=== PATIENT | female | born 1930 | race Caucasian/White ===

== ENCOUNTER 2016-04-26 10:26 | Emergency (ER) | payer BC ==
[~2016-04-26] VITALS: Ht 160 cm; Wt 63.1 kg
[~2016-04-26 10:26] MED LIST: ASPI81TA28 PO; CALCTAB5 PO; CHOL1CAP57 PO; LISI40TA PO; MAGNTAB4 PO; MULT-506 PO; NITR100C PO; TPRSR/50 PO
[2016-04-26 10:45] VITALS: TEMP 36.6; Ht 160 cm; Wt 63.1 kg
[2016-04-26] MEDS ORDERED: ACET650T66 PO (10:58)
[2016-04-26] MEDS ORDERED: INDA1TAB3 PO (10:59)
[2016-04-26] MEDS ORDERED: MoRPHine SULFATE 4 MG/ML 1 ML CARP\\VIAL IM STA (11:13)
[2016-04-26] MEDS ORDERED: MoRPHine SULFATE 10 MG/ML CARP/VIAL IM STA (11:21)
--- NOTE | 2016-04-26 12:06 | DIAGNOSTIC IMAGING REPORT ---
LUMBAR SPINE 2 OR 3 VIEWS CLINICAL HISTORY: Low back pain COMPARISON STUDY: No previous studies for comparison. FINDINGS: There is a lumbar scoliosis. There are multilevel degenerative changes with disc space narrowing most pronounced at the L2-3 through L4-5 levels. No acute fractures are visualized. IMPRESSION: Scoliosis and moderate multilevel degenerative change. No acute fractures are visualized on conventional radiographic imaging Electronically signed by: José Antonio Gutierrez M.D. 04/26/2016 12:04 PM
[2016-04-26] MEDS ORDERED: OXYC1TAB3 PO (12:30)
[2016-04-26 12:52] VITALS: BP 178/89; PULSE 72; O2SAT 98
--- NOTE | 2016-04-26 18:27 | EMERGENCY ROOM VISIT NOTE ---
History Report prepared by Angelia: Polina Michael Under the Supervision of: Dr. Estuardo Braun D.O. First contact with patient: 11:00 Chief Complaint: BACK PAIN Stated Complaint: BAD BACK History of Present Illness The patient is a 85 year old female who presents to the Emergency Room with complaints of worsening back pain that started 10 days ago. The pain does not radiate and it is worse when the patient goes from lying down to sitting up and when she goes from sitting to standing. The patient is still able to ambulate. She denies any other complaints including fevers greater than 100.4, chest pain , shortness of breath, problems with urinating or with bowel movements, weakness of arms or legs, abdominal pain, and numbness in her groin. She states that she has a "bad back." The patient states that she was going to physical therapy for the pain because she felt that her abdominal muscles were weak and worsening her pain. She was stretching her hamstrings 10 days ago when she felt a pull in her back. The pain has been getting progressively worse since then. She has been in contact with Dr. Franco but she has not been able to get in for an appointment until this Monday. The patient states that she has a pacemaker in place. The patient denies any history of spinal injections along with any history of cancer. Source of History: patient Onset: 10 days ago Position: back Timing: worsening Modifying Factors (Worsening): other (going from lying down to sitting up and sitting up to standing) Associated Symptoms: No SOB, No abdominal pain, No chest pain, No fevers, No numbness (in groin), No weakness Note: no problems with urinating or with bowel movements Review of Systems See HPI for pertinent positives & negatives. A total of 10 systems reviewed and were otherwise negative. Past Medical & Surgical Medical Problems: (1) Cardiac Dysrhythmias Nec (2) Cardiomegaly (3) Diverticulosis Colon (W/O Ment Of Hemorrhage) (4) Hypertension Nos (5) Osteoporosis Nos Family History FH: heart disease Social History Smoking Status: Never Smoker Alcohol Use: none Drug Use: none Marital Status: Housing Status: lives with family Occupation Status: retired Current/Historical Medications Scheduled Aspirin (Aspirin Ec), 81 MG PO 2XW Cholecalciferol (Vitamin D3), 1,000 INTUNIT PO QAM Indapamide (Lozol), 1.25 MG PO DAILY Lisinopril (Zestril), 40 MG PO DAILY Metoprolol Succinate (Metoprolol Succinate ER), 50 MG PO DAILY Scheduled PRN Acetaminophen (Arthritis Pain), 2 TAB PO Q6H PRN for Pain Oxycodone Immediate Rel Tab (Roxicodone Ir), 5 MG PO Q6H PRN for Pain Allergies Coded Allergies: Sulfa Drugs (Verified Allergy, Mild, RASH, 04/26/16) Physical Exam Vital Signs Date Time Temp Pulse Resp B/P Pulse Ox O2 Delivery O2 Flow Rate FiO2 04/26/16 12:52 72 18 178/89 98 04/26/16 11:58 71 18 183/90 99 Room Air 04/26/16 10:45 36.6 104 18 183/105 96 Room Air Physical Exam GENERAL: alert, ambulating in room holding right lower back, well appearing, well nourished, no acute distress, non-toxic EYE EXAM: normal conjunctiva OROPHARYNX: no exudate, no erythema, lips, buccal mucosa, and tongue normal and mucous membranes are moist NECK: supple, no nuchal rigidity, no adenopathy, non-tender CHEST: Pacemaker located along right chest wall. LUNGS: Clear to auscultation. Normal chest wall mechanics HEART: no murmurs, S1 normal and S2 normal ABDOMEN: abdomen soft, non-tender, normo-active bowel sounds, no masses, no rebound or guarding. BACK: Back is symmetrical on inspection and there is no deformity, no midline tenderness, no CVA tenderness. Acute reproducible tenderness in the right lower lumbar paraspinal region. SKIN: no rashes and no bruising UPPER EXTREMITIES: upper extremities are grossly normal. LOWER EXTREMITIES: No pitting edema.Flexion/extension hip, knee, ankle, EHL 5/5 bilaterally. Gross sensation intact. Patellar and Achilles reflexes 2/4 bilaterally. Able to walk on heels and toes without difficulty. NEURO EXAM: Normal sensorium Medical Decision & Procedures ER Provider Diagnostic Interpretation: Xray results per the radiologist and my interpretation. LUMBAR SPINE 2 OR 3 VIEWS IMPRESSION: Scoliosis and moderate multilevel degenerative change. No acute fractures are visualized on conventional radiographic imaging Electronically signed by: José Antonio Gutierrez M.D. 04/26/2016 12:04 PM Medications Administered Medications (Trade) Dose Ordered Sig/Willy Route Start Time Stop Time Status Last Admin Dose Admin Morphine Sulfate (MoRPHine SULFATE INJ) 6 mg NOW STAT IM 04/26/16 11:21 04/26/16 11:23 DC 04/26/16 11:31 6 MG ED Course ED COURSE: Vital signs were reviewed and showed tachycardia and hypertension. The patients medical record was reviewed The above diagnostic studies were performed and reviewed. ED treatments and interventions as stated above. 1103: The patient was evaluated in room C4. A complete history and physical examination was performed. 1113: Ordered Morphine Sulfate 6 mg IM 1121: Ordered Morphine Sulfate 6 mg IM 1225: Upon reevaluation, the patient is doing much better with the pain medicine. I discussed my findings with the patient and she understands and agrees with the treatment plan. Based on the patients age, coexisting illnesses, exam and lab findings the decision to treat as an outpatient was made. The patient remained stable while under my care. The patient appeared well at the time of discharge. Medical Decision Differential diagnoses includes but is not limited to lumbar radiculopathy, muscle strain, facture, cauda equina, mass, and disc herniation. Patient is an 85-year-old female who presents the ER for right lower lumbar paraspinal tenderness. Patient notes that this started following discharge her hamstrings on the and she felt a pull/pop in her right lower back. Since then the pain has been worsening. She denies any signs of cauda equina. No saddle paresthesias. No weakness or numbness in her legs or groin. She is able to ambulate without difficulty. Completely neurologically intact. X-rays of her lumbar spine showed no acute fracture. Patient was given IM morphine with significant improvement of her pain. I do feel this muscle skeletal. Patient was discharged with muscle skeletal back pain to follow-up with Dr. Franco Monday with Gisella. Discussed with Pt concerning signs and symptoms to watch out for. Pt was instructed to follow up with their PCP and discussed with the patient their option to return to the ED at anytime for persistent or worsening symptoms. The appropriate anticipatory guidance and out-patient management, including indications for return to the emergency department, were explained at length to the patient and understood. Impression Primary Impression: Lower back pain Additional Impressions: Back strain, Hypertension Scribe Attestation The scribe's documentation has been prepared under my direction and personally reviewed by me in its entirety. I confirm that the note above accurately reflects all work, treatment, procedures, and medical decision making performed by me. Departure Information Dispostion Home / Self-Care Prescriptions Oxycodone Immediate Rel Tab (ROXICODONE IR) 5 Mg Tab 5 MG PO Q6H Y for Pain, #20 TAB Prov: KadeEstuardo, DO 04/26/16 Referrals No Doctor, Assigned (PCP) Forms HOME CARE DOCUMENTATION FORM, IMPORTANT VISIT INFORMATION Patient Instructions A Signature Page, Back Pain - [facility], My [facility] Additional Instructions Please follow up with your primary care doctor with in the next 24 hours. Any worsening of your symptoms, please return to the ED immediately. This includes any weakness or numbness in your arms or legs, inability to move her bowels, numbness in her groin, inability to walk or fevers greater than 100.4 along with any other concerning signs and symptoms from your standpoint. You were given medications during this visit that will inhibit your ability to drive, operate machinery and work. Please do NOT drive, operate machinery or work for the next 12hrs. You were also given a prescription for a narcotic. While taking this medication you should also not drive, operate machinery and or work.
[2016-07-10] MEDS ORDERED: TPRSR50 PO (11:55)
[2016-08-11] MEDS ORDERED: ACYC1CAP9 PO (13:25)
== END 2016-04-26 12:55 | disposition home or self-care (01) ==
LOC: C.EDB 10:27 → C.EDC 12:55
DX: S39.012A Strain of muscle, fascia and tendon of lower back, initial encounter (principal); X50.0XXA Overexertion from strenuous movement or load, initial encounter; Z95.0 Presence of cardiac pacemaker; I10 Essential (primary) hypertension; M81.0 Age-related osteoporosis without current pathological fracture; Z79.82 Long term (current) use of aspirin; Z79.899 Other long term (current) drug therapy

== ENCOUNTER → 2016-06-29 | Outpatient (CLI) | payer BC ==
[~2016-06-29] MED LIST changes: +ACET160S78 PO; +ACET650T66 PO; +ACYC1CAP9 PO; -CALCTAB5 PO; +CLC150 PO; +Enteral Nutrition Formula PO; +FLX/5 PO; +GABA1CAP4 PO; +HYDR-4079 PO; +HYDR-5688 PO; +INDA1TAB3 PO; +LCTX PO; +LSX20 PO; -MAGNTAB4 PO; +MELO7.5T5 PO; +MGNO400 PO; +MRPL PO; -MULT-506 PO; +MYL80 PO; -NITR100C PO; +OXYC1TAB3 PO; +POTA10TA PO; +POTTAB2 PO; +PRD10 PO; +PRT40 PO; +TPRSR50 PO; +TUMS PO; +VALA1TAB31 PO; +ZFRI4 IV; +[UNRECOGNIZED DRUG - CODE] PO
[2016-06-29 14:03] LABS: BASO % 0.7 %; BASO ABS # 0.05 K/uL (0-0.2); COMPLETE YES; EOS % 0.6 %; HEMATOCRIT 26.9 % (37-47); IG% 0.7 %; LYMPH % 32.4 %; LYMPH ABS # 2.23 K/uL (1.2-3.4); MEAN CELL VOLUME 94.4 fL (80-100); MEAN CORPUSCULAR HEMOGLOBIN 31.9 pg (25-34); MEAN CORPUSCULAR HGB CONC 33.8 g/dl (32-36); MEAN PLATELET VOLUME 10.2 fL (7.4-10.4); NEUT % 55.6 %; PLATELET COUNT 135 K/uL (130-400); RED BLOOD COUNT 2.85 M/uL (4.2-5.4); WHITE BLOOD COUNT 6.89 K/uL (4.8-10.8)
[2016-06-29 14:15] LABS: URINE APPEARANCE CLOUDY (CLEAR); URINE BILIRUBIN NEG (NEG); URINE COLOR YELLOW; URINE EPITHELIAL CELL AUTO >30 /lpf (0-5); URINE NITRITE NEG (NEG); URINE PH 6.5 (4.5-7.5); URINE SPECIFIC GRAVITY 1.011 (1.000-1.030); UROBILINOGEN NEG (NEG)
[2016-06-29 14:16] LABS: BLOOD UREA NITROGEN 27 mg/dl (7-18); BUN/CREATININE RATIO 20.5 (10-20); CALCIUM 10.6 mg/dl (8.5-10.1); CARBON DIOXIDE 28 mmol/L (21-32); CHLORIDE 101 mmol/L (98-107); GLUCOSE 99 mg/dl (70-99); POTASSIUM 3.9 mmol/L (3.5-5.1); SODIUM 137 mmol/L (136-145)
[2016-06-29 14:18] LABS: MANUAL MICROSCOPIC REQUIRED? NO; REVIEW REQ? YES
--- NOTE | 2016-07-08 06:51 | CODING QUERY MEDICAL NECESSITY ---
CQSUPPORTING DIAGNOSIS NEEDED A supporting diagnosis is required for the test/procedure performed on this patient in order for us to be reimbursed by the patient's insurance. Please provide a supporting diagnosis for the following test/procedure listed below next to the test name along with your signature. *If there is no additional diagnosis for this patient that would support the following test/procedure please document that below next to the test/procedure. Test(s)/Procedure(s) that require a supporting diagnosis: DOS 06/29/16 URINE CULTURE BACTERIAL TEST TEST ORDERED BY HAO OSBORNE Provider Signature: Date: Thank you Angelique Zhu Health Information Management Once completed, please kindly fax back to [phone] For questions please call [phone]
== END | disposition home or self-care (01) ==
LOC: C.LABBC 09:52
PROVIDERS: ATTEND Internal Medicine Geriatric Medicine
DX: M54.5 Low back pain (principal); R39.9 Unspecified symptoms and signs involving the genitourinary system

== ENCOUNTER 2016-07-04 16:59 | Inpatient (IN) | payer BC, OTHER ==
[~2016-07-04] VITALS: Ht 160 cm; Wt 58.0 kg
[~2016-07-04 16:59] MED LIST changes: -ACET160S78 PO; -ACYC1CAP9 PO; -CLC150 PO; -Enteral Nutrition Formula PO; -FLX/5 PO; -GABA1CAP4 PO; -HYDR-4079 PO; -HYDR-5688 PO; -LCTX PO; -LSX20 PO; -MELO7.5T5 PO; -MGNO400 PO; -MRPL PO; -MYL80 PO; -OPTIRAY 320 IV PRN; -POTA10TA PO; -POTTAB2 PO; -PRD10 PO; -PRT40 PO; -TPRSR50 PO; -TUMS PO; -VALA1TAB31 PO; -ZFRI4 IV; -[UNRECOGNIZED DRUG - CODE] PO
[2016-07-04 17:31] VITALS: BP 158/76; PULSE 109; TEMP 37; O2SAT 94; Ht 160 cm; Wt 58.0 kg
[2016-07-04] MEDS ORDERED: OXYCODONE HCL IR 5 MG TAB (IMMEDIATE RELEASE) PO PRN (20:00)
[2016-07-04] MEDS ORDERED: MoRPHine SULFATE 4 MG/ML 1 ML CARP\\VIAL IV PRN (20:00)
[2016-07-04] MEDS ORDERED: ZOLPIDEM TARTRATE 5 MG TAB PO PRN (20:00)
[2016-07-04] MEDS ORDERED: ACETAMINOPHEN 325 MG TAB PO PRN (20:00)
[2016-07-04] MEDS ORDERED: ACETAMINOPHEN IV 100 ML IV PRN (20:00)
[2016-07-04] MEDS ORDERED: MoRPHine SULFATE 2 MG/ML CARP IV PRN (20:00)
[2016-07-04 20:24] LABS: BASO % 0.3 %; BASO ABS # 0.02 K/uL (0-0.2); EOS % 0.1 %; HEMATOCRIT 26.1 % (37-47); IG% 0.8 %; LYMPH % 27.9 %; LYMPH ABS # 2.12 K/uL (1.2-3.4); MEAN CELL VOLUME 94.6 fL (80-100); MEAN CORPUSCULAR HEMOGLOBIN 32.2 pg (25-34); MEAN PLATELET VOLUME 9.6 fL (7.4-10.4); MONO % 9.1 %; NEUT % 61.8 %; PLATELET COUNT 124 K/uL (130-400); RED BLOOD COUNT 2.76 M/uL (4.2-5.4); WHITE BLOOD COUNT 7.59 K/uL (4.8-10.8)
[2016-07-04 20:29] LABS: MEAN CORPUSCULAR HGB CONC 34.1 g/dl (32-36)
[2016-07-04 20:53] LABS: ALB/GLOB RATIO 0.5 (0.9-2); BUN/CREATININE RATIO 16.9 (10-20); CREATININE 1.1 mg/dl (0.60-1.20); POTASSIUM 3.1 mmol/L (3.5-5.1)
--- NOTE | 2016-07-04 21:04 | DIAGNOSTIC IMAGING REPORT ---
CHEST ONE VIEW PORTABLE CLINICAL HISTORY: Metastatic disease of unknown primary. COMPARISON STUDY: Chest radiograph November 06, 2014. FINDINGS: This exam is compromised by difficulty with positioning. A right subclavian dual-lead pacemaker is in place. Small bilateral pleural effusions are noted. There is pulmonary vascular congestion. Mild cardiomegaly is noted. No pulmonary nodules are identified although sensitivity is diminished given radiographic technique. IMPRESSION: 1. Small bilateral pleural effusions with associated bibasilar opacities which likely reflect atelectasis. 2. No pulmonary nodules identified by radiography. 3. Mild cardiomegaly. No overt pulmonary edema. Electronically signed by: Enrique Zendejas M.D. 07/04/2016 9:02 PM Dictated Date/Time: 07/04/2016 9:00 PM
[2016-07-04] MEDS: ONDANSETRON INJ 2 MG/ML 2 ML VIAL IV PRN (21:10)
[2016-07-04 22:03] LABS: ANISOCYTOSIS PRESENT; COMPLETE YES; POLYCHROMASIA 1+; SMUDGE CELLS PRESENT
[2016-07-04 23:10] VITALS: BP 101/63; PULSE 109; TEMP 37.3; O2SAT 93
--- NOTE | 2016-07-04 23:16 | History and Physical ---
History & Physical Date & Time of Service: Jul 04, 2016 at 23:08 Chief Complaint: Intractable Back Pain, Mutiple Compression Fxs Primary Care Physician: Baron Segura M.D. History of Present Illness Source: patient The patient is an 86-year-old female who presented to PCPs office today with complaint of worsening back pain over the past several days. The pain is especially worse with activity. She has not had any trauma she's not any recent travels or any sick exposures. Pain is in her lower thorax and upper lumbar area, and does not radiate down the legs. Past Medical/Surgical History Medical Problems: (1) Cardiac Dysrhythmias Nec Status: Chronic (2) Cardiomegaly Status: Chronic (3) Diverticulosis Colon (W/O Ment Of Hemorrhage) Status: Chronic (4) Hypertension Nos Status: Chronic (5) Osteoporosis Nos Status: Chronic Family History FH: heart disease Social History Smoking Status: Never Smoker Smokeless Tobacco Use: No Alcohol Use: none Drug Use: none Marital Status: Housing status: lives with family Occupational Status: retired Immunizations History of Influenza Vaccine: Yes History of Tetanus Vaccine?: No History of Pneumococcal: Yes History of Hepatitis B Vaccine: Yes Multi-Drug Resistant Organisms History of MDRO: No Allergies Coded Allergies: Sulfa Antibiotics (Verified Allergy, Unknown, RASH, 07/04/16) Home Medications Scheduled Aspirin (Aspirin Ec), 81 MG PO 2XW Cholecalciferol (Vitamin D3), 1,000 INTUNIT PO QAM Indapamide (Lozol), 1.25 MG PO DAILY Lisinopril (Zestril), 40 MG PO DAILY Metoprolol Succinate (Metoprolol Succinate ER), 50 MG PO DAILY Scheduled PRN Acetaminophen (Arthritis Pain), 2 TAB PO Q6H PRN for Pain Oxycodone Immediate Rel Tab (Roxicodone Ir), 5 MG PO Q6H PRN for Pain Review of Systems The patient denies chest pain, palpitations, shortness of breath, cough, lower extremity swelling, vision change, hearing change, sore throat, fevers, chills, sweats, weight change, fatigue, nausea, vomiting, abdominal pain, pelvic pain, blood in urine or stool, dysuria, urinary frequency or urgency, lightheadedness , dizziness, headache, memory loss, rash, abnormal bruising or bleeding, imbalance, arthralgias or myalgias, night sweats, or allergy symptoms. The review of systems is otherwise negative other than for that already noted above, and at least 10 systems have been reviewed. Physical Exam Vital Signs Date Time Temp Pulse Resp B/P Pulse Ox O2 Delivery O2 Flow Rate FiO2 07/04/16 20:46 Room Air 07/04/16 17:31 37.0 109 16 158/76 94 Room Air The patient is awake, well-developed and adequately nourished, alert and oriented 3, normocephalic and atraumatic, lying in bed and in no acute distress. HEENT--PERRL, EOMI, mucous membranes and oropharynx moist. Neck--supple, no JVD or bruits, thyroid normal, trachea midline, no adenopathy. Heart--normal S1 and S2, no extra beats, no murmurs, rubs or gallops. Lungs--clear bilaterally with good air movement, no respiratory distress, no accessory muscle use. Abdomen--normal bowel sounds and soft, nontender and nondistended, no hernias or masses, no organomegaly. Extremities--no cyanosis, clubbing or edema. There are good distal pulses b/l. Dermatologic--normal skin turgor, normal color, warm and dry, no abnormal lymph nodes, no rash. Neurologic--cranial nerves II through XII grossly intact, motor and sensory examination normal. Rheumatologic--reproducible pain over lower thorax and upper lumbar spine. Psychiatric--normal affect. Diagnostics Laboratory Results Results Past 24 Hours Test 07/04/16 20:05 Range/Units White Blood Count 7.59 4.8-10.8 K/uL Red Blood Count 2.76 4.2-5.4 M/uL Hemoglobin 8.9 12.0-16.0 g/dL Hematocrit 26.1 37-47 % Mean Corpuscular Volume 94.6 80-100 fL Mean Corpuscular Hemoglobin 32.2 25-34 pg Mean Corpuscular Hemoglobin Concent 34.1 32-36 g/dl Platelet Count 124 130-400 K/uL Mean Platelet Volume 9.6 7.4-10.4 fL Neutrophils (%) (Auto) 61.8 % Lymphocytes (%) (Auto) 27.9 % Monocytes (%) (Auto) 9.1 % Eosinophils (%) (Auto) 0.1 % Basophils (%) (Auto) 0.3 % Neutrophils # (Auto) 4.69 1.4-6.5 K/uL Lymphocytes # (Auto) 2.12 1.2-3.4 K/uL Monocytes # (Auto) 0.69 0.11-0.59 K/uL Eosinophils # (Auto) 0.01 0-0.5 K/uL Basophils # (Auto) 0.02 0-0.2 K/uL RDW Standard Deviation 63.2 36.4-46.3 fL RDW Coefficient of Variation 19.3 11.5-14.5 % Immature Granulocyte % (Auto) 0.8 % Immature Granulocyte # (Auto) 0.06 0.00-0.02 K/uL Nucleated RBC Absolute Count (auto) 0.05 0-0 K/uL Nucleated Red Blood Cells % 0.6 % Smudge Cells PRESENT Polychromasia 1+ Anisocytosis PRESENT Sodium Level 135 136-145 mmol/L Potassium Level 3.1 3.5-5.1 mmol/L Chloride Level 99 98-107 mmol/L Carbon Dioxide Level 28 21-32 mmol/L Anion Gap 8.0 3-11 mmol/L Blood Urea Nitrogen 19 7-18 mg/dl Creatinine 1.10 0.60-1.20 mg/dl Est Creatinine Clear Calc Drug Dose 30.4 ml/min Estimated GFR () 52.6 Estimated GFR (Non- 45.4 BUN/Creatinine Ratio 16.9 10-20 Random Glucose 112 70-99 mg/dl Calcium Level 10.0 8.5-10.1 mg/dl Total Bilirubin 1.0 0.2-1 mg/dl Aspartate Amino Transf (AST/SGOT) 40 15-37 U/L Alanine Aminotransferase (ALT/SGPT) 38 12-78 U/L Alkaline Phosphatase 151 45-117 U/L Total Protein 9.4 6.4-8.2 gm/dl Albumin 3.0 3.4-5.0 gm/dl Globulin 6.4 2.5-4.0 gm/dl Albumin/Globulin Ratio 0.5 0.9-2 Diagnostic Radiology Patient Name: OPHELIA RAMIREZ Unit Number: [id number] Dictated: 07/04/161411 Transcribed: 07/04/161411 EV Printed Date/Time: [~ rep prt dt]/[~ rep prt tm] [~ rep ct labl] - [~ rep ct ivnm] [facility] [place] [address] Dictated: 07/04/161411 Transcribed: 07/04/161411 EV Printed Date/Time: [~ rep prt dt]/[~ rep prt tm] [~ rep ct labl] - [~ rep ct ivnm] CT SCAN OF THE ABDOMEN AND PELVIS WITH IV CONTRAST CLINICAL HISTORY: Low back pain. COMPARISON STUDY: Abdominal CT dated 09/18/2014. TECHNIQUE: Following the IV administration of 93 cc of Optiray 320, CT scan of the abdomen and pelvis is performed from the lung bases to the proximal femora. Images are reviewed in the axial, sagittal, and coronal planes. IV contrast was administered without complication. Automated dose control exposure was utilized. CT DOSE: 277.31 mGy.cm FINDINGS: Lung bases: The heart is mildly enlarged and there is trace pericardial effusion. Pacemaker leads are noted. The coronary arteries are densely calcified. There are small pleural effusions with bibasilar atelectasis. Liver: The contrast-enhanced liver is normal in size, contour, and attenuation. There is no intrahepatic biliary ductal dilatation. A 1.6 cm cyst in the inferior right lobe of liver seen on image #221. A subcentimeter hypodensity in the right lobe seen on image #89 May represent a cyst but is too small to characterize and unchanged. The hepatic veins and portal veins are patent. Gallbladder: Unremarkable. Spleen: Normal in size and attenuation. Pancreas: Moderately atrophic and grossly unremarkable. Adrenal glands: Unremarkable. Kidneys: The contrast enhanced kidneys demonstrate cortical atrophy and are without hydronephrosis. The kidneys enhance symmetrically. Small renal cysts measure up to 1.9 cm. Additional subcentimeter cortical hypodensities also likely represent cysts but are too small for definitive characterization. Abdominal vasculature: The abdominal aorta is normal in course and caliber noting advanced atherosclerotic calcification. Bowel: The small bowel and colon are normal in course and caliber. There is moderate colonic diverticulosis without CT evidence of acute diverticulitis. The appendix is not identified and reported surgically absent. Peritoneum: There is no intraperitoneal free air or abdominal ascites. Lymphadenopathy: None. Pelvic viscera: The bladder, uterus, and adnexa are normal as visualized. Skeletal structures: The skeletal structures are osteopenic. There are moderate compression deformities of T9 and T12. A mild compression deformity is seen involving T10 and L2. There is evidence of a right sacral insufficiency fracture as seen on axial image #244. These fractures are all new from 09/18/2014. 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 There is paravertebral edema seen anteriorly extending from T11 through L2. IMPRESSION: 1. There are no acute infectious or inflammatory findings in the abdomen or pelvis. 2. Small pleural effusions with bibasilar atelectasis. 3. 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 This is a new finding from 09/18/2014. This is nonspecific, with multiple myeloma a strong differential consideration. 4. There are compression fractures of T9, T12, T10, and L2 as well as a right sacral insufficiency fracture. No large retropulsed fragments are identified. These are new from the 09/18/2014 examination and likely pathologic. 5. Paravertebral edema is noted anteriorly from T11 through L2. This may represent trace hemorrhage from acute compression fracture. 6. Cardiomegaly. 7. Moderate colonic diverticulosis without CT evidence of acute diverticulitis. Electronically signed by: Jose Perez M.D. 07/04/2016 2:25 PM Dictated Date/Time: 07/04/2016 2:12 PM The status of this report is Signed. Draft = Not yet reviewed or approved by Radiologist. Signed = Reviewed and approved by Radiologist. <AttendingPhy>Marielos Tejeda,P.A.</AttendingPhy> <FamilyPhy>Baron Segura M.D.</FamilyPhy> <PrimaryPhy>Baron Segura M.D.</PrimaryPhy> <UnitNumber> [id number]</UnitNumber> <VisitNumber>[id number]</VisitNumber> <PatientName> OPHELIA RAMIREZ</PatientName> <DateOfBirth>1930</DateOfBirth> <Location>[facility]< /Location> <ServiceDate>07/04/16</ServiceDate> <MNE>ESINDI</MNE> <OrderingPhy> Marielos Tejeda P.A.</OrderingPhy> <OrderingPhyMNE>f rep ord dr huang</ OrderingPhyMNE> <DictatingPhyMNE>f rep dict dr huang</DictatingPhyMNE> <CCListMNE> f rep ct mne</CCListMNE> <AdmittingPhyMNE>f pt admit dr huang</AdmittingPhyMNE> < AttendingPhyMNE>f pt attend dr huang</AttendingPhyMNE> <ConsultingPhyMNE>f pt consult dr huang</ConsultingPhyMNE> <FamilyPhyMNE>f pt fam dr huang</FamilyPhyMNE> <OtherPhyMNE>f pt other dr huang</OtherPhyMNE> < PrimaryPhyMNE>f pt prim care dr huang</PrimaryPhyMNE> <ReferringPhyMNE>f pt referring dr huang</ReferringPhyMNE> Impression Assessment and Plan Intractable low back pain due to compression deformities at T9, T10, T12, and L2 , along with paravertebral edema anteriorly extending from T11 through L2, and a right sacral insufficiency fracture. 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 The patient has no history of a primary carcinoma, and her assessment will continue with a CT of the abdomen and pelvis and chest. We'll place her on oxycodone 5 mg by mouth every 4 hours when necessary, and morphine sulfate 2-4 mg IV every 2 hours when necessary. We'll consult hematology/oncology for their assessment. Hypertension continue lisinopril 40 mg by mouth daily, metoprolol succinate 50 mg by mouth daily, aspirin 81 mg by mouth 2 times per week, and hold indapamide 1.25 mg by mouth daily. Level of Care Med/Surg Advanced Directives Existing Advance Directive: No Existing Living Will: Yes Existing Power of Hand Stemmer: Yes Resuscitation Status FULL RESUSCITATION VTE Prophylaxis VTE Risk Assessment Done? Y/N: Yes Risk Level: Moderate Given or contraindicated: SCD's
[2016-07-05] MEDS: OXYCODONE HCL IR 5 MG TAB (IMMEDIATE RELEASE) PO PRN ×2 (01:13→12:22)
[2016-07-05 07:11] VITALS: BP 128/76; PULSE 98; TEMP 37; O2SAT 91
[2016-07-05 07:19] LABS: BASO % 0.7 %; BASO ABS # 0.04 K/uL (0-0.2); EOS % 0.5 %; HEMATOCRIT 23.7 % (37-47); IG% 0.5 %; LYMPH % 40.8 %; MEAN CORPUSCULAR HGB CONC 33.3 g/dl (32-36); MONO % 8.2 %; NEUT % 49.3 %; PLATELET COUNT 107 K/uL (130-400); RED BLOOD COUNT 2.47 M/uL (4.2-5.4); WHITE BLOOD COUNT 6.13 K/uL (4.8-10.8)
[2016-07-05 07:45] LABS: BUN/CREATININE RATIO 16.7 (10-20); CALCIUM 10.1 mg/dl (8.5-10.1); CREATININE 1.1 mg/dl (0.60-1.20); MAGNESIUM 1.1 mg/dl (1.8-2.4); POTASSIUM 3.5 mmol/L (3.5-5.1)
[2016-07-05 07:59] LABS: ANISOCYTOSIS PRESENT; COMPLETE YES
[2016-07-05 09:47] VITALS: BP 111/64; PULSE 88
[2016-07-05] MEDS: METOPROLOL SUCC 50MG EXT REL TAB PO SCH (09:48)
[2016-07-05] MEDS: LISINOPRIL 40 MG TAB PO SCH (09:49)
[2016-07-05] MEDS: SENNA 8.6 MG TAB PO SCH (09:49)
[2016-07-05] MEDS: CHOLECALCIFEROL 1000 INTER.UNIT TAB PO SCH (10:06)
[2016-07-05 11:12] LABS: FERRITIN 1720.1 ng/ml (8.0-388.0)
--- NOTE | 2016-07-05 11:43 | Hospitalist Progress Note ---
Hospitalist Progress Note Date of Service Jul 05, 2016. Subjective Pt evaluation today including: conversation w/ patient, physical exam, chart review, lab review, review of studies, review of inpatient medication list Voiding: no voiding problems, no incontinence Patient states she is feeling well. Pain is well controlled. +decreased appetite. Patient denies any fever, chills, sweats, lightheadedness, dizziness, vision changes, CP, palpitations, edema, SOB, wheezing, cough, abdominal pain, nausea, vomiting, diarrhea, urinary symptoms, melena, numbness/tingling, weakness, anxiety/depression, active bleeding, or new skin discoloration/ changes. Medications Current Inpatient Medications Medications (Trade) Dose Ordered Sig/Willy Route Start Time Stop Time Status Last Admin Dose Admin Acetaminophen (Tylenol Tab) 650 mg Q4H PRN PO 07/04/16 20:00 08/03/16 19:59 Zolpidem Tartrate (Ambien Tab) 5 mg HSZ PRN PO 07/04/16 20:00 08/03/16 19:59 Lisinopril (Zestril Tab) 40 mg DAILY PO 07/05/16 09:00 08/04/16 08:59 07/05/16 09:49 40 MG Metoprolol Succinate (Toprol Xl Tab) 50 mg DAILY PO 07/05/16 09:00 08/04/16 08:59 07/05/16 09:48 50 MG Cholecalciferol (Vitamin D Tab) 1,000 inter.unit QAM PO 07/05/16 09:00 08/04/16 08:59 07/05/16 10:06 1,000 INTER.UNIT Ondansetron HCl (Zofran Inj) 4 mg Q6H PRN IV 07/04/16 20:00 08/03/16 19:59 07/04/16 21:10 4 MG Morphine Sulfate (MoRPHine SULFATE INJ) 2 mg Q2H PRN IV 07/04/16 20:00 07/18/16 19:59 Morphine Sulfate 4 mg 4 mg Q2H PRN IV 07/04/16 20:00 07/18/16 19:59 Acetaminophen (Ofirmev Iv) 100 ml @ 400 mls/hr Q8H PRN IV 07/04/16 20:00 08/03/16 19:59 Oxycodone HCl (Roxicodone Immediate Rel Tab) 5 mg Q4H PRN PO 07/05/16 00:00 07/19/16 00:00 07/05/16 01:13 5 MG Senna 17.2 mg 17.2 mg QAM PO 07/05/16 09:00 08/04/16 08:59 07/05/16 09:49 17.2 MG Magnesium Sulfate/ Prmx (Magnesium Sulfate/Premixed D5W) 100 ml @ 100 mls/hr 1200,1300 IV 07/05/16 12:00 07/05/16 16:00 Ioversol (Optiray 320) 100 ml UD PRN IV 07/05/16 11:45 07/09/16 11:44 Objective Vital Signs Date Time Temp Pulse Resp B/P Pulse Ox O2 Delivery O2 Flow Rate FiO2 07/05/16 09:47 88 111/64 07/05/16 07:45 Room Air 07/05/16 07:11 37.0 98 18 128/76 91 Room Air 07/04/16 23:40 Room Air 07/04/16 23:10 37.3 109 18 101/63 93 Room Air 07/04/16 20:46 Room Air 07/04/16 17:31 37.0 109 16 158/76 94 Room Air Physical Exam General Appearance: no apparent distress Eyes: PERRL ENT: hearing grossly normal Neck: supple Respiratory/Chest: lungs clear, no respiratory distress, no accessory muscle use Cardiovascular: regular rate, rhythm Abdomen: normal bowel sounds, non tender, soft, + pertinent finding (abdominal edema noted ) Extremities: no calf tenderness, + swelling (+non-pitting edema of bilateral lower extremities ) Neurologic/Psychiatric: alert, normal mood/affect, oriented x 3 Skin: normal color, warm/dry, no rash Laboratory Results Last 24 Hours Test 07/04/16 20:05 07/05/16 07:13 07/05/16 10:25 07/05/16 11:02 White Blood Count 7.59 K/uL 6.13 K/uL Red Blood Count 2.76 M/uL 2.47 M/uL Hemoglobin 8.9 g/dL 7.9 g/dL Hematocrit 26.1 % 23.7 % Mean Corpuscular Volume 94.6 fL 96.0 fL Mean Corpuscular Hemoglobin 32.2 pg 32.0 pg Mean Corpuscular Hemoglobin Concent 34.1 g/dl 33.3 g/dl Platelet Count 124 K/uL 107 K/uL Mean Platelet Volume 9.6 fL 9.0 fL Neutrophils (%) (Auto) 61.8 % 49.3 % Lymphocytes (%) (Auto) 27.9 % 40.8 % Monocytes (%) (Auto) 9.1 % 8.2 % Eosinophils (%) (Auto) 0.1 % 0.5 % Basophils (%) (Auto) 0.3 % 0.7 % Neutrophils # (Auto) 4.69 K/uL 3.03 K/uL Lymphocytes # (Auto) 2.12 K/uL 2.50 K/uL Monocytes # (Auto) 0.69 K/uL 0.50 K/uL Eosinophils # (Auto) 0.01 K/uL 0.03 K/uL Basophils # (Auto) 0.02 K/uL 0.04 K/uL RDW Standard Deviation 63.2 fL 66.2 fL RDW Coefficient of Variation 19.3 % 20.0 % Immature Granulocyte % (Auto) 0.8 % 0.5 % Immature Granulocyte # (Auto) 0.06 K/uL 0.03 K/uL Nucleated RBC Absolute Count (auto) 0.05 K/uL 0.04 K/uL Nucleated Red Blood Cells % 0.6 % 0.6 % Smudge Cells PRESENT Polychromasia 1+ Anisocytosis PRESENT PRESENT Sodium Level 135 mmol/L 138 mmol/L Potassium Level 3.1 mmol/L 3.5 mmol/L Chloride Level 99 mmol/L 102 mmol/L Carbon Dioxide Level 28 mmol/L 28 mmol/L Anion Gap 8.0 mmol/L 8.0 mmol/L Blood Urea Nitrogen 19 mg/dl 18 mg/dl Creatinine 1.10 mg/dl 1.10 mg/dl Est Creatinine Clear Calc Drug Dose 30.4 ml/min 30.4 ml/min Estimated GFR () 52.6 52.6 Estimated GFR (Non- 45.4 45.4 BUN/Creatinine Ratio 16.9 16.7 Random Glucose 112 mg/dl 89 mg/dl Calcium Level 10.0 mg/dl 10.1 mg/dl Total Bilirubin 1.0 mg/dl Aspartate Amino Transf (AST/SGOT) 40 U/L Alanine Aminotransferase (ALT/SGPT) 38 U/L Alkaline Phosphatase 151 U/L Total Protein 9.4 gm/dl Albumin 3.0 gm/dl Globulin 6.4 gm/dl Albumin/Globulin Ratio 0.5 Magnesium Level 1.1 mg/dl Assessment and Plan The patient is an 86-year-old female who presented to PCPs office today with complaint of worsening back pain over the past several days. The pain is especially worse with activity. She has not had any trauma she's not any recent travels or any sick exposures. Pain is in her lower thorax and upper lumbar area, and does not radiate down the legs. Intractable low back pain due to compression deformities at T9, T10, T12, and L2 , along with paravertebral edema anteriorly extending from T11 through L2, and a right sacral insufficiency fracture: - Admit med/surg - No hx of a primary carcinoma - CT of abdomen/pelvis- There are no acute infectious or inflammatory findings in the abdomen or pelvis. 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 This is a new finding from 09/18/2014. This is nonspecific, with multiple myeloma a strong differential consideration. There are compression fractures of T9, T12, T10, and L2 as well as a right sacral insufficiency fracture. No large retropulsed fragments are identified. These are new from the 09/18/2014 examination and likely pathologic. Paravertebral edema is noted anteriorly from T11 through L2. This may represent trace hemorrhage from acute compression fracture. - CT of chest pending - Serum proteins/tumor markers pending - Health maintenance hx: -- Mammogram 08/03/15- no evidence of malignancy, 1 year f/u recommended -- 07/21/2014- needle aspiration of right breast cyst--> cytology showed atypical cells -- Colonoscopy 01/01/10- diverticular disease, no other abnormalities noted -- Routine NURSING OFFICER visits- denies any abnormal exams/pap smears - Oxycodone 5 mg PO q4hrs, Tylenol 650 mg PO q4 hrs, and Morphine 2-4 mg IV q2 hrs for pain management - Consult hematology/oncology, appreciate recommendations Hypertension: - Continue Lisinopril 40 mg PO daily, Metoprolol succinate 50 mg PO daily, Aspirin 81 mg PO 2x weekly - Hold Indapamide 1.25 mg PO daily Hypokalemia, resolved: - Follow PRP Hypomagnesemia: - Replete w/ IV Mag PRN - Follow mag level Anemia: - Appears new- hgb 03/24/16 and prior WNL - Check b12 and folate - Iron panel - Fecal occult pending hx of heart block s/p pacemaker implantation: Follows with Dr. Cortez DVT prophylaxis: Avoid anticoagulation due to anemia. LAURENCE and SCDs Code Status: LEVEL I, FULL
[2016-07-05] MEDS ORDERED: OPTIRAY 320 IV PRN (11:45)
[2016-07-05] MEDS: MAGNESIUM SULFATE 1GM / D5W 1 GM in PREMIXED IN D5W 100 ML IV SCH ×2 (12:13→13:13)
--- NOTE | 2016-07-05 14:20 | DIAGNOSTIC IMAGING REPORT ---
CT OF THE CHEST WITH IV CONTRAST CLINICAL HISTORY: Metastatic workup. Intractable back pain with multiple compression fractures. COMPARISON STUDY: Chest radiograph November 06, 2014 and July 04, 2016 TECHNIQUE: Following IV administration of 70 mL of Optiray-320, helical axial images of the chest were obtained. Images were viewed in the axial, sagittal and coronal planes. IV contrast was administered without complication. CT DOSE: 213.08 mGy.cm FINDINGS: A dual lead right subclavian pacemaker is in place. No enlarged axillary, mediastinal or hilar lymph nodes are present. Moderate cardiomegaly is noted. There is no pericardial effusion. There are small bilateral pleural effusions, right larger than left. Associated airspace opacities suggest atelectasis. There are no suspicious pulmonary nodules. There is no evidence for pneumonia. There is no pneumothorax. No pneumomediastinum is identified. Central airways are patent. There are innumerable lytic lesions throughout visualized skeletal structures. There are multiple thoracic and upper lumbar spine pathologic compression fractures, including fractures of T1, T9, T11, T12 and L2. The L2 vertebral body is largely replaced by tumor. Severe loss of height of T12 is noted with mild retropulsion. Paravertebral edema or tumor is noted within the lower thoracic and upper lumbar spine. This is unchanged since prior CT. Renal and hepatic cysts are incidentally noted. IMPRESSION: 1. Innumerable lytic lesions throughout visualized skeletal structures with numerous pathologic compression fractures within the thoracic and lumbar spines as described above. The findings are consistent with a neoplastic process and favor multiple myeloma. Metastatic disease could appear similar. 2. No suspicious pulmonary nodules. 3. Small bilateral pleural effusions, right larger than left. 4. No thoracic lymphadenopathy. Electronically signed by: Enrique Zendejas M.D. 07/05/2016 2:18 PM Dictated Date/Time: 07/05/2016 2:01 PM
[2016-07-05 15:37] VITALS: BP 118/70; PULSE 82; TEMP 36.9; O2SAT 90
[2016-07-05 15:50] VITALS: O2SAT 90
[2016-07-05] MEDS: ONDANSETRON INJ 2 MG/ML 2 ML VIAL IV PRN (19:13)
[2016-07-05 23:07] VITALS: BP 141/81; PULSE 102; TEMP 37.5; O2SAT 93
[2016-07-06 07:11] VITALS: BP 148/83; PULSE 102; TEMP 36.8; O2SAT 92
[2016-07-06 07:24] LABS: HEMATOCRIT 23.8 % (37-47); MEAN CELL VOLUME 96.4 fL (80-100); MEAN CORPUSCULAR HGB CONC 33.2 g/dl (32-36); MEAN PLATELET VOLUME 8.8 fL (7.4-10.4); PLATELET COUNT 120 K/uL (130-400); RED BLOOD COUNT 2.47 M/uL (4.2-5.4); WHITE BLOOD COUNT 5.35 K/uL (4.8-10.8)
[2016-07-06 08:02] LABS: BUN/CREATININE RATIO 15.3 (10-20); CALCIUM 9.9 mg/dl (8.5-10.1); CREATININE 1.3 mg/dl (0.60-1.20); MAGNESIUM 1.4 mg/dl (1.8-2.4); POTASSIUM 3.4 mmol/L (3.5-5.1)
[2016-07-06 08:48] LABS: ANISOCYTOSIS PRESENT; BASO ABS # 0.09 K/uL (0-0.2); BASOPHIL % 1.7 %; COMPLETE YES; EOSINOPHIL % 0.9 %; LYMPH ABS # 1.16 K/uL (1.2-3.4); LYMPHOCYTE % 21.7 %; META ABS # 0.05 K/uL (0-0); METAMYELOCYTE % 0.9 %; NEUTROPHILS % 69.6 %
[2016-07-06] MEDS: SENNA 8.6 MG TAB PO SCH (09:00)
[2016-07-06] MEDS: CHOLECALCIFEROL 1000 INTER.UNIT TAB PO SCH (09:01)
[2016-07-06] MEDS: LISINOPRIL 40 MG TAB PO SCH (09:01)
[2016-07-06] MEDS: METOPROLOL SUCC 50MG EXT REL TAB PO SCH (09:01)
--- NOTE | 2016-07-06 09:36 | Hospitalist Progress Note ---
Hospitalist Progress Note Date of Service Jul 06, 2016. Subjective Pt evaluation today including: conversation w/ patient, physical exam, chart review, lab review, review of studies, review of inpatient medication list Voiding: no voiding problems, no incontinence Patient states she is feeling well. Pain is currently well managed. She is eating and drinking OK. Patient denies any fever, chills, sweats, lightheadedness, dizziness, vision changes, CP, palpitations, edema, SOB, wheezing, cough, abdominal pain, nausea, vomiting, diarrhea, urinary symptoms, melena, numbness/tingling, weakness, anxiety/depression, active bleeding, or new skin discoloration/changes. Medications Current Inpatient Medications Medications (Trade) Dose Ordered Sig/Willy Route Start Time Stop Time Status Last Admin Dose Admin Acetaminophen (Tylenol Tab) 650 mg Q4H PRN PO 07/04/16 20:00 08/03/16 19:59 Zolpidem Tartrate (Ambien Tab) 5 mg HSZ PRN PO 07/04/16 20:00 08/03/16 19:59 Lisinopril (Zestril Tab) 40 mg DAILY PO 07/05/16 09:00 08/04/16 08:59 07/06/16 09:01 40 MG Metoprolol Succinate (Toprol Xl Tab) 50 mg DAILY PO 07/05/16 09:00 08/04/16 08:59 07/06/16 09:01 50 MG Cholecalciferol (Vitamin D Tab) 1,000 inter.unit QAM PO 07/05/16 09:00 08/04/16 08:59 07/06/16 09:01 1,000 INTER.UNIT Ondansetron HCl (Zofran Inj) 4 mg Q6H PRN IV 07/04/16 20:00 08/03/16 19:59 07/05/16 19:13 4 MG Morphine Sulfate (MoRPHine SULFATE INJ) 2 mg Q2H PRN IV 07/04/16 20:00 07/18/16 19:59 Morphine Sulfate 4 mg 4 mg Q2H PRN IV 07/04/16 20:00 07/18/16 19:59 Acetaminophen (Ofirmev Iv) 100 ml @ 400 mls/hr Q8H PRN IV 07/04/16 20:00 08/03/16 19:59 Oxycodone HCl (Roxicodone Immediate Rel Tab) 5 mg Q4H PRN PO 07/05/16 00:00 07/19/16 00:00 07/05/16 12:22 5 MG Senna (Senokot Tab) 17.2 mg QAM PO 07/05/16 09:00 08/04/16 08:59 07/05/16 09:49 17.2 MG Ioversol 100 ml 100 ml UD PRN IV 07/05/16 11:45 07/09/16 11:44 Magnesium Sulfate/ Prmx (Magnesium Sulfate/Premixed D5W) 100 ml @ 100 mls/hr 1030,1130 IV 07/06/16 10:30 07/06/16 12:29 Objective Vital Signs Date Time Temp Pulse Resp B/P Pulse Ox O2 Delivery O2 Flow Rate FiO2 07/06/16 08:00 Room Air 07/06/16 07:11 36.8 102 16 148/83 92 Room Air 07/05/16 23:50 Room Air 07/05/16 23:07 37.5 102 19 141/81 93 Room Air 07/05/16 15:50 90 Room Air 07/05/16 15:37 36.9 82 18 118/70 90 Room Air 07/05/16 09:47 88 111/64 Physical Exam General Appearance: no apparent distress Eyes: normal inspection, PERRL ENT: hearing grossly normal Neck: supple Respiratory/Chest: lungs clear, no respiratory distress, no accessory muscle use Cardiovascular: regular rate, rhythm Abdomen: normal bowel sounds, non tender, soft Extremities: no pedal edema, no calf tenderness, + swelling (bilateral nonpitting edema of lower extremities ) Neurologic/Psychiatric: alert, normal mood/affect, oriented x 3 Skin: normal color, warm/dry, no rash Laboratory Results Last 24 Hours Test 07/05/16 10:25 07/05/16 11:02 07/06/16 07:13 07/06/16 07:50 Iron Level 205 mcg/dl Total Iron Binding Capacity 216 mcg/dl Ferritin 1720.1 ng/ml Carcinoembryonic Antigen 1.5 ng/ml Vitamin B12 Level 765 pg/mL Folate 19.90 ng/mL White Blood Count 5.35 K/uL Red Blood Count 2.47 M/uL Hemoglobin 7.9 g/dL Hematocrit 23.8 % Mean Corpuscular Volume 96.4 fL Mean Corpuscular Hemoglobin 32.0 pg Mean Corpuscular Hemoglobin Concent 33.2 g/dl Platelet Count 120 K/uL Mean Platelet Volume 8.8 fL RDW Standard Deviation 66.4 fL RDW Coefficient of Variation 19.9 % Nucleated RBC Absolute Count (auto) 0.05 K/uL Neutrophils % (Manual) 69.6 % Lymphocytes % (Manual) 21.7 % Monocytes % (Manual) 5.2 % Eosinophils % (Manual) 0.9 % Basophils % (Manual) 1.7 % Metamyelocytes % 0.9 % Nucleated Red Blood Cells % 1.0 % Neutrophils # (Manual) 3.72 K/uL Total Absolute Neutrophils 3.72 K/uL Lymphocytes # (Manual) 1.16 K/uL Total Absolute Lymphocytes 1.16 K/uL Monocytes # (Manual) 0.28 K/uL Eosinophils # (Manual) 0.05 K/uL Basophils # (Manual) 0.09 K/uL Metamyelocytes # 0.05 K/uL Anisocytosis PRESENT Sodium Level 139 mmol/L Potassium Level 3.4 mmol/L Chloride Level 102 mmol/L Carbon Dioxide Level 29 mmol/L Anion Gap 8.0 mmol/L Blood Urea Nitrogen 20 mg/dl Creatinine 1.30 mg/dl Est Creatinine Clear Calc Drug Dose 25.7 ml/min Estimated GFR () 43.0 Estimated GFR (Non- 37.1 BUN/Creatinine Ratio 15.3 Random Glucose 91 mg/dl Calcium Level 9.9 mg/dl Magnesium Level 1.4 mg/dl Stool Occult Blood NEGATIVE Assessment and Plan The patient is an 86-year-old female who presented to PCPs office today with complaint of worsening back pain over the past several days. The pain is especially worse with activity. She has not had any trauma she's not any recent travels or any sick exposures. Pain is in her lower thorax and upper lumbar area, and does not radiate down the legs. Intractable low back pain due to compression deformities at T9, T10, T12, and L2 , along with paravertebral edema anteriorly extending from T11 through L2, and a right sacral insufficiency fracture: - Admit med/surg - No hx of a primary carcinoma - CT of abdomen/pelvis- There are no acute infectious or inflammatory findings in the abdomen or pelvis. 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 This is a new finding from 09/18/2014. This is nonspecific, with multiple myeloma a strong differential consideration. There are compression fractures of T9, T12, T10, and L2 as well as a right sacral insufficiency fracture. No large retropulsed fragments are identified. These are new from the 09/18/2014 examination and likely pathologic. Paravertebral edema is noted anteriorly from T11 through L2. This may represent trace hemorrhage from acute compression fracture. - CT of chest- Innumerable lytic lesions throughout visualized skeletal structures with numerous pathologic compression fractures within the thoracic and lumbar spines as described above. The findings are consistent with a neoplastic process and favor multiple myeloma. Metastatic disease could appear similar. No suspicious pulmonary nodules. Small bilateral pleural effusions, right larger than left. No thoracic lymphadenopathy. 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 Cortez DVT prophylaxis: Avoid anticoagulation due to anemia/thrombocytopenia. LAURENCE and SCDs Code Status: LEVEL I, FULL Dispo: - From home - [facility] referral pending - PT/OT evaluations needed prior to discharge, when able to participate
--- NOTE | 2016-07-06 09:36 | Oncology Consultation ---
Oncology/Heme Consultation Date of Consultation: Jul 06, 2016. Attending Physician: Greg Huggins MD, PhD Reason for Consultation: New lytic bone lesions Pathologic fracture History of Present Illness Ms. Kelly is an 86 year old woman with a history of arrhythmia with a pacemaker. She is otherwise in generally good health. She presents with acutely worsened back pain. A CT revealed innumerable lytic bone lesions causing compression fractures at multiple levels of her thoracic and lumbar spine. She notes that she had a bit of pain before a recent trip to [place], but that the pain significantly escalated after her return. She denies anorexia, weakness, recurring infections, or bleeding. She denies melena, hematochezia, or other stool changes. Her last colonoscopy was 10 years ago and was normal. She gets annual mammograms and denies breast masses, skin changes, or adenopathy. She is a never smoker. Her pain is improved today with narcotics, though she is still somewhat uncomfortable. She denies any lower extremity numbness or weakness or any changes in stool or urine continence. Family History FH: heart disease Social History Smoking Status: Never Smoker Smokeless Tobacco Use: No Alcohol Use: none Drug Use: none Marital Status: Housing Status: lives with family Occupation Status: retired Allergies Coded Allergies: Sulfa Antibiotics (Verified Allergy, Unknown, RASH, 07/04/16) Home Medications Scheduled Aspirin (Aspirin Ec), 81 MG PO 2XW Cholecalciferol (Vitamin D3), 1,000 INTUNIT PO QAM Indapamide (Lozol), 1.25 MG PO DAILY Lisinopril (Zestril), 40 MG PO DAILY Metoprolol Succinate (Metoprolol Succinate ER), 50 MG PO DAILY Scheduled PRN Acetaminophen (Arthritis Pain), 2 TAB PO Q6H PRN for Pain Oxycodone Immediate Rel Tab (Roxicodone Ir), 5 MG PO Q6H PRN for Pain Current Inpatient Medications Current Inpatient Medications Medications (Trade) Dose Ordered Sig/Willy Route Start Time Stop Time Status Last Admin Dose Admin Acetaminophen (Tylenol Tab) 650 mg Q4H PRN PO 07/04/16 20:00 08/03/16 19:59 Zolpidem Tartrate (Ambien Tab) 5 mg HSZ PRN PO 07/04/16 20:00 08/03/16 19:59 Lisinopril (Zestril Tab) 40 mg DAILY PO 07/05/16 09:00 08/04/16 08:59 07/06/16 09:01 40 MG Metoprolol Succinate (Toprol Xl Tab) 50 mg DAILY PO 07/05/16 09:00 08/04/16 08:59 07/06/16 09:01 50 MG Cholecalciferol (Vitamin D Tab) 1,000 inter.unit QAM PO 07/05/16 09:00 08/04/16 08:59 07/06/16 09:01 1,000 INTER.UNIT Ondansetron HCl (Zofran Inj) 4 mg Q6H PRN IV 07/04/16 20:00 08/03/16 19:59 07/05/16 19:13 4 MG Morphine Sulfate (MoRPHine SULFATE INJ) 2 mg Q2H PRN IV 07/04/16 20:00 07/18/16 19:59 Morphine Sulfate 4 mg 4 mg Q2H PRN IV 07/04/16 20:00 07/18/16 19:59 Acetaminophen (Ofirmev Iv) 100 ml @ 400 mls/hr Q8H PRN IV 07/04/16 20:00 08/03/16 19:59 Oxycodone HCl (Roxicodone Immediate Rel Tab) 5 mg Q4H PRN PO 07/05/16 00:00 07/19/16 00:00 07/05/16 12:22 5 MG Senna (Senokot Tab) 17.2 mg QAM PO 07/05/16 09:00 08/04/16 08:59 07/05/16 09:49 17.2 MG Ioversol (Optiray 320) 100 ml UD PRN IV 07/05/16 11:45 07/09/16 11:44 Review of Systems Constitutional: + fatigue (with the pain), No chills, No fever, No weight loss Eyes: No worsening of vision ENT: No unusual epistaxis Respiratory: No cough, No shortness of breath, No sputum Cardiovascular: No chest pain, No edema Abdomen: No GI bleeding, No nausea, No pain, No vomiting Musculoskeletal: + joint pain (back pain) Genitourinary - Female: No dysuria, No urinary frequency Neurologic: No numbness/tingling, No weakness Hematologic / Lymphatic: No abnormal bleeding/bruising, No night sweats, No swollen lymph nodes Integumentary: No new/changing skin lesions, No rash Physical Exam Date Time Temp Pulse Resp B/P Pulse Ox O2 Delivery O2 Flow Rate FiO2 07/06/16 08:00 Room Air 07/06/16 07:11 36.8 102 16 148/83 92 Room Air 07/05/16 23:50 Room Air 07/05/16 23:07 37.5 102 19 141/81 93 Room Air 07/05/16 15:50 90 Room Air 07/05/16 15:37 36.9 82 18 118/70 90 Room Air 07/05/16 09:47 88 111/64 General Appearance: + mild distress (mildly uncomfortable-appearing due to pain , but in no distress. ), + thin Eyes: EOMI, sclerae normal ENT: pharynx normal Neck: supple, no adenopathy Respiratory/Chest: lungs clear, no accessory muscle use Cardiovascular: regular rate, rhythm, no murmur Abdomen/GI: non tender, soft, no organomegaly Extremities/Musculoskelatal: no calf tenderness, no pedal edema Neurologic/Psych: no motor/sensory deficits, alert, oriented x 3 Skin: no rash Lymphatic: no adenopathy Laboratory Results Last 24 Hours Test 07/05/16 10:25 07/05/16 11:02 07/06/16 07:13 07/06/16 07:50 Iron Level 205 mcg/dl Total Iron Binding Capacity 216 mcg/dl Ferritin 1720.1 ng/ml Carcinoembryonic Antigen 1.5 ng/ml Vitamin B12 Level 765 pg/mL Folate 19.90 ng/mL White Blood Count 5.35 K/uL Red Blood Count 2.47 M/uL Hemoglobin 7.9 g/dL Hematocrit 23.8 % Mean Corpuscular Volume 96.4 fL Mean Corpuscular Hemoglobin 32.0 pg Mean Corpuscular Hemoglobin Concent 33.2 g/dl Platelet Count 120 K/uL Mean Platelet Volume 8.8 fL RDW Standard Deviation 66.4 fL RDW Coefficient of Variation 19.9 % Nucleated RBC Absolute Count (auto) 0.05 K/uL Neutrophils % (Manual) 69.6 % Lymphocytes % (Manual) 21.7 % Monocytes % (Manual) 5.2 % Eosinophils % (Manual) 0.9 % Basophils % (Manual) 1.7 % Metamyelocytes % 0.9 % Nucleated Red Blood Cells % 1.0 % Neutrophils # (Manual) 3.72 K/uL Total Absolute Neutrophils 3.72 K/uL Lymphocytes # (Manual) 1.16 K/uL Total Absolute Lymphocytes 1.16 K/uL Monocytes # (Manual) 0.28 K/uL Eosinophils # (Manual) 0.05 K/uL Basophils # (Manual) 0.09 K/uL Metamyelocytes # 0.05 K/uL Anisocytosis PRESENT Sodium Level 139 mmol/L Potassium Level 3.4 mmol/L Chloride Level 102 mmol/L Carbon Dioxide Level 29 mmol/L Anion Gap 8.0 mmol/L Blood Urea Nitrogen 20 mg/dl Creatinine 1.30 mg/dl Est Creatinine Clear Calc Drug Dose 25.7 ml/min Estimated GFR () 43.0 Estimated GFR (Non- 37.1 BUN/Creatinine Ratio 15.3 Random Glucose 91 mg/dl Calcium Level 9.9 mg/dl Magnesium Level 1.4 mg/dl Stool Occult Blood NEGATIVE Assessment & Plan The appearance of Ms. Kelly's imaging is concerning for multiple myeloma. She also is markedly anemic, mildly hypercalcemic, and has some kidney injury. I requested serum protein electrophoresis with immunofixation and free serum light chain analysis. These studies should help establish a diagnosis of MM. If they are negative, we will need to conduct a more thorough evaluation for occult malignancy. In the meantime, the most important issue is her pain control. Once I see her in clinic, I will start her on denosumab for prophylaxis against further fractures. We will also discuss treatment options at that time, provided we've established a diagnosis.
[2016-07-06] MEDS ORDERED: POTASSIUM CHLORIDE 20 MEQ TABCR PO ONE (09:45)
[2016-07-06] MEDS: MAGNESIUM SULFATE 1GM / D5W 1 GM in PREMIXED IN D5W 100 ML IV SCH ×2 (10:25→11:46)
[2016-07-06 15:19] VITALS: BP 163/83; PULSE 114; TEMP 36.3; O2SAT 93
[2016-07-06 15:30] VITALS: O2SAT 93
[2016-07-06] MEDS ORDERED: HYDROCODONE/ACETAMI 10/325 TAB PO PRN (16:45)
[2016-07-06 20:40] LABS: AFP TUMOR MARKER SERUM 3.2 NG/ML (<6.1); ALBUMIN 3.5 G/DL (3.8-4.8); MONOCLONAL PROTEIN BAND 1 2.9 G/DL (NOT DETECTED); TOTAL PROTEIN 8.1 G/DL (6.2-8.3)
[2016-07-06] MEDS: DOCUSATE SODIUM 100 MG CAP PO SCH (21:00)
[2016-07-06] MEDS: ONDANSETRON INJ 2 MG/ML 2 ML VIAL IV PRN (21:47)
[2016-07-06] MEDS: HYDROCODONE/ACETAMOPHEN 5/325MG TAB PO PRN (21:49)
[2016-07-06 23:34] VITALS: BP 124/70; PULSE 88; TEMP 36.7; O2SAT 91
[2016-07-07 06:44] LABS: BASO % 0.5 %; BASO ABS # 0.03 K/uL (0-0.2); EOS % 0.5 %; HEMATOCRIT 27.2 % (37-47); IG% 0.7 %; LYMPH % 43.4 %; LYMPH ABS # 2.47 K/uL (1.2-3.4); MEAN PLATELET VOLUME 9.9 fL (7.4-10.4); MONO % 7.2 %; NEUT % 47.7 %; PLATELET COUNT 143 K/uL (130-400); RED BLOOD COUNT 2.72 M/uL (4.2-5.4); WHITE BLOOD COUNT 5.69 K/uL (4.8-10.8)
[2016-07-07 07:09] LABS: CALCIUM 10.4 mg/dl (8.5-10.1); CREATININE 1.3 mg/dl (0.60-1.20); MAGNESIUM 1.8 mg/dl (1.8-2.4); POTASSIUM 3.4 mmol/L (3.5-5.1)
[2016-07-07 07:35] LABS: ANISOCYTOSIS PRESENT; COMPLETE YES; STOMATOCYTE 1+
[2016-07-07 07:51] VITALS: BP 135/63; PULSE 83; TEMP 36.9; O2SAT 94
[2016-07-07] MEDS: DOCUSATE SODIUM 100 MG CAP PO SCH ×2 (08:31→21:00)
[2016-07-07] MEDS: CHOLECALCIFEROL 1000 INTER.UNIT TAB PO SCH (08:31)
[2016-07-07] MEDS: LISINOPRIL 40 MG TAB PO SCH (08:33)
[2016-07-07] MEDS: SENNA 8.6 MG TAB PO SCH (08:33)
[2016-07-07] MEDS: METOPROLOL SUCC 50MG EXT REL TAB PO SCH (08:33)
[2016-07-07] MEDS ORDERED: POTASSIUM CHLORIDE 20 MEQ TABCR PO ONE (09:00)
--- NOTE | 2016-07-07 10:27 | Hospitalist Progress Note ---
Hospitalist Progress Note Date of Service Jul 07, 2016. Subjective Pt evaluation today including: conversation w/ patient, conversation w/ family , physical exam, chart review, lab review, review of inpatient medication list Voiding: no voiding problems, no incontinence Patient states she is feeling well. Better pain control with Lamar, instead of Oxycodone. Eating and drinking OK. Patient denies any fever, chills, sweats, lightheadedness, dizziness, vision changes, CP, palpitations, edema, SOB, wheezing, cough, abdominal pain, nausea, vomiting, diarrhea, urinary symptoms, melena, numbness/tingling, weakness, anxiety/depression, active bleeding, or new skin discoloration/changes. Medications Current Inpatient Medications Medications (Trade) Dose Ordered Sig/Willy Route Start Time Stop Time Status Last Admin Dose Admin Acetaminophen (Tylenol Tab) 650 mg Q4H PRN PO 07/04/16 20:00 08/03/16 19:59 Zolpidem Tartrate (Ambien Tab) 5 mg HSZ PRN PO 07/04/16 20:00 08/03/16 19:59 Lisinopril (Zestril Tab) 40 mg DAILY PO 07/05/16 09:00 08/04/16 08:59 07/07/16 08:33 40 MG Metoprolol Succinate (Toprol Xl Tab) 50 mg DAILY PO 07/05/16 09:00 08/04/16 08:59 07/07/16 08:33 50 MG Cholecalciferol (Vitamin D Tab) 1,000 inter.unit QAM PO 07/05/16 09:00 08/04/16 08:59 07/07/16 08:31 1,000 INTER.UNIT Ondansetron HCl (Zofran Inj) 4 mg Q6H PRN IV 07/04/16 20:00 08/03/16 19:59 07/06/16 21:47 4 MG Morphine Sulfate (MoRPHine SULFATE INJ) 2 mg Q2H PRN IV 07/04/16 20:00 07/18/16 19:59 Morphine Sulfate 4 mg 4 mg Q2H PRN IV 07/04/16 20:00 07/18/16 19:59 Acetaminophen (Ofirmev Iv) 100 ml @ 400 mls/hr Q8H PRN IV 07/04/16 20:00 08/03/16 19:59 Senna (Senokot Tab) 17.2 mg QAM PO 07/05/16 09:00 08/04/16 08:59 07/05/16 09:49 17.2 MG Ioversol (Optiray 320) 100 ml UD PRN IV 07/05/16 11:45 07/09/16 11:44 Docusate Sodium (coLACE CAP) 100 mg BID PO 07/06/16 21:00 08/05/16 20:59 Acetaminophen/ Hydrocodone Bitart (Lamar 5/325 Tab) 1 tab Q6 PRN PO 07/06/16 16:45 07/20/16 16:44 07/06/16 21:49 1 TAB Acetaminophen/ Hydrocodone Bitart (Lamar 10/325 Tab) 1 tab Q6 PRN PO 07/06/16 16:45 07/20/16 16:44 Objective Vital Signs Date Time Temp Pulse Resp B/P Pulse Ox O2 Delivery O2 Flow Rate FiO2 07/07/16 08:30 Room Air 07/07/16 07:51 36.9 83 19 135/63 94 Room Air 07/07/16 00:10 Room Air 07/06/16 23:34 36.7 88 18 124/70 91 Room Air 07/06/16 15:30 93 Room Air 07/06/16 15:19 36.3 114 16 163/83 93 Room Air Physical Exam General Appearance: no apparent distress Eyes: normal inspection, PERRL ENT: hearing grossly normal Neck: supple Respiratory/Chest: lungs clear, no respiratory distress, no accessory muscle use Cardiovascular: regular rate, rhythm Abdomen: normal bowel sounds, non tender, soft Extremities: no pedal edema, no calf tenderness Laboratory Results Last 24 Hours Test 07/06/16 12:15 07/07/16 06:12 25-Hydroxy Vitamin D Total 37.7 ng/ml White Blood Count 5.69 K/uL Red Blood Count 2.72 M/uL Hemoglobin 8.7 g/dL Hematocrit 27.2 % Mean Corpuscular Volume 100.0 fL Mean Corpuscular Hemoglobin 32.0 pg Mean Corpuscular Hemoglobin Concent 32.0 g/dl Platelet Count 143 K/uL Mean Platelet Volume 9.9 fL Neutrophils (%) (Auto) 47.7 % Lymphocytes (%) (Auto) 43.4 % Monocytes (%) (Auto) 7.2 % Eosinophils (%) (Auto) 0.5 % Basophils (%) (Auto) 0.5 % Neutrophils # (Auto) 2.71 K/uL Lymphocytes # (Auto) 2.47 K/uL Monocytes # (Auto) 0.41 K/uL Eosinophils # (Auto) 0.03 K/uL Basophils # (Auto) 0.03 K/uL RDW Standard Deviation 71.4 fL RDW Coefficient of Variation 20.3 % Immature Granulocyte % (Auto) 0.7 % Immature Granulocyte # (Auto) 0.04 K/uL Nucleated RBC Absolute Count (auto) 0.05 K/uL Nucleated Red Blood Cells % 0.8 % Anisocytosis PRESENT Stomatocytes 1+ Sodium Level 138 mmol/L Potassium Level 3.4 mmol/L Chloride Level 101 mmol/L Carbon Dioxide Level 29 mmol/L Anion Gap 8.0 mmol/L Blood Urea Nitrogen 21 mg/dl Creatinine 1.30 mg/dl Est Creatinine Clear Calc Drug Dose 25.7 ml/min Estimated GFR () 43.0 Estimated GFR (Non- 37.1 BUN/Creatinine Ratio 16.0 Random Glucose 102 mg/dl Calcium Level 10.4 mg/dl Magnesium Level 1.8 mg/dl Assessment and Plan The patient is an 86-year-old female who presented to PCPs office today with complaint of worsening back pain over the past several days. The pain is especially worse with activity. She has not had any trauma she's not any recent travels or any sick exposures. Pain is in her lower thorax and upper lumbar area, and does not radiate down the legs. Intractable low back pain due to compression deformities at T9, T10, T12, and L2 , along with paravertebral edema anteriorly extending from T11 through L2, and a right sacral insufficiency fracture: - Admit med/surg - No hx of a primary carcinoma - CT of abdomen/pelvis- There are no acute infectious or inflammatory findings in the abdomen or pelvis. 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 This is a new finding from 09/18/2014. This is nonspecific, with multiple myeloma a strong differential consideration. There are compression fractures of T9, T12, T10, and L2 as well as a right sacral insufficiency fracture. No large retropulsed fragments are identified. These are new from the 09/18/2014 examination and likely pathologic. Paravertebral edema is noted anteriorly from T11 through L2. This may represent trace hemorrhage from acute compression fracture. - CT of chest- Innumerable lytic lesions throughout visualized skeletal structures with numerous pathologic compression fractures within the thoracic and lumbar spines as described above. The findings are consistent with a neoplastic process and favor multiple myeloma. Metastatic disease could appear similar. No suspicious pulmonary nodules. Small bilateral pleural effusions, right larger than left. No thoracic lymphadenopathy. 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 Cortez DVT prophylaxis: Avoid anticoagulation due to anemia/thrombocytopenia. LAURENCE and SCDs Code Status: LEVEL I, FULL Dispo: - [facility] referral pending - PT/OT evaluations
[2016-07-07 10:37] LABS: FREE KAPPA 298.7 MG/L (3.3-19.4); FREE KAPPA/LAMBDA RATIO 53.34 (0.26-1.65); FREE LAMBDA 5.6 MG/L (5.7-26.3)
--- NOTE | 2016-07-07 14:32 | Hematology/Oncology Prog Note ---
Hematology/Onc Progress Note Date of Service Jul 07, 2016. Diagnoses Lytic bone lesions with compression fracture Medications Medications Administered Medications (Trade) Dose Ordered Sig/Willy Route Start Time Stop Time Status Last Admin Dose Admin Lisinopril (Zestril Tab) 40 mg DAILY PO 07/05/16 09:00 08/04/16 08:59 07/07/16 08:33 40 MG Metoprolol Succinate (Toprol Xl Tab) 50 mg DAILY PO 07/05/16 09:00 08/04/16 08:59 07/07/16 08:33 50 MG Cholecalciferol (Vitamin D Tab) 1,000 inter.unit QAM PO 07/05/16 09:00 08/04/16 08:59 07/07/16 08:31 1,000 INTER.UNIT Ondansetron HCl (Zofran Inj) 4 mg Q6H PRN IV 07/04/16 20:00 08/03/16 19:59 07/06/16 21:47 4 MG Oxycodone HCl (Roxicodone Immediate Rel Tab) 5 mg Q4H PRN PO 07/05/16 00:00 07/06/16 16:36 DC 07/05/16 12:22 5 MG Senna 17.2 mg 17.2 mg QAM PO 07/05/16 09:00 08/04/16 08:59 07/05/16 09:49 17.2 MG Magnesium Sulfate/ Prmx (Magnesium Sulfate/Premixed D5W) 100 ml @ 100 mls/hr 1200,1300 IV 07/05/16 12:00 07/05/16 16:00 DC 07/05/16 13:13 100 MLS/HR Potassium Chloride 20 meq 20 meq NOW ONCE PO 07/06/16 09:45 07/06/16 10:03 DC 07/06/16 10:25 20 MEQ Magnesium Sulfate/ Prmx (Magnesium Sulfate/Premixed D5W) 100 ml @ 100 mls/hr 1030,1130 IV 07/06/16 10:30 07/06/16 12:29 DC 07/06/16 11:46 100 MLS/HR Acetaminophen/ Hydrocodone Bitart ([place] 5/325 Tab) 1 tab Q6 PRN PO 07/06/16 16:45 07/20/16 16:44 07/06/16 21:49 1 TAB Acetaminophen/ Hydrocodone Bitart ([place] 10/325 Tab) 1 tab Q6 PRN PO 07/06/16 16:45 07/20/16 16:44 07/07/16 13:53 1 TAB Potassium Chloride (Klor-Con Tab) 40 meq QAM ONCE PO 07/07/16 09:00 07/07/16 09:01 DC 07/07/16 08:37 40 MEQ Subjective Ms. Kelly is doing better today. She's been weaned to oral narcotics and her pain is reasonably controlled. Review of Systems: Constitutional: + fatigue, No fever ENT: No unusual epistaxis Respiratory: No cough, No shortness of breath Cardiovascular: No chest pain, No edema Abdomen: No diarrhea, No nausea, No pain Musculoskeletal: + problem reported (back and bone pain) Neurologic: No numbness/tingling, No weakness Heme: No abnormal bleeding/bruising, No night sweats Skin: No rash Vital Signs Vital Signs Past 12 Hours Date Time Temp Pulse Resp B/P Pulse Ox O2 Delivery O2 Flow Rate FiO2 07/07/16 08:30 Room Air 07/07/16 07:51 36.9 83 19 135/63 94 Room Air Physical Exam Constitutional: General Apperance: too thin Level of Distress: NAD Psychiatric: Mental Status: active & alert Orientation: oriented except where noted Lungs: Respiratory Effort: no dyspnea Auscuitation: CTA except as noted Cardiovascular: Heart Auscultation: RRR, no murmurs Abdomen: Inspection & Palpation: soft, no tenderness, guarding & rebound Neurologic: Cranial Nerves: grossly intact Laboratory Last 24 Hours Test 07/07/16 00:00 07/07/16 06:12 White Blood Count 5.69 K/uL Red Blood Count 2.72 M/uL Hemoglobin 8.7 g/dL Hematocrit 27.2 % Mean Corpuscular Volume 100.0 fL Mean Corpuscular Hemoglobin 32.0 pg Mean Corpuscular Hemoglobin Concent 32.0 g/dl Platelet Count 143 K/uL Mean Platelet Volume 9.9 fL Neutrophils (%) (Auto) 47.7 % Lymphocytes (%) (Auto) 43.4 % Monocytes (%) (Auto) 7.2 % Eosinophils (%) (Auto) 0.5 % Basophils (%) (Auto) 0.5 % Neutrophils # (Auto) 2.71 K/uL Lymphocytes # (Auto) 2.47 K/uL Monocytes # (Auto) 0.41 K/uL Eosinophils # (Auto) 0.03 K/uL Basophils # (Auto) 0.03 K/uL RDW Standard Deviation 71.4 fL RDW Coefficient of Variation 20.3 % Immature Granulocyte % (Auto) 0.7 % Immature Granulocyte # (Auto) 0.04 K/uL Nucleated RBC Absolute Count (auto) 0.05 K/uL Nucleated Red Blood Cells % 0.8 % Anisocytosis PRESENT Stomatocytes 1+ Sodium Level 138 mmol/L Potassium Level 3.4 mmol/L Chloride Level 101 mmol/L Carbon Dioxide Level 29 mmol/L Anion Gap 8.0 mmol/L Blood Urea Nitrogen 21 mg/dl Creatinine 1.30 mg/dl Est Creatinine Clear Calc Drug Dose 25.7 ml/min Estimated GFR () 43.0 Estimated GFR (Non- 37.1 BUN/Creatinine Ratio 16.0 Random Glucose 102 mg/dl Calcium Level 10.4 mg/dl Magnesium Level 1.8 mg/dl Assessment & Plan Her SPEP confirms the presence of a monoclonal paraprotein, measuring about 3 grams. This, in combination with her anemia and lytic bone lesions, makes a diagnosis of multiple myeloma. Her free kappa light chains are markedly elevated (kappa:lambda 55), but her KAYE is still pending. The next step in her staging is a bone marrow biopsy to document a plasma cell population. I performed this today (see procedure note), though the results will likely take a week or two. I can see her in clinic in the next two weeks or so to discuss treatment options. Given her fractures and concerns with immobility, I would probably favor Velcade and dexamethasone.
--- NOTE | 2016-07-07 14:36 | Procedure Note ---
Procedure Note Procedure Date Jul 07, 2016. Procedure Description Procedure Name: Bone marrow aspirate and core biopsy Procedure time out: side/site verified, patient ID confirmed, correct procedure Consent obtained: written Time of procedure: 13:30 Performed by: attending Indications: diagnostic Contraindications: none Description: The patient was placed in the prone position and her right posterior iliac crest was palpated. The site was cleaned and draped in a sterile fashion. 2% lidocaine was used for local anesthesia. A standard marrow aspirate needle was used to obtain 3 cc of liquid marrow. Adequate spicules were observed and specimen was sent for cytogenetics, flow cytometry, and FISH. This needle was removed and a standard Magnet Systemsshidi core biopsy needle was used to obtain a core sample. The sample was adequate and sent to pathology. Adequate hemostasis was achieved and blood loss was minimal. The patient was asked to remain in a supine position for ~20 minutes to ensure hemostasis. Complications: none Patient tolerated procedure: well Post-procedure vital signs: reviewed and stable
[2016-07-07 15:44] VITALS: BP 127/74; PULSE 83; TEMP 36.9; O2SAT 93
[2016-07-07 20:00] VITALS: O2SAT 93
[2016-07-07 22:47] VITALS: BP 144/81; PULSE 87; TEMP 37; O2SAT 93
[2016-07-07] MEDS: ONDANSETRON INJ 2 MG/ML 2 ML VIAL IV PRN (23:55)
[2016-07-07] MEDS: HYDROCODONE/ACETAMOPHEN 5/325MG TAB PO PRN (23:55)
[2016-07-08 05:29] LABS: HEMATOCRIT 24.6 % (37-47); MEAN CELL VOLUME 101.2 fL (80-100); MEAN CORPUSCULAR HEMOGLOBIN 33.3 pg (25-34); MEAN CORPUSCULAR HGB CONC 32.9 g/dl (32-36); MEAN PLATELET VOLUME 9.2 fL (7.4-10.4); PLATELET COUNT 122 K/uL (130-400); RED BLOOD COUNT 2.43 M/uL (4.2-5.4); WHITE BLOOD COUNT 5.51 K/uL (4.8-10.8)
[2016-07-08 06:09] LABS: BUN/CREATININE RATIO 17.9 (10-20); CALCIUM 9.8 mg/dl (8.5-10.1); CREATININE 1.3 mg/dl (0.60-1.20); MAGNESIUM 1.4 mg/dl (1.8-2.4); POTASSIUM 4.2 mmol/L (3.5-5.1)
[2016-07-08] MEDS ORDERED: MAGNESIUM SULFATE 1GM / D5W 1 GM in PREMIXED IN D5W 100 ML IV ONE (07:15)
[2016-07-08 07:50] VITALS: BP 146/82; PULSE 99; TEMP 37.1; O2SAT 92
[2016-07-08] MEDS: SENNA 8.6 MG TAB PO SCH (09:00)
[2016-07-08] MEDS: DOCUSATE SODIUM 100 MG CAP PO SCH ×2 (09:00→20:43)
[2016-07-08] MEDS: METOPROLOL SUCC 50MG EXT REL TAB PO SCH (09:03)
[2016-07-08] MEDS: CHOLECALCIFEROL 1000 INTER.UNIT TAB PO SCH (09:03)
[2016-07-08] MEDS: LISINOPRIL 40 MG TAB PO SCH (09:03)
[2016-07-08 09:50] VITALS: O2SAT 92
[2016-07-08] MEDS ORDERED: HYDR-5688 PO (12:05)
[2016-07-08] MEDS ORDERED: HYDR-4079 PO (12:05)
[2016-07-08] MEDS ORDERED: MGNO400 PO (12:05)
--- NOTE | 2016-07-08 12:21 | Discharge Instructions ---
Discharge Instructions Date of Service Jul 08, 2016. Admission Reason for Admission: Intractable Back Pain, Mutiple Compression Fxs Discharge Discharge Diagnosis / Problem: Multiple t spine compression fractures Discharge Goals Goal(s): Decrease discomfort, Improve function, Improve disease control, Improve nutritional status, Learn about illness, Diagnostic testing, Therapeutic intervention, Prevent Disease Progression Activity Recommendations Activity Level: Assistance Required Therapies: Physical Therapy, Occupational Therapy . Additional Information Patient informed of condition: Yes Advance Directives: No DNR: No Level of Care: Acute Rehab Communicable Disease: No Prognosis: Stable Black Catheter: No Instructions / Follow-Up Instructions / Follow-Up New medications: 1. [place] 5/325 mg, 1 tablet by mouth every 6 hours as needed for mild- moderate pain 2. [place] 10/325 mg, 1 tablet by mouth every 6 hours as needed for moderate- severe pain 3. Mag-Ox supplement 400 mg by mouth once daily Do NOT exceed more than 4 gm of Acetaminophen per day Continue all other regular home medications as prescribed to you Follow-up with [facility] provider within 24-48 hrs Please follow-up with your PCP within 5-7 days of discharge from [facility] Please follow-up with Dr. Corrigan in 2-3 weeks. You should hear of an appointment date within the next 1-2 days. If you do not hear of an appointment , please call the office at [phone] Please follow-up/keep all of your subspecialty appointments Current Hospital Diet Patient's current hospital diet: AHA Diet (Heart Healthy) Discharge Diet Recommended Diet: AHA Diet (Heart Healthy) Procedures Procedures Performed: 1. Chest x-ray 2. Chest CT Pending Studies Studies pending at discharge: yes List of pending studies: 1. Metastatic workup Physician Orders On Transfer Additional Orders: Hypomagnesemia: Continue to monitor magnesium level Laboratory Results Last 24 Hours Test 07/08/16 05:21 White Blood Count 5.51 K/uL Red Blood Count 2.43 M/uL Hemoglobin 8.1 g/dL Hematocrit 24.6 % Mean Corpuscular Volume 101.2 fL Mean Corpuscular Hemoglobin 33.3 pg Mean Corpuscular Hemoglobin Concent 32.9 g/dl RDW Standard Deviation 73.0 fL RDW Coefficient of Variation 20.4 % Platelet Count 122 K/uL Mean Platelet Volume 9.2 fL Nucleated RBC Absolute Count (auto) 0.04 K/uL Nucleated Red Blood Cells % 0.8 % Sodium Level 139 mmol/L Potassium Level 4.2 mmol/L Chloride Level 104 mmol/L Carbon Dioxide Level 31 mmol/L Anion Gap 4.0 mmol/L Blood Urea Nitrogen 23 mg/dl Creatinine 1.30 mg/dl Est Creatinine Clear Calc Drug Dose 25.7 ml/min Estimated GFR () 43.0 Estimated GFR (Non- 37.1 BUN/Creatinine Ratio 17.9 Random Glucose 86 mg/dl Calcium Level 9.8 mg/dl Magnesium Level 1.4 mg/dl Medical Emergencies . Who to Call and When: Medical Emergencies: If at any time you feel your situation is an emergency, please call 911 immediately. . Non-Emergent Contact Non-Emergency issues call your: Primary Care Provider . . "Provider Documentation" section prepared by Justyna Hutchins. Core Measure Problem Core Measures: None
--- NOTE | 2016-07-08 12:30 | Discharge Summary ---
Discharge Summary Date of Service Jul 08, 2016. Discharge Summary Admission Date: Jul 04, 2016 at 16:59 Discharge Date: Jul 08, 2016 Discharge Disposition: Rehab Principal Diagnosis: Multiple t-spine compression fractures Problems/Secondary Diagnoses: 1. Intractable low back pain due to compression deformities at T9, T10, T12, and L2, along with paravertebral edema anteriorly extending from T11 through L2 , and a right sacral insufficiency fracture 2. CKD, stage III 3. Hypertension 4. Hypokalemia 5. Hypomagnesemia 6. Anemia 7. Thrombocytopenia 8. hx of heart block s/p pacemaker implantation Immunizations: Have You Had Influenza Vaccine: Yes History of Tetanus Vaccine?: No History of Pneumococcal: Yes History of Hepatitis B Vaccine: Yes Procedures: CHEST ONE VIEW PORTABLE CLINICAL HISTORY: Metastatic disease of unknown primary. COMPARISON STUDY: Chest radiograph November 06, 2014. FINDINGS: This exam is compromised by difficulty with positioning. A right subclavian dual-lead pacemaker is in place. Small bilateral pleural effusions are noted. There is pulmonary vascular congestion. Mild cardiomegaly is noted. No pulmonary nodules are identified although sensitivity is diminished given radiographic technique. IMPRESSION: 1. Small bilateral pleural effusions with associated bibasilar opacities which likely reflect atelectasis. 2. No pulmonary nodules identified by radiography. 3. Mild cardiomegaly. No overt pulmonary edema. Electronically signed by: Enrique Zendejas M.D. 07/04/2016 9:02 PM Dictated Date/Time: 07/04/2016 9:00 PM The status of this report is Signed. Draft = Not yet reviewed or approved by Radiologist. Signed = Reviewed and approved by Radiologist. CT OF THE CHEST WITH IV CONTRAST CLINICAL HISTORY: Metastatic workup. Intractable back pain with multiple compression fractures. COMPARISON STUDY: Chest radiograph November 06, 2014 and July 04, 2016 TECHNIQUE: Following IV administration of 70 mL of Optiray-320, helical axial images of the chest were obtained. Images were viewed in the axial, sagittal and coronal planes. IV contrast was administered without complication. CT DOSE: 213.08 mGy.cm FINDINGS: A dual lead right subclavian pacemaker is in place. No enlarged axillary, mediastinal or hilar lymph nodes are present. Moderate cardiomegaly is noted. There is no pericardial effusion. There are small bilateral pleural effusions, right larger than left. Associated airspace opacities suggest atelectasis. There are no suspicious pulmonary nodules. There is no evidence for pneumonia. There is no pneumothorax. No pneumomediastinum is identified. Central airways are patent. There are innumerable lytic lesions throughout visualized skeletal structures. There are multiple thoracic and upper lumbar spine pathologic compression fractures, including fractures of T1, T9, T11, T12 and L2. The L2 vertebral body is largely replaced by tumor. Severe loss of height of T12 is noted with mild retropulsion. Paravertebral edema or tumor is noted within the lower thoracic and upper lumbar spine. This is unchanged since prior CT. Renal and hepatic cysts are incidentally noted. IMPRESSION: 1. Innumerable lytic lesions throughout visualized skeletal structures with numerous pathologic compression fractures within the thoracic and lumbar spines as described above. The findings are consistent with a neoplastic process and favor multiple myeloma. Metastatic disease could appear similar. 2. No suspicious pulmonary nodules. 3. Small bilateral pleural effusions, right larger than left. 4. No thoracic lymphadenopathy. Electronically signed by: Enrique Zendejas M.D. 07/05/2016 2:18 PM Dictated Date/Time: 07/05/2016 2:01 PM The status of this report is Signed. Draft = Not yet reviewed or approved by Radiologist. Signed = Reviewed and approved by Radiologist. Consultations: Oncology- Dr. Corrigan Medication Reconciliation New Medications: Hydrocodone/Acetaminophen 10MG/325MG ([place] 10MG/325MG) Tab 1 TAB PO Q6 PRN for Pain>5/10 for 3 Days, #12 TAB PRN PAIN Hydrocodone/Acetaminophen 5MG/325MG ([place] 5MG/325MG) Tab 1 TAB PO Q6 PRN for Pain<5/10 for 3 Days, #12 TAB PRN PAIN Magnesium Oxide (Magnesium-Oxide) 400 Mg Tab 400 MG PO QAM for 30 Days, #30 TAB Continued Medications: Acetaminophen (Arthritis Pain) 650 Mg Tab 2 TAB PO Q6H PRN for Pain Aspirin (Aspirin Ec) 81 Mg Tab 81 MG PO 2XW resume in three days time Cholecalciferol (Vitamin D3) 1,000 Unit Cap 1000 INTUNIT PO QAM Indapamide (Lozol) 1.25 Mg Tab 1.25 MG PO DAILY, TAB Lisinopril (Zestril) 40 Mg Tab 40 MG PO DAILY, TAB Metoprolol Succinate (Metoprolol Succinate ER) 50 Mg Tabcr 50 MG PO DAILY, #90 Discontinued Medications: Oxycodone Immediate Rel Tab (Roxicodone Ir) 5 Mg Tab 5 MG PO Q6H PRN for Pain, #20 TAB Discharge Exam Review of Systems: Constitutional: No chills, No fatigue, No fever, No sweats, No weakness Respiratory: No cough, No hemoptysis, No shortness of breath Cardiovascular: No chest pain, No edema, No palpitations Abdomen: No constipation, No diarrhea, No nausea, No pain, No vomiting Musculoskeletal: + joint pain, + muscle pain, No calf pain, No swelling Genitourinary - Female: No dysuria, No hematuria Neurologic: No numbness/tingling, No weakness Psychiatric: No anxiety, No depression symptoms Hematologic / Lymphatic: No abnormal bleeding/bruising Integumentary: No itch, No new/changing skin lesions, No rash Physical Exam: General Appearance: no apparent distress Eyes: normal inspection, PERRL ENT: hearing grossly normal Neck: supple Respiratory/Chest: lungs clear, no respiratory distress, no accessory muscle use Cardiovascular: regular rate, rhythm Abdomen / GI: normal bowel sounds, non tender, soft Extremities: no calf tenderness, no pedal edema Neurologic/Psychiatric: alert, normal mood/affect, oriented x 3 Skin: normal color, warm/dry, no rash Hospital Course The patient is an 86-year-old female who presented to PCPs office today with complaint of worsening back pain over the past several days. The pain is especially worse with activity. She has not had any trauma she's not any recent travels or any sick exposures. Pain is in her lower thorax and upper lumbar area, and does not radiate down the legs. Intractable low back pain due to compression deformities at T9, T10, T12, and L2 , along with paravertebral edema anteriorly extending from T11 through L2, and a right sacral insufficiency fracture: - Admit med/surg - No hx of a primary carcinoma - CT of abdomen/pelvis- There are no acute infectious or inflammatory findings in the abdomen or pelvis. 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 This is a new finding from 09/18/2014. This is nonspecific, with multiple myeloma a strong differential consideration. There are compression fractures of T9, T12, T10, and L2 as well as a right sacral insufficiency fracture. No large retropulsed fragments are identified. These are new from the 09/18/2014 examination and likely pathologic. Paravertebral edema is noted anteriorly from T11 through L2. This may represent trace hemorrhage from acute compression fracture. - CT of chest- Innumerable lytic lesions throughout visualized skeletal structures with numerous pathologic compression fractures within the thoracic and lumbar spines as described above. The findings are consistent with a neoplastic process and favor multiple myeloma. Metastatic disease could appear similar. No suspicious pulmonary nodules. Small bilateral pleural effusions, right larger than left. No thoracic lymphadenopathy. - Serum proteins/tumor markers pending - Health maintenance hx: -- Mammogram 08/03/15- no evidence of malignancy, 1 year f/u recommended -- 07/21/2014- needle aspiration of right breast cyst--> cytology showed atypical cells -- Colonoscopy 01/01/10- diverticular disease, no other abnormalities noted -- Routine [employer] visits- denies any abnormal exams/pap smears - [place] 1 tab q6 hrs PO PRN, Tylenol 650 mg PO q4 hrs, and Morphine 2-4 mg IV q2 hrs for pain management - Consult hematology/oncology, appreciate recommendations -- Likely MM--> pending workup results -- Bone [place] biopsy 07/07 afternoon -- Will need outpt f/u with Dr. 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 Cortez DVT prophylaxis: Avoid anticoagulation due to anemia/thrombocytopenia. LAURENCE and SCDs Code Status: LEVEL I, FULL Dispo: Discharge to [facility] Total Time Spent: Greater than 30 minutes This includes examination of the patient, discharge planning, medication reconciliation, and communication with other providers. Discharge Instructions Please refer to the electronic Patient Visit Report (Discharge Instructions) for additional information. Follow-Up Follow-up with [facility] provider within 24-48 hrs Please follow-up with your PCP within 5-7 days after discharge from [facility] Please follow-up with Dr. Corrigan within 2-3 weeks Please follow-up/keep all of your subspecialty appointments Additional Copies To Baron Segura M.D.; [facility]
[2016-07-08 15:11] VITALS: BP 145/77; PULSE 98; TEMP 37.3; O2SAT 93
[2016-07-08 23:00] VITALS: BP 148/73; PULSE 86; TEMP 36.9; O2SAT 93
[2016-07-09] VITALS (10 sets, daily range): BP systolic 146–174; BP diastolic 79–97; PULSE 82–94; TEMP 36.7–37.2; O2SAT 92–95
[2016-07-09 05:44] LABS: HEMATOCRIT 22.3 % (37-47); MEAN CELL VOLUME 101.8 fL (80-100); MEAN CORPUSCULAR HEMOGLOBIN 32.9 pg (25-34); MEAN CORPUSCULAR HGB CONC 32.3 g/dl (32-36); MEAN PLATELET VOLUME 9.2 fL (7.4-10.4); PLATELET COUNT 119 K/uL (130-400); RED BLOOD COUNT 2.19 M/uL (4.2-5.4); WHITE BLOOD COUNT 4.57 K/uL (4.8-10.8)
[2016-07-09 06:07] LABS: BUN/CREATININE RATIO 21.5 (10-20); CALCIUM 9.8 mg/dl (8.5-10.1); CREATININE 1.1 mg/dl (0.60-1.20); MAGNESIUM 1.4 mg/dl (1.8-2.4); POTASSIUM 3.6 mmol/L (3.5-5.1)
[2016-07-09] MEDS ORDERED: MAGNESIUM OXIDE 400 MG TAB PO SCH (09:00)
[2016-07-09] MEDS: CHOLECALCIFEROL 1000 INTER.UNIT TAB PO SCH (09:00)
[2016-07-09] MEDS: METOPROLOL SUCC 50MG EXT REL TAB PO SCH (09:05)
[2016-07-09] MEDS: SENNA 8.6 MG TAB PO SCH (09:05)
[2016-07-09] MEDS: LISINOPRIL 40 MG TAB PO SCH (09:06)
[2016-07-09] MEDS: DOCUSATE SODIUM 100 MG CAP PO SCH ×2 (09:06→21:00)
[2016-07-09] MEDS: MAGNESIUM SULFATE 1GM / D5W 1 GM in PREMIXED IN D5W 100 ML IV SCH ×2 (10:52→11:36)
--- NOTE | 2016-07-09 11:01 | Progress Note ---
Subjective Date of Service: Jul 09, 2016. Subjective Pt evaluation today including: conversation w/ patient, conversation w/ family , physical exam, chart review, lab review, review of studies, conversation w/ retail consultant, review of inpatient medication list Voiding: no voiding problems Was up to chair with back brace on, feeling better and stronger, and less pain, denies signs or bleedings , or blood in the stool or urine, No other complaint Review of Systems Constitutional: + fatigue, + weakness, No chills, No fever, No problem reported , No sweats Eyes: No diplopia, No discharge, No eye pain, No redness, No worsening of vision ENT: No dental problems, No hearing loss, No nasal symptoms, No sore throat, No tinnitus, No trouble swallowing, No unusual epistaxis Respiratory: No cough, No dyspnea at rest, No dyspnea on exertion, No hemoptysis, No shortness of breath, No sputum, No wheezing Cardiac: No PND, No chest pain, No claudication, No edema, No orthopnea, No palpitations Abdomen: No constipation, No diarrhea, No nausea, No pain, No vomiting Musculoskeletal: + joint pain, No calf pain, No muscle pain, No swelling Female : No abnormal vaginal bleeding, No dysuria, No hematuria, No incontinence, No urinary frequency, No vaginal discharge Neurologic: No balance problems, No memory loss, No numbness/tingling, No paralysis, No vertigo, No weakness Psychiatric: No anhedonism, No anxiety, No depression symptoms, No insomnia, No substance abuse Heme: No abnormal bleeding/bruising, No clotting problems, No night sweats, No swollen lymph nodes Endo: No excessive thirst, No excessive urination, No fatigue Skin: No bleeding, No color change, No itch, No new/changing skin lesions, No rash Objective Vital Signs Date Time Temp Pulse Resp B/P Pulse Ox O2 Delivery O2 Flow Rate FiO2 07/09/16 08:00 Room Air 07/09/16 07:35 37.1 82 17 148/80 95 Room Air 07/08/16 23:55 Room Air 07/08/16 23:00 36.9 86 16 148/73 93 Room Air 07/08/16 15:15 Room Air 07/08/16 15:11 37.3 98 16 145/77 93 Room Air Physical Exam General Appearance: WD/WN, no apparent distress, + thin, + pertinent finding ( mild pale, frail,) Eyes: normal inspection, PERRL, EOMI, sclerae normal ENT: normal ENT inspection, hearing grossly normal, pharynx normal Neck: supple, no adenopathy, thyroid normal, no JVD, no carotid bruits, trachea midline Respiratory/Chest: chest non-tender, lungs clear, normal breath sounds, no respiratory distress, no accessory muscle use Cardiovascular: regular rate, rhythm, no edema, no gallop, no JVD, no murmur Abdomen: normal bowel sounds, non tender, soft, no organomegaly, no pulsatile mass Extremities: normal range of motion, non-tender, normal inspection, no pedal edema, no calf tenderness, normal capillary refill, pelvis stable Neurologic/Psychiatric: 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 tested, no motor/sensory deficits, alert, normal mood/affect, oriented x 3 Skin: normal color, warm/dry, no rash Lymphatic: no adenopathy Laboratory Results Last 24 Hours Test 07/09/16 05:25 White Blood Count 4.57 K/uL Red Blood Count 2.19 M/uL Hemoglobin 7.2 g/dL Hematocrit 22.3 % Mean Corpuscular Volume 101.8 fL Mean Corpuscular Hemoglobin 32.9 pg Mean Corpuscular Hemoglobin Concent 32.3 g/dl RDW Standard Deviation 73.4 fL RDW Coefficient of Variation 20.6 % Platelet Count 119 K/uL Mean Platelet Volume 9.2 fL Nucleated RBC Absolute Count (auto) 0.04 K/uL Nucleated Red Blood Cells % 0.9 % Sodium Level 140 mmol/L Potassium Level 3.6 mmol/L Chloride Level 105 mmol/L Carbon Dioxide Level 31 mmol/L Anion Gap 4.0 mmol/L Blood Urea Nitrogen 24 mg/dl Creatinine 1.10 mg/dl Est Creatinine Clear Calc Drug Dose 30.4 ml/min Estimated GFR () 52.6 Estimated GFR (Non- 45.4 BUN/Creatinine Ratio 21.5 Random Glucose 84 mg/dl Calcium Level 9.8 mg/dl Magnesium Level 1.4 mg/dl Assessment and Plan 86-year-old female admitted from PCPs office with complaint of worsening back pain over the past several days. The pain is especially worse with activity. Intractable low back pain due to compression deformities at T9, T10, T12, and L2 , along with paravertebral edema anteriorly extending from T11 through L2, and a right sacral insufficiency fracture, likely from multiple myeloma: Stable - No hx of a primary carcinoma - CT of abdomen/pelvis- There are no acute infectious or inflammatory findings in the abdomen or pelvis. 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 This is a new finding from 09/18/2014. This is nonspecific, with multiple myeloma a strong differential consideration. There are compression fractures of T9, T12, T10, and L2 as well as a right sacral insufficiency fracture. No large retropulsed fragments are identified. These are new from the 09/18/2014 examination and likely pathologic. Paravertebral edema is noted anteriorly from T11 through L2. This may represent trace hemorrhage from acute compression fracture. - CT of chest- Innumerable lytic lesions throughout visualized skeletal structures with numerous pathologic compression fractures within the thoracic and lumbar spines as described above. The findings are consistent with a neoplastic process and favor multiple myeloma. Metastatic disease could appear similar. No suspicious pulmonary nodules. Small bilateral pleural effusions, right larger than left. No thoracic lymphadenopathy. - Serum proteins/tumor markers pending - Consult hematology/oncology, appreciate recommendations -- Likely MM--> pending workup results -- Bone [facility] biopsy 07/07 afternoon -- Will need outpt f/u with Dr. 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 Cortez Discussed with patient about care plan, [facility] rehabilitation, and the same time pain control, follow up with Dr. Corrigan for further evaluation of possible multiple myeloma, patient and agreed Will continue physical therapist while waiting for insurance company approval Talked to nurse, patient medically ready to discharge if bed available Continued [facility] stay due to: multiple IV medications needed Discharge planning: home
[2016-07-09] MEDS ORDERED: NURSING VERBAL MED ORDER ONE ×2 (15:30→16:30)
[2016-07-09] MEDS ORDERED: METOPROLOL SUCC 25MG EXT REL TAB PO ONE (16:00)
[2016-07-09] MEDS ORDERED: HydrALAZINE HCL 20 MG/ML VIAL IV. PRN (16:45)
[2016-07-09] MEDS: MAGNESIUM OXIDE 400 MG TAB PO SCH (21:15)
[2016-07-10 05:28] LABS: HEMATOCRIT 27.7 % (37-47); MEAN CELL VOLUME 96.9 fL (80-100); MEAN CORPUSCULAR HEMOGLOBIN 32.5 pg (25-34); MEAN CORPUSCULAR HGB CONC 33.6 g/dl (32-36); MEAN PLATELET VOLUME 9.2 fL (7.4-10.4); PLATELET COUNT 117 K/uL (130-400); RED BLOOD COUNT 2.86 M/uL (4.2-5.4); WHITE BLOOD COUNT 5.48 K/uL (4.8-10.8)
[2016-07-10 05:53] LABS: BUN/CREATININE RATIO 21.4 (10-20); CALCIUM 9.4 mg/dl (8.5-10.1); CREATININE 1.1 mg/dl (0.60-1.20); MAGNESIUM 1.8 mg/dl (1.8-2.4); POTASSIUM 3.3 mmol/L (3.5-5.1)
[2016-07-10] MEDS ORDERED: POTASSIUM CHLORIDE 20 MEQ TABCR PO STA (07:48)
[2016-07-10 08:06] VITALS: BP 169/91; PULSE 88; TEMP 36.9; O2SAT 93
--- NOTE | 2016-07-10 08:29 | Progress Note ---
Subjective Date of Service: Jul 10, 2016. Subjective Pt evaluation today including: conversation w/ patient, conversation w/ family , physical exam, chart review, lab review, review of studies, conversation w/ toy consultant, review of inpatient medication list Sitting up in a chair, with back brace, reported pain is controlled, however reported blood pressure is high, Has bowel movement yesterday, no urinary problem Review of Systems Constitutional: + fatigue, No chills, No fever, No problem reported, No sweats , No weakness, No weight loss Eyes: No diplopia, No discharge, No eye pain, No redness, No worsening of vision ENT: No dental problems, No hearing loss, No nasal symptoms, No sore throat, No tinnitus, No trouble swallowing, No unusual epistaxis Respiratory: No cough, No dyspnea at rest, No dyspnea on exertion, No hemoptysis, No shortness of breath, No sputum, No wheezing Cardiac: No PND, No chest pain, No claudication, No edema, No orthopnea, No palpitations Abdomen: No constipation, No diarrhea, No nausea, No pain, No vomiting Musculoskeletal: No calf pain, No joint pain, No muscle pain, No swelling Female : No abnormal vaginal bleeding, No dysuria, No hematuria, No incontinence, No urinary frequency, No vaginal discharge Neurologic: No balance problems, No memory loss, No numbness/tingling, No paralysis, No vertigo, No weakness Psychiatric: No anhedonism, No anxiety, No depression symptoms, No insomnia, No substance abuse Heme: No abnormal bleeding/bruising, No clotting problems, No night sweats, No swollen lymph nodes Endo: No excessive thirst, No excessive urination, No fatigue Skin: No bleeding, No color change, No itch, No new/changing skin lesions, No rash Objective Vital Signs Date Time Temp Pulse Resp B/P Pulse Ox O2 Delivery O2 Flow Rate FiO2 07/10/16 08:06 36.9 88 16 169/91 93 Room Air 07/10/16 00:00 Room Air 07/09/16 23:00 37.0 92 18 146/87 95 Room Air 07/09/16 22:00 157/90 07/09/16 18:30 Room Air 07/09/16 16:25 156/85 07/09/16 15:14 37.1 87 18 174/93 95 Room Air 07/09/16 14:31 37.0 84 18 171/97 95 07/09/16 13:35 36.9 86 17 163/79 94 07/09/16 13:08 36.7 90 18 155/89 94 07/09/16 12:50 36.9 94 18 162/97 92 07/09/16 12:32 37.2 88 18 157/81 Physical Exam General Appearance: WD/WN, no apparent distress, + thin, + pertinent finding ( frail) Eyes: normal inspection, PERRL, EOMI, sclerae normal ENT: normal ENT inspection, hearing grossly normal, pharynx normal Neck: supple, no adenopathy, thyroid normal, no JVD, no carotid bruits, trachea midline Respiratory/Chest: chest non-tender, normal breath sounds, no respiratory distress, no accessory muscle use, + decreased breath sounds Cardiovascular: regular rate, rhythm, no edema, no gallop, no JVD, no murmur Abdomen: normal bowel sounds, non tender, soft, no organomegaly, no pulsatile mass Extremities: normal range of motion, non-tender, normal inspection, no pedal edema, no calf tenderness, normal capillary refill, pelvis stable, + pertinent finding (back brace in place) 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/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: 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, no motor/sensory deficits, alert, normal mood/affect, oriented x 3 Skin: normal color, warm/dry, no rash Lymphatic: no adenopathy Laboratory Results Last 24 Hours Test 07/10/16 05:11 White Blood Count 5.48 K/uL Red Blood Count 2.86 M/uL Hemoglobin 9.3 g/dL Hematocrit 27.7 % Mean Corpuscular Volume 96.9 fL Mean Corpuscular Hemoglobin 32.5 pg Mean Corpuscular Hemoglobin Concent 33.6 g/dl RDW Standard Deviation 68.1 fL RDW Coefficient of Variation 20.8 % Platelet Count 117 K/uL Mean Platelet Volume 9.2 fL Nucleated RBC Absolute Count (auto) 0.08 K/uL Nucleated Red Blood Cells % 1.5 % Sodium Level 139 mmol/L Potassium Level 3.3 mmol/L Chloride Level 104 mmol/L Carbon Dioxide Level 29 mmol/L Anion Gap 6.0 mmol/L Blood Urea Nitrogen 24 mg/dl Creatinine 1.10 mg/dl Est Creatinine Clear Calc Drug Dose 30.4 ml/min Estimated GFR () 52.6 Estimated GFR (Non- 45.4 BUN/Creatinine Ratio 21.4 Random Glucose 90 mg/dl Calcium Level 9.4 mg/dl Magnesium Level 1.8 mg/dl Assessment and Plan 86-year-old female admitted from PCPs office with complaint of worsening back pain over the past several days. The pain is especially worse with activity. Intractable low back pain due to compression deformities at T9, T10, T12, and L2 , along with paravertebral edema anteriorly extending from T11 through L2, and a right sacral insufficiency fracture, likely from multiple myeloma: Stable - No hx of a primary carcinoma - CT of abdomen/pelvis- There are no acute infectious or inflammatory findings in the abdomen or pelvis. 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 This is a new finding from 09/18/2014. This is nonspecific, with multiple myeloma a strong differential consideration. There are compression fractures of T9, T12, T10, and L2 as well as a right sacral insufficiency fracture. No large retropulsed fragments are identified. These are new from the 09/18/2014 examination and likely pathologic. Paravertebral edema is noted anteriorly from T11 through L2. This may represent trace hemorrhage from acute compression fracture. - CT of chest- Innumerable lytic lesions throughout visualized skeletal structures with numerous pathologic compression fractures within the thoracic and lumbar spines as described above. The findings are consistent with a neoplastic process and favor multiple myeloma. Metastatic disease could appear similar. No suspicious pulmonary nodules. Small bilateral pleural effusions, right larger than left. No thoracic lymphadenopathy. - Serum proteins/tumor markers pending - Consult hematology/oncology, appreciate recommendations -- Likely MM--> pending workup results -- Bone [place] biopsy 07/07 afternoon -- Will need outpt f/u with Dr. 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, got 1 unit blood transfusion on 07/09/2016, stable: Check b12 and folate- WNL Iron panel- iron 205, TIBC 216, ferritin 1720.1 Fecal occult negative Will transfuse 1 unit, can continue follow-up blood level Accelerated hypertension, has been adjusting blood pressure medicine, today will increase metoprolol XL to 100 mg by mouth daily, has hydralazine ordered as needed Hypomagnesemia, magnesium even low while on the oral supplementation, will give IV fluid IV mag museum and will increased mag oxide 2 400 by mouth twice a day Intractable low back pain due to compression deformities at T9, T10, T12, and L2 , Consulted orthotics for back brace , patient and family feel helpful hx of heart block s/p pacemaker implantation: Follows with Dr. Cortez Discussed with patient about care plan, [facility] rehabilitation, and the same time pain control, follow up with Dr. Corrigan for further evaluation of possible multiple myeloma, patient and agreed Will continue physical therapist while waiting for insurance company approval Talked to nurse, patient medically ready to discharge if bed available Continued [facility] stay due to: home environment unsafe for pt Discharge planning: rehab hospital
[2016-07-10 08:30] VITALS: BP 141/91; PULSE 61; O2SAT 96
[2016-07-10] MEDS ORDERED: METOPROLOL SUCC 50MG EXT REL TAB PO SCH (09:00)
[2016-07-10] MEDS: MAGNESIUM OXIDE 400 MG TAB PO SCH (09:09)
[2016-07-10] MEDS: SENNA 8.6 MG TAB PO SCH (09:10)
[2016-07-10] MEDS: DOCUSATE SODIUM 100 MG CAP PO SCH (09:10)
[2016-07-10] MEDS: CHOLECALCIFEROL 1000 INTER.UNIT TAB PO SCH (09:10)
[2016-07-10] MEDS: LISINOPRIL 40 MG TAB PO SCH (09:11)
[2016-07-10] MEDS ORDERED: TPRSR50 PO (11:55)
[2016-07-10 13:15] VITALS: BP 141/91; PULSE 61; TEMP 36.9; O2SAT 96
[2016-07-11 14:31] LABS: NEO FLOW LYMPH/LEUK STND SEE NEO MISC
[2016-07-12 08:43] LABS: ALPHA-2-GLOBULIN % 17.58 %; BETA GLOBULIN % 19.12 %; CREATININE UR 138 MG/DL (20-320); GAMMA GLOBULIN % 22.73 %
[2016-08-11] MEDS ORDERED: ACYC1CAP9 PO (13:25)
== END 2016-07-10 14:10 | DRG 841 ==
LOC: C.MSN 16:59
PROVIDERS: ADMIT Hospitalist; ATTEND Hospitalist
PROC: 07DR3ZX Extraction of Iliac Bone Marrow, Percutaneous Approach, Diagnostic (ICD-10-PCS; principal; 2016-07-07)
DX: C90.00 Multiple myeloma not having achieved remission (principal); M84.58XA Pathological fracture in neoplastic disease, other specified site, initial encounter for fracture; J90 Pleural effusion, not elsewhere classified; Z79.82 Long term (current) use of aspirin; Z79.899 Other long term (current) drug therapy; E87.6 Hypokalemia; E83.42 Hypomagnesemia; Z95.0 Presence of cardiac pacemaker; N18.3 Chronic kidney disease, stage 3 (moderate); I12.9 Hypertensive chronic kidney disease with stage 1 through stage 4 chronic kidney disease, or unspecified chronic kidney disease; D63.0 Anemia in neoplastic disease; D69.6 Thrombocytopenia, unspecified; I51.7 Cardiomegaly; K57.90 Diverticulosis of intestine, part unspecified, without perforation or abscess without bleeding

== ENCOUNTER → 2016-07-04 | Outpatient (CLI) | payer BC ==
[~2016-07-04] MED LIST changes: +OPTIRAY 320 IV PRN
--- NOTE | 2016-07-04 14:26 | DIAGNOSTIC IMAGING REPORT ---
CT SCAN OF THE ABDOMEN AND PELVIS WITH IV CONTRAST CLINICAL HISTORY: Low back pain. COMPARISON STUDY: Abdominal CT dated 09/18/2014. TECHNIQUE: Following the IV administration of 93 cc of Optiray 320, CT scan of the abdomen and pelvis is performed from the lung bases to the proximal femora. Images are reviewed in the axial, sagittal, and coronal planes. IV contrast was administered without complication. Automated dose control exposure was utilized. CT DOSE: 277.31 mGy.cm FINDINGS: Lung bases: The heart is mildly enlarged and there is trace pericardial effusion. Pacemaker leads are noted. The coronary arteries are densely calcified. There are small pleural effusions with bibasilar atelectasis. Liver: The contrast-enhanced liver is normal in size, contour, and attenuation. There is no intrahepatic biliary ductal dilatation. A 1.6 cm cyst in the inferior right lobe of liver seen on image #221. A subcentimeter hypodensity in the right lobe seen on image #89 May represent a cyst but is too small to characterize and unchanged. The hepatic veins and portal veins are patent. Gallbladder: Unremarkable. Spleen: Normal in size and attenuation. Pancreas: Moderately atrophic and grossly unremarkable. Adrenal glands: Unremarkable. Kidneys: The contrast enhanced kidneys demonstrate cortical atrophy and are without hydronephrosis. The kidneys enhance symmetrically. Small renal cysts measure up to 1.9 cm. Additional subcentimeter cortical hypodensities also likely represent cysts but are too small for definitive characterization. Abdominal vasculature: The abdominal aorta is normal in course and caliber noting advanced atherosclerotic calcification. Bowel: The small bowel and colon are normal in course and caliber. There is moderate colonic diverticulosis without CT evidence of acute diverticulitis. The appendix is not identified and reported surgically absent. Peritoneum: There is no intraperitoneal free air or abdominal ascites. Lymphadenopathy: None. Pelvic viscera: The bladder, uterus, and adnexa are normal as visualized. Skeletal structures: The skeletal structures are osteopenic. There are moderate compression deformities of T9 and T12. A mild compression deformity is seen involving T10 and L2. There is evidence of a right sacral insufficiency fracture as seen on axial image #244. These fractures are all new from 09/18/2014. 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 There is paravertebral edema seen anteriorly extending from T11 through L2. IMPRESSION: 1. There are no acute infectious or inflammatory findings in the abdomen or pelvis. 2. Small pleural effusions with bibasilar atelectasis. 3. 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 This is a new finding from 09/18/2014. This is nonspecific, with multiple myeloma a strong differential consideration. 4. There are compression fractures of T9, T12, T10, and L2 as well as a right sacral insufficiency fracture. No large retropulsed fragments are identified. These are new from the 09/18/2014 examination and likely pathologic. 5. Paravertebral edema is noted anteriorly from T11 through L2. This may represent trace hemorrhage from acute compression fracture. 6. Cardiomegaly. 7. Moderate colonic diverticulosis without CT evidence of acute diverticulitis. Electronically signed by: Jose Perez M.D. 07/04/2016 2:25 PM Dictated Date/Time: 07/04/2016 2:12 PM
== END | disposition home or self-care (01) ==
LOC: C.CTS 12:02
PROVIDERS: ATTEND Internal Medicine Geriatric Medicine
DX: J90 Pleural effusion, not elsewhere classified (principal); M48.54XA Collapsed vertebra, not elsewhere classified, thoracic region, initial encounter for fracture; M48.56XA Collapsed vertebra, not elsewhere classified, lumbar region, initial encounter for fracture; M84.48XA Pathological fracture, other site, initial encounter for fracture; I51.7 Cardiomegaly; K57.90 Diverticulosis of intestine, part unspecified, without perforation or abscess without bleeding

== ENCOUNTER → 2016-07-21 | Outpatient (CLI) | payer BC, OTHER ==
[~2016-07-21] MED LIST changes: +ACET160S78 PO; +ACYC1CAP9 PO; +CLC150 PO; +Enteral Nutrition Formula PO; +FLX/5 PO; +GABA1CAP4 PO; +HYDR-4079 PO; +HYDR-5688 PO; +LCTX PO; +LSX20 PO; +MELO7.5T5 PO; +MGNO400 PO; +MRPL PO; +MYL80 PO; -OXYC1TAB3 PO; +POTA10TA PO; +POTTAB2 PO; +PRD10 PO; +PRT40 PO; +TPRSR50 PO; +TUMS PO; +VALA1TAB31 PO; +ZFRI4 IV; +[UNRECOGNIZED DRUG - CODE] PO
--- NOTE | 2016-07-21 11:52 | DIAGNOSTIC IMAGING REPORT ---
CHEST 2 VIEWS ROUTINE CLINICAL HISTORY: SHORTNESS OF BREATH ON EXERTION dyspnea COMPARISON STUDY: 07/04/2016 FINDINGS: Bilateral pleural effusions unchanged from the prior exam. Mild stable cardiomegaly. Underlying emphysematous change. IMPRESSION: Bilateral pleural effusions. Emphysematous change. No significant change from the prior study. Electronically signed by: Giovany Giron M.D. 07/21/2016 11:50 AM Dictated Date/Time: 07/21/2016 11:50 AM
[2016-07-21 13:25] LABS: BASO % 0.4 %; BASO ABS # 0.03 K/uL (0-0.2); EOS % 0.1 %; IG% 0.3 %; LYMPH % 25.4 %; LYMPH ABS # 1.77 K/uL (1.2-3.4); MEAN CELL VOLUME 100.6 fL (80-100); MEAN CORPUSCULAR HEMOGLOBIN 33.3 pg (25-34); MEAN CORPUSCULAR HGB CONC 33.1 g/dl (32-36); MEAN PLATELET VOLUME 9.8 fL (7.4-10.4); MONO % 8.7 %; NEUT % 65.1 %; PLATELET COUNT 199 K/uL (130-400); RED BLOOD COUNT 3.18 M/uL (4.2-5.4); WHITE BLOOD COUNT 6.98 K/uL (4.8-10.8)
[2016-07-21 13:47] LABS: ANISOCYTOSIS PRESENT; COMPLETE YES
[2016-07-21 14:11] LABS: GLUCOSE 112 mg/dl (70-99)
[2016-07-21 14:12] LABS: BLOOD UREA NITROGEN 26 mg/dl (7-18); BUN/CREATININE RATIO 21.4 (10-20); CALCIUM 10.6 mg/dl (8.5-10.1); CARBON DIOXIDE 28 mmol/L (21-32); CHLORIDE 97 mmol/L (98-107); POTASSIUM 3.3 mmol/L (3.5-5.1); SODIUM 134 mmol/L (136-145)
[2016-07-21 14:25] LABS: FERRITIN 2105.2 ng/ml (8.0-388.0)
--- NOTE | 2016-07-26 14:06 | CODING QUERY MEDICAL NECESSITY ---
SUPPORTING DIAGNOSIS NEEDED A supporting diagnosis is required for the test/procedure performed on this patient in order for us to be reimbursed by the patient's insurance. Please provide a supporting diagnosis for the following test/procedure listed below next to the test name along with your signature. *If there is no additional diagnosis for this patient that would support the following test/procedure please document that below next to the test/procedure. Test(s)/Procedure(s) that require a supporting diagnosis: * VITAMIN B-12 LEVEL DIAGNOSIS: * DOS: 07/21/16 Provider Signature: Date: Thank you Ivette Dominguez Health Information Management Once completed, please kindly fax back to [phone] For questions please call [phone]
== END | disposition home or self-care (01) ==
LOC: C.RADBC 10:59
PROVIDERS: ATTEND Internal Medicine Geriatric Medicine
DX: R06.02 Shortness of breath (principal); D64.9 Anemia, unspecified; I10 Essential (primary) hypertension; E87.1 Hypo-osmolality and hyponatremia; I49.5 Sick sinus syndrome; J90 Pleural effusion, not elsewhere classified

== ENCOUNTER → 2016-07-28 | Outpatient (CLI) | payer BC ==
[~2016-07-28] MED LIST changes: +ACYC-56 PO; -ACYC1CAP9 PO; +OPTIRAY 320 IV PRN
--- NOTE | 2016-07-28 09:12 | DIAGNOSTIC IMAGING REPORT ---
CHEST CTA for PULMONARY ARTERIES CT DOSE: 193.11 mGy.cm HISTORY: Chest pain dyspnea TECHNIQUE: Multiaxial CT images of the chest were performed following the intravenous administration of contrast to evaluate the pulmonary arteries. Maximal intensity projection images were also obtained. COMPARISON STUDY: 07/05/2016 FINDINGS: Study is negative for pulmonary most. Pulmonary arteries enhance appropriately. There are no filling defects. Moderate atherosclerotic change thoracic aorta stable from the prior exam. Bilateral pleural effusions increased in volume from the prior study. Bilateral lower lobe atelectatic change. These findings are again somewhat progressive compared to the prior study. No significant mediastinal or hilar adenopathy. Pulmonary apices are considered generally clear. Probable retrocrural and or upper abdominal aortic adenopathy. Multiple lytic lesions throughout the vertebral column with a compression deformities there is similar as compared to the prior study. IMPRESSION: 1. No evidence for pulmonary embolus. 2. Increased volume of bilateral pleural effusions now considered significant bilaterally. 3. Mildly progressive lower lobe atelectatic change. 4. Probable retrocrural/periaortic adenopathy of the upper abdomen. 5. Diffuse lytic changes throughout the osseous structures suggesting a myeloma type process. This is similar compared to the prior study. Electronically signed by: Giovany Giron M.D. 07/28/2016 9:10 AM Dictated Date/Time: 07/28/2016 9:06 AM
== END | disposition home or self-care (01) ==
LOC: C.CTS 08:16
PROVIDERS: ATTEND Internal Medicine Geriatric Medicine
DX: R06.02 Shortness of breath (principal); J90 Pleural effusion, not elsewhere classified

== ENCOUNTER 2016-07-29 14:50 | Inpatient (IN) | payer BC, OTHER ==
[~2016-07-29] VITALS: Ht 160 cm; Wt 64.0 kg
[~2016-07-29 14:50] MED LIST changes: -ACET160S78 PO; -ACYC-56 PO; -CLC150 PO; -Enteral Nutrition Formula PO; -FLX/5 PO; -GABA1CAP4 PO; -LCTX PO; -LSX20 PO; -MELO7.5T5 PO; -MRPL PO; -MYL80 PO; -OPTIRAY 320 IV PRN; -POTA10TA PO; -POTTAB2 PO; -PRD10 PO; -PRT40 PO; -TPRSR/50 PO; -TUMS PO; -VALA1TAB31 PO; -ZFRI4 IV; -[UNRECOGNIZED DRUG - CODE] PO
--- NOTE | 2016-07-29 17:27 | DIAGNOSTIC IMAGING REPORT ---
CHEST 2 VIEWS ROUTINE HISTORY: SOB, multiple myeloma, pleural effusions COMPARISON: Chest CTA 07/28/2016. Chest x-ray 07/21/2016. FINDINGS: Moderate bilateral pleural effusions have slightly increased in size. No pneumothorax. Right-sided dual-chamber pacemaker. Bibasilar densities. The upper lung zones remain clear. Multiple thoracic vertebral body compression deformities are again noted. IMPRESSION: Moderate bilateral pleural effusions which have slightly increased in size. Bibasilar densities favor atelectasis from the pleural effusions. Electronically signed by: Vikas Valdivia M.D. 07/29/2016 5:25 PM Dictated Date/Time: 07/29/2016 5:24 PM
--- NOTE | 2016-07-29 17:31 | EMERGENCY ROOM VISIT NOTE ---
History Report prepared by Angelia: Tania Gil Under the Supervision of: Dr. Kacie Pino M.D. First contact with patient: 16:38 Chief Complaint: SHORTNESS OF BREATH Stated Complaint: PL EFFUSIONS, [facility] Nursing Triage Summary: Triage note: pt reports shortness of breath x 4 days ago. pt has multiple myeloma and is to start chemo on monday. History of Present Illness The patient is a 86 year old female who presents to the Emergency Room with complaints of worsening shortness of breath that began 4 days ago. Her shortness of breath is worse with exertion. Per patient's family, she has been having difficulty eating and drinking. She has been relying on her family to help her with routine tasks such as getting dressed. She is on Lasix and had her dose increased from 20 mg to [address] Segura yesterday. She had a chest CTA yesterday which revealed significant bilateral pleural effusions. The patient follows with Dr. Corrigan for multiple myeloma. She is scheduled to start chemotherapy in 3 days. Denies, fever, vomiting, diarrhea, or other complaints. Source of History: patient Onset: 4 days ago Position: other (global) Quality: other (shortness of breath) Timing: worsening Modifying Factors (Worsening): exertion Associated Symptoms: No diarrhea, No fevers, No vomiting Review of Systems See HPI for pertinent positives & negatives. A total of 10 systems reviewed and were otherwise negative. Past Medical & Surgical Medical Problems: (1) Acute renal insufficiency (2) Acute systolic CHF (congestive heart failure) (3) Cardiac Dysrhythmias Nec (4) Cardiomegaly (5) Diastolic dysfunction (6) Diverticulosis Colon (W/O Ment Of Hemorrhage) (7) Hypertension Nos (8) Intractable low back pain (9) Multiple myeloma (10) Osteoporosis Nos (11) Thoracic vertebral fracture Family History FH: heart disease Social History Smoking Status: Never Smoker Alcohol Use: none Drug Use: none Marital Status: Housing Status: lives with family Occupation Status: retired Current/Historical Medications Scheduled Aspirin (Aspirin Ec), 81 MG PO QAM Cholecalciferol (Vitamin D3), 1,000 INTUNIT PO QAM Furosemide (Furosemide), 40 MG PO QAM Indapamide (Lozol), 1.25 MG PO DAILY Lisinopril (Zestril), 20 MG PO DAILY Magnesium Oxide (Magnesium-Oxide), 400 MG PO QAM Metoprolol Succinate (Metoprolol Succinate ER), 1 TAB PO QAM Potassium Chloride (K-Tabs), 1 TAB PO QAM Scheduled PRN Acetaminophen (Arthritis Pain), 2 TAB PO Q6H PRN for Pain Allergies Coded Allergies: Sulfa Antibiotics (Verified Allergy, Unknown, RASH, 07/29/16) Physical Exam Vital Signs Date Time Temp Pulse Resp B/P Pulse Ox O2 Delivery O2 Flow Rate FiO2 07/29/16 17:44 101 18 138/90 95 Room Air 07/29/16 17:37 104 07/29/16 14:56 36.3 93 18 104/74 95 Room Air Physical Exam Vital signs reviewed. General: Elderly, pale, cachectic and frail 86 year female, in no significant distress. HEENT: No scleral icterus, PERRLA, neck supple. Atraumatic. Cardiovascular: Regular rate and rhythm, no extra sounds. Pulmonary: Diminished breath sounds at the bases to auscultation bilaterally, increased work of breathing on room air. Abdomen: Soft, nontender, nondistended, positive bowel sounds. Musculoskeletal: Atraumatic, right greater than left lower extremity edema with nonblanchable ecchymotic lesions. Neurologic: Patient awake alert and oriented x 3, equal strength in all 4 extremities. Cranial nerves 2 through 12 grossly intact. Skin: Warm, dry, no rash Medical Decision & Procedures ER Provider Diagnostic Interpretation: Radiology results as stated below per my review and radiologist interpretation: CHEST 2 VIEWS ROUTINE HISTORY: SOB, multiple myeloma, pleural effusions COMPARISON: Chest CTA 07/28/2016. Chest x-ray 07/21/2016. FINDINGS: Moderate bilateral pleural effusions have slightly increased in size. No pneumothorax. Right-sided dual-chamber pacemaker. Bibasilar densities. The upper lung zones remain clear. Multiple thoracic vertebral body compression deformities are again noted. IMPRESSION: Moderate bilateral pleural effusions which have slightly increased in size. Bibasilar densities favor atelectasis from the pleural effusions. Electronically signed by: Vikas Valdivia M.D. 07/29/2016 5:25 PM Dictated Date/Time: 07/29/2016 5:24 PM BILATERAL LOWER EXTREMITY VENOUS DOPPLER HISTORY: Leg swelling. COMPARISON STUDY: None. FINDINGS: No DVT within the right lower extremity. Linear echogenic stranding within the left distal popliteal vein consistent with chronic nonocclusive thrombus. No acute DVT within the left lower externally. IMPRESSION: 1. Linear echogenic stranding within the left distal popliteal vein consistent with chronic nonocclusive thrombus. 2. No acute DVT within the right or left lower extremity. Electronically signed by: Vikas Valdivia M.D. 07/29/2016 8:37 PM Dictated Date/Time: 07/29/2016 8:36 PM Laboratory Results Test 07/29/16 17:38 07/29/16 17:42 Nucleated RBC Absolute Count (auto) 0.06 K/uL (0-0) Nucleated Red Blood Cells % 0.7 % Bedside Troponin I 0.060 ng/ml (0-0.045) Laboratory results per my review. Medications Administered Medications (Trade) Dose Ordered Sig/Willy Route Start Time Stop Time Status Last Admin Dose Admin Sodium Chloride 250 ml @ 999 mls/hr Q16M STAT IV 07/29/16 17:48 07/29/16 18:03 DC 07/29/16 17:48 999 MLS/HR Sodium Chloride (Nss 1000ml) 1,000 ml @ 125 mls/hr Q8H STAT IV 07/29/16 17:48 07/29/16 21:37 DC 07/29/16 17:48 125 MLS/HR ECG Indication: other (atrial sensed, ventricularly paced) Rate (beats per minute): 101 Findings: other (widened QRS, QTc 503) ED Course 1716: Past medical records reviewed. The patient was evaluated in room C2. A complete history and physical examination was performed. 1748: Ordered NSS 1000 ml @ 125 mls/hr IV, NSS 250 ml @ 999 mls/hr IV. 1830: Upon reevaluation, the patient is feeling better. I discussed laboratory and radiographic results with the patient. She verbalized agreement of the treatment plan. 1917: I discussed the case with Dr. Sepulveda [facility] Hospitalist. The patient will be evaluated for further management. Medical Decision Differential diagnosis: Etiologies such as infections, reactive airway disease, pneumonia, pneumothorax , COPD, CHF, cardiac ischemia, pulmonary embolism, musculoskeletal, gastrointestinal, as well as others were entertained. This pt was evaluated and appeared to be in no distress. IV access was obtained and lab work was drawn. Pt was gently hydrated with NSS d/t renal insufficiency and tachycardia. CXR reveals worsening bilateral pleural effusions. Pt seemed to be suffering worsening renal fx in light of need for diuresis. She was noted to be hypercalcemic. Troponin was slightly elevated. EKG revealed a paced rhythm without obvious ischemic changes. The pt was d/w the hospitalist service for further management. Pt and family were made aware of the plan and agreed. Consults Time Called: 1827 Consulting Physician: Dr. Derick Ross [facility] Hospitalist Returned Call: 1917 I discussed the case with him. The patient will be evaluated for further management. Impression Primary Impression: Bilateral pleural effusion Additional Impressions: Renal failure Anemia Elevated troponin Dehydration Hypercalcemia Scribe Attestation The scribe's documentation has been prepared under my direction and personally reviewed by me in its entirety. I confirm that the note above accurately reflects all work, treatment, procedures, and medical decision making performed by me. Departure Information Dispostion Being Evaluated By Hospitalist Referrals Baron Segura M.D. (PCP) Patient Instructions [facility] Problem Qualifiers
[2016-07-29] MEDS ORDERED: SODIUM CHLORIDE 0.9% 250ML 250 ML IV STA (17:48)
[2016-07-29] MEDS ORDERED: SODIUM CHLORIDE 0.9% 1000ML 1,000 ML IV STA (17:48)
[2016-07-29 18:01] LABS: HEMATOCRIT 30.4 % (37-47); MEAN CORPUSCULAR HEMOGLOBIN 34.2 pg (25-34); MEAN CORPUSCULAR HGB CONC 33.6 g/dl (32-36); PLATELET COUNT 160 K/uL (130-400); RED BLOOD COUNT 2.98 M/uL (4.2-5.4)
[2016-07-29 18:11] LABS: CKMB/CK RATIO 4.2 (0-3.0); MAGNESIUM 1.8 mg/dl (1.8-2.4); POTASSIUM 4.1 mmol/L (3.5-5.1)
[2016-07-29] MEDS ORDERED: VALA1TAB31 PO (18:24)
[2016-07-29] MEDS ORDERED: FLX/5 PO (18:24)
[2016-07-29] MEDS ORDERED: TPRSR/50 PO (18:24)
[2016-07-29] MEDS ORDERED: MELO7.5T5 PO (18:24)
[2016-07-29] MEDS ORDERED: LSX20 PO (18:24)
[2016-07-29] MEDS ORDERED: GABA1CAP4 PO (18:24)
[2016-07-29] MEDS ORDERED: POTA10TA PO (18:31)
[2016-07-29 18:34] LABS: BASO % 0.4 %; BASO ABS # 0.03 K/uL (0-0.2); COMPLETE YES; EOS % 0.1 %; IG% 0.4 %; LYMPH % 21.7 %; LYMPH ABS # 1.82 K/uL (1.2-3.4); MONO % 7.5 %; NEUT % 69.9 %; POLYCHROMASIA 1+
[2016-07-29] MEDS ORDERED: LEVALBUTEROL/IPRATROPIUM NEB INH PRN (20:15)
[2016-07-29] MEDS ORDERED: SODIUM CHLORIDE 0.9% 1000ML 1,000 ML IV SCH (20:15)
[2016-07-29] MEDS ORDERED: ZOLPIDEM TARTRATE 5 MG TAB PO PRN (20:15)
[2016-07-29] MEDS ORDERED: ACETAMINOPHEN 325 MG TAB PO PRN (20:15)
--- NOTE | 2016-07-29 20:39 | DIAGNOSTIC IMAGING REPORT ---
BILATERAL LOWER EXTREMITY VENOUS DOPPLER HISTORY: Leg swelling. COMPARISON STUDY: None. FINDINGS: No DVT within the right lower extremity. Linear echogenic stranding within the left distal popliteal vein consistent with chronic nonocclusive thrombus. No acute DVT within the left lower externally. IMPRESSION: 1. Linear echogenic stranding within the left distal popliteal vein consistent with chronic nonocclusive thrombus. 2. No acute DVT within the right or left lower extremity. Electronically signed by: Vikas Valdivia M.D. 07/29/2016 8:37 PM Dictated Date/Time: 07/29/2016 8:36 PM
[2016-07-29] MEDS ORDERED: IPRATROPIUM BROMIDE NEB SOLN 0.02% 2.5 ML VIAL INH PRN (21:00)
[2016-07-29] MEDS ORDERED: LEVALBUTEROL 1.25MG/0.5ML NEB INH PRN (21:00)
[2016-07-29 21:40] VITALS: BP 164/87; PULSE 112; TEMP 37.2; O2SAT 99; Ht 160 cm; Wt 64.0 kg
[2016-07-29] MEDS ORDERED: ALBUMIN 25% 50 ML with FUROSEMIDE INJ 40 MG IV ONE ×2 (22:00)
[2016-07-29] MEDS: PAMIDRONATE DISODIUM IV INJ 60 MG in SODIUM CHLORIDE 0.9% 1000ML 1,000 ML IV SCH ×2 (22:10→22:19)
[2016-07-29 22:24] VITALS: BP 146/90; PULSE 94; TEMP 37; O2SAT 98
[2016-07-29 22:45] VITALS: BP 130/84; PULSE 99; TEMP 37; O2SAT 97
[2016-07-29 23:19] VITALS: BP 170/81; PULSE 64; TEMP 36.8; O2SAT 98
[2016-07-29 23:31] VITALS: BP 119/74; PULSE 101; TEMP 36.4; O2SAT 99
--- NOTE | 2016-07-29 23:32 | History and Physical ---
History & Physical Date & Time of Service: Jul 29, 2016 at 23:32 Chief Complaint: Bilateral Pleural Effusion, Hypercalcemia Primary Care Physician: Baron Segura M.D. History of Present Illness Source: patient, family The patient is an 86-year-old female, most recently admitted to [facility] from July 04 to July 10, where she was given the new diagnosis of multiple myeloma, who complains of worsening shortness of breath that began 4 days ago, despite a recent increase in her Lasix dose from 20-40 mg yesterday by her PCP Dr. Segura. She had a CT angiography of the chest performed yesterday as an outpatient which revealed progressively worsening bilateral pleural effusions. She follows with Dr. Raul Corrigan from oncology, and was to begin chemotherapy in 3 days. Past Medical/Surgical History Medical Problems: (1) Cardiac Dysrhythmias Nec Status: Chronic (2) Cardiomegaly Status: Chronic (3) Diverticulosis Colon (W/O Ment Of Hemorrhage) Status: Chronic (4) Hypertension Nos Status: Chronic (5) Osteoporosis Nos Status: Chronic Family History FH: heart disease Social History Smoking Status: Never Smoker Smokeless Tobacco Use: No Alcohol Use: none Drug Use: none Marital Status: Housing status: lives with family Occupational Status: retired Immunizations History of Influenza Vaccine: Yes History of Tetanus Vaccine?: No History of Pneumococcal: Yes History of Hepatitis B Vaccine: Yes Multi-Drug Resistant Organisms History of MDRO: No Allergies Coded Allergies: Sulfa Antibiotics (Verified Allergy, Unknown, RASH, 07/29/16) Home Medications Scheduled Aspirin (Aspirin Ec), 81 MG PO QAM Cholecalciferol (Vitamin D3), 1,000 INTUNIT PO QAM Furosemide (Furosemide), 40 MG PO QAM Indapamide (Lozol), 1.25 MG PO DAILY Lisinopril (Zestril), 20 MG PO DAILY Magnesium Oxide (Magnesium-Oxide), 400 MG PO QAM Metoprolol Succinate (Metoprolol Succinate ER), 1 TAB PO QAM Potassium Chloride (K-Tabs), 1 TAB PO QAM Scheduled PRN Acetaminophen (Arthritis Pain), 2 TAB PO Q6H PRN for Pain Review of Systems The patient denies chest pain, palpitations, vision change, hearing change, sore throat, fevers, chills, sweats, nausea, vomiting, abdominal pain, pelvic pain, blood in urine or stool, dysuria, urinary frequency or urgency, lightheadedness, dizziness, headache, memory loss, rash, abnormal bruising or bleeding, focal weakness, numbness or tingling in arms or legs, back or neck pain, night sweats, or allergy symptoms. The review of systems is otherwise negative other than for that already noted above, and at least 10 systems have been reviewed. Physical Exam Vital Signs Date Time Temp Pulse Resp B/P Pulse Ox O2 Delivery O2 Flow Rate FiO2 07/29/16 23:19 36.8 64 16 170/81 98 Room Air 07/29/16 22:45 37.0 99 130/84 97 Nasal Cannula 2.0 07/29/16 22:24 37.0 94 26 146/90 98 Nasal Cannula 2.0 07/29/16 21:40 37.2 112 28 164/87 99 Nasal Cannula 2.0 07/29/16 20:43 28 93 Nasal Cannula 4.0 07/29/16 20:41 105 18 157/96 85 Room Air 07/29/16 17:44 101 18 138/90 95 Room Air 07/29/16 17:37 104 07/29/16 14:56 36.3 93 18 104/74 95 Room Air The patient is awake, well-developed and adequately nourished, alert and oriented 3, normocephalic and atraumatic, lying in bed and in no acute distress. HEENT--PERRL, EOMI, mucous membranes and oropharynx dry. Neck--supple, no JVD or bruits, thyroid normal, trachea midline, no adenopathy. Heart--normal S1 and S2, no extra beats, no murmurs, rubs or gallops. Lungs--decreased breath sounds throughout, no respiratory distress, no accessory muscle use. Abdomen--normal bowel sounds and soft, nontender and nondistended, no hernias or masses, no organomegaly. Extremities--no cyanosis, clubbing. There is bilaterally pretibial 2+ pitting edema. There are good distal pulses b/l. Dermatologic--normal skin turgor, normal color, warm and dry, no abnormal lymph nodes, no rash. Neurologic--cranial nerves II through XII grossly intact, motor and sensory examination normal. Rheumatologic--normal range of motion, nontender, muscles and joints. Psychiatric--normal affect. Diagnostics Laboratory Results Results Past 24 Hours Test 07/29/16 17:38 07/29/16 17:42 07/29/16 21:03 Range/Units White Blood Count 8.40 4.8-10.8 K/uL Red Blood Count 2.98 4.2-5.4 M/uL Hemoglobin 10.2 12.0-16.0 g/dL Hematocrit 30.4 37-47 % Mean Corpuscular Volume 102.0 80-100 fL Mean Corpuscular Hemoglobin 34.2 25-34 pg Mean Corpuscular Hemoglobin Concent 33.6 32-36 g/dl Platelet Count 160 130-400 K/uL Mean Platelet Volume 10.0 7.4-10.4 fL Neutrophils (%) (Auto) 69.9 % Lymphocytes (%) (Auto) 21.7 % Monocytes (%) (Auto) 7.5 % Eosinophils (%) (Auto) 0.1 % Basophils (%) (Auto) 0.4 % Neutrophils # (Auto) 5.88 1.4-6.5 K/uL Lymphocytes # (Auto) 1.82 1.2-3.4 K/uL Monocytes # (Auto) 0.63 0.11-0.59 K/uL Eosinophils # (Auto) 0.01 0-0.5 K/uL Basophils # (Auto) 0.03 0-0.2 K/uL RDW Standard Deviation 75.2 36.4-46.3 fL RDW Coefficient of Variation 20.6 11.5-14.5 % Immature Granulocyte % (Auto) 0.4 % Immature Granulocyte # (Auto) 0.03 0.00-0.02 K/uL Nucleated RBC Absolute Count (auto) 0.06 0-0 K/uL Nucleated Red Blood Cells % 0.7 % Polychromasia 1+ Sodium Level 134 136-145 mmol/L Potassium Level 4.1 3.5-5.1 mmol/L Chloride Level 95 98-107 mmol/L Carbon Dioxide Level 29 21-32 mmol/L Anion Gap 10.0 3-11 mmol/L Blood Urea Nitrogen 57 7-18 mg/dl Creatinine 3.00 0.60-1.20 mg/dl Est Creatinine Clear Calc Drug Dose 11.1 ml/min Estimated GFR () 15.7 Estimated GFR (Non- 13.5 BUN/Creatinine Ratio 19.0 10-20 Random Glucose 106 70-99 mg/dl Calcium Level 11.0 8.5-10.1 mg/dl Magnesium Level 1.8 1.8-2.4 mg/dl Total Bilirubin 0.7 0.2-1 mg/dl Direct Bilirubin 0.2 0-0.2 mg/dl Aspartate Amino Transf (AST/SGOT) 36 15-37 U/L Alanine Aminotransferase (ALT/SGPT) 18 12-78 U/L Alkaline Phosphatase 104 45-117 U/L Total Creatine Kinase 33 25 26-192 U/L Creatine Kinase MB 1.4 1.5 0.5-3.6 ng/ml Creatine Kinase MB Ratio 4.2 6.0 0-3.0 Total Protein 8.9 6.4-8.2 gm/dl Albumin 3.0 3.4-5.0 gm/dl Bedside Troponin I 0.060 0-0.045 ng/ml Troponin I 0.064 0-0.045 ng/ml Diagnostic Radiology Patient Name: OPHELIA RAMIREZ Unit Number: [id number] Dictated: 07/29/161723 Transcribed: 07/29/161723 [employer] Printed Date/Time: [~ rep prt dt]/[~ rep prt tm] [~ rep ct labl] - [~ rep ct ivnm] [facility] Radiology Department [place], [place] [id number] Dictated: 07/29/161723 Transcribed: 07/29/161723 [employer] Printed Date/Time: [~ rep prt dt]/[~ rep prt tm] [~ rep ct labl] - [~ rep ct ivnm] CHEST 2 VIEWS ROUTINE HISTORY: SOB, multiple myeloma, pleural effusions COMPARISON: Chest CTA 07/28/2016. Chest x-ray 07/21/2016. FINDINGS: Moderate bilateral pleural effusions have slightly increased in size. No pneumothorax. Right-sided dual-chamber pacemaker. Bibasilar densities. The upper lung zones remain clear. Multiple thoracic vertebral body compression deformities are again noted. IMPRESSION: Moderate bilateral pleural effusions which have slightly increased in size. Bibasilar densities favor atelectasis from the pleural effusions. Electronically signed by: Vikas Valdivia M.D. 07/29/2016 5:25 PM Dictated Date/Time: 07/29/2016 5:24 PM The status of this report is Signed. Draft = Not yet reviewed or approved by Radiologist. Signed = Reviewed and approved by Radiologist. <AttendingPhy></AttendingPhy> <FamilyPhy>Baron Segura M.D.</FamilyPhy> < PrimaryPhy>Baron Segura M.D.</PrimaryPhy> <UnitNumber>[id number]</UnitNumber > <VisitNumber>[id number]</VisitNumber> <PatientName>OPHELIA RAMIREZ</ PatientName> <DateOfBirth>1930</DateOfBirth> <Location>[facility]</Location> < ServiceDate>07/29/16</ServiceDate> <MNE>ESINDI</MNE> <OrderingPhy>Kacie Pino M.D.</OrderingPhy> <OrderingPhyMNE>f rep ord dr huang</OrderingPhyMNE> < DictatingPhyMNE>f rep dict dr huang</DictatingPhyMNE> <CCListMNE>f rep ct mne</ CCListMNE> <AdmittingPhyMNE>f pt admit dr huang</AdmittingPhyMNE> <AttendingPhyMNE >f pt attend dr huang</AttendingPhyMNE> <ConsultingPhyMNE>f pt consult dr huang</ConsultingPhyMNE> <FamilyPhyMNE>f pt fam dr huang</FamilyPhyMNE> <OtherPhyMNE>f pt other dr huang</OtherPhyMNE> < PrimaryPhyMNE>f pt prim care dr huang</PrimaryPhyMNE> <ReferringPhyMNE>f pt referring dr huang</ReferringPhyMNE> Patient Name: OPHELIA RAMIREZ Unit Number: [id number] Dictated: 07/29/162035 Transcribed: 07/29/162035 [place] Printed Date/Time: [~ rep prt dt]/[~ rep prt tm] [~ rep ct labl] - [~ rep ct ivnm] [facility] [place] [place] [address] Dictated: 07/29/162035 Transcribed: 07/29/162035 [facility] Printed Date/Time: [~ rep prt dt]/[~ rep prt tm] [~ rep ct labl] - [~ rep ct ivnm] [~ rep ct add3]] BILATERAL LOWER EXTREMITY VENOUS DOPPLER HISTORY: Leg swelling. COMPARISON STUDY: None. FINDINGS: No DVT within the right lower extremity. Linear echogenic stranding within the left distal popliteal vein consistent with chronic nonocclusive thrombus. No acute DVT within the left lower externally. IMPRESSION: 1. Linear echogenic stranding within the left distal popliteal vein consistent with chronic nonocclusive thrombus. 2. No acute DVT within the right or left lower extremity. Electronically signed by: Vikas Valdivia M.D. 07/29/2016 8:37 PM Dictated Date/Time: 07/29/2016 8:36 PM The status of this report is Signed. Draft = Not yet reviewed or approved by Radiologist. Signed = Reviewed and approved by Radiologist. <AttendingPhy></AttendingPhy> <FamilyPhy>Baron Segura M.D.</FamilyPhy> < PrimaryPhy>Baron Segura M.D.</PrimaryPhy> <UnitNumber>[id number]</UnitNumber > <VisitNumber>[id number]</VisitNumber> <PatientName>OPHELIA RAMIREZ</ PatientName> <DateOfBirth>1930</DateOfBirth> <Location>[facility]</Location> < ServiceDate>07/29/16</ServiceDate> <MNE>ESINDI</MNE> <OrderingPhy>Kacie Pino M.D.</OrderingPhy> <OrderingPhyMNE>f rep ord dr huang</OrderingPhyMNE> < DictatingPhyMNE>f rep dict dr huang</DictatingPhyMNE> <CCListMNE>f rep ct mne</ CCListMNE> <AdmittingPhyMNE>f pt admit dr huang</AdmittingPhyMNE> <AttendingPhyMNE >f pt attend dr huang</AttendingPhyMNE> <ConsultingPhyMNE>f pt consult dr huang</ConsultingPhyMNE> <FamilyPhyMNE>f pt fam dr huang</FamilyPhyMNE> <OtherPhyMNE>f pt other dr huang</OtherPhyMNE> < PrimaryPhyMNE>f pt prim care dr huang</PrimaryPhyMNE> <ReferringPhyMNE>f pt referring dr huang</ReferringPhyMNE> EKG EKG shows atrial sensed ventricular paced rhythm at 101 bpm. Impression Assessment and Plan Worsening Bilateral pleural effusions leading to worsening shortness of breath-- the patient will be admitted to the telemetry unit. She has already been given 2 L of IV fluids by the emergency department. We'll give a single dose of albumin 25 g with Lasix 40 mg IV tonight. We'll consult cigar packer and grader Dr. Canales to get his opinion regarding the possibility of placement of Pleurx catheters. The patient already has significant renal dysfunction, and would not likely tolerate the amount of diuresis needed to improve her functioning. Atrial sensed ventricular paced rhythm/cardiomegaly/hypertension/Elevated troponin of 0.06--the patient will be admitted to the telemetry unit, for serial cardiac enzymes, cardiac rhythm monitoring and a 2-D echocardiogram with Dopplers. We'll hold aspirin 81 mg by mouth every morning in case of upcoming thoracentesis. We'll continue metoprolol succinate 50 mg by mouth every morning. This is likely an issue with supply demand mismatch. Acute renal insufficiency--creatinine today was 3.0, with her baseline being 1.2. As noted above, she was given 2 L of normal saline by the ED, and will get a single dose of albumin with Lasix tonight. We will hold lisinopril 20 mg by mouth daily, indapamide 1.25 mg by mouth daily and furosemide 40 mg by mouth every morning. We'll repeat BMP and magnesium levels in the a.m. Hypercalcemia/multiple myeloma--her calcium level was 11.2 earlier in the day, and is 11.0 in the ED tonight. We'll give pamidronate 60 mg IV 1 tonight. We' ll consult her oncologist Dr. Raul Corrigan. As noted above she was to start chemotherapy in 3 days. Level of Care Telemetry Advanced Directives Existing Advance Directive: No Existing Living Will: Yes Existing Power of Tool And Production Planner: Yes Resuscitation Status FULL RESUSCITATION VTE Prophylaxis VTE Risk Assessment Done? Y/N: Yes Risk Level: Moderate Given or contraindicated: SCD's
[2016-07-30] VITALS (8 sets, daily range): BP systolic 91–167; BP diastolic 57–115; PULSE 90–123; TEMP 36.4–36.9; O2SAT 93–98
[2016-07-30] MEDS: SODIUM CHLORIDE 0.9% 1000ML 1,000 ML IV SCH ×3 (03:56→14:48)
[2016-07-30 04:28] LABS: HEMATOCRIT 28.6 % (37-47); MEAN CELL VOLUME 104.4 fL (80-100); MEAN CORPUSCULAR HEMOGLOBIN 33.9 pg (25-34); MEAN CORPUSCULAR HGB CONC 32.5 g/dl (32-36); MEAN PLATELET VOLUME 9.6 fL (7.4-10.4); PLATELET COUNT 134 K/uL (130-400); RED BLOOD COUNT 2.74 M/uL (4.2-5.4); WHITE BLOOD COUNT 7.98 K/uL (4.8-10.8)
[2016-07-30 04:57] LABS: BUN/CREATININE RATIO 15.9 (10-20); CALCIUM 10.2 mg/dl (8.5-10.1); CKMB/CK RATIO 7.3 (0-3.0); CREATININE 3.3 mg/dl (0.60-1.20); MAGNESIUM 1.8 mg/dl (1.8-2.4); POTASSIUM 3.9 mmol/L (3.5-5.1)
[2016-07-30 05:06] LABS: INR 1.1 (0.9-1.1); PARTIAL THROMBOPLASTIN RATIO 1.3; PROTHROMBIN TIME (PATIENT) 12.3 SECONDS (9.0-12.0)
[2016-07-30] MEDS ORDERED: NURSING VERBAL MED ORDER ONE (05:30)
[2016-07-30] MEDS ORDERED: SODIUM CHLORIDE 0.9% 500ML 500 ML IV STA (05:30)
[2016-07-30 06:03] LABS: ANISOCYTOSIS PRESENT; BASO % 0.5 %; BASO ABS # 0.04 K/uL (0-0.2); COMPLETE YES; EOS % 0.3 %; IG% 0.8 %; LYMPH % 24.1 %; LYMPH ABS # 1.92 K/uL (1.2-3.4); MONO % 7.4 %; NEUT % 66.9 %; POLYCHROMASIA 1+
[2016-07-30] MEDS: METOPROLOL SUCC 50MG EXT REL TAB PO SCH (07:59)
--- NOTE | 2016-07-30 11:39 | Procedure Note ---
Procedure Note Date of Service Jul 30, 2016. Procedure Note Procedure: Right-sided thoracentesis Consent: Obtained to the patient placed in the chart Preprocedural diagnosis: Bilateral pleural effusions Postprocedural diagnosis: Bilateral pleural effusions Analgesia: 8 cc of 1% liquid lidocaine Procedure: Patient was placed in the upright position and ultrasound was used for thoracic evaluation and proper procedure position/placement. A site along the posterior axillary line approximate seventh intercostal space was marked. There was draped and prepped in sterile fashion a modified Seldinger technique was used for catheter access. Approximately 1 L of tannish fluid was removed. Postprocedural ultrasound showed good sliding lung as well as started night sign /[place] suggesting no pneumothorax. Chest x-ray is pending. Complications at this time: None Should note patient felt immediate relief after liter fluid was removed.
--- NOTE | 2016-07-30 11:56 | Pulmonary Consultation ---
History General Date of Service: Jul 30, 2016. Stated Complaint: Bilateral Pleural Effusion, Hypercalcemia HPI The patient is a 86 year old female who presents to [facility] with complaints of Bilateral Pleural Effusion, Hypercalcemia. The patient 's primary care provider is Baron Segura M.D.. 86 y/o female admitted for acute on chronic shortness of breath. Past medical history significant for: Diastolic heart failure, acute renal insufficiency and multiple myeloma seen by Dr. Raul Zhao. Patient notes she is had progressive fatigue over the last year but dyspnea on exertion. In the last 4-7 days. She is chronically on Lasix but even with increased dosing she had progressive dyspnea on exertion. Denies, fever, vomiting, diarrhea, or other complaints. Serum Studies: WBC: 8K PLT: 134K INR: 1.1 PT: 12.3 aPTT: 32.7 BUN/Cr: 53/3.3 Troponin I: 0.077 Albumin: 2.9 TP: 8.2 Work-Up: CTA 07/28/16 Large bilateral pleural effusions R>L with signs of loculation No PE Assoiciated bilateral lower lobe atelectasis CXR 07/29/16 Bilateral large pleural effusions Cephalization with hilar fullness Bilateral DVT 07/29/16 Left distal popliteal vein with signs of chronic non-occlusive DVT CT Thoracic with IV contrast 07/05/16 Small to moderate sized bilateral pleural effusions with signs of loculation Numerous lytic lesions throughout the skeletal system Mammography 08/03/[address] ABD/Pelvis 07/04/16 Small bilateral pleural effusions Signs of diffuse lytic lesions Multiple compression fractures CXR 09/18/14 Left sided costo-phrenic blunting CR ABD/Pelvis 09/18/14 Lower lobes no signs of pleural effusions Historian: patient, family, EMS Review of Systems Constitutional: reports: malaise, weakness Eyes: reports: no symptoms ENT: reports: no symptoms Cardiovascular: reports: no symptoms Respiratory: reports: as stated in HPI Gastrointestinal: reports: no symptoms Genitourinary - Female: reports: no symptoms Musculoskeletal: reports: arthralgias, back pain Integumentary: reports: no symptoms Neurologic: reports: no symptoms Psychiatric: reports: no symptoms Endocrine: no symptoms Hematologic / Lymphatic: no symptoms Allergic / Immunologic: no symptoms Past Medical History Past Medical History: 1.Abnormal weight loss 2.Anemia 3.Sick sinus syndrome / Cardiac pacemaker 4.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 Arthritis 2. Heart Disease 3. Lung Cancer 5. Bipolar Disorder 6. Depression Social History Social Drinker Exercising Regularly Marital History - Currently Never a smoker Occupation: Retired Hx Tobacco Use In Past Year?: No Smoking Status: Never Smoker Marital status: Housing status: lives with family Occupational Status: retired Immunizations History of Influenza Vaccine: Yes History of Tetanus Vaccine?: No History of Pneumococcal: Yes History of Hepatitis B Vaccine: Yes History of MDRO History of MDRO: No Allergies Coded Allergies: Sulfa Antibiotics (Verified Allergy, Unknown, RASH, 07/29/16) Current Medications Reported Home Medications Medications Dose Route/Sig Max Daily Dose Days Date Category K-Tabs (Potassium Chloride) 10 Meq Tab 1 Tab PO QAM 07/29/16 Reported Furosemide 20 Mg Tab 40 Mg PO QAM 07/29/16 Reported Metoprolol Succinate ER (Metoprolol Succinate) 50 Mg Tabcr 1 Tab PO QAM 07/29/16 Reported Magnesium-Oxide (Magnesium Oxide) 400 Mg Tab 400 Mg PO QAM 30 07/08/16 Rx Lozol (Indapamide) 1.25 Mg Tab 1.25 Mg PO DAILY 04/26/16 Reported Arthritis Pain (Acetaminophen) 650 Mg Tab 2 Tab PO Q6H PRN 04/26/16 Reported Vitamin D3 (Cholecalciferol) 1,000 Unit Cap 1,000 Intunit PO QAM 07/17/14 Reported Zestril (Lisinopril) 40 Mg Tab 20 Mg PO DAILY 02/04/14 Reported Aspirin Ec (Aspirin) 81 Mg Tab 81 Mg PO QAM 02/04/14 Reported Physical Physical Exam Vital Signs: Date Time Temp Pulse Resp B/P Pulse Ox O2 Delivery O2 Flow Rate FiO2 07/30/16 08:00 94 Nasal Cannula 2.0 07/30/16 07:58 36.9 119 22 158/88 96 Nasal Cannula 1.0 07/30/16 07:13 123 158/84 07/30/16 06:28 165/105 07/30/16 06:25 120 30 167/115 94 Nasal Cannula 07/30/16 04:00 Nasal Cannula 2.0 07/30/16 00:00 Nasal Cannula 2.0 07/29/16 23:31 36.4 101 24 119/74 99 Nasal Cannula 2.0 07/29/16 23:19 36.8 64 16 170/81 98 Room Air 07/29/16 22:45 37.0 99 130/84 97 Nasal Cannula 2.0 07/29/16 22:24 37.0 94 26 146/90 98 Nasal Cannula 2.0 07/29/16 21:40 37.2 112 28 164/87 99 Nasal Cannula 2.0 07/29/16 20:43 28 93 Nasal Cannula 4.0 07/29/16 20:41 105 18 157/96 85 Room Air 07/29/16 17:44 101 18 138/90 95 Room Air 07/29/16 17:37 104 07/29/16 14:56 36.3 93 18 104/74 95 Room Air General Appearance: mild distress Head: NORMOCEPHALIC, ATRAUMATIC Eyes: EOMI, SCLERAE NORMAL ENT: NORMAL EAR EXAM, NORMAL NASAL EXAM, NORMAL MOUTH EXAM, NORMAL THROAT EXAM Neck: NORMAL RANGE OF MOTION, NO TENDERNESS, TRACHEA MIDLINE, NO STRIDOR Respiratory: other (decreased breath sounds with dullness to percussion bilaterally) Cardiovasular: REGULAR RATE/RHYTHM, NORMAL S1S2, other (unable to auscultate for murmurs rubs or gallops distant heart sounds) Abdomen: NON TENDER, NORMAL BOWEL SOUNDS, NO REBOUND, NO MASSES, NO GUARDING, NO ORGANOMEGALY Genitourinary - Female: EXTERNAL GENITALIA NORMAL Back: other (kyphosis with mild tenderness to palpation of the spine) Upper Extremities: NO EDEMA, NO DEFORMITY, NORMAL ROM Lower Extremities: edema Edema: Bilateral LE (1+) Pulses: carotid (R) (1+), carotid (L) (1+), posterior tibial (R), posterior tibial (L) (2+) Neuro: ALERT, ORIENTED x 3, NORMAL MOTOR EXAM, NORMAL SENSATION, NORMAL CEREBELLAR EXAM Reflexes: biceps (R) (2+), bicpes (L) (2+) Babinski Testing: right (downgoing), left (downgoing) Psychiatric: NORMAL AFFECT, NO SUICIDAL IDEATION Diagnostics Labs Results Past 24 Hours Test 07/29/16 17:38 07/29/16 17:42 07/29/16 21:03 07/30/16 04:10 Range/Units White Blood Count 8.40 7.98 4.8-10.8 K/uL Red Blood Count 2.98 2.74 4.2-5.4 M/uL Hemoglobin 10.2 9.3 12.0-16.0 g/dL Hematocrit 30.4 28.6 37-47 % Mean Corpuscular Volume 102.0 104.4 80-100 fL Mean Corpuscular Hemoglobin 34.2 33.9 25-34 pg Mean Corpuscular Hemoglobin Concent 33.6 32.5 32-36 g/dl Platelet Count 160 134 130-400 K/uL Mean Platelet Volume 10.0 9.6 7.4-10.4 fL Neutrophils (%) (Auto) 69.9 66.9 % Lymphocytes (%) (Auto) 21.7 24.1 % Monocytes (%) (Auto) 7.5 7.4 % Eosinophils (%) (Auto) 0.1 0.3 % Basophils (%) (Auto) 0.4 0.5 % Neutrophils # (Auto) 5.88 5.35 1.4-6.5 K/uL Lymphocytes # (Auto) 1.82 1.92 1.2-3.4 K/uL Monocytes # (Auto) 0.63 0.59 0.11-0.59 K/uL Eosinophils # (Auto) 0.01 0.02 0-0.5 K/uL Basophils # (Auto) 0.03 0.04 0-0.2 K/uL RDW Standard Deviation 75.2 78.6 36.4-46.3 fL RDW Coefficient of Variation 20.6 20.9 11.5-14.5 % Immature Granulocyte % (Auto) 0.4 0.8 % Immature Granulocyte # (Auto) 0.03 0.06 0.00-0.02 K/uL Nucleated RBC Absolute Count (auto) 0.06 0-0 K/uL Nucleated Red Blood Cells % 0.7 % Polychromasia 1+ 1+ Sodium Level 134 139 136-145 mmol/L Potassium Level 4.1 3.9 3.5-5.1 mmol/L Chloride Level 95 102 98-107 mmol/L Carbon Dioxide Level 29 29 21-32 mmol/L Anion Gap 10.0 8.0 3-11 mmol/L Blood Urea Nitrogen 57 53 7-18 mg/dl Creatinine 3.00 3.30 0.60-1.20 mg/dl Est Creatinine Clear Calc Drug Dose 11.1 10.1 ml/min Estimated GFR () 15.7 13.9 Estimated GFR (Non- 13.5 12.0 BUN/Creatinine Ratio 19.0 15.9 10-20 Random Glucose 106 95 70-99 mg/dl Calcium Level 11.0 10.2 8.5-10.1 mg/dl Magnesium Level 1.8 1.8 1.8-2.4 mg/dl Total Bilirubin 0.7 0.6 0.2-1 mg/dl Direct Bilirubin 0.2 0.2 0-0.2 mg/dl Aspartate Amino Transf (AST/SGOT) 36 29 15-37 U/L Alanine Aminotransferase (ALT/SGPT) 18 20 12-78 U/L Alkaline Phosphatase 104 94 45-117 U/L Total Creatine Kinase 33 25 22 26-192 U/L Creatine Kinase MB 1.4 1.5 1.6 0.5-3.6 ng/ml Creatine Kinase MB Ratio 4.2 6.0 7.3 0-3.0 Total Protein 8.9 8.2 6.4-8.2 gm/dl Albumin 3.0 2.9 3.4-5.0 gm/dl Bedside Troponin I 0.060 0-0.045 ng/ml Troponin I 0.064 0.077 0-0.045 ng/ml Anisocytosis PRESENT Prothrombin Time 12.3 9.0-12.0 SECONDS Prothromb Time International Ratio 1.1 0.9-1.1 Activated Partial Thromboplast Time 32.7 21.0-31.0 SECONDS Partial Thromboplastin Ratio 1.3 Test 07/30/16 11:30 07/30/16 11:35 Range/Units Microbiology Results 07/30/16 Acid Fast Stain, Xochitl Batch Pending 07/30/16 Mycobacterial Culture, Xochitl Batch Pending 07/30/16 Gram Stain, Xochitl Batch Pending 07/30/16 Bacterial Culture, Xochitl Batch Pending Diagnostic Radiology CTA 07/28/16 Large bilateral pleural effusions R>L with signs of loculation No PE Assoiciated bilateral lower lobe atelectasis CXR 07/29/16 Bilateral large pleural effusions Cephalization with hilar fullness Bilateral DVT 07/29/16 Left distal popliteal vein with signs of chronic non-occlusive DVT EKG Ventricular paced rhythm with a rate of 118 Impression Assessment and Plan 86-year-old female with bilateral pleural effusions: #1 bilateral pleural effusions: Patient's bilateral pleural effusion most likely secondary to CHF, acute renal insufficiency and possible multiple myeloma. At this time we'll perform right-sided pleural effusion as it appears to be more free-flowing and follow up on results. It does appear that these effusions have been growing over the last year and that both could possibly be loculated with left greater than right as far as loculation is concerned. I spoken to the patient and family and they have agreed to perform thoracentesis. We'll initiate with the right side please follow up with thoracentesis note.
--- NOTE | 2016-07-30 12:10 | DIAGNOSTIC IMAGING REPORT ---
CHEST ONE VIEW PORTABLE CLINICAL HISTORY: Pleural effusion status post thoracentesis COMPARISON STUDY: 07/29/2016 FINDINGS: The heart remains enlarged. There are bilateral pleural effusions with associated bibasal airspace opacities. There is a right subclavian dual-chamber central venous pacemaker present. The right pleural effusion appears smaller. There is no evidence of pneumothorax status post thoracentesis.[ IMPRESSION: No evidence of pneumothorax status post thoracentesis. Electronically signed by: José Antonio Gutierrez M.D. 07/30/2016 12:08 PM Dictated Date/Time: 07/30/2016 12:07 PM
[2016-07-30 12:30] LABS: PLEURAL FLUID TOTAL PROTEIN 5.6 g/dl
--- NOTE | 2016-07-30 13:01 | ECHOCARDIOGRAM REPORT ---
*NOTICE TO RECEIVING LIBERTARIAN AGENCY This information is strictly Confidential and protected under [place] law. [place] law prohibits you from making any further disclosure of this information unless further disclosure is expressly permitted by the written consent of the person to whom it pertains or is authorized by law. A general authorization for the release of medical or other information is not sufficient for this purpose. Hospital accepts no responsibility if the information is made available to any other person, INCLUDING THE PATIENT. Interpretation Summary * Name: OPHELIA RAMIREZ Study Date: 07/30/2016 10:22 AM * Patient Location: [facility]\S\N286\S\2 * : 1930 (M/d/yyyy) Gender: Female Height: 63 in * Age: 86 yrs Ethnicity: CA Weight: 121 lb * Ordering Physician: Nolan Sepulveda * Referring Physician: Raul Corrigan * Performed By: Gatito Barnett RDCS * * Reason For Study: Elevated troponin * BSA: 1.6 m2 * -- Conclusions -- * The left ventricle is normal in size. * There is normal left ventricular wall thickness. * Left ventricular systolic function is severely reduced. * At least moderate diastolic dysfunction * There are regional wall motion abnormalities as specified. * Aortic valve sclerosis mild, without significant aortic valvular stenosis. * There is mild mitral regurgitation. * Right ventricular systolic pressure is elevated at 50-60mmHg. * Large left pleural effusion. Procedure Details * A complete two-dimensional transthoracic echocardiogram was performed (2D, M-mode, Doppler and color flow Doppler). * The study was technically adequate. Left Ventricle * The left ventricle is normal in size. * There is normal left ventricular wall thickness. * Left ventricular systolic function is severely reduced. * Ejection Fraction = 20-25%. * At least moderate diastolic dysfunction * There are regional wall motion abnormalities as specified. * Some basal portions are mildly hypokinetic, but the entire apex is akinetic Right Ventricle * The right ventricle is normal in size and function. Atria * The left atrial size is normal. * Right atrial size is normal. Mitral Valve * The mitral valve is grossly normal. * There is mild mitral regurgitation. Tricuspid Valve * The tricuspid valve is not well visualized, but is grossly normal. * There is mild tricuspid regurgitation. * Right ventricular systolic pressure is elevated at 50-60mmHg. Aortic Valve * Aortic valve sclerosis mild, without significant aortic valvular stenosis. * No hemodynamically significant valvular aortic stenosis. * There is no significant aortic regurgitation. Pulmonic Valve * The pulmonic valve is not well visualized. Great Vessels * The aortic root is normal size. Pericardium/Pleural * Very samll pericardial effusion * Large left pleural effusion. MMode 2D Measurements and Calculations IVSd 1.2 cm IVSs 1.2 cm LVIDd 4.6 cm LVIDs 3.9 cm LVPWd 0.86 cm LVPWs 1.2 cm IVS/LVPW 1.4 FS 15.0 % EDV(Teich) 99.1 ml ESV(Teich) 67.5 ml EF(Teich) 31.9 % EDV(cubed) 99.6 ml ESV(cubed) 61.1 ml EF(cubed) 38.6 % % IVS thick 2.8 % % LVPW thick 42.1 % LV mass(C)d 167.2 grams LV mass(C)dI 107.1 grams/m\S\2 LV mass(C)s 166.9 grams LV mass(C)sI 106.9 grams/m\S\2 SV(Teich) 31.6 ml SI(Teich) 20.2 ml/m\S\2 SV(cubed) 38.4 ml SI(cubed) 24.6 ml/m\S\2 EPSS 1.2 cm Ao root diam 3.2 cm Ao root area 7.9 cm\S\2 ACS 1.5 cm asc Aorta Diam 3.5 cm LVOT diam 1.9 cm LVOT area 3.0 cm\S\2 LVAd ap4 18.2 cm\S\2 LVLd ap4 6.0 cm EDV(MOD-sp4) 45.0 ml LVAs ap4 15.9 cm\S\2 LVLs ap4 6.1 cm ESV(MOD-sp4) 34.0 ml EF(MOD-sp4) 24.4 % LVAd ap2 20.0 cm\S\2 LVLd ap2 6.7 cm EDV(MOD-sp2) 50.0 ml LVAs ap2 16.9 cm\S\2 LVLs ap2 6.3 cm ESV(MOD-sp2) 37.0 ml EF(MOD-sp2) 26.0 % SV(MOD-sp4) 11.0 ml SI(MOD-sp4) 7.0 ml/m\S\2 SV(MOD-sp2) 13.0 ml SI(MOD-sp2) 8.3 ml/m\S\2 Doppler Measurements and Calculations MV E max eden 107.6 cm/sec MV dec time 0.13 sec Ao V2 max 123.4 cm/sec Ao max PG 6.1 mmHg Ao max PG (full) 2.7 mmHg NERI(V,A) 2.2 cm\S\2 NERI(V,D) 2.2 cm\S\2 LV V1 max PG 3.4 mmHg LV V1 max 91.9 cm/sec PA V2 max 89.6 cm/sec PA max PG 3.2 mmHg PI end-d eden 165.6 cm/sec TR max eden 352.9 cm/sec
[2016-07-30 13:30] LABS: CKMB/CK RATIO 10.9 (0-3.0)
[2016-07-30 13:34] LABS: CREATININE 3.6 mg/dl (0.60-1.20)
--- NOTE | 2016-07-30 13:36 | Oncology Consultation ---
Oncology/Heme Consultation Date of Consultation: Jul 30, 2016. Attending Physician: Maria Antonia Rocha M.D. Reason for Consultation: Multiple myeloma Acute renal failure History of Present Illness Ms. Kelly is an 86 year old woman who has recently been following with me for newly diagnosed IgG kappa multiple myeloma. She was diagnosed during a hospital stay in mid-June, after presenting with multiple vertebral pathologic compression fractures. She was due to start Velcade and dexamethasone on Monday. She came to my office yesterday afternoon for chemo teaching and was visibly short of breath and uncomfortable. She apparently presented to Dr. Segura with these symptoms a few days ago and he ordered a chest CT that revealed large bilateral pleural effusions. He upped her lasix from 20 to 40 mg , which she took for about 1-2 days before I saw her. I sent her to the ER from my office, where she was found to have a creatinine of 3 (it was 1.3 on 07/21). She was also dehydrated and hypercalcemic. She was fluid resuscitated in the ER and underwent right thoracentesis earlier this morning. She is feeling better after that procedure and drainage of the left effusion is planned for tomorrow or the day after, pending her response to the right-sided procedure. Her pain is controlled. She has continued to decline clinically, becoming increasingly fatigued and weak. Past Medical/Surgical History Medical Problems: (1) Anemia Status: Acute (2) Bilateral pleural effusion Status: Acute (3) Dehydration Status: Acute (4) Elevated troponin Status: Acute (5) Hypercalcemia Status: Acute (6) Renal failure Status: Acute Family History FH: heart disease Social History Smoking Status: Never Smoker Smokeless Tobacco Use: No Alcohol Use: none Drug Use: none Marital Status: Housing Status: lives with family Occupation Status: retired Allergies Coded Allergies: Sulfa Antibiotics (Verified Allergy, Unknown, RASH, 07/29/16) Home Medications Scheduled Aspirin (Aspirin Ec), 81 MG PO QAM Cholecalciferol (Vitamin D3), 1,000 INTUNIT PO QAM Furosemide (Furosemide), 40 MG PO QAM Indapamide (Lozol), 1.25 MG PO DAILY Lisinopril (Zestril), 20 MG PO DAILY Magnesium Oxide (Magnesium-Oxide), 400 MG PO QAM Metoprolol Succinate (Metoprolol Succinate ER), 1 TAB PO QAM Potassium Chloride (K-Tabs), 1 TAB PO QAM Scheduled PRN Acetaminophen (Arthritis Pain), 2 TAB PO Q6H PRN for Pain Current Inpatient Medications Current Inpatient Medications Medications (Trade) Dose Ordered Sig/Willy Route Start Time Stop Time Status Last Admin Dose Admin Acetaminophen (Tylenol Tab) 650 mg Q4H PRN PO 07/29/16 20:15 08/28/16 20:14 Zolpidem Tartrate (Ambien Tab) 5 mg HSZ PRN PO 07/29/16 20:15 08/28/16 20:14 Ondansetron HCl (Zofran Inj) 4 mg Q6H PRN IV 07/29/16 20:15 08/28/16 20:14 Metoprolol Succinate (Toprol Xl Tab) 50 mg QAM PO 07/30/16 09:00 08/29/16 08:59 07/30/16 07:59 50 MG Ipratropium [place] (Atrovent 0.02% 0.5MG/2.5ML Neb) 0.5 mg Q2H PRN INH 07/29/16 21:00 08/28/16 20:59 Levalbuterol 1.25 mg 1.25 mg Q2H PRN INH 07/29/16 21:00 08/28/16 20:59 Sodium Chloride (Nss 1000ml) 1,000 ml @ 150 mls/hr Q6H40M IV 07/30/16 04:00 08/29/16 03:59 07/30/16 07:58 150 MLS/HR Review of Systems Constitutional: + fatigue, + weakness, No chills, No fever Eyes: No worsening of vision ENT: No unusual epistaxis Respiratory: + dyspnea on exertion, + shortness of breath, No cough Cardiovascular: No chest pain Abdomen: No nausea, No pain, No vomiting Musculoskeletal: + joint pain (back pain, managed) Genitourinary - Female: No dysuria Neurologic: No weakness Hematologic / Lymphatic: No abnormal bleeding/bruising, No night sweats Integumentary: No rash Physical Exam Date Time Temp Pulse Resp B/P Pulse Ox O2 Delivery O2 Flow Rate FiO2 07/30/16 12:07 36.4 90 18 109/73 98 Nasal Cannula 2.0 07/30/16 12:00 Nasal Cannula 2.0 07/30/16 08:00 94 Nasal Cannula 2.0 07/30/16 07:58 36.9 119 22 158/88 96 Nasal Cannula 1.0 07/30/16 07:13 123 158/84 07/30/16 06:28 165/105 07/30/16 06:25 120 30 167/115 94 Nasal Cannula 07/30/16 04:00 Nasal Cannula 2.0 07/30/16 00:00 Nasal Cannula 2.0 07/29/16 23:31 36.4 101 24 119/74 99 Nasal Cannula 2.0 07/29/16 23:19 36.8 64 16 170/81 98 Room Air 07/29/16 22:45 37.0 99 130/84 97 Nasal Cannula 2.0 07/29/16 22:24 37.0 94 26 146/90 98 Nasal Cannula 2.0 07/29/16 21:40 37.2 112 28 164/87 99 Nasal Cannula 2.0 07/29/16 20:43 28 93 Nasal Cannula 4.0 07/29/16 20:41 105 18 157/96 85 Room Air 07/29/16 17:44 101 18 138/90 95 Room Air 07/29/16 17:37 104 07/29/16 14:56 36.3 93 18 104/74 95 Room Air General Appearance: + thin (frail-appearing and weak, but in less distress than yesterday) Eyes: EOMI ENT: pharynx normal (no bleeding, mucous membranes dry) Respiratory/Chest: + decreased breath sounds (bilaterally, though more air movement R>L) Cardiovascular: regular rate, rhythm, no murmur Abdomen/GI: normal bowel sounds, non tender, soft Extremities/Musculoskelatal: normal range of motion, non-tender Neurologic/Psych: alert, oriented x 3 Skin: no rash Laboratory Results Last 24 Hours Test 07/29/16 17:38 07/29/16 17:42 07/29/16 21:03 07/30/16 00:00 White Blood Count 8.40 K/uL Red Blood Count 2.98 M/uL Hemoglobin 10.2 g/dL Hematocrit 30.4 % Mean Corpuscular Volume 102.0 fL Mean Corpuscular Hemoglobin 34.2 pg Mean Corpuscular Hemoglobin Concent 33.6 g/dl Platelet Count 160 K/uL Mean Platelet Volume 10.0 fL Neutrophils (%) (Auto) 69.9 % Lymphocytes (%) (Auto) 21.7 % Monocytes (%) (Auto) 7.5 % Eosinophils (%) (Auto) 0.1 % Basophils (%) (Auto) 0.4 % Neutrophils # (Auto) 5.88 K/uL Lymphocytes # (Auto) 1.82 K/uL Monocytes # (Auto) 0.63 K/uL Eosinophils # (Auto) 0.01 K/uL Basophils # (Auto) 0.03 K/uL RDW Standard Deviation 75.2 fL RDW Coefficient of Variation 20.6 % Immature Granulocyte % (Auto) 0.4 % Immature Granulocyte # (Auto) 0.03 K/uL Nucleated RBC Absolute Count (auto) 0.06 K/uL Nucleated Red Blood Cells % 0.7 % Polychromasia 1+ Sodium Level 134 mmol/L Potassium Level 4.1 mmol/L Chloride Level 95 mmol/L Carbon Dioxide Level 29 mmol/L Anion Gap 10.0 mmol/L Blood Urea Nitrogen 57 mg/dl Creatinine 3.00 mg/dl Est Creatinine Clear Calc Drug Dose 11.1 ml/min Estimated GFR () 15.7 Estimated GFR (Non- 13.5 BUN/Creatinine Ratio 19.0 Random Glucose 106 mg/dl Calcium Level 11.0 mg/dl Magnesium Level 1.8 mg/dl Total Bilirubin 0.7 mg/dl Direct Bilirubin 0.2 mg/dl Aspartate Amino Transf (AST/SGOT) 36 U/L Alanine Aminotransferase (ALT/SGPT) 18 U/L Alkaline Phosphatase 104 U/L Total Creatine Kinase 33 U/L 25 U/L Creatine Kinase MB 1.4 ng/ml 1.5 ng/ml Creatine Kinase MB Ratio 4.2 6.0 Total Protein 8.9 gm/dl Albumin 3.0 gm/dl Bedside Troponin I 0.060 ng/ml Troponin I 0.064 ng/ml Test 07/30/16 04:10 07/30/16 11:35 07/30/16 12:21 07/30/16 12:45 White Blood Count 7.98 K/uL Red Blood Count 2.74 M/uL Hemoglobin 9.3 g/dL Hematocrit 28.6 % Mean Corpuscular Volume 104.4 fL Mean Corpuscular Hemoglobin 33.9 pg Mean Corpuscular Hemoglobin Concent 32.5 g/dl Platelet Count 134 K/uL Mean Platelet Volume 9.6 fL Neutrophils (%) (Auto) 66.9 % Lymphocytes (%) (Auto) 24.1 % Monocytes (%) (Auto) 7.4 % Eosinophils (%) (Auto) 0.3 % Basophils (%) (Auto) 0.5 % Neutrophils # (Auto) 5.35 K/uL Lymphocytes # (Auto) 1.92 K/uL Monocytes # (Auto) 0.59 K/uL Eosinophils # (Auto) 0.02 K/uL Basophils # (Auto) 0.04 K/uL RDW Standard Deviation 78.6 fL RDW Coefficient of Variation 20.9 % Immature Granulocyte % (Auto) 0.8 % Immature Granulocyte # (Auto) 0.06 K/uL Polychromasia 1+ Anisocytosis PRESENT Prothrombin Time 12.3 SECONDS Prothromb Time International Ratio 1.1 Activated Partial Thromboplast Time 32.7 SECONDS Partial Thromboplastin Ratio 1.3 Sodium Level 139 mmol/L Potassium Level 3.9 mmol/L Chloride Level 102 mmol/L Carbon Dioxide Level 29 mmol/L Anion Gap 8.0 mmol/L Blood Urea Nitrogen 53 mg/dl Creatinine 3.30 mg/dl Est Creatinine Clear Calc Drug Dose 10.1 ml/min Estimated GFR () 13.9 Estimated GFR (Non- 12.0 BUN/Creatinine Ratio 15.9 Random Glucose 95 mg/dl Calcium Level 10.2 mg/dl Magnesium Level 1.8 mg/dl Total Bilirubin 0.6 mg/dl Direct Bilirubin 0.2 mg/dl Aspartate Amino Transf (AST/SGOT) 29 U/L Alanine Aminotransferase (ALT/SGPT) 20 U/L Alkaline Phosphatase 94 U/L Total Creatine Kinase 22 U/L Creatine Kinase MB 1.6 ng/ml Creatine Kinase MB Ratio 7.3 Troponin I 0.077 ng/ml Total Protein 8.2 gm/dl Albumin 2.9 gm/dl Pleural Fluid pH 7.19 Pleural Fluid Total Protein 5.6 g/dl Pleural Fluid Albumin 2.2 g/dl Pleural Fluid LDH 357 IU Pleural Fluid Glucose 71 mg/dl Pleural Fluid Amylase 24 U/L Assessment & Plan Ms. Kelly presents with bilateral pleural effusions and acute kidney injury. An echocardiogram done earlier today reveals markedly reduced EF with regional wall motion abnormalities. The chronicity of these changes isn't clear. She doesn't have a prior echo in our system. She's seen cardiology due to a history of AV block with a pacemaker. I would consider cardiology consultation for further evaluation. I also reviewed her case with Dr. Maurer from nephrology. It is certainly possible her acute kidney injury is related to myeloma, but the sudden worsening is concerning and is out of proportion to her relatively low paraprotein level. Still, given her clinical deterioration, I would like to start her on myeloma therapy. However, in light of her echocardiographic changes , I think we should rule out an acute cardiac event before starting new therapy.
[2016-07-30 13:40] LABS: PLEURAL FLUID APPEARANCE CLOUDY; PLEURAL FLUID COLOR YELLOW; PLEURAL FLUID SOURCE RIGHT LUNG; PLEURAL FLUID WBC (A) 4310 /uL
--- NOTE | 2016-07-30 14:56 | CARDIOLOGY CONSULTATION ---
DATE OF CONSULTATION: 07/30/2016 DATE OF CONSULTATION: 07/30/2016. REFERRING PHYSICIAN: Dr. Rocha. HISTORY OF PRESENT ILLNESS: Mrs. Suha Kelly is an 86-year-old woman who was recently admitted to [facility] with symptoms of back pain and shortness of breath. During that evaluation, she was discovered to have multiple myeloma. The patient was discharged home with outpatient followup and is scheduled to begin chemotherapy for multiple myeloma next week. Chemotherapy is expected to be palliative in nature. The patient, however, has noticed worsening dyspnea even at rest over the past several days. She was seen on an outpatient basis and had some diuretics prescribed but her symptoms did progress to the point where she was quite dyspneic at rest. The patient subsequently sent to [facility] from [facility] and discovered to have large bilaterally pleural effusions. Immediately prior to my evaluation today the patient did undergo a right-sided pleurocentesis and this alleviated much of her dyspnea. Prior to her recent diagnosis the patient was a very active individual. Towards the beginning of the year she did start to complain of some mild back pain that originally was felt to be either arthritis or even singles. She was treated conservatively but her symptoms progressed and eventually was admitted last month as noted. Prior to that she ambulated without difficulty. She did not describe significant dyspnea on exertion. She played sports and also other forms of physical exertion without notable limitation. Since her diagnosis the patient has had an element of anorexia and weight loss. She states about 10 pounds. She denies significant difficulty with eating, but simply has no appetite. She has not had any symptoms of overt chest pain, although immediately prior to her pleurocentesis she did note some pressure in the upper chest. This has not been a common symptom for her. She has not had notable dizziness or lightheadedness. She is not aware of any recent palpitations. She has not suffered a recent syncopal episode. She has noticed some very mild edema on her lower extremities and her daughter felt that the one ankle may be mildly swollen but this is mild in general. PAST MEDICAL HISTORY: Significant for: 1. Aforementioned multiple myeloma. 2. Complete heart block status post remote placement of dual chamber permanent pacemaker. The patient is noted to have some worsening function of a very old unipolar ventricular lead. 3. Anemia. 4. Hypertension. 5. Osteopenia. 6. Diverticulosis. 7. Hematuria. PAST SURGICAL HISTORY: Significant for an appendectomy, breast biopsies, skin incisions and pacemaker implantation. FAMILY HISTORY: Noncontributory due to her advanced age. SOCIAL HISTORY: The patient currently lives with her who is also hospitalized at this time. She is a lifelong nonsmoker and drinks alcohol rarely. OUTPATIENT MEDICATIONS: Include aspirin 81 mg daily, furosemide 40 mg daily, lisinopril 20 mg daily, magnesium oxide supplementation, potassium chloride 10 mEq daily, metoprolol extended release 100 mg daily, vitamin D supplementation. MEDICAL ALLERGIES: INCLUDE SULFA ANTIBIOTICS. REVIEW OF SYSTEMS: A complete 10-system review of systems was performed and the pertinent positives are noted in the history of present illness. The remainder of the review of systems was negative. PHYSICAL EXAMINATION: GENERAL: The patient does not appear to be in acute distress. She is a pleasant woman who is alert and oriented. Mood and affect appeared normal. She answered all questions appropriately. CURRENT VITAL SIGNS: Include blood pressure 109/73 with pulse of 90. HEAD, EYES, EARS, NOSE, AND THROAT: Anicteric sclerae. Extraocular movements were intact. Palpation of submandibular region did not reveal any significant lymphadenopathy. The carotids are palpable bilaterally. I do not appreciate any bruits on auscultation. There is no evidence of jugular venous distention. Thyroid is not enlarged. LUNGS: Auscultation of her lungs revealed somewhat decreased breath sounds on the right base but good aeration in the mid lung with occasional crackle. The left lung had decreased breath sounds to the mid lung with aeration in the upper portion. There were occasional crackles appreciated. CARDIAC EXAMINATION: Cardiac evaluation revealed somewhat distant heart tones but a regular rhythm. No murmurs were appreciated. S1, S2 appeared normal. PMI was not markedly displaced. ABDOMEN: Soft and nontender. Upper chest area did reveal evidence of a well-healed pacemaker implant in the left upper chest. Palpation of both wrists revealed radial pulses that were equal in intensity. I did not appreciate any cyanosis or clubbing. Evaluation of lower extremities revealed trace peripheral edema bilaterally with some ecchymosis noted. LABORATORY STUDIES: Obtained since admission included a sodium of 139, potassium of 3.9, BUN 53 and creatinine of 3.3. Serial cardiac troponins were drawn, all of which were around 0.06 or 0.07. Albumin was low at 2.9. White cell count was 7.9, hemoglobin was 9.3, platelet count was 134. Echocardiogram was performed today which revealed severely reduced left ventricular systolic function and trace pericardial effusion. There is also evidence of pleural effusion on the examination. 12-lead EKG was also obtained which revealed a sinus tachycardia and 100% sequential ventricular pacing. CK was obtained on 07/28/2016 which revealed worsening bilateral pleural effusions. Chest x-rays were obtained today which revealed improvement in the right pleural effusion subsequent to thoracentesis. ASSESSMENT AND PLAN: 1. Acute decompensated congestive heart failure. Based on the evaluation of the patient's left ventricular systolic function it is very likely that much of her symptoms are associated with pulmonary vascular congestion and left ventricular failure. I could not find an old echocardiogram report in her record. Symptoms have been fairly progressive over a few months and I suppose there is a possibility that her pleural effusions are related to primary lung disease or pleural disease such as multiple myeloma. We will await for analysis of the fluid obtained during the thoracentesis. At this point, it would seem reasonable to affect a diuresis in an attempt to improve symptoms. This may be compromised by her renal dysfunction. Last evening the patient was administered significant volume in the hopes that this would improve her renal function, but her renal function has only worsened. For treatment of her heart failure she can be maintained on her beta candie. I suspect that her LUIS CARLOS inhibitor will need to be discontinued in the setting of her acute renal dysfunction. She does have mildly elevated cardiac biomarkers, but it is unlikely that the etiology of her gross dysfunction is related to a recent myocardial infarction or coronary event. I also doubt given her prior good functional status in the absence of anginal symptoms, that this is an ischemic cardiomyopathy. It is very likely that this is somehow related to her malignancy. I suppose there is a small possibility that this is a stress cardiomyopathy, although the appearance on echocardiogram is not classic for that diagnosis. She has not had any chest discomfort leading up to this event. 2. Elevated cardiac biomarkers. Once again likely related to an infiltrative process and a nonischemic etiology rather than recent acute coronary syndrome. Given her renal dysfunction in the absence of chest pain I would not advocate any form of contrast angiography at this point. 3. Complete heart block. The patient has a functioning dual chamber permanent pacemaker with an aging right ventricular lead. Last evaluation was performed in the outpatient setting around March of last year and function was adequate. Given her overall poor prognosis it is unlikely that any form of intervention would be entertained at this point. She has not had any recurrence of the symptoms associated with the prior high output of her pacemaker. FINAL RECOMMENDATIONS: 1. Discontinuation of LUIS CARLOS inhibitor in the setting of significant renal dysfunction. 2. Continue beta candie. 3. Attempt to effect diuresis with standard loop diuretics, monitoring electrolytes and renal function closely. 4. Additional recommendations based on assessment of the patient's other comorbidities and overall prognosis. MISHA
--- NOTE | 2016-07-30 15:47 | Hospitalist Progress Note ---
Hospitalist Progress Note Date of Service Jul 30, 2016. Subjective admitted overnight for shortness of breath breathing worse this am. received IVF last night Constitutional: No fever Cardiovascular: No chest pain Abdomen: No pain Objective Vital Signs Date Time Temp Pulse Resp B/P Pulse Ox O2 Delivery O2 Flow Rate FiO2 07/30/16 12:07 36.4 90 18 109/73 98 Nasal Cannula 2.0 07/30/16 12:00 Nasal Cannula 2.0 07/30/16 08:00 94 Nasal Cannula 2.0 07/30/16 07:58 36.9 119 22 158/88 96 Nasal Cannula 1.0 07/30/16 07:13 123 158/84 07/30/16 06:28 165/105 07/30/16 06:25 120 30 167/115 94 Nasal Cannula 07/30/16 04:00 Nasal Cannula 2.0 07/30/16 00:00 Nasal Cannula 2.0 07/29/16 23:31 36.4 101 24 119/74 99 Nasal Cannula 2.0 07/29/16 23:19 36.8 64 16 170/81 98 Room Air 07/29/16 22:45 37.0 99 130/84 97 Nasal Cannula 2.0 07/29/16 22:24 37.0 94 26 146/90 98 Nasal Cannula 2.0 07/29/16 21:40 37.2 112 28 164/87 99 Nasal Cannula 2.0 07/29/16 20:43 28 93 Nasal Cannula 4.0 07/29/16 20:41 105 18 157/96 85 Room Air 07/29/16 17:44 101 18 138/90 95 Room Air 07/29/16 17:37 104 Physical Exam General Appearance: + moderate distress Respiratory/Chest: + respiratory distress, + decreased breath sounds Cardiovascular: regular rate, rhythm Abdomen: normal bowel sounds, non tender, soft Neurologic/Psychiatric: alert, oriented x 3 Skin: warm/dry Laboratory Results Last 24 Hours Test 07/29/16 17:38 07/29/16 17:42 07/29/16 21:03 07/30/16 00:00 White Blood Count 8.40 K/uL Red Blood Count 2.98 M/uL Hemoglobin 10.2 g/dL Hematocrit 30.4 % Mean Corpuscular Volume 102.0 fL Mean Corpuscular Hemoglobin 34.2 pg Mean Corpuscular Hemoglobin Concent 33.6 g/dl Platelet Count 160 K/uL Mean Platelet Volume 10.0 fL Neutrophils (%) (Auto) 69.9 % Lymphocytes (%) (Auto) 21.7 % Monocytes (%) (Auto) 7.5 % Eosinophils (%) (Auto) 0.1 % Basophils (%) (Auto) 0.4 % Neutrophils # (Auto) 5.88 K/uL Lymphocytes # (Auto) 1.82 K/uL Monocytes # (Auto) 0.63 K/uL Eosinophils # (Auto) 0.01 K/uL Basophils # (Auto) 0.03 K/uL RDW Standard Deviation 75.2 fL RDW Coefficient of Variation 20.6 % Immature Granulocyte % (Auto) 0.4 % Immature Granulocyte # (Auto) 0.03 K/uL Nucleated RBC Absolute Count (auto) 0.06 K/uL Nucleated Red Blood Cells % 0.7 % Polychromasia 1+ Sodium Level 134 mmol/L Potassium Level 4.1 mmol/L Chloride Level 95 mmol/L Carbon Dioxide Level 29 mmol/L Anion Gap 10.0 mmol/L Blood Urea Nitrogen 57 mg/dl Creatinine 3.00 mg/dl Est Creatinine Clear Calc Drug Dose 11.1 ml/min Estimated GFR () 15.7 Estimated GFR (Non- 13.5 BUN/Creatinine Ratio 19.0 Random Glucose 106 mg/dl Calcium Level 11.0 mg/dl Magnesium Level 1.8 mg/dl Total Bilirubin 0.7 mg/dl Direct Bilirubin 0.2 mg/dl Aspartate Amino Transf (AST/SGOT) 36 U/L Alanine Aminotransferase (ALT/SGPT) 18 U/L Alkaline Phosphatase 104 U/L Total Creatine Kinase 33 U/L 25 U/L Creatine Kinase MB 1.4 ng/ml 1.5 ng/ml Creatine Kinase MB Ratio 4.2 6.0 Total Protein 8.9 gm/dl Albumin 3.0 gm/dl Bedside Troponin I 0.060 ng/ml Troponin I 0.064 ng/ml Pleural Fluid Source RIGHT LUNG Pleural Fluid Color YELLOW Pleural Fluid Appearance CLOUDY Pleural Fluid WBC 4310 /uL Pleural Fluid RBC < 3000 /uL Pleural Fluid Polynuclear WBCs % 23.0 % Pleural Fluid Mononuclear WBCs % 77.0 % Test 07/30/16 04:10 07/30/16 11:35 07/30/16 12:45 White Blood Count 7.98 K/uL Red Blood Count 2.74 M/uL Hemoglobin 9.3 g/dL Hematocrit 28.6 % Mean Corpuscular Volume 104.4 fL Mean Corpuscular Hemoglobin 33.9 pg Mean Corpuscular Hemoglobin Concent 32.5 g/dl Platelet Count 134 K/uL Mean Platelet Volume 9.6 fL Neutrophils (%) (Auto) 66.9 % Lymphocytes (%) (Auto) 24.1 % Monocytes (%) (Auto) 7.4 % Eosinophils (%) (Auto) 0.3 % Basophils (%) (Auto) 0.5 % Neutrophils # (Auto) 5.35 K/uL Lymphocytes # (Auto) 1.92 K/uL Monocytes # (Auto) 0.59 K/uL Eosinophils # (Auto) 0.02 K/uL Basophils # (Auto) 0.04 K/uL RDW Standard Deviation 78.6 fL RDW Coefficient of Variation 20.9 % Immature Granulocyte % (Auto) 0.8 % Immature Granulocyte # (Auto) 0.06 K/uL Polychromasia 1+ Anisocytosis PRESENT Prothrombin Time 12.3 SECONDS Prothromb Time International Ratio 1.1 Activated Partial Thromboplast Time 32.7 SECONDS Partial Thromboplastin Ratio 1.3 Sodium Level 139 mmol/L Potassium Level 3.9 mmol/L Chloride Level 102 mmol/L Carbon Dioxide Level 29 mmol/L Anion Gap 8.0 mmol/L Blood Urea Nitrogen 53 mg/dl Creatinine 3.30 mg/dl 3.60 mg/dl Est Creatinine Clear Calc Drug Dose 10.1 ml/min 9.3 ml/min Estimated GFR () 13.9 12.6 Estimated GFR (Non- 12.0 10.8 BUN/Creatinine Ratio 15.9 Random Glucose 95 mg/dl Calcium Level 10.2 mg/dl Magnesium Level 1.8 mg/dl Total Bilirubin 0.6 mg/dl 0.6 mg/dl Direct Bilirubin 0.2 mg/dl Aspartate Amino Transf (AST/SGOT) 29 U/L Alanine Aminotransferase (ALT/SGPT) 20 U/L Alkaline Phosphatase 94 U/L Total Creatine Kinase 22 U/L 33 U/L Creatine Kinase MB 1.6 ng/ml 3.6 ng/ml Creatine Kinase MB Ratio 7.3 10.9 Troponin I 0.077 ng/ml 0.131 ng/ml Total Protein 8.2 gm/dl 7.7 gm/dl Albumin 2.9 gm/dl 2.7 gm/dl Pleural Fluid pH 7.19 Pleural Fluid Total Protein 5.6 g/dl Pleural Fluid Albumin 2.2 g/dl Pleural Fluid LDH 357 IU Pleural Fluid Glucose 71 mg/dl Pleural Fluid Amylase 24 U/L Lactate Dehydrogenase 501 U/L Assessment and Plan 86 y/o F with recent diagnosis of multiple myeloma here with shortness of breath and noted pleural effusion Acute respiratory failure sec to Worsening Bilateral pleural effusions -- O2. treat underlying illness. Bilateral pleural effusion Pul consulted. s/p thoracentesis now. cardio consult for opinion concerning fluid overload. albumin/lasix Acute systolic heart failure EF 20-25% not clear etiology - possibly due to malignancy diuresis I and O continue b candie. d/c rhianna due to durga cardio input appreciated Elevated troponin mild troponin elevation - nonspecific. B candie resume aspirin HTN holding meds Complete heart block s/p PPM Tachycardic this am. follow. Acute renal failure -- For concern of prerenal failure - received 2 L NSS, and single dose of albumin with Lasix. Holding lisinopril, indapamide, furosemide. Follow renal function. Hypercalcemia/multiple myeloma-- s/p pamidronate 60 mg IV oncology consulted. Heparin for DVT proph
--- NOTE | 2016-07-30 17:44 | Nephrology Consultation ---
Nephrology Consultation Date & Providers Date of Consultation: Jul 30, 2016. Primary Care Provider: Baron Segura M.D. Referring Provider: Reason for Consultation SANDER History of Present Illness Mrs. Suha Kelly is an 86 year-old female who was seen and evaluated in her hospital room this afternoon for evaluation of acute renal failure. I had a long conversation with the patient's daughter (Alicia). I reviewed the plan of care with Dr. Rocha, Dr. Carcamo and Dr. Corrigan. Suha was diagnosed with IgG kappa multiple myeloma during a hospitalization at [facility] in June 2016. She presented with pathologic compression fractures at that time. Creatinine was 1.3 mg/dL in June. Prior baseline creatinine appears to have been less than 1 mg/dL. She was discharged from the hospital and scheduled to discuss treatment with Dr. Corrigan in the clinic this week. Unfortunately, she presented to the clinic with notable progressive dyspnea. She had significant activity limiting ROBERTSON. Suha was admitted yesterday. Laboratory studies on admission notable for a serum creatinine of 3.0 mg/dL. Serum calcium was mildly elevated. IV NSS was started and a dose of pamidronate given. CXR revealed bilateral pleural effusions. CTA of the chest was performed on 07/28/16. Dr. Canales performed a bedside thoracentesis earlier today with good initial symptomatic improvement. Suha remains non-oliguric. Her PCP had recently increased furosemide from 20 to 40 mg daily as an outpatient. Suha describes recent weight loss associated with anorexia. She has chronic arthritic pain in her hands and new back pain from her fractures. She denies significant NSAID use. She was taking lisinopril and indapamide at home. These have been held since admission. Suha lives with her . He is unfortunately hospitalized at [facility] at this time with an intestinal adhesion. They have a son who lives in [place]. Their daughter, Alicia, drove in from [place] yesterday. Transthoracic echocardiogram is notable for normal LV size with an LVEF of 20-25 % and moderate diastolic dysfunction, RVSP is increased at 50-60mmHg. 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 Surgical: No significant history reported Allergies Coded Allergies: Sulfa Antibiotics (Verified Allergy, Unknown, RASH, 07/29/16) Inpatient Medications Current Inpatient Medications Medications (Trade) Dose Ordered Sig/Willy Route Start Time Stop Time Status Last Admin Dose Admin Acetaminophen (Tylenol Tab) 650 mg Q4H PRN PO 07/29/16 20:15 08/28/16 20:14 Zolpidem Tartrate (Ambien Tab) 5 mg HSZ PRN PO 07/29/16 20:15 08/28/16 20:14 Ondansetron HCl (Zofran Inj) 4 mg Q6H PRN IV 07/29/16 20:15 08/28/16 20:14 Metoprolol Succinate (Toprol Xl Tab) 50 mg QAM PO 07/30/16 09:00 08/29/16 08:59 07/30/16 07:59 50 MG Ipratropium [place] (Atrovent 0.02% 0.5MG/2.5ML Neb) 0.5 mg Q2H PRN INH 07/29/16 21:00 08/28/16 20:59 Levalbuterol 1.25 mg 1.25 mg Q2H PRN INH 07/29/16 21:00 08/28/16 20:59 Sodium Chloride (Nss 1000ml) 1,000 ml @ 150 mls/hr Q6H40M IV 07/30/16 04:00 08/29/16 03:59 07/30/16 14:48 150 MLS/HR Aspirin (Ecotrin Tab) 81 mg QAM PO 07/31/16 09:00 08/30/16 08:59 Heparin Sodium (Porcine) (Heparin Sq 5000 Unit/0.5ml) 5,000 unit Q12 SQ 07/30/16 21:00 08/29/16 20:59 Family History FH: heart disease Social History Smoking Status: Never Smoker Smokeless Tobacco Use: No Alcohol Use: none Drug Use: none Marital Status: Housing Status: lives with family Occupation: retired Review of Systems A complete review of systems was performed. Pertinent positives are noted above. All other systems are negative. Physical Exam Date Time Temp Pulse Resp B/P Pulse Ox O2 Delivery O2 Flow Rate FiO2 07/30/16 16:03 36.9 102 15 91/57 97 Nasal Cannula 2.0 07/30/16 16:00 Nasal Cannula 2.0 07/30/16 12:07 36.4 90 18 109/73 98 Nasal Cannula 2.0 07/30/16 12:00 Nasal Cannula 2.0 07/30/16 08:00 94 Nasal Cannula 2.0 07/30/16 07:58 36.9 119 22 158/88 96 Nasal Cannula 1.0 07/30/16 07:13 123 158/84 07/30/16 06:28 165/105 07/30/16 06:25 120 30 167/115 94 Nasal Cannula 07/30/16 04:00 Nasal Cannula 2.0 07/30/16 00:00 Nasal Cannula 2.0 07/29/16 23:31 36.4 101 24 119/74 99 Nasal Cannula 2.0 07/29/16 23:19 36.8 64 16 170/81 98 Room Air 07/29/16 22:45 37.0 99 130/84 97 Nasal Cannula 2.0 07/29/16 22:24 37.0 94 26 146/90 98 Nasal Cannula 2.0 07/29/16 21:40 37.2 112 28 164/87 99 Nasal Cannula 2.0 07/29/16 20:43 28 93 Nasal Cannula 4.0 07/29/16 20:41 105 18 157/96 85 Room Air 07/29/16 17:44 101 18 138/90 95 Room Air 07/29/16 17:37 104 General Appearance: WD/WN, no apparent distress Head: normocephalic, atraumatic Eyes: normal inspection, sclerae normal ENT: normal ENT inspection, pharynx normal Neck: supple, + JVD Respiratory/Chest: lungs clear, no accessory muscle use, + rales (basilar) Cardiovascular: no gallop, no murmur, + tachycardia Abdomen/GI: non tender, soft Genitourinary - Female: + pertinent finding (Black draining yellow urine) Extremities/Musculoskelatal: normal inspection, + pedal edema Neurologic/Psych: alert, oriented x 3 Laboratory Results Last 24 Hours Test 07/29/16 17:38 07/29/16 17:42 07/29/16 21:03 07/30/16 00:00 White Blood Count 8.40 K/uL Red Blood Count 2.98 M/uL Hemoglobin 10.2 g/dL Hematocrit 30.4 % Mean Corpuscular Volume 102.0 fL Mean Corpuscular Hemoglobin 34.2 pg Mean Corpuscular Hemoglobin Concent 33.6 g/dl Platelet Count 160 K/uL Mean Platelet Volume 10.0 fL Neutrophils (%) (Auto) 69.9 % Lymphocytes (%) (Auto) 21.7 % Monocytes (%) (Auto) 7.5 % Eosinophils (%) (Auto) 0.1 % Basophils (%) (Auto) 0.4 % Neutrophils # (Auto) 5.88 K/uL Lymphocytes # (Auto) 1.82 K/uL Monocytes # (Auto) 0.63 K/uL Eosinophils # (Auto) 0.01 K/uL Basophils # (Auto) 0.03 K/uL RDW Standard Deviation 75.2 fL RDW Coefficient of Variation 20.6 % Immature Granulocyte % (Auto) 0.4 % Immature Granulocyte # (Auto) 0.03 K/uL Nucleated RBC Absolute Count (auto) 0.06 K/uL Nucleated Red Blood Cells % 0.7 % Polychromasia 1+ Sodium Level 134 mmol/L Potassium Level 4.1 mmol/L Chloride Level 95 mmol/L Carbon Dioxide Level 29 mmol/L Anion Gap 10.0 mmol/L Blood Urea Nitrogen 57 mg/dl Creatinine 3.00 mg/dl Est Creatinine Clear Calc Drug Dose 11.1 ml/min Estimated GFR () 15.7 Estimated GFR (Non- 13.5 BUN/Creatinine Ratio 19.0 Random Glucose 106 mg/dl Calcium Level 11.0 mg/dl Magnesium Level 1.8 mg/dl Total Bilirubin 0.7 mg/dl Direct Bilirubin 0.2 mg/dl Aspartate Amino Transf (AST/SGOT) 36 U/L Alanine Aminotransferase (ALT/SGPT) 18 U/L Alkaline Phosphatase 104 U/L Total Creatine Kinase 33 U/L 25 U/L Creatine Kinase MB 1.4 ng/ml 1.5 ng/ml Creatine Kinase MB Ratio 4.2 6.0 Total Protein 8.9 gm/dl Albumin 3.0 gm/dl Bedside Troponin I 0.060 ng/ml Troponin I 0.064 ng/ml Pleural Fluid Source RIGHT LUNG Pleural Fluid Color YELLOW Pleural Fluid Appearance CLOUDY Pleural Fluid WBC 4310 /uL Pleural Fluid RBC < 3000 /uL Pleural Fluid Polynuclear WBCs % 23.0 % Pleural Fluid Mononuclear WBCs % 77.0 % Test 07/30/16 04:10 07/30/16 11:35 07/30/16 12:45 White Blood Count 7.98 K/uL Red Blood Count 2.74 M/uL Hemoglobin 9.3 g/dL Hematocrit 28.6 % Mean Corpuscular Volume 104.4 fL Mean Corpuscular Hemoglobin 33.9 pg Mean Corpuscular Hemoglobin Concent 32.5 g/dl Platelet Count 134 K/uL Mean Platelet Volume 9.6 fL Neutrophils (%) (Auto) 66.9 % Lymphocytes (%) (Auto) 24.1 % Monocytes (%) (Auto) 7.4 % Eosinophils (%) (Auto) 0.3 % Basophils (%) (Auto) 0.5 % Neutrophils # (Auto) 5.35 K/uL Lymphocytes # (Auto) 1.92 K/uL Monocytes # (Auto) 0.59 K/uL Eosinophils # (Auto) 0.02 K/uL Basophils # (Auto) 0.04 K/uL RDW Standard Deviation 78.6 fL RDW Coefficient of Variation 20.9 % Immature Granulocyte % (Auto) 0.8 % Immature Granulocyte # (Auto) 0.06 K/uL Polychromasia 1+ Anisocytosis PRESENT Prothrombin Time 12.3 SECONDS Prothromb Time International Ratio 1.1 Activated Partial Thromboplast Time 32.7 SECONDS Partial Thromboplastin Ratio 1.3 Sodium Level 139 mmol/L Potassium Level 3.9 mmol/L Chloride Level 102 mmol/L Carbon Dioxide Level 29 mmol/L Anion Gap 8.0 mmol/L Blood Urea Nitrogen 53 mg/dl Creatinine 3.30 mg/dl 3.60 mg/dl Est Creatinine Clear Calc Drug Dose 10.1 ml/min 9.3 ml/min Estimated GFR () 13.9 12.6 Estimated GFR (Non- 12.0 10.8 BUN/Creatinine Ratio 15.9 Random Glucose 95 mg/dl Calcium Level 10.2 mg/dl Magnesium Level 1.8 mg/dl Total Bilirubin 0.6 mg/dl 0.6 mg/dl Direct Bilirubin 0.2 mg/dl Aspartate Amino Transf (AST/SGOT) 29 U/L Alanine Aminotransferase (ALT/SGPT) 20 U/L Alkaline Phosphatase 94 U/L Total Creatine Kinase 22 U/L 33 U/L Creatine Kinase MB 1.6 ng/ml 3.6 ng/ml Creatine Kinase MB Ratio 7.3 10.9 Troponin I 0.077 ng/ml 0.131 ng/ml Total Protein 8.2 gm/dl 7.7 gm/dl Albumin 2.9 gm/dl 2.7 gm/dl Pleural Fluid pH 7.19 Pleural Fluid Total Protein 5.6 g/dl Pleural Fluid Albumin 2.2 g/dl Pleural Fluid LDH 357 IU Pleural Fluid Glucose 71 mg/dl Pleural Fluid Amylase 24 U/L Lactate Dehydrogenase 501 U/L Impression (1) Acute renal insufficiency (2) Multiple myeloma (3) Acute systolic CHF (congestive heart failure) (4) Diastolic dysfunction (5) Hypertension (6) Anemia (7) Bilateral pleural effusion Mrs. Suha Kelly is an 86-year-old female with multiple myeloma (IgG kappa), systolic CHF, hypertension and acute renal insufficiency. Creatinine at baseline was less than 1 mg/dL. Creatinine was 1.3 mg/dL last month. Creatinine 3.0 mg/dL on admission. She is non oliguric. Metabolic profile has been otherwise appropriate. She is anemic with a hemoglobin of 9.3 and slightly hypercalcemic (calcium of 11 on admission). Calcium improved with a dose of pamidronate. I suspect SANDER is multifactorial. Myeloma kidney less likely given relatively low paraprotein level. We cannot exclude at this time. I would not pursue a kidney biopsy at this time, it is unlikely to manager exchange. SANDER may be associated with hemodynamic changes and at this time cardiorenal syndrome associated with LV systolic and diastolic dysfunction. SANDER may be associated with toxic or hemodynamic ATN. Pamidronate while less likely, may contribute to renal insufficiency. We cannot exclude that iodinated contrast from CTA could be contributory. Given the multiple medical comorbidities including cardiac disease and multiple myeloma, Suha is a very poor candidate for dialysis. There is no indication for renal replacement therapy at this time. Medical management is the best option including treatment of acute combined heart failure and multiple myeloma. The patient's daughter expressed understanding. Recommendations -- Agree with furosemide 40 mg IV with albumin Q8-12 hours PRN to encourage net negative fluid balance. Goal of approximately 1 liter negative per day. -- Encourage nutrition but cautiously potassium restrict diet. -- Document I/O's and monitor metabolic profile daily -- Check UA/microscopy, random UPCR and urine sodium assessment -- Hold indapamide and lisinopril -- Consider renal ultrasound tomorrow
[2016-07-30] MEDS: HEPARIN SOD 5000 UNIT/0.5 ML CARP SQ SCH (20:59)
[2016-07-31 03:57] VITALS: BP 115/73; PULSE 86; TEMP 36.6; O2SAT 96
[2016-07-31] MEDS ORDERED: ALBUMIN 25% 50 ML with FUROSEMIDE INJ 40 MG IV STA ×2 (04:09)
[2016-07-31 05:01] LABS: URINE APPEARANCE TURBID (CLEAR); URINE BILIRUBIN NEG (NEG); URINE COLOR DK YELLOW; URINE EPITHELIAL CELL AUTO 0-5 /lpf (0-5); URINE NITRITE NEG (NEG); URINE PH 7.5 (4.5-7.5); URINE SPECIFIC GRAVITY 1.031 (1.000-1.030); UROBILINOGEN NEG (NEG)
[2016-07-31 05:22] LABS: MANUAL MICROSCOPIC REQUIRED? NO; REVIEW REQ? NO; SULFASALICYLIC ACID POS (NEG)
[2016-07-31 06:18] LABS: URINE PROTIEN/CREAT RATIO 0.8 (0-0.2); URINE TOTAL PROTEIN 172.1 mg/dl (0-11.9)
[2016-07-31 07:11] LABS: MEAN CELL VOLUME 105.5 fL (80-100); MEAN CORPUSCULAR HEMOGLOBIN 34.8 pg (25-34); MEAN PLATELET VOLUME 9.8 fL (7.4-10.4); PLATELET COUNT 114 K/uL (130-400); RED BLOOD COUNT 2.56 M/uL (4.2-5.4); WHITE BLOOD COUNT 10.25 K/uL (4.8-10.8)
[2016-07-31 07:24] LABS: INR 1.2 (0.9-1.1); PROTHROMBIN TIME (PATIENT) 12.5 SECONDS (9.0-12.0)
[2016-07-31 07:35] VITALS: BP 129/70; PULSE 101; TEMP 36.8; O2SAT 97
[2016-07-31 07:37] LABS: ANISOCYTOSIS PRESENT; BASO % 0.5 %; BASO ABS # 0.05 K/uL (0-0.2); COMPLETE YES; EOS % 0.3 %; IG% 0.4 %; LYMPH % 16.2 %; LYMPH ABS # 1.66 K/uL (1.2-3.4); MONO % 7.6 %
[2016-07-31 07:39] LABS: BUN/CREATININE RATIO 14.7 (10-20); CREATININE 4.2 mg/dl (0.60-1.20); MAGNESIUM 1.8 mg/dl (1.8-2.4); POTASSIUM 4.1 mmol/L (3.5-5.1)
[2016-07-31 08:00] VITALS: O2SAT 97
--- NOTE | 2016-07-31 09:02 | Procedure Note ---
Procedure Note Date of Service Jul 31, 2016. Procedure Note Procedure: Left-sided thoracentesis Consent: Obtained to the patient placed in the chart Preprocedural diagnosis: Bilateral pleural effusions (right-sided exudative effusion) Postprocedural diagnosis: Bilateral pleural effusions (possible left-sided exudative effusion) Analgesia: 5 cc of 1% liquid lidocaine Procedure: Patient was placed in the upright position and ultrasound was used for thoracic evaluation and proper procedure position/placement. A site along the left posterior axillary line approximate seventh intercostal space was marked. There was draped and prepped in sterile fashion a modified Seldinger technique was used for catheter access. Approximately 1.5 L of tannish fluid was removed. Postprocedural ultrasound showed good pleural sliding as well as starry night sign/[place] suggesting no pneumothorax. Chest x-ray is pending. Complications at this time: None
[2016-07-31] MEDS: ASPIRIN 81 MG ECTAB PO SCH (09:24)
[2016-07-31] MEDS: METOPROLOL SUCC 50MG EXT REL TAB PO SCH (09:24)
[2016-07-31] MEDS: HEPARIN SOD 5000 UNIT/0.5 ML CARP SQ SCH ×2 (09:31→21:24)
--- NOTE | 2016-07-31 09:38 | DIAGNOSTIC IMAGING REPORT ---
CHEST ONE VIEW PORTABLE CLINICAL HISTORY: S/P Thoracentesis COMPARISON STUDY: Chest radiograph July 30, [address] July 28, 2016 FINDINGS: There is no pneumothorax status post thoracentesis. The left pleural effusion has significantly decreased in size. There is a small residual left pleural effusion. A right pleural effusion is noted. This may have increased in size. A dual lead right subclavian pacemaker is in place. Bibasilar opacities persist. There is no radiographic evidence of pulmonary edema. IMPRESSION: 1. No pneumothorax following left thoracentesis. Significant decrease in size of the left pleural effusion. 2. Suspected increase in size of a right pleural effusion. 3. Persistent bibasilar opacities which likely reflect atelectasis. Electronically signed by: Enrique Zendejas M.D. 07/31/2016 9:36 AM Dictated Date/Time: 07/31/2016 9:32 AM
[2016-07-31 10:15] LABS: PLEURAL FLUID APPEARANCE CLOUDY; PLEURAL FLUID COLOR YELLOW; PLEURAL FLUID MONONUC RELAT 74.7 %; PLEURAL FLUID POLYNUC 25.3 %; PLEURAL FLUID SOURCE LEFT LUNG; PLEURAL FLUID WBC (A) 4571 /uL
[2016-07-31] MEDS: ONDANSETRON INJ 2 MG/ML 2 ML VIAL IV PRN (10:23)
--- NOTE | 2016-07-31 11:09 | CARDIOLOGY PROGRESS NOTE ---
DATE: 07/31/2016 SUBJECTIVE: Morning, Mrs. Kelly feels slightly more dyspneic than yesterday. She has little appetite and did not eat much of her breakfast. She denies significant pain in any particular location. She denied any significant dizziness, did not notice any palpitations. PHYSICAL EXAMINATION: GENERAL: She was alert and oriented, mood and affect appeared normal. She answered all questions appropriately. VITAL SIGNS: Include blood pressure 129/70 with pulse of 101. LUNGS: Auscultation of her lungs revealed diminished breath sounds at the bases bilaterally with poor aeration. There was poor aeration of the left lung overall but some better air movement in the right upper lung. CARDIAC: Reveals her to be in regular rhythm. I did not appreciate any significant murmurs on evaluation. LABORATORY STUDIES: Today included a white cell count of 10.2, hemoglobin of 8.9, platelet count of 114. Sodium is 140, potassium is 4.1, BUN was 62, creatinine was 4.2. ASSESSMENT AND PLAN: 1. Acute left ventricular systolic failure. The patient does have evidence of reduced LV function on her echocardiogram which may account for some of her symptoms of dyspnea. I think there is some debate as to the true etiology of her pleural effusions, nonetheless there may be a contribution from her poor LV function. I think most of us are in agreement an attempt at diuresis is warranted and that has been initiated this morning. Other therapies for heart failure would include continuation of her beta blockade and ideally LUIS CARLOS inhibition, but that is currently contraindicated due to her renal dysfunction. I think at this point all of our efforts will need to centre upon diuresis if possible. 2. Renal failure. The patient's renal function continues to decline. At this point effecting a diuresis may be more difficult, appreciate the nephrology consultation by Dr. Maurer yesterday. 3. Cardiomyopathy. The etiology of the patient's reduced LV function is unclear. She does have elevated cardiac biomarkers; however, she has not had a syndrome consistent with an acute coronary event nor is her clinical picture consistent with an ischemic cardiomyopathy. This may represent some form of stress myopathy or be related to her underlying malignancy. Ideally, we would perform coronary angiography in order to exclude ischemic disease; however, that is currently contraindicated given her renal dysfunction and overall poor functional status. I think at this point we will simply need to rely on medical therapy as available for improvement. 4. Complete heart block. The patient's pacemaker appears to be functioning normally at this point given her acute illness and poor functional status. In the absence of catastrophic failure, we will likely not pursue any additional procedures regarding this device.
--- NOTE | 2016-07-31 11:19 | Nephrology Progress Note ---
Nephrology Progress Note Date of Service Jul 31, 2016. Chief Complaint SANDER Subjective No acute events overnight. Suha reports mild nausea and decreased appetite this morning. She denies fevers or chills. Dyspnea has improved. She tolerated left sided thoracentesis today. Activity tolerance remains limited due to generalized weakness. I reviewed trajectory of renal function decline with the patient and her daughter today. We discussed goals of care in detail. Review of Systems A complete review of systems was performed. Pertinent positives are noted above. All other systems are negative. Vital Signs Last 8 Hrs Date Time Temp Pulse Resp B/P Pulse Ox O2 Delivery O2 Flow Rate FiO2 07/31/16 09:00 Nasal Cannula 2.0 07/31/16 08:00 97 Nasal Cannula 2.0 07/31/16 07:35 36.8 101 18 129/70 97 Nasal Cannula 2.0 07/31/16 04:05 Nasal Cannula 2.0 07/31/16 03:57 36.6 86 18 115/73 96 Nasal Cannula 2.0 I & O 24-Hour Column 07/31/16 08:00 Intake Total 1960 ml Output Total 300 ml Balance 1660 ml Last Recorded Weight Weight (Kilograms): 55.900 Physical Exam General Appearance: WD/WN, no apparent distress, + thin Head: normocephalic, atraumatic Eyes: normal inspection, sclerae normal ENT: normal ENT inspection, pharynx normal Neck: supple, + JVD Cardiovascular: regular rate, rhythm, no murmur Abdomen/GI: non tender, soft Extremities/Musculoskelatal: normal inspection, + pedal edema (trace) Neurologic/Psych: alert, oriented x 3 Family History FH: heart disease Social History Smokeless Tobacco Use: No Alcohol Use: none Drug Use: none Marital Status: Housing Status: lives with family Occupation: retired Laboratory Results Past 24 Hours 07/31/16 06:53 Red Blood Count 2.56, Mean Corpuscular Volume 105.5, Mean Corpuscular Hemoglobin 34.8, Mean Corpuscular Hemoglobin Concent 33.0, Mean Platelet Volume 9.8, Neutrophils (%) (Auto) 75.0, Lymphocytes (%) (Auto) 16.2, Monocytes (%) ( Auto) 7.6, Eosinophils (%) (Auto) 0.3, Basophils (%) (Auto) 0.5, Neutrophils # ( Auto) 7.69, Lymphocytes # (Auto) 1.66, Monocytes # (Auto) 0.78, Eosinophils # ( Auto) 0.03, Basophils # (Auto) 0.05 07/30/16 12:45 07/31/16 06:53 Test 07/30/16 11:35 07/30/16 12:45 07/31/16 00:00 07/31/16 04:37 Pleural Fluid pH 7.19 (7.3-7.4) 7.25 (7.3-7.4) Pleural Fluid Total Protein 5.6 g/dl 5.0 g/dl Pleural Fluid Albumin 2.2 g/dl Pleural Fluid LDH 357 IU 337 IU Pleural Fluid Glucose 71 mg/dl 56 mg/dl Pleural Fluid Amylase 24 U/L 21 U/L Est Creatinine Clear Calc Drug Dose 9.3 ml/min Estimated GFR () 12.6 Estimated GFR (Non- 10.8 Total Bilirubin 0.6 mg/dl (0.2-1) Lactate Dehydrogenase 501 U/L (84-246) Total Creatine Kinase 33 U/L (26-192) Creatine Kinase MB 3.6 ng/ml (0.5-3.6) Creatine Kinase MB Ratio 10.9 (0-3.0) Troponin I 0.131 ng/ml (0-0.045) Total Protein 7.7 gm/dl (6.4-8.2) Albumin 2.7 gm/dl (3.4-5.0) Pleural Fluid Source LEFT LUNG Pleural Fluid Color YELLOW Pleural Fluid Appearance CLOUDY Pleural Fluid WBC 4571 /uL Pleural Fluid RBC < 3000 /uL Pleural Fluid Polynuclear WBCs % 25.3 % Pleural Fluid Mononuclear WBCs % 74.7 % Urine Color DK YELLOW Urine Appearance TURBID (CLEAR) Urine pH 7.5 (4.5-7.5) Urine Specific [place] 1.031 (1.000-1.030) Urine Protein 2+ (NEG) Urine Glucose (UA) NEG (NEG) Urine Ketones NEG (NEG) Urine Occult Blood 3+ (NEG) Urine Nitrite NEG (NEG) Urine Bilirubin NEG (NEG) Urine Urobilinogen NEG (NEG) Urine Leukocyte Esterase LARGE (NEG) Urine WBC (Auto) >30 /hpf (0-5) Urine RBC (Auto) >30 /hpf (0-4) Urine Hyaline Casts (Auto) 1-5 /lpf (0-5) Urine Epithelial Cells (Auto) 0-5 /lpf (0-5) Urine Bacteria (Auto) 4+ (NEG) Urine Random Creatinine 230.0 mg/dl Urine Random Total Protein 172.1 mg/dl (0-11.9) Urine Random Sodium 27 mEq/L Urine Random Urea Nitrogen 186 mg/dl Urine Protein/Creatinine Ratio 0.8 (0-0.2) Test 07/31/16 06:53 White Blood Count 10.25 K/uL (4.8-10.8) Red Blood Count 2.56 M/uL (4.2-5.4) Hemoglobin 8.9 g/dL (12.0-16.0) Hematocrit 27.0 % (37-47) Mean Corpuscular Volume 105.5 fL (80-100) Mean Corpuscular Hemoglobin 34.8 pg (25-34) Mean Corpuscular Hemoglobin Concent 33.0 g/dl (32-36) Platelet Count 114 K/uL (130-400) Mean Platelet Volume 9.8 fL (7.4-10.4) Neutrophils (%) (Auto) 75.0 % Lymphocytes (%) (Auto) 16.2 % Monocytes (%) (Auto) 7.6 % Eosinophils (%) (Auto) 0.3 % Basophils (%) (Auto) 0.5 % Neutrophils # (Auto) 7.69 K/uL (1.4-6.5) Lymphocytes # (Auto) 1.66 K/uL (1.2-3.4) Monocytes # (Auto) 0.78 K/uL (0.11-0.59) Eosinophils # (Auto) 0.03 K/uL (0-0.5) Basophils # (Auto) 0.05 K/uL (0-0.2) RDW Standard Deviation 80.1 fL (36.4-46.3) RDW Coefficient of Variation 20.9 % (11.5-14.5) Immature Granulocyte % (Auto) 0.4 % Immature Granulocyte # (Auto) 0.04 K/uL (0.00-0.02) Anisocytosis PRESENT Prothrombin Time 12.5 SECONDS (9.0-12.0) Prothromb Time International Ratio 1.2 (0.9-1.1) Activated Partial Thromboplast Time 51.6 SECONDS (21.0-31.0) Partial Thromboplastin Ratio 2.0 Anion Gap 10.0 mmol/L (3-11) Est Creatinine Clear Calc Drug Dose 8.0 ml/min Estimated GFR () 10.4 Estimated GFR (Non- 9.0 BUN/Creatinine Ratio 14.7 (10-20) Calcium Level 9.0 mg/dl (8.5-10.1) Magnesium Level 1.8 mg/dl (1.8-2.4) Total Bilirubin 0.6 mg/dl (0.2-1) Direct Bilirubin 0.2 mg/dl (0-0.2) Aspartate Amino Transf (AST/SGOT) 25 U/L (15-37) Alanine Aminotransferase (ALT/SGPT) 12 U/L (12-78) Alkaline Phosphatase 76 U/L (45-117) Total Protein 7.1 gm/dl (6.4-8.2) Albumin 2.7 gm/dl (3.4-5.0) Allergies Coded Allergies: Sulfa Antibiotics (Verified Allergy, Unknown, RASH, 07/29/16) Medications Current Inpatient Medications Medications (Trade) Dose Ordered Sig/Willy Route Start Time Stop Time Status Last Admin Dose Admin Acetaminophen (Tylenol Tab) 650 mg Q4H PRN PO 07/29/16 20:15 08/28/16 20:14 Zolpidem Tartrate (Ambien Tab) 5 mg HSZ PRN PO 07/29/16 20:15 08/28/16 20:14 Ondansetron HCl (Zofran Inj) 4 mg Q6H PRN IV 07/29/16 20:15 08/28/16 20:14 07/31/16 10:23 4 MG Metoprolol Succinate (Toprol Xl Tab) 50 mg QAM PO 07/30/16 09:00 08/29/16 08:59 07/31/16 09:24 50 MG Ipratropium [place] (Atrovent 0.02% 0.5MG/2.5ML Neb) 0.5 mg Q2H PRN INH 07/29/16 21:00 08/28/16 20:59 Levalbuterol (Xopenex 1.25MG/ 0.5ML Neb) 1.25 mg Q2H PRN INH 07/29/16 21:00 08/28/16 20:59 Aspirin (Ecotrin Tab) 81 mg QAM PO 07/31/16 09:00 08/30/16 08:59 07/31/16 09:24 81 MG Heparin Sodium (Porcine) (Heparin Sq 5000 Unit/0.5ml) 5,000 unit Q12 SQ 07/30/16 21:00 08/29/16 20:59 07/31/16 09:31 5,000 UNIT Impression (1) Acute renal insufficiency (2) Multiple myeloma (3) Acute systolic CHF (congestive heart failure) (4) Diastolic dysfunction (5) Hypertension (6) Anemia (7) Bilateral pleural effusion Mrs. Suha Kelly is an 86-year-old female with multiple myeloma (IgG kappa), systolic and diastolic CHF, hypertension and acute renal insufficiency. Creatinine at baseline was less than 1 mg/dL. Creatinine was 1.3 mg/dL last month. Creatinine 3.0 mg/dL on admission. She is non oliguric. Metabolic profile has been otherwise appropriate. She is anemic with a hemoglobin of 9.3 and slightly hypercalcemic (calcium of 11 on admission). Calcium improved with a dose of pamidronate. I suspect SANDER is multifactorial. Myeloma kidney less likely given relatively low paraprotein level. We cannot exclude. 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 SANDER may be associated with hemodynamic changes from cardiorenal syndrome associated with LV systolic and diastolic dysfunction. SANDER may be associated with toxic or hemodynamic ATN. Pamidronate while less likely, may contribute to renal insufficiency. We cannot exclude that iodinated contrast from CTA could be contributory. Given the multiple medical comorbidities including cardiac disease and multiple myeloma, Suha is a very poor candidate for dialysis. There is no indication for renal replacement therapy currently. Medical management is the best option including treatment of acute combined heart failure and multiple myeloma. Suha and her daughter expressed understanding. Will check renal US today. UA/micro notable for PCR 0.8 and positive for microscopic hematuria and pyuria, culture sent. Plan of care was discussed with Dr. Rocha and Dr. Canales this morning. Recommendations -- Agree with furosemide 40 mg IV with albumin Q8-12 hours PRN to encourage net negative fluid balance. Goal of approximately 1 liter negative per day. -- Encourage nutrition but cautiously potassium restrict diet -- Document I/O's and monitor metabolic profile daily -- Check renal US -- Hold indapamide and lisinopril
[2016-07-31 11:53] VITALS: BP 99/63; PULSE 76; TEMP 36.3; O2SAT 95
[2016-07-31] MEDS ORDERED: FUROSEMIDE INJ 80 MG in SYRINGE 0 ML IV ONE (12:00)
[2016-07-31] MEDS ORDERED: CEFTRIAXONE SOD INJ 2,000 MG in DEXTROSE 5% 50ML 50 ML IV STA (12:13)
--- NOTE | 2016-07-31 12:34 | Pulmonology Progress Note ---
Pulmonary Progress Note Date of Service Jul 31, 2016. Attending Dr. Canales Subjective Patient still notes fatigue with associated dyspnea Objective Patient able to sight up for thoracentesis and speak full sentences with no sings of respiratory compromise today: VS: stable on 2L nc RESP: decreased bs bilateral with dullness to percussion by auscultation US: large (b) pleural effusions CARD: S1S2 RRR with distant HS ABD: soft, non-tender Assessment & Plan 86y/o female with bilateral exudative effusions: 1) Pleural Effusions: Exudative in nature with Right side pH: 7.19 and Left sided pH: 7.25. As these could be a complex parapneumonic effusions initiation of anti-biotics would be appropriate at this time. ACCP suggest Ceftriaxone 2g IV and Clindamycin (chronic in nature) but as our patient has a history of C- diff per the records I will hold off on Clindamycin at this time. No active growth on culture but will continue to follow. MM infrequently is the etiology of and exudative pleural effusion 1-2% of the time as is usually IgA sub-types. As this is the case a parapneumonic effusion is high on the DDx. Once again will await pathology and microbiology. ACCP recommends that we place a CT or attempt complete drainage of an exudative effusion with a pH < 7.20. I will perform repeat thoracentesis of the right side tomorrow and if complete or close to complete resolution occurs then CT/IPC placement is warranted. Data Medications: Current Inpatient Medications Medications (Trade) Dose Ordered Sig/Willy Route Start Time Stop Time Status Last Admin Dose Admin Acetaminophen (Tylenol Tab) 650 mg Q4H PRN PO 07/29/16 20:15 08/28/16 20:14 Zolpidem Tartrate (Ambien Tab) 5 mg HSZ PRN PO 07/29/16 20:15 08/28/16 20:14 Ondansetron HCl (Zofran Inj) 4 mg Q6H PRN IV 07/29/16 20:15 08/28/16 20:14 07/31/16 10:23 4 MG Metoprolol Succinate (Toprol Xl Tab) 50 mg QAM PO 07/30/16 09:00 08/29/16 08:59 07/31/16 09:24 50 MG Ipratropium [place] (Atrovent 0.02% 0.5MG/2.5ML Neb) 0.5 mg Q2H PRN INH 07/29/16 21:00 08/28/16 20:59 Levalbuterol (Xopenex 1.25MG/ 0.5ML Neb) 1.25 mg Q2H PRN INH 07/29/16 21:00 08/28/16 20:59 Aspirin (Ecotrin Tab) 81 mg QAM PO 07/31/16 09:00 08/30/16 08:59 07/31/16 09:24 81 MG Heparin Sodium (Porcine) 5000 unit 5,000 unit Q12 SQ 07/30/16 21:00 08/29/16 20:59 07/31/16 09:31 5,000 UNIT Ceftriaxone Sodium 2000 mg/ Dextrose 70 ml @ 100 mls/hr Q24H IV 08/01/16 12:15 08/08/16 12:14 UNV Ceftriaxone Sodium/Dextrose (Rocephin Inj/D5 50ml) 70 ml @ 100 mls/hr ONE STAT IV 07/31/16 12:13 07/31/16 12:54 UNV I & O: 24-Hour Column 07/31/16 08:00 Intake Total 1960 ml Output Total 300 ml Balance 1660 ml Vital Signs: Date Time Temp Pulse Resp B/P Pulse Ox O2 Delivery O2 Flow Rate FiO2 07/31/16 12:00 Nasal Cannula 2.0 07/31/16 11:53 36.3 76 16 99/63 95 2.0 07/31/16 09:00 Nasal Cannula 2.0 07/31/16 08:00 97 Nasal Cannula 2.0 07/31/16 07:35 36.8 101 18 129/70 97 Nasal Cannula 2.0 07/31/16 04:05 Nasal Cannula 2.0 07/31/16 03:57 36.6 86 18 115/73 96 Nasal Cannula 2.0 07/31/16 00:05 Nasal Cannula 2.0 07/30/16 20:05 Nasal Cannula 2.0 07/30/16 19:54 36.6 93 20 121/78 93 Nasal Cannula 2.0 07/30/16 16:03 36.9 102 15 91/57 97 Nasal Cannula 2.0 07/30/16 16:00 Nasal Cannula 2.0 Laboratory Results: Last 24 Hours Test 07/30/16 12:45 07/31/16 00:00 07/31/16 04:37 07/31/16 06:53 Creatinine 3.60 mg/dl 4.20 mg/dl Est Creatinine Clear Calc Drug Dose 9.3 ml/min 8.0 ml/min Estimated GFR () 12.6 10.4 Estimated GFR (Non- 10.8 9.0 Total Bilirubin 0.6 mg/dl 0.6 mg/dl Lactate Dehydrogenase 501 U/L Total Creatine Kinase 33 U/L Creatine Kinase MB 3.6 ng/ml Creatine Kinase MB Ratio 10.9 Troponin I 0.131 ng/ml Total Protein 7.7 gm/dl 7.1 gm/dl Albumin 2.7 gm/dl 2.7 gm/dl Pleural Fluid Source LEFT LUNG Pleural Fluid Color YELLOW Pleural Fluid Appearance CLOUDY Pleural Fluid WBC 4571 /uL Pleural Fluid RBC < 3000 /uL Pleural Fluid pH 7.25 Pleural Fluid Polynuclear WBCs % 25.3 % Pleural Fluid Mononuclear WBCs % 74.7 % Pleural Fluid Total Protein 5.0 g/dl Pleural Fluid LDH 337 IU Pleural Fluid Glucose 56 mg/dl Pleural Fluid Amylase 21 U/L Urine Color DK YELLOW Urine Appearance TURBID Urine pH 7.5 Urine Specific [place] 1.031 Urine Protein 2+ Urine Glucose (UA) NEG Urine Ketones NEG Urine Occult Blood 3+ Urine Nitrite NEG Urine Bilirubin NEG Urine Urobilinogen NEG Urine Leukocyte Esterase LARGE Urine WBC (Auto) >30 /hpf Urine RBC (Auto) >30 /hpf Urine Hyaline Casts (Auto) 1-5 /lpf Urine Epithelial Cells (Auto) 0-5 /lpf Urine Bacteria (Auto) 4+ Urine Random Creatinine 230.0 mg/dl Urine Random Total Protein 172.1 mg/dl Urine Random Sodium 27 mEq/L Urine Random Urea Nitrogen 186 mg/dl Urine Protein/Creatinine Ratio 0.8 White Blood Count 10.25 K/uL Red Blood Count 2.56 M/uL Hemoglobin 8.9 g/dL Hematocrit 27.0 % Mean Corpuscular Volume 105.5 fL Mean Corpuscular Hemoglobin 34.8 pg Mean Corpuscular Hemoglobin Concent 33.0 g/dl Platelet Count 114 K/uL Mean Platelet Volume 9.8 fL Neutrophils (%) (Auto) 75.0 % Lymphocytes (%) (Auto) 16.2 % Monocytes (%) (Auto) 7.6 % Eosinophils (%) (Auto) 0.3 % Basophils (%) (Auto) 0.5 % Neutrophils # (Auto) 7.69 K/uL Lymphocytes # (Auto) 1.66 K/uL Monocytes # (Auto) 0.78 K/uL Eosinophils # (Auto) 0.03 K/uL Basophils # (Auto) 0.05 K/uL RDW Standard Deviation 80.1 fL RDW Coefficient of Variation 20.9 % Immature Granulocyte % (Auto) 0.4 % Immature Granulocyte # (Auto) 0.04 K/uL Anisocytosis PRESENT Prothrombin Time 12.5 SECONDS Prothromb Time International Ratio 1.2 Activated Partial Thromboplast Time 51.6 SECONDS Partial Thromboplastin Ratio 2.0 Sodium Level 140 mmol/L Potassium Level 4.1 mmol/L Chloride Level 105 mmol/L Carbon Dioxide Level 25 mmol/L Anion Gap 10.0 mmol/L Blood Urea Nitrogen 62 mg/dl BUN/Creatinine Ratio 14.7 Random Glucose 82 mg/dl Calcium Level 9.0 mg/dl Magnesium Level 1.8 mg/dl Direct Bilirubin 0.2 mg/dl Aspartate Amino Transf (AST/SGOT) 25 U/L Alanine Aminotransferase (ALT/SGPT) 12 U/L Alkaline Phosphatase 76 U/L
[2016-07-31] MEDS ORDERED: PANTOprazole SOD 40 MG TAB PO STA (12:44)
--- NOTE | 2016-07-31 13:49 | DIAGNOSTIC IMAGING REPORT ---
KUB CLINICAL HISTORY: Nausea and bloating. COMPARISON STUDY: CT of the abdomen and pelvis July 04, 2016. FINDINGS: Pacemaker leads are partially imaged. Bilateral pleural effusions and associated bibasilar opacities are better shown on the chest radiograph. Delayed nephrograms are noted, likely from a prior contrast enhanced CT of July 28, 2016. Bowel gas pattern is normal. Heterogeneity of visualized skeletal structures likely reflects lytic lesions shown on prior CT. IMPRESSION: 1. No evidence for a bowel obstruction. 2. Markedly delayed bilateral nephrograms which suggests acute renal injury/tubular necrosis. 3. Lytic foci within visualized skeletal structures which suggests multiple myeloma or metastatic disease. Electronically signed by: Enrique Zendejas M.D. 07/31/2016 1:47 PM Dictated Date/Time: 07/31/2016 1:43 PM
--- NOTE | 2016-07-31 13:59 | Hematology/Oncology Prog Note ---
Hematology/Onc Progress Note Date of Service Jul 31, 2016. Diagnoses Multiple myeloma Acute renal failure Pleural effusions Cardiomyopathy Medications Medications Administered Medications (Trade) Dose Ordered Sig/Willy Route Start Time Stop Time Status Last Admin Dose Admin Sodium Chloride 250 ml @ 999 mls/hr Q16M STAT IV 07/29/16 17:48 07/29/16 18:03 DC 07/29/16 17:48 999 MLS/HR Sodium Chloride (Nss 1000ml) 1,000 ml @ 125 mls/hr Q8H STAT IV 07/29/16 17:48 07/29/16 21:37 DC 07/29/16 17:48 125 MLS/HR Ondansetron HCl (Zofran Inj) 4 mg Q6H PRN IV 07/29/16 20:15 08/28/16 20:14 07/31/16 10:23 4 MG Metoprolol Succinate 50 mg 50 mg QAM PO 07/30/16 09:00 08/29/16 08:59 07/31/16 09:24 50 MG Furosemide 40 mg/ Albumin Human 54 ml @ 54 mls/hr ONE ONCE IV 07/29/16 22:00 07/29/16 22:59 DC 07/29/16 22:21 54 MLS/HR Pamidronate Disodium 60 mg/ Sodium Chloride 1,020 ml @ 250 mls/hr Q4H5M IV 07/29/16 22:00 07/30/16 02:04 DC 07/29/16 22:19 250 MLS/HR Sodium Chloride 1,000 ml @ 150 mls/hr Q6H40M IV 07/30/16 04:00 07/30/16 17:07 DC 07/30/16 14:48 150 MLS/HR Sodium Chloride (Nss 500ml) 500 ml @ 500 mls/hr NOW STAT IV 07/30/16 05:30 07/30/16 06:29 DC 07/30/16 05:40 500 MLS/HR Aspirin (Ecotrin Tab) 81 mg QAM PO 07/31/16 09:00 08/30/16 08:59 07/31/16 09:24 81 MG Heparin Sodium (Porcine) 5000 unit 5,000 unit Q12 SQ 07/30/16 21:00 08/29/16 20:59 07/31/16 09:31 5,000 UNIT Furosemide 40 mg/ Albumin Human 54 ml @ 54 mls/hr NOW STAT IV 07/31/16 04:09 07/31/16 05:08 DC 07/31/16 04:24 54 MLS/HR Furosemide/Syringe (Lasix Inj/ Syringe) 8 ml @ 4 mls/min 1200 ONCE IV 07/31/16 12:00 07/31/16 12:01 DC 07/31/16 11:59 4 MLS/MIN Subjective Ms. Kelly is seated comfortably in a chair. Her breathing is about the same, but is not labored. Her pain is well controlled. She denies any chest pain or palpitations. Review of Systems: Constitutional: + fatigue, No chills, No fever ENT: No unusual epistaxis Respiratory: + shortness of breath, No cough Cardiovascular: No chest pain Abdomen: No nausea, No pain, No vomiting Neurologic: No numbness/tingling, No weakness Heme: No abnormal bleeding/bruising, No swollen lymph nodes Vital Signs Vital Signs Past 12 Hours Date Time Temp Pulse Resp B/P Pulse Ox O2 Delivery O2 Flow Rate FiO2 07/31/16 12:00 Nasal Cannula 2.0 07/31/16 11:53 36.3 76 16 99/63 95 2.0 07/31/16 09:00 Nasal Cannula 2.0 07/31/16 08:00 97 Nasal Cannula 2.0 07/31/16 07:35 36.8 101 18 129/70 97 Nasal Cannula 2.0 07/31/16 04:05 Nasal Cannula 2.0 07/31/16 03:57 36.6 86 18 115/73 96 Nasal Cannula 2.0 Physical Exam Constitutional: General Apperance: too thin Level of Distress: chronically ill (frail-appearing and weak) Ambulation: in wheelchair Psychiatric: Mental Status: active & alert Orientation: oriented except where noted Lungs: Auscuitation: deminished air movement (in lower rider bilaterally, R>L) Cardiovascular: Heart Auscultation: RRR Abdomen: Inspection & Palpation: soft, non-distended, no tenderness, guarding & rebound Extremities: no edema Laboratory Last 24 Hours Test 07/31/16 00:00 07/31/16 04:37 07/31/16 06:53 Pleural Fluid Source LEFT LUNG Pleural Fluid Color YELLOW Pleural Fluid Appearance CLOUDY Pleural Fluid WBC 4571 /uL Pleural Fluid RBC < 3000 /uL Pleural Fluid pH 7.25 Pleural Fluid Polynuclear WBCs % 25.3 % Pleural Fluid Mononuclear WBCs % 74.7 % Pleural Fluid Total Protein 5.0 g/dl Pleural Fluid LDH 337 IU Pleural Fluid Glucose 56 mg/dl Pleural Fluid Amylase 21 U/L Urine Color DK YELLOW Urine Appearance TURBID Urine pH 7.5 Urine Specific [place] 1.031 Urine Protein 2+ Urine Glucose (UA) NEG Urine Ketones NEG Urine Occult Blood 3+ Urine Nitrite NEG Urine Bilirubin NEG Urine Urobilinogen NEG Urine Leukocyte Esterase LARGE Urine WBC (Auto) >30 /hpf Urine RBC (Auto) >30 /hpf Urine Hyaline Casts (Auto) 1-5 /lpf Urine Epithelial Cells (Auto) 0-5 /lpf Urine Bacteria (Auto) 4+ Urine Random Creatinine 230.0 mg/dl Urine Random Total Protein 172.1 mg/dl Urine Random Sodium 27 mEq/L Urine Random Urea Nitrogen 186 mg/dl Urine Protein/Creatinine Ratio 0.8 White Blood Count 10.25 K/uL Red Blood Count 2.56 M/uL Hemoglobin 8.9 g/dL Hematocrit 27.0 % Mean Corpuscular Volume 105.5 fL Mean Corpuscular Hemoglobin 34.8 pg Mean Corpuscular Hemoglobin Concent 33.0 g/dl Platelet Count 114 K/uL Mean Platelet Volume 9.8 fL Neutrophils (%) (Auto) 75.0 % Lymphocytes (%) (Auto) 16.2 % Monocytes (%) (Auto) 7.6 % Eosinophils (%) (Auto) 0.3 % Basophils (%) (Auto) 0.5 % Neutrophils # (Auto) 7.69 K/uL Lymphocytes # (Auto) 1.66 K/uL Monocytes # (Auto) 0.78 K/uL Eosinophils # (Auto) 0.03 K/uL Basophils # (Auto) 0.05 K/uL RDW Standard Deviation 80.1 fL RDW Coefficient of Variation 20.9 % Immature Granulocyte % (Auto) 0.4 % Immature Granulocyte # (Auto) 0.04 K/uL Anisocytosis PRESENT Prothrombin Time 12.5 SECONDS Prothromb Time International Ratio 1.2 Activated Partial Thromboplast Time 51.6 SECONDS Partial Thromboplastin Ratio 2.0 Sodium Level 140 mmol/L Potassium Level 4.1 mmol/L Chloride Level 105 mmol/L Carbon Dioxide Level 25 mmol/L Anion Gap 10.0 mmol/L Blood Urea Nitrogen 62 mg/dl Creatinine 4.20 mg/dl Est Creatinine Clear Calc Drug Dose 8.0 ml/min Estimated GFR () 10.4 Estimated GFR (Non- 9.0 BUN/Creatinine Ratio 14.7 Random Glucose 82 mg/dl Calcium Level 9.0 mg/dl Magnesium Level 1.8 mg/dl Total Bilirubin 0.6 mg/dl Direct Bilirubin 0.2 mg/dl Aspartate Amino Transf (AST/SGOT) 25 U/L Alanine Aminotransferase (ALT/SGPT) 12 U/L Alkaline Phosphatase 76 U/L Total Protein 7.1 gm/dl Albumin 2.7 gm/dl Assessment & Plan Ms. Kelly is in a very difficult situation. Her renal function is worsening, which is most likely pre-renal in origin. Given her EF and cardiomyopathy, I suspect her renal failure is due to poor renal perfusion. Her cardiology and nephrology teams are attempting to diurese her with Lasix and albumin today, with a goal to get her negative. While her myeloma is certainly contributing to her renal dysfunction, it is unlikely to be the driving issue (her M-protein is relatively low). While treating her myeloma would eventually reverse any component of myeloma kidney, it would take a while to see a major improvement. Thus, I think it is reasonable to hold off on starting anti-myeloma therapy until her cardiorenal issues are stabilized.
[2016-07-31] MEDS: CEFTRIAXONE SOD INJ 2,000 MG in DEXTROSE 5% 50ML 50 ML IV SCH (14:43)
[2016-07-31 15:37] VITALS: BP 100/66; PULSE 81; TEMP 36.4; O2SAT 94
--- NOTE | 2016-07-31 17:38 | Hospitalist Progress Note ---
Hospitalist Progress Note Date of Service Jul 31, 2016. Subjective had thoracentesis left side today felt nauseous this am. received zofran chest pain later today - better after burping Constitutional: No fever Respiratory: No shortness of breath Cardiovascular: + chest pain (had chest pain earlier but got better after burping) Objective Vital Signs Date Time Temp Pulse Resp B/P Pulse Ox O2 Delivery O2 Flow Rate FiO2 07/31/16 15:37 36.4 81 16 100/66 94 2.0 07/31/16 12:00 Nasal Cannula 2.0 07/31/16 11:53 36.3 76 16 99/63 95 2.0 07/31/16 09:00 Nasal Cannula 2.0 07/31/16 08:00 97 Nasal Cannula 2.0 07/31/16 07:35 36.8 101 18 129/70 97 Nasal Cannula 2.0 07/31/16 04:05 Nasal Cannula 2.0 07/31/16 03:57 36.6 86 18 115/73 96 Nasal Cannula 2.0 07/31/16 00:05 Nasal Cannula 2.0 07/30/16 20:05 Nasal Cannula 2.0 07/30/16 19:54 36.6 93 20 121/78 93 Nasal Cannula 2.0 Physical Exam General Appearance: no apparent distress, + pertinent finding (frail) Respiratory/Chest: no respiratory distress, + decreased breath sounds Cardiovascular: regular rate, rhythm Abdomen: normal bowel sounds, non tender, soft Neurologic/Psychiatric: alert, oriented x 3 Skin: warm/dry Laboratory Results Last 24 Hours Test 07/31/16 00:00 07/31/16 04:37 07/31/16 06:53 Pleural Fluid Source LEFT LUNG Pleural Fluid Color YELLOW Pleural Fluid Appearance CLOUDY Pleural Fluid WBC 4571 /uL Pleural Fluid RBC < 3000 /uL Pleural Fluid pH 7.25 Pleural Fluid Polynuclear WBCs % 25.3 % Pleural Fluid Mononuclear WBCs % 74.7 % Pleural Fluid Total Protein 5.0 g/dl Pleural Fluid LDH 337 IU Pleural Fluid Glucose 56 mg/dl Pleural Fluid Amylase 21 U/L Urine Color DK YELLOW Urine Appearance TURBID Urine pH 7.5 Urine Specific [place] 1.031 Urine Protein 2+ Urine Glucose (UA) NEG Urine Ketones NEG Urine Occult Blood 3+ Urine Nitrite NEG Urine Bilirubin NEG Urine Urobilinogen NEG Urine Leukocyte Esterase LARGE Urine WBC (Auto) >30 /hpf Urine RBC (Auto) >30 /hpf Urine Hyaline Casts (Auto) 1-5 /lpf Urine Epithelial Cells (Auto) 0-5 /lpf Urine Bacteria (Auto) 4+ Urine Random Creatinine 230.0 mg/dl Urine Random Total Protein 172.1 mg/dl Urine Random Sodium 27 mEq/L Urine Random Urea Nitrogen 186 mg/dl Urine Protein/Creatinine Ratio 0.8 White Blood Count 10.25 K/uL Red Blood Count 2.56 M/uL Hemoglobin 8.9 g/dL Hematocrit 27.0 % Mean Corpuscular Volume 105.5 fL Mean Corpuscular Hemoglobin 34.8 pg Mean Corpuscular Hemoglobin Concent 33.0 g/dl Platelet Count 114 K/uL Mean Platelet Volume 9.8 fL Neutrophils (%) (Auto) 75.0 % Lymphocytes (%) (Auto) 16.2 % Monocytes (%) (Auto) 7.6 % Eosinophils (%) (Auto) 0.3 % Basophils (%) (Auto) 0.5 % Neutrophils # (Auto) 7.69 K/uL Lymphocytes # (Auto) 1.66 K/uL Monocytes # (Auto) 0.78 K/uL Eosinophils # (Auto) 0.03 K/uL Basophils # (Auto) 0.05 K/uL RDW Standard Deviation 80.1 fL RDW Coefficient of Variation 20.9 % Immature Granulocyte % (Auto) 0.4 % Immature Granulocyte # (Auto) 0.04 K/uL Anisocytosis PRESENT Prothrombin Time 12.5 SECONDS Prothromb Time International Ratio 1.2 Activated Partial Thromboplast Time 51.6 SECONDS Partial Thromboplastin Ratio 2.0 Sodium Level 140 mmol/L Potassium Level 4.1 mmol/L Chloride Level 105 mmol/L Carbon Dioxide Level 25 mmol/L Anion Gap 10.0 mmol/L Blood Urea Nitrogen 62 mg/dl Creatinine 4.20 mg/dl Est Creatinine Clear Calc Drug Dose 8.0 ml/min Estimated GFR () 10.4 Estimated GFR (Non- 9.0 BUN/Creatinine Ratio 14.7 Random Glucose 82 mg/dl Calcium Level 9.0 mg/dl Magnesium Level 1.8 mg/dl Total Bilirubin 0.6 mg/dl Direct Bilirubin 0.2 mg/dl Aspartate Amino Transf (AST/SGOT) 25 U/L Alanine Aminotransferase (ALT/SGPT) 12 U/L Alkaline Phosphatase 76 U/L Total Protein 7.1 gm/dl Albumin 2.7 gm/dl Assessment and Plan 86 y/o F with recent diagnosis of multiple myeloma here with shortness of breath and noted pleural effusion Nausea Add PPI Checked KUB - negative. follow Acute respiratory failure sec to Worsening Bilateral pleural effusions -- O2. treat underlying illness. Bilateral pleural effusion Pul consulted. s/p thoracentesis on both sides. fluid with low ph. ceftriaxone added. concern of parapneumonic effusion. Acute systolic heart failure EF 20-25% not clear etiology - unable to r/o ischemic CMP due to renal function. diuresis I and O continue b candie. d/c rhianna due to durga cardio input appreciated Elevated troponin mild troponin elevation - nonspecific. B candie resume aspirin HTN holding meds Complete heart block s/p PPM HR controlled. follow. Acute renal failure -- Renal following renal ultrasound ordered. Holding lisinopril, indapamide, furosemide. . Hypercalcemia/multiple myeloma-- s/p pamidronate 60 mg IV oncology consulted. Heparin for DVT proph
[2016-07-31 20:24] VITALS: BP 119/65; PULSE 81; TEMP 36.3; O2SAT 100
[2016-07-31] MEDS: BUMETANIDE IV 10 MG in DEXTROSE 5% 50ML 10 ML IV SCH (21:20)
--- NOTE | 2016-07-31 21:27 | DIAGNOSTIC IMAGING REPORT ---
RENAL ULTRASOUND HISTORY: SANDER, multiple myeloma COMPARISON: KUB 07/31/2016. FINDINGS: Right kidney: 9.8 cm. No hydronephrosis. Echogenic. Normal cortical thickness. Left kidney: 9.8 cm. No hydronephrosis. Echogenic. Normal cortical thickness. A 1.1 cm upper pole exophytic cyst. Bladder: Decompressed by Black catheter and not well visualized. IMPRESSION: No hydronephrosis. Echogenic kidneys consistent with medical renal disease. Electronically signed by: Vikas Valdivia M.D. 07/31/2016 9:25 PM Dictated Date/Time: 07/31/2016 9:22 PM
[2016-08-01] VITALS (16 sets, daily range): BP systolic 72–118; BP diastolic 50–78; PULSE 83–109; TEMP 36.3–37.1; O2SAT 92–100
[2016-08-01] MEDS: BUMETANIDE IV 10 MG in DEXTROSE 5% 50ML 10 ML IV SCH ×3 (01:07→11:20)
[2016-08-01 06:45] LABS: HEMATOCRIT 28.9 % (37-47); MEAN CELL VOLUME 102.1 fL (80-100); MEAN CORPUSCULAR HEMOGLOBIN 34.3 pg (25-34); MEAN CORPUSCULAR HGB CONC 33.6 g/dl (32-36); MEAN PLATELET VOLUME 9.6 fL (7.4-10.4); PLATELET COUNT 114 K/uL (130-400); RED BLOOD COUNT 2.83 M/uL (4.2-5.4); WHITE BLOOD COUNT 10.15 K/uL (4.8-10.8)
[2016-08-01 07:04] LABS: INR 1.2 (0.9-1.1); PARTIAL THROMBOPLASTIN RATIO 3.3; PROTHROMBIN TIME (PATIENT) 12.6 SECONDS (9.0-12.0)
[2016-08-01 07:07] LABS: ANISOCYTOSIS PRESENT; BASO % 0.6 %; BASO ABS # 0.06 K/uL (0-0.2); COMPLETE YES; EOS % 0.2 %; IG% 0.5 %; LYMPH % 16.7 %; LYMPH ABS # 1.69 K/uL (1.2-3.4); MONO % 7.1 %; NEUT % 74.9 %
[2016-08-01 07:56] LABS: BUN/CREATININE RATIO 14.2 (10-20); CALCIUM 8.8 mg/dl (8.5-10.1); CREATININE 4.7 mg/dl (0.60-1.20); MAGNESIUM 1.8 mg/dl (1.8-2.4); POTASSIUM 3.9 mmol/L (3.5-5.1)
--- NOTE | 2016-08-01 07:57 | PROGRESS NOTE ---
DATE: 08/01/2016 SUBJECTIVE: The patient is comfortable this morning, lying flat, on oxygen. States she feels considerably improved since she had the thoracentesis done by Dr. Canales. She has bilateral pleural effusions with low pH of 7.19 on the right side and 7.25 on the left side, these are exudative effusions. Treatment started just on ceftriaxone 2 grams IV daily, tolerating antimicrobial agents well. She states she may be scheduled for repeat thoracentesis today but is declining stating she is feeling better and she wants to wait on having anything done at this point. She denies nausea, vomiting, chest discomfort. States the pain from multiple myeloma is stable. Her accompanies her today, apparently he is a patient in the next bed. PHYSICAL EXAMINATION: VITAL SIGNS: Stable and she is afebrile, oxygen saturation is 96% on 2 liters, respiratory rate is 18, blood pressure 104/68. I\T\O was 356 in, 175 out. Weight is 55.9 kilograms. GENERAL: According to nurses' note, she had a fairly good night last night with 1200 mL removed from the left side. Black catheter is in place and that appears to be draining appropriately. NECK: There is no neck vein distention or HJR. No adenopathy is noted. HEART: Regular rate and rhythm. No murmurs are heard. LUNGS: With decreased breath sounds bilaterally. No bronchial breath sounds noted. No subcutaneous emphysema is noted. ABDOMEN: Soft, nontender. EXTREMITIES: She has no cyanosis, clubbing or edema and there is no clinical evidence of DVT. IMAGING: Chest x-ray on the reveals increase in right-sided pleural effusion with atelectasis at the bases. A smaller left pleural effusion with no evidence of pneumothorax post-thoracentesis. Gram stain of the pleural fluid on the left side showed many inflammatory cells with no organisms noted. Pleural fluid on the right shows no growth. AFB smear was unremarkable. The AFB smear and culture from the thoracentesis in the left side is pending. IMPRESSION: 1. Bilateral pleural effusions. These are exudative. Certainly with the low pH makes one think of an infectious process, although there were a great deal of inflammatory cells and the culture so far have been unremarkable. Nonetheless, antimicrobial agents on board are appropriate at the present time. 2. Multiple myeloma. RECOMMENDATIONS: 1. Continue with present medications and diuresis and follow with BUN and creatinine carefully as outlined by Dr. Maurer. Yesterday was elevated at 62 and 4.20 respectively. 2. I followed the patient's chest x-ray. She is declining any thoracentesis today, states she feels comfortable, wants to wait on doing anything for right now. I suspect this right-sided pleural effusion will probably enlarge and may need be removed, perhaps by the end of the week. I would recommend just increasing the patient's activity as well. From a pulmonary standpoint, she is stable today.
[2016-08-01] MEDS: ASPIRIN 81 MG ECTAB PO SCH (08:33)
[2016-08-01] MEDS: METOPROLOL SUCC 50MG EXT REL TAB PO SCH (08:33)
[2016-08-01] MEDS: PANTOprazole SOD 40 MG TAB PO SCH (08:33)
[2016-08-01] MEDS: HEPARIN SOD 5000 UNIT/0.5 ML CARP SQ SCH (08:34)
--- NOTE | 2016-08-01 09:23 | Nephrology Progress Note ---
Nephrology Progress Note Date of Service Aug 01, 2016. Chief Complaint SANDER Subjective No acute events overnight. Urine output increased slightly with Bumex gtt. I had another extended conversation with the patient, her daughter and her this morning. Black catheter remains in place. Suha is experiencing intermittent cramping abdominal pain. She denies significant shortness of breath. Dr. Metz's note was reviewed from this morning. Suha has not experienced any fevers or chills. She denies significant back pain. She was able to transfer from bed to a chair yesterday. Appetite remains poor. She has had very little to eat in the past 24 hours. She has not had a bowel movement in the past 4 days but also has had very little to eat. She denies constipation. Review of Systems A complete review of systems was performed. Pertinent positives are noted above. All other systems are negative. Vital Signs Last 8 Hrs Date Time Temp Pulse Resp B/P Pulse Ox O2 Delivery O2 Flow Rate FiO2 08/01/16 07:44 36.4 108 16 101/66 93 Nasal Cannula 2.0 08/01/16 04:05 36.5 100 18 104/68 96 Nasal Cannula 2.0 08/01/16 04:05 Nasal Cannula 2.0 I & O 24-Hour Column 08/01/16 08:00 Intake Total 381 ml Output Total 500 ml Balance -119 ml Last Recorded Weight Weight (Kilograms): 56.400 Physical Exam General Appearance: no apparent distress, + thin Head: normocephalic, atraumatic Eyes: normal inspection, sclerae normal ENT: normal ENT inspection, pharynx normal Neck: supple, + JVD Respiratory/Chest: lungs clear, no respiratory distress, no accessory muscle use, + decreased breath sounds, + rales (few scattered) Cardiovascular: regular rate, rhythm, no gallop, no murmur Abdomen/GI: soft, + tenderness (diffuse), + distended (slightly), + pertinent finding (hyperactive bowel sounds) Genitourinary - Female: + pertinent finding (Black draining clear yellow urine) Extremities/Musculoskelatal: normal inspection, + pedal edema Neurologic/Psych: alert, oriented x 3 Family History FH: heart disease Social History Smokeless Tobacco Use: No Alcohol Use: none Drug Use: none Marital Status: Housing Status: lives with family Occupation: retired Laboratory Results Past 24 Hours 08/01/16 06:33 Red Blood Count 2.83, Mean Corpuscular Volume 102.1, Mean Corpuscular Hemoglobin 34.3, Mean Corpuscular Hemoglobin Concent 33.6, Mean Platelet Volume 9.6, Neutrophils (%) (Auto) 74.9, Lymphocytes (%) (Auto) 16.7, Monocytes (%) ( Auto) 7.1, Eosinophils (%) (Auto) 0.2, Basophils (%) (Auto) 0.6, Neutrophils # ( Auto) 7.61, Lymphocytes # (Auto) 1.69, Monocytes # (Auto) 0.72, Eosinophils # ( Auto) 0.02, Basophils # (Auto) 0.06 08/01/16 06:33 Test 08/01/16 06:33 White Blood Count 10.15 K/uL (4.8-10.8) Red Blood Count 2.83 M/uL (4.2-5.4) Hemoglobin 9.7 g/dL (12.0-16.0) Hematocrit 28.9 % (37-47) Mean Corpuscular Volume 102.1 fL (80-100) Mean Corpuscular Hemoglobin 34.3 pg (25-34) Mean Corpuscular Hemoglobin Concent 33.6 g/dl (32-36) Platelet Count 114 K/uL (130-400) Mean Platelet Volume 9.6 fL (7.4-10.4) Neutrophils (%) (Auto) 74.9 % Lymphocytes (%) (Auto) 16.7 % Monocytes (%) (Auto) 7.1 % Eosinophils (%) (Auto) 0.2 % Basophils (%) (Auto) 0.6 % Neutrophils # (Auto) 7.61 K/uL (1.4-6.5) Lymphocytes # (Auto) 1.69 K/uL (1.2-3.4) Monocytes # (Auto) 0.72 K/uL (0.11-0.59) Eosinophils # (Auto) 0.02 K/uL (0-0.5) Basophils # (Auto) 0.06 K/uL (0-0.2) RDW Standard Deviation 76.2 fL (36.4-46.3) RDW Coefficient of Variation 20.6 % (11.5-14.5) Immature Granulocyte % (Auto) 0.5 % Immature Granulocyte # (Auto) 0.05 K/uL (0.00-0.02) Anisocytosis PRESENT Prothrombin Time 12.6 SECONDS (9.0-12.0) Prothromb Time International Ratio 1.2 (0.9-1.1) Activated Partial Thromboplast Time 85.1 SECONDS (21.0-31.0) Partial Thromboplastin Ratio 3.3 Anion Gap 10.0 mmol/L (3-11) Est Creatinine Clear Calc Drug Dose 7.1 ml/min Estimated GFR () 9.1 Estimated GFR (Non- 7.8 BUN/Creatinine Ratio 14.2 (10-20) Calcium Level 8.8 mg/dl (8.5-10.1) Magnesium Level 1.8 mg/dl (1.8-2.4) Total Bilirubin 0.5 mg/dl (0.2-1) Direct Bilirubin 0.2 mg/dl (0-0.2) Aspartate Amino Transf (AST/SGOT) 21 U/L (15-37) Alanine Aminotransferase (ALT/SGPT) 12 U/L (12-78) Alkaline Phosphatase 80 U/L (45-117) Total Protein 7.1 gm/dl (6.4-8.2) Albumin 2.4 gm/dl (3.4-5.0) Allergies Coded Allergies: Sulfa Antibiotics (Verified Allergy, Unknown, RASH, 07/29/16) Medications Current Inpatient Medications Medications (Trade) Dose Ordered Sig/Willy Route Start Time Stop Time Status Last Admin Dose Admin Acetaminophen (Tylenol Tab) 650 mg Q4H PRN PO 07/29/16 20:15 08/28/16 20:14 Zolpidem Tartrate (Ambien Tab) 5 mg HSZ PRN PO 07/29/16 20:15 08/28/16 20:14 Ondansetron HCl (Zofran Inj) 4 mg Q6H PRN IV 07/29/16 20:15 08/28/16 20:14 07/31/16 10:23 4 MG Metoprolol Succinate (Toprol Xl Tab) 50 mg QAM PO 07/30/16 09:00 08/29/16 08:59 08/01/16 08:33 50 MG Ipratropium [place] (Atrovent 0.02% 0.5MG/2.5ML Neb) 0.5 mg Q2H PRN INH 07/29/16 21:00 08/28/16 20:59 Levalbuterol (Xopenex 1.25MG/ 0.5ML Neb) 1.25 mg Q2H PRN INH 07/29/16 21:00 08/28/16 20:59 Aspirin (Ecotrin Tab) 81 mg QAM PO 07/31/16 09:00 08/30/16 08:59 08/01/16 08:33 81 MG Heparin Sodium (Porcine) 5000 unit 5,000 unit Q12 SQ 07/30/16 21:00 08/29/16 20:59 08/01/16 08:34 5,000 UNIT Ceftriaxone Sodium/Dextrose (Rocephin Inj/D5 50ml) 70 ml @ 100 mls/hr Q24H IV 07/31/16 13:00 08/07/16 12:59 07/31/16 14:43 100 MLS/HR Pantoprazole Sodium 40 mg 40 mg QAM PO 08/01/16 09:00 08/31/16 08:59 08/01/16 08:33 40 MG Bumetanide/ Dextrose (Bumex IV/D5 50ml) 50 ml @ 10 mls/hr Q5H IV 07/31/16 19:45 08/30/16 19:44 08/01/16 05:54 10 MLS/HR Impression (1) Acute renal insufficiency (2) Multiple myeloma (3) Acute systolic CHF (congestive heart failure) (4) Diastolic dysfunction (5) Hypertension (6) Anemia (7) Bilateral pleural effusion Mrs. Suha Kelly is an 86-year-old female with multiple myeloma (IgG kappa), systolic and diastolic CHF, hypertension and acute renal insufficiency. Creatinine at baseline was less than 1 mg/dL. Creatinine was 1.3 mg/dL last month. Creatinine 3.0 mg/dL on admission. She was oliguric yesterday. She has been in a positive fluid balance. UOP now slightly increased with Bumex gtt. Metabolic profile has been otherwise appropriate. She is anemic. She was hypercalcemic on admission. Calcium improved with a dose of pamidronate. I suspect SANDER is multifactorial. Myeloma kidney certainly a consideration either plasma cell infiltration or cast nephropathy. I discussed with Dr. Rothman this morning. He expressed consideration for starting treatment with Decadron. I would not pursue a kidney biopsy, it is unlikely to acid changer. SANDER may be associated with hemodynamic changes from cardiorenal syndrome associated with LV systolic and diastolic dysfunction. There is also a likely component of ATN. Certainly iodinated contrast from CTA could be contributory. Pamidronate while less likely, may contribute to renal insufficiency. Given the multiple medical comorbidities including cardiac disease and multiple myeloma, Suha is a very poor candidate for dialysis. There is no indication for renal replacement therapy currently. Medical management is the best option including treatment of acute combined heart failure and multiple myeloma. Renal US reviewed. Kidneys are normal in size and there is no evidence of obstruction. UA/micro notable for PCR 0.8 and positive for microscopic hematuria and pyuria, culture sent. Recommendations -- Continue Bumex gtt at 2 mg/hr -- Minimize obligatory intake -- Consider risks/benefits of IV Decadron favorable from a renal standpoint -- Unclear etiology of abdominal symptoms at this time -- Encourage nutrition but cautiously potassium restrict diet -- Document I/O's and monitor metabolic profile daily -- Medications are currently appropriately dosed for renal function
[2016-08-01] MEDS ORDERED: DICYCLOMINE HCL 20 MG TAB PO ONE (12:30)
--- NOTE | 2016-08-01 12:35 | Hematology/Oncology Prog Note ---
Hematology/Onc Progress Note Date of Service Aug 01, 2016. Diagnoses Multiple myeloma Renal failure Medications Medications Administered Medications (Trade) Dose Ordered Sig/Willy Route Start Time Stop Time Status Last Admin Dose Admin Sodium Chloride 250 ml @ 999 mls/hr Q16M STAT IV 07/29/16 17:48 07/29/16 18:03 DC 07/29/16 17:48 999 MLS/HR Sodium Chloride (Nss 1000ml) 1,000 ml @ 125 mls/hr Q8H STAT IV 07/29/16 17:48 07/29/16 21:37 DC 07/29/16 17:48 125 MLS/HR Ondansetron HCl (Zofran Inj) 4 mg Q6H PRN IV 07/29/16 20:15 08/28/16 20:14 07/31/16 10:23 4 MG Metoprolol Succinate 50 mg 50 mg QAM PO 07/30/16 09:00 08/29/16 08:59 08/01/16 08:33 50 MG Furosemide 40 mg/ Albumin Human 54 ml @ 54 mls/hr ONE ONCE IV 07/29/16 22:00 07/29/16 22:59 DC 07/29/16 22:21 54 MLS/HR Pamidronate Disodium 60 mg/ Sodium Chloride 1,020 ml @ 250 mls/hr Q4H5M IV 07/29/16 22:00 07/30/16 02:04 DC 07/29/16 22:19 250 MLS/HR Sodium Chloride 1,000 ml @ 150 mls/hr Q6H40M IV 07/30/16 04:00 07/30/16 17:07 DC 07/30/16 14:48 150 MLS/HR Sodium Chloride (Nss 500ml) 500 ml @ 500 mls/hr NOW STAT IV 07/30/16 05:30 07/30/16 06:29 DC 07/30/16 05:40 500 MLS/HR Aspirin (Ecotrin Tab) 81 mg QAM PO 07/31/16 09:00 08/30/16 08:59 08/01/16 08:33 81 MG Heparin Sodium (Porcine) 5000 unit 5,000 unit Q12 SQ 07/30/16 21:00 08/29/16 20:59 Future Hold 08/01/16 08:34 5,000 UNIT Furosemide 40 mg/ Albumin Human 54 ml @ 54 mls/hr NOW STAT IV 07/31/16 04:09 07/31/16 05:08 DC 07/31/16 04:24 54 MLS/HR Furosemide 80 mg/ Syringe 8 ml @ 4 mls/min 1200 ONCE IV 07/31/16 12:00 07/31/16 12:01 DC 07/31/16 11:59 4 MLS/MIN Ceftriaxone Sodium/Dextrose (Rocephin Inj/D5 50ml) 70 ml @ 100 mls/hr Q24H IV 07/31/16 13:00 08/07/16 12:59 07/31/16 14:43 100 MLS/HR Pantoprazole Sodium (Protonix Tab) 40 mg QAM PO 08/01/16 09:00 08/31/16 08:59 08/01/16 08:33 40 MG Pantoprazole Sodium 40 mg 40 mg NOW STAT PO 07/31/16 12:44 07/31/16 12:53 DC 07/31/16 14:42 40 MG Bumetanide/ Dextrose (Bumex IV/D5 50ml) 50 ml @ 10 mls/hr Q5H IV 07/31/16 19:45 08/30/16 19:44 08/01/16 11:20 10 MLS/HR Subjective She is having intermittent abdominal pain. A KUB really showed no evidence of bowel obstruction. Invite be more matter of constipation. She also has back pain. Review of Systems: Constitutional: Negative for night sweats, or fever Eyes: Negative for event change of vision ENT: Negative for epistaxis, nasal discharge, sore throat, or deafness Cardiovascular: Negative for chest pain, palpitations, dizziness, diaphoresis Respiratory: Negative for new shortness of breath,hemoptysis, or purulent cough Gastrointestinal: Negative for diarrhea, hematemesis, melena, nausea, vomiting , or dyspepsia. However she does have rather diffuse intermittent "crampy" or colicky abdominal pain Integumentary (skin): Negative for rash or jaundice discoloration Genitourinary: Negative for urinary frequency, hematuria, or dysuria Neurological: Negative for weakness, seizure activity, headache, or dizziness Lymphatic/Hematologic: Negative for petechiae, bleeding or new adenopathy Musculoskeletal: Back pain primarily Allergic/Immunologic: Negative for unusual rash or pruritis. Vital Signs Vital Signs Past 12 Hours Date Time Temp Pulse Resp B/P Pulse Ox O2 Delivery O2 Flow Rate FiO2 08/01/16 11:32 36.6 109 16 112/75 92 Nasal Cannula 2.0 08/01/16 08:30 Nasal Cannula 2.0 08/01/16 07:44 36.4 108 16 101/66 93 Nasal Cannula 2.0 08/01/16 04:05 36.5 100 18 104/68 96 Nasal Cannula 2.0 08/01/16 04:05 Nasal Cannula 2.0 Physical Exam Constitutional: vitals are stable. Thin elderly female. She appears in mild distress Eyes: Eyes are RAMAKRISHNA EOMI without conjuctival erythema or icterus. ENT: External examination was negative for masses. Neck: Negative for masses or palpable thyromegaly Respiratory: Lung sounds were generally clear bilaterally Cardiovascular: Heart was RRR without significant murmur, gallops aoe rubs Gastrointestinal: No palpable hepatic or splenomegaly. The abdomen was soft with normal bowel sounds. Lymphatic system: there was no palpable peripheral lymphadenopathy Musculoskeletal System: The musculoskeletal system seemed concordant with age. Skin: The skin was negative for jaundice. Neurologic exam: The exam was negative for any focal findings. Deep tendon reflexes were equal and symmetrical. Psychiatric exam: Was essentially negative with normal mood and effect. Extremities: With very mild dependent edema Constitutional: General Apperance: too thin Level of Distress: chronically ill (frail-appearing and weak) Ambulation: in wheelchair Psychiatric: Mental Status: active & alert Orientation: oriented except where noted Lungs: Auscuitation: deminished air movement (in lower rider bilaterally, R>L) Cardiovascular: Heart Auscultation: RRR Abdomen: Inspection & Palpation: soft, non-distended, no tenderness, guarding & rebound Extremities: no edema Laboratory Last 24 Hours Test 08/01/16 06:33 White Blood Count 10.15 K/uL Red Blood Count 2.83 M/uL Hemoglobin 9.7 g/dL Hematocrit 28.9 % Mean Corpuscular Volume 102.1 fL Mean Corpuscular Hemoglobin 34.3 pg Mean Corpuscular Hemoglobin Concent 33.6 g/dl Platelet Count 114 K/uL Mean Platelet Volume 9.6 fL Neutrophils (%) (Auto) 74.9 % Lymphocytes (%) (Auto) 16.7 % Monocytes (%) (Auto) 7.1 % Eosinophils (%) (Auto) 0.2 % Basophils (%) (Auto) 0.6 % Neutrophils # (Auto) 7.61 K/uL Lymphocytes # (Auto) 1.69 K/uL Monocytes # (Auto) 0.72 K/uL Eosinophils # (Auto) 0.02 K/uL Basophils # (Auto) 0.06 K/uL RDW Standard Deviation 76.2 fL RDW Coefficient of Variation 20.6 % Immature Granulocyte % (Auto) 0.5 % Immature Granulocyte # (Auto) 0.05 K/uL Anisocytosis PRESENT Prothrombin Time 12.6 SECONDS Prothromb Time International Ratio 1.2 Activated Partial Thromboplast Time 85.1 SECONDS Partial Thromboplastin Ratio 3.3 Sodium Level 139 mmol/L Potassium Level 3.9 mmol/L Chloride Level 104 mmol/L Carbon Dioxide Level 25 mmol/L Anion Gap 10.0 mmol/L Blood Urea Nitrogen 67 mg/dl Creatinine 4.70 mg/dl Est Creatinine Clear Calc Drug Dose 7.1 ml/min Estimated GFR () 9.1 Estimated GFR (Non- 7.8 BUN/Creatinine Ratio 14.2 Random Glucose 81 mg/dl Calcium Level 8.8 mg/dl Magnesium Level 1.8 mg/dl Total Bilirubin 0.5 mg/dl Direct Bilirubin 0.2 mg/dl Aspartate Amino Transf (AST/SGOT) 21 U/L Alanine Aminotransferase (ALT/SGPT) 12 U/L Alkaline Phosphatase 80 U/L Total Protein 7.1 gm/dl Albumin 2.4 gm/dl Assessment & Plan Multiple myeloma with worsening renal function. It is difficult to be certain what is causing the kidney damage that appears temporally to be rather abrupt. Certainly cardiac issues could be contributing but myeloma kidney also is a possibility. I believe we should try to begin some sort of plasma cell dyscrasia therapy. I don't know if she'll be able to swallow Decadron per perhaps treating just with Decadron at this point would be a fair way to at least begin treating the plasma cell dyscrasia without risking cytotoxic effects from chemotherapy until her other potential cardiac issues are more resolved. With that then I would try Decadron 20 mg a day for 4 days and this was reviewed with her. I did review this earlier today with Dr. Corrigan
[2016-08-01] MEDS: CEFTRIAXONE SOD INJ 2,000 MG in DEXTROSE 5% 50ML 50 ML IV SCH (12:49)
--- NOTE | 2016-08-01 15:29 | Family Medicine Progress Note ---
Progress Note Date of Service Aug 01, 2016. Subjective Pt evaluation today including: conversation w/ patient, conversation w/ family Voiding: barton catheter in place Patient reports abdominal cramping. not pain that started today happens every few minutes Has not had a BM in a week Is passing gas. Breathing is better Would like to sit in a chair. Constitutional: + fatigue, + weakness, No chills, No fever Respiratory: + cough, + dyspnea on exertion, + shortness of breath, + sputum , No wheezing Cardiovascular: No chest pain Abdomen: + constipation, No diarrhea, No nausea, No pain, No vomiting Objective Physical Exam General Appearance: no apparent distress Eyes: PERRL, EOMI ENT: hearing grossly normal Neck: supple, no adenopathy Respiratory/Chest: no respiratory distress, no accessory muscle use, + decreased breath sounds, + crackles Cardiovascular: regular rate, rhythm, no murmur Abdomen: normal bowel sounds, non tender, soft Extremities: no calf tenderness, + pedal edema (trace) Neurologic/Psychiatric: alert, normal mood/affect, oriented x 3 Assessment and Plan 86 y/o F with recent diagnosis of multiple myeloma here with shortness of breath and found to have bilateral pleural effusion. She is s/p Bilateral thoracocentesis. Her resp status is much improved and she has declined any further taps for today, though pulm has recommended it mohsen. if shortness of breath ensues. Today, she complains of Abdominal cramping without pain. Her appetite is low in general. Not eating and not having BM's. Later in the afternoon, her B/P had dropped. Patient was not symptomatic, and was awake/alert/oriented. Was given 250 nss Bolus x 2. Albumin 5% given. Stat Labs drawn. Recheck B/P q15 mins @ 1630 B/P stabilized, however, we had concerns about potential decompensation requiring pressor support. Her case was discussed with the field manager. We briefly discussed with the family about how aggressive they would want us to be. They asked if we could come back when their son arrived to discuss code status and any interventions. @19:30, had discussion with , daughter, son + and patient about goals of care. I explained the different scenarios that could ensue tonight and the potential procedures that maybe necessary. We talked about potential transfer to ICU for pressor support necessitating central line placement (risks explained). We briefly talked about code status. The family was unable to decide on what they want. The ultimately decided to take it one step at a time. For now they are comfortable with ICU transfer and central line placement if necessary. Should she decompensate further requiring CPR/defibrillation or vent support, the family will decide at that point. Son states he would want aggressive management. However, patient is of sound mind and otherwise would be medical decision maker. 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 Hypotension likely 2/2 to dehydration + bumex GTT + not eating/drinking much Held Bumex 2 bolus NSS @ 250 + albumin x 1 dose given Stat CBC, PRP, Lactate Borderline temp WBC elevated at 11, Lactate 2.5 Blood cultures drawn Abdominal cramping Given a dose of Bentyl Recheck KUB- no evidence of bowel obstruction KUB yesterday without evidence of SBO Treat constipation- with colace Acute respiratory failure 2/2 Bilateral pleural effusions - s/p bilateral Thoracocentesis Stable for now, patient declines further tap for today, though this is an option if her Effusions start to reaccumulate Initial Tap with exudation effusions, concerning for infectious process. Ceftriaxone initiated Acute systolic heart failure EF 20-25% unclear etiology diuresis I and O- total of 12 L diuresed continue b candie. d/c luis carlos due to durga cardio input appreciated Acute renal failure - 2/2 multiple myeloma? vs poor cardiac function/ cardio renal Appreciate nephrology recommendations- no biopsy at this time; start Decadron 20 mg renal ultrasound with evidence of renal disease KUB from 07/31 with evidence of renal injury/ATN + lytic foci in skeletal structures suggestive of MM/Mets. Holding lisinopril, indapamide, furosemide. Recheck labs AM Elevated PTT Not sure what to make of this Discussed with dr. Rothman- suggests maybe inaccurate Redraw still elevated Elevated troponin mild troponin elevation - nonspecific. ? worsening renal function? B candie resume aspirin HTN holding meds except metoprolol Complete heart block s/p PPM HR controlled. follow. Hypercalcemia/multiple myeloma-- improved s/p pamidronate 60 mg IV oncology following DVT proph Heparin held today due to elevated PTT platelet count stable. recheck PTT/ coags Reviewed: Pt Seen/Exam by Me History Resident Physician Supervision Note: I interviewed and examined the patient. Discussed with Dr. Arnold and agree with findings and plan as documented in the note. Any exceptions or clarifications are listed here: Patient had some intermittent abdominal spasms throughout the day, has no appetite and states she has not eaten much in the last 1 week-daughter confirms this. She had hypotension today with a systolic blood pressure in the 70s. Her Bumex drip was held and she was given 2250 mL boluses of normal saline as well as 12.5 g of albumin 5%. Her blood pressure did rise appropriately. Vitals reviewed Very weak appearing, thin, lying in bed and does answer some questions with a hoarse voice Regular rhythm, mildly tachycardic, no murmurs gallops or rubs Clear to auscultation bilaterally, no wheezes crackles or rales, decreased lung sounds at the bases bilaterally Positive bowel sounds, soft, diffuse mild tenderness to palpation without guarding or rebound tenderness, no hepatosplenomegaly Extremities-trace pitting edema bilaterally to the knees KUB images reviewed myself-performed today-shows no obstruction Lactate elevated at 2.4, creatinine increased to 4.9, hemoglobin stable, white blood cell count rising Is patient is an 86-year-old female with acute systolic CHF, multiple myeloma, aggressively worsening acute kidney injury likely secondary to multiple myeloma , here with bilateral large pleural effusions status post thoracentesis. Overall not a very good prognosis, her creatinine continues to rise. Starting Decadron and hopefully help with kidney function and multiple myeloma. We'll follow creatinine in the morning. CHF with EF of 20-25%-unclear etiology. Cardiology today thinks it could be related to the malignancy and that her pleural effusions are not necessarily all from her CHF. Cannot diuresis anymore at this point due to hypotension. Continue beta candie if blood pressure greater than 100 systolic in the morning , not able to add LUIS CARLOS inhibitor at this time. -Follow chest x-ray to see if the effusions reaccumulate requiring repeated thoracenteses-appreciate pulmonary management -Starting Decadron for multiple myeloma and renal failure, follow creatinine -Hopeful that appetite will increase with starting Decadron -Continue to hold Bumex drip for hypotension-appreciate nephrology recommendations -Appreciate oncology and cardiology consults as well -Repeat lactate is evening to see if this improved after IV fluid hydration-I do not suspect an ischemic bowel process at this time -Repeat PTT in the morning-it is elevated, I wonder if it could be due to poor nutrition-we'll discuss with hematology again tomorrow-holding heparin for now Documented By: Vaishali Johnson
[2016-08-01] MEDS ORDERED: SODIUM CHLORIDE 0.9% 250ML 250 ML IV ONE ×2 (15:45→17:00)
[2016-08-01] MEDS ORDERED: DEXAMETHASONE 4 MG TAB PO ONE (15:45)
[2016-08-01 16:07] LABS: HEMATOCRIT 30.7 % (37-47); MEAN CELL VOLUME 102.3 fL (80-100); MEAN CORPUSCULAR HEMOGLOBIN 33.7 pg (25-34); MEAN PLATELET VOLUME 9.7 fL (7.4-10.4); PLATELET COUNT 123 K/uL (130-400); WHITE BLOOD COUNT 11.57 K/uL (4.8-10.8)
[2016-08-01 16:27] LABS: INR 1.2 (0.9-1.1); PROTHROMBIN TIME (PATIENT) 12.5 SECONDS (9.0-12.0)
--- NOTE | 2016-08-01 16:31 | DIAGNOSTIC IMAGING REPORT ---
KUB CLINICAL HISTORY: abdominal cramping pain COMPARISON STUDY: 07/31/2016 FINDINGS: Bowel pattern remains nonobstructive. Persistent contrast within the kidneys suggesting renal malfunction. IMPRESSION: Nonobstructive bowel pattern. Electronically signed by: Giovany Giron M.D. 08/01/2016 4:29 PM Dictated Date/Time: 08/01/2016 4:28 PM
[2016-08-01 16:32] LABS: MEAN CORPUSCULAR HGB CONC 32.9 g/dl (32-36)
[2016-08-01 16:36] LABS: ANISOCYTOSIS PRESENT; BASO % 0.4 %; BASO ABS # 0.05 K/uL (0-0.2); COMPLETE YES; EOS % 0.3 %; IG% 0.3 %; LYMPH % 18.8 %; LYMPH ABS # 2.17 K/uL (1.2-3.4); MONO % 5.8 %; NEUT % 74.4 %
[2016-08-01 16:56] LABS: BUN/CREATININE RATIO 13.7 (10-20); CALCIUM 8.7 mg/dl (8.5-10.1); CREATININE 4.9 mg/dl (0.60-1.20); POTASSIUM 3.9 mmol/L (3.5-5.1)
--- NOTE | 2016-08-01 16:58 | Cardiology Follow-Up ---
Subjective Date of Service: Aug 01, 2016. Pt evaluation today including: conversation w/ patient, physical exam, lab review, review of studies, review of inpatient medication list History of Present Illness Today she was able to sit in a chair for several hours but became very fatigued , she is now back in bed. Her breathing is better she feels. She remains very tired. No chest discomfort. Social History Smoking Status: Never Smoker History of Alcohol Use: Yes (occasionally) Review of Systems Respiratory: + cough, + dyspnea on exertion, + shortness of breath, + sputum, No wheezing Cardiac: No chest pain Medications Cardiovascular: Item Value Date Time Aspirin 81 mg 07/31/16 0900 (Ecotrin Tab) QAM/PO 08/01/16 0833 Metoprolol 50 mg 07/30/16 0900 Succinate QAM/PO 08/01/16 0833 (Toprol Xl Tab) Objective Vital Signs Past 12 Hours Date Time Temp Pulse Resp B/P Pulse Ox O2 Delivery O2 Flow Rate FiO2 08/01/16 16:42 100 90/60 96 Nasal Cannula 2.0 08/01/16 16:20 90/60 08/01/16 16:16 98 16 77/53 100 Nasal Cannula 2.0 08/01/16 16:04 37.1 86/66 08/01/16 15:45 72/60 08/01/16 12:30 Nasal Cannula 2.0 08/01/16 11:32 36.6 109 16 112/75 92 Nasal Cannula 2.0 08/01/16 08:30 Nasal Cannula 2.0 08/01/16 07:44 36.4 108 16 101/66 93 Nasal Cannula 2.0 Last Recorded Weight-Kilograms: 56.400 Intake & Output 8-Hour Column 07/31/16 08/01/16 08/01/16 16:00 00:00 08:00 Intake Total 116 ml 265 ml Output Total 50 ml 100 ml 350 ml Balance -50 ml 16 ml -85 ml 24-Hour Column 08/01/16 08:00 Intake Total 381 ml Output Total 500 ml Balance -119 ml Physical Exam Constitutional: General Apperance: too thin Level of Distress: mild distress Lungs: Auscultation: decreased breath sounds (bilateral bases) Cardiovascular: Heart Auscultation: RRR, no murmurs Data Laboratory Results: Last 24 Hours Test 08/01/16 06:33 08/01/16 16:01 White Blood Count 10.15 K/uL 11.57 K/uL Red Blood Count 2.83 M/uL 3.00 M/uL Hemoglobin 9.7 g/dL 10.1 g/dL Hematocrit 28.9 % 30.7 % Mean Corpuscular Volume 102.1 fL 102.3 fL Mean Corpuscular Hemoglobin 34.3 pg 33.7 pg Mean Corpuscular Hemoglobin Concent 33.6 g/dl 32.9 g/dl Platelet Count 114 K/uL 123 K/uL Mean Platelet Volume 9.6 fL 9.7 fL Neutrophils (%) (Auto) 74.9 % 74.4 % Lymphocytes (%) (Auto) 16.7 % 18.8 % Monocytes (%) (Auto) 7.1 % 5.8 % Eosinophils (%) (Auto) 0.2 % 0.3 % Basophils (%) (Auto) 0.6 % 0.4 % Neutrophils # (Auto) 7.61 K/uL 8.61 K/uL Lymphocytes # (Auto) 1.69 K/uL 2.17 K/uL Monocytes # (Auto) 0.72 K/uL 0.67 K/uL Eosinophils # (Auto) 0.02 K/uL 0.03 K/uL Basophils # (Auto) 0.06 K/uL 0.05 K/uL RDW Standard Deviation 76.2 fL 76.6 fL RDW Coefficient of Variation 20.6 % 20.7 % Immature Granulocyte % (Auto) 0.5 % 0.3 % Immature Granulocyte # (Auto) 0.05 K/uL 0.04 K/uL Anisocytosis PRESENT PRESENT Prothrombin Time 12.6 SECONDS 12.5 SECONDS Prothromb Time International Ratio 1.2 1.2 Activated Partial Thromboplast Time 85.1 SECONDS 77.0 SECONDS Partial Thromboplastin Ratio 3.3 3.0 Sodium Level 139 mmol/L Potassium Level 3.9 mmol/L Chloride Level 104 mmol/L Carbon Dioxide Level 25 mmol/L Anion Gap 10.0 mmol/L Blood Urea Nitrogen 67 mg/dl Creatinine 4.70 mg/dl Est Creatinine Clear Calc Drug Dose 7.1 ml/min Estimated GFR () 9.1 Estimated GFR (Non- 7.8 BUN/Creatinine Ratio 14.2 Random Glucose 81 mg/dl Calcium Level 8.8 mg/dl Magnesium Level 1.8 mg/dl Total Bilirubin 0.5 mg/dl Direct Bilirubin 0.2 mg/dl Aspartate Amino Transf (AST/SGOT) 21 U/L Alanine Aminotransferase (ALT/SGPT) 12 U/L Alkaline Phosphatase 80 U/L Total Protein 7.1 gm/dl Albumin 2.4 gm/dl Lactic Acid Level 2.5 mmol/L EKG: Sinus rhythm with atrial sensing and ventricular pacing. Telemetry reviewed: Sinus rhythm and sinus tachycardia with atrial sensing and ventricular pacing. Assessment and Plan #1. Bilateral pleural effusions: This would be quite unusual to be all due to left ventricular systolic failure, although her ejection fraction is low. I suspect her low ejection fraction is secondary to her malignancy in some way and that her effusions are also due to that. #2. Left ventricular dysfunction: There is no clear evidence that this is ischemic, I suspect it is nonischemic possibly due to her malignancy by mechanism that is not clear. Her left ventricular size is normal. It may be due to her acute illness. There is little to be done for it, she is on a beta candie and I don't think we can increase the dose now due to low blood pressure and I certainly don't think we can add an LUIS CARLOS inhibitor. #3. Pacemaker: Clinically it appears to be working well, we can interrogate it but it is functioning properly. She is ventricular pacing which can be detrimental, but she has had a single-chamber pacemaker many years and has not developed left ventricular dysfunction/suspect that is not the cause of her current problem although it may contribute to making her more susceptible to some other insult which would lead to a cardiomyopathy. Again there is little that can be done, certainly I would not consider revising the system to either an ICD or a biventricular device at this time. Thank you for allowing me to participate in her care.
[2016-08-01] MEDS ORDERED: ALBUMIN HUMAN 25% 12.5 GM/50 ML VIAL IV ONE (17:15)
[2016-08-01] MEDS: DOCUSATE SODIUM 100 MG CAP PO SCH (20:40)
[2016-08-02 00:05] VITALS: BP 106/67; PULSE 93; TEMP 36.4; O2SAT 98
[2016-08-02 04:06] VITALS: BP 122/79; PULSE 99; TEMP 36.3; O2SAT 98
--- NOTE | 2016-08-02 06:30 | PULMONARY PROGRESS NOTE ---
DATE: 08/02/2016 The patient is very comfortable this morning. States she feels well. She denies chest pain or shortness of breath. Has not had any cough. She was out of bed for 2 hours yesterday, felt a bit weak but tolerated it well. Her blood pressure has been good, 122/79, oxygen saturation 98% on 2 liters, and she is afebrile. I\T\O is 468 in and 825 out. Weight 56.4 kilograms. According to nurses' note, she had a fairly good night last night. Black catheter was draining appropriately. Her blood pressure was a bit low. Bumex drip was on hold. She was given some fluids and that has responded nicely. MEDICATIONS: Reviewed. PHYSICAL EXAMINATION: NECK: There is no neck vein distention or HJR. HEART: Regular rate and rhythm. I do not detect any murmurs. Second heart sound is normal. LUNGS: Reveal decreased breath sounds but otherwise are clear. ABDOMEN: Soft and nontender. EXTREMITIES: She has no cyanosis, clubbing or edema. KUB revealed contrast within the kidneys suggesting some renal dysfunction with a normal nonobstructive bowel pattern. CBC and PRP are pending. BUN was 67, creatinine 4.9 yesterday. PTT was 77 seconds. AFB smear from the thoracentesis from 07/31/2016 was negative. Pleural fluid cytology is pending. IMPRESSION: 1. Bilateral pleural effusions. 2. Chronic kidney disease. 3. Multiple myeloma. PLAN: 1. Await cytology results of the pleural effusions. 2. Increase the patient's activity. She seems tolerate it fairly well. At this point, she is tolerating the ceftriaxone well, I think I will keep that on board. I wonder if the Black catheter could be discontinued as well. Overall, from a pulmonary standpoint, she is stable.
[2016-08-02 06:40] LABS: HEMATOCRIT 31.9 % (37-47); MEAN CELL VOLUME 103.6 fL (80-100); MEAN CORPUSCULAR HEMOGLOBIN 34.7 pg (25-34); MEAN CORPUSCULAR HGB CONC 33.5 g/dl (32-36); MEAN PLATELET VOLUME 10.5 fL (7.4-10.4); PLATELET COUNT 123 K/uL (130-400); RED BLOOD COUNT 3.08 M/uL (4.2-5.4); WHITE BLOOD COUNT 9.39 K/uL (4.8-10.8)
[2016-08-02 07:07] LABS: BASO % 0.1 %; BASO ABS # 0.01 K/uL (0-0.2); COMPLETE YES; IG% 0.3 %; LYMPH % 14.4 %; LYMPH ABS # 1.35 K/uL (1.2-3.4); MONO % 9.6 %; NEUT % 75.6 %; ROULEAUX 2+
[2016-08-02 07:08] LABS: ALB/GLOB RATIO 0.5 (0.9-2); BUN/CREATININE RATIO 17.2 (10-20); CALCIUM 8.2 mg/dl (8.5-10.1); CREATININE 4.8 mg/dl (0.60-1.20); POTASSIUM 3.7 mmol/L (3.5-5.1)
[2016-08-02] MEDS: ASPIRIN 81 MG ECTAB PO SCH (07:47)
[2016-08-02] MEDS: PANTOprazole SOD 40 MG TAB PO SCH (07:47)
[2016-08-02] MEDS: DOCUSATE SODIUM 100 MG CAP PO SCH ×2 (07:47→21:00)
[2016-08-02] MEDS: METOPROLOL SUCC 50MG EXT REL TAB PO SCH (07:47)
[2016-08-02] MEDS: DEXAMETHASONE 4 MG TAB PO SCH (07:49)
[2016-08-02 07:53] LABS: INR 1.1 (0.9-1.1); PROTHROMBIN TIME (PATIENT) 12.2 SECONDS (9.0-12.0)
[2016-08-02 07:55] LABS: PARTIAL THROMBOPLASTIN RATIO 2.8
[2016-08-02 08:14] VITALS: BP 126/82; PULSE 101; TEMP 36.5; O2SAT 97
--- NOTE | 2016-08-02 10:18 | Nephrology Progress Note ---
Nephrology Progress Note Date of Service Aug 02, 2016. Chief Complaint SANDER Subjective Suha was seen and evaluated this morning. Her daughter and were at the bedside. Suha was hypotensive yesterday afternoon. Bumex gtt has been held. IV saline and albumin administered. Blood pressure improved this morning. No fevers or chills. Suha feels significant better this morning. Appetite remains poor. Suha is increasingly weak. She has difficulty moving to the bedpan. She was able to get out of bed for approximately 2 hours yesterday but activity tolerance has declined. She is very reluctant to remove Black catheter. She denies dyspnea at rest. Abdominal symptoms improving. Review of Systems A complete review of systems was performed. Pertinent positives are noted above. All other systems are negative. Vital Signs Last 8 Hrs Date Time Temp Pulse Resp B/P Pulse Ox O2 Delivery O2 Flow Rate FiO2 08/02/16 08:30 Nasal Cannula 2.0 08/02/16 08:14 36.5 101 16 126/82 97 08/02/16 04:06 36.3 99 20 122/79 98 Nasal Cannula 2.0 08/02/16 04:05 Nasal Cannula 2.0 I & O 24-Hour Column 08/02/16 08:00 Intake Total 203 ml Output Total 675 ml Balance -472 ml Last Recorded Weight Weight (Kilograms): 57.800 Physical Exam General Appearance: WD/WN, no apparent distress Head: normocephalic, atraumatic Eyes: normal inspection, sclerae normal ENT: normal ENT inspection, pharynx normal Neck: supple, no JVD Respiratory/Chest: lungs clear, + decreased breath sounds, + rales (scattered) Cardiovascular: no gallop, no murmur, + tachycardia Abdomen/GI: non tender, soft Genitourinary - Female: + pertinent finding (Black draining clear urine) Extremities/Musculoskelatal: normal inspection, no pedal edema Neurologic/Psych: alert, oriented x 3 Family History FH: heart disease Social History Smokeless Tobacco Use: No Alcohol Use: none Drug Use: none Marital Status: Housing Status: lives with family Occupation: retired Laboratory Results Past 24 Hours 08/01/16 16:01 Red Blood Count 3.00, Mean Corpuscular Volume 102.3, Mean Corpuscular Hemoglobin 33.7, Mean Corpuscular Hemoglobin Concent 32.9, Mean Platelet Volume 9.7, Neutrophils (%) (Auto) 74.4, Lymphocytes (%) (Auto) 18.8, Monocytes (%) ( Auto) 5.8, Eosinophils (%) (Auto) 0.3, Basophils (%) (Auto) 0.4, Neutrophils # ( Auto) 8.61, Lymphocytes # (Auto) 2.17, Monocytes # (Auto) 0.67, Eosinophils # ( Auto) 0.03, Basophils # (Auto) 0.05 08/02/16 06:11 Red Blood Count 3.08, Mean Corpuscular Volume 103.6, Mean Corpuscular Hemoglobin 34.7, Mean Corpuscular Hemoglobin Concent 33.5, Mean Platelet Volume 10.5, Neutrophils (%) (Auto) 75.6, Lymphocytes (%) (Auto) 14.4, Monocytes (%) ( Auto) 9.6, Eosinophils (%) (Auto) 0.0, Basophils (%) (Auto) 0.1, Neutrophils # ( Auto) 7.10, Lymphocytes # (Auto) 1.35, Monocytes # (Auto) 0.90, Eosinophils # ( Auto) 0.00, Basophils # (Auto) 0.01 08/01/16 16:01 08/02/16 06:11 Test 08/01/16 16:01 08/01/16 21:28 08/02/16 06:11 08/02/16 08:58 White Blood Count 11.57 K/uL (4.8-10.8) 9.39 K/uL (4.8-10.8) Red Blood Count 3.00 M/uL (4.2-5.4) 3.08 M/uL (4.2-5.4) Hemoglobin 10.1 g/dL (12.0-16.0) 10.7 g/dL (12.0-16.0) Hematocrit 30.7 % (37-47) 31.9 % (37-47) Mean Corpuscular Volume 102.3 fL (80-100) 103.6 fL (80-100) Mean Corpuscular Hemoglobin 33.7 pg (25-34) 34.7 pg (25-34) Mean Corpuscular Hemoglobin Concent 32.9 g/dl (32-36) 33.5 g/dl (32-36) Platelet Count 123 K/uL (130-400) 123 K/uL (130-400) Mean Platelet Volume 9.7 fL (7.4-10.4) 10.5 fL (7.4-10.4) Neutrophils (%) (Auto) 74.4 % 75.6 % Lymphocytes (%) (Auto) 18.8 % 14.4 % Monocytes (%) (Auto) 5.8 % 9.6 % Eosinophils (%) (Auto) 0.3 % 0.0 % Basophils (%) (Auto) 0.4 % 0.1 % Neutrophils # (Auto) 8.61 K/uL (1.4-6.5) 7.10 K/uL (1.4-6.5) Lymphocytes # (Auto) 2.17 K/uL (1.2-3.4) 1.35 K/uL (1.2-3.4) Monocytes # (Auto) 0.67 K/uL (0.11-0.59) 0.90 K/uL (0.11-0.59) Eosinophils # (Auto) 0.03 K/uL (0-0.5) 0.00 K/uL (0-0.5) Basophils # (Auto) 0.05 K/uL (0-0.2) 0.01 K/uL (0-0.2) RDW Standard Deviation 76.6 fL (36.4-46.3) 77.7 fL (36.4-46.3) RDW Coefficient of Variation 20.7 % (11.5-14.5) 20.7 % (11.5-14.5) Immature Granulocyte % (Auto) 0.3 % 0.3 % Immature Granulocyte # (Auto) 0.04 K/uL (0.00-0.02) 0.03 K/uL (0.00-0.02) Anisocytosis PRESENT Prothrombin Time 12.5 SECONDS (9.0-12.0) 12.2 SECONDS (9.0-12.0) Prothromb Time International Ratio 1.2 (0.9-1.1) 1.1 (0.9-1.1) Activated Partial Thromboplast Time 77.0 SECONDS (21.0-31.0) 74.1 SECONDS (21.0-31.0) Partial Thromboplastin Ratio 3.0 2.8 Anion Gap 16.0 mmol/L (3-11) 14.0 mmol/L (3-11) Est Creatinine Clear Calc Drug Dose 6.8 ml/min 7.0 ml/min Estimated GFR () 8.6 8.9 Estimated GFR (Non- 7.5 7.7 BUN/Creatinine Ratio 13.7 (10-20) 17.2 (10-20) Lactic Acid Level 2.5 mmol/L (0.4-2.0) 1.3 mmol/L (0.4-2.0) Calcium Level 8.7 mg/dl (8.5-10.1) 8.2 mg/dl (8.5-10.1) Rouleau 2+ Fibrinogen 350 mg/dl (184-400) Total Bilirubin 0.4 mg/dl (0.2-1) Aspartate Amino Transf (AST/SGOT) 20 U/L (15-37) Alanine Aminotransferase (ALT/SGPT) 11 U/L (12-78) Alkaline Phosphatase 83 U/L (45-117) Total Protein 7.8 gm/dl (6.4-8.2) Albumin 2.6 gm/dl (3.4-5.0) Globulin 5.2 gm/dl (2.5-4.0) Albumin/Globulin Ratio 0.5 (0.9-2) Allergies Coded Allergies: Sulfa Antibiotics (Verified Allergy, Unknown, RASH, 07/29/16) Medications Current Inpatient Medications Medications (Trade) Dose Ordered Sig/Willy Route Start Time Stop Time Status Last Admin Dose Admin Acetaminophen (Tylenol Tab) 650 mg Q4H PRN PO 07/29/16 20:15 08/28/16 20:14 Zolpidem Tartrate (Ambien Tab) 5 mg HSZ PRN PO 07/29/16 20:15 08/28/16 20:14 Ondansetron HCl (Zofran Inj) 4 mg Q6H PRN IV 07/29/16 20:15 08/28/16 20:14 07/31/16 10:23 4 MG Metoprolol Succinate (Toprol Xl Tab) 50 mg QAM PO 07/30/16 09:00 08/29/16 08:59 08/02/16 07:47 50 MG Ipratropium [place] (Atrovent 0.02% 0.5MG/2.5ML Neb) 0.5 mg Q2H PRN INH 07/29/16 21:00 08/28/16 20:59 Levalbuterol (Xopenex 1.25MG/ 0.5ML Neb) 1.25 mg Q2H PRN INH 07/29/16 21:00 08/28/16 20:59 Aspirin (Ecotrin Tab) 81 mg QAM PO 07/31/16 09:00 08/30/16 08:59 08/02/16 07:47 81 MG Heparin Sodium (Porcine) 5000 unit 5,000 unit Q12 SQ 07/30/16 21:00 08/29/16 20:59 Future Hold 08/01/16 08:34 5,000 UNIT Ceftriaxone Sodium/Dextrose (Rocephin Inj/D5 50ml) 70 ml @ 100 mls/hr Q24H IV 07/31/16 13:00 08/07/16 12:59 08/01/16 12:49 100 MLS/HR Pantoprazole Sodium 40 mg 40 mg QAM PO 08/01/16 09:00 08/31/16 08:59 08/02/16 07:47 40 MG Bumetanide/ Dextrose (Bumex IV/D5 50ml) 50 ml @ 10 mls/hr Q5H IV 07/31/16 19:45 08/30/16 19:44 Future Hold 08/01/16 11:20 10 MLS/HR Docusate Sodium (coLACE CAP) 100 mg BID PO 08/01/16 21:00 08/31/16 20:59 08/02/16 07:47 100 MG Dexamethasone (Decadron Tab) 20 mg DAILY PO 08/02/16 09:00 08/03/16 23:59 08/02/16 07:49 20 MG Impression (1) Acute renal insufficiency (2) Multiple myeloma (3) Acute systolic CHF (congestive heart failure) (4) Diastolic dysfunction (5) Hypertension (6) Anemia (7) Bilateral pleural effusion Mrs. Suha Kelly is an 86-year-old female with multiple myeloma (IgG kappa), systolic and diastolic CHF, hypertension and acute renal insufficiency. Creatinine at baseline less than 1 mg/dL. Creatinine was 1.3 mg/dL last month. Creatinine 3.0 mg/dL on admission with oliguria. Urine output improved in past 24 hours. Net negative fluid balance in past 24 hours. Decadron started for myeloma. I discussed the plan of care with Dr. Rothman again this morning. No infection identified. Pleural fluid cultures negative. Blood cultures pending. Metabolic profile has been otherwise appropriate. Creatinine stable x 24 hours. She was hypercalcemic on admission. Calcium improved with a dose of pamidronate. Anemia stable. SANDER is multifactorial. Myeloma kidney certainly possible with either plasma cell infiltration or cast nephropathy. SANDER may be associated with hemodynamic changes from cardiorenal syndrome associated with LV systolic and diastolic dysfunction. There is also a likely component of ATN. Certainly iodinated contrast from CTA could be contributory. Pamidronate while less likely, may contribute to renal insufficiency. Given the multiple medical comorbidities including cardiac disease and multiple myeloma, Suha is a very poor candidate for dialysis. There is no indication for renal replacement therapy currently. Renal US reviewed. Kidneys are normal in size and there is no evidence of obstruction. UA/micro notable for PCR 0.8 and positive for microscopic hematuria and pyuria, culture sent. Recommendations -- Hold diuretics -- Monitor I/O's, goal to maintain even to slightly negative fluid balance -- Favor colloid for hypotension -- Agree with removal of Black catheter -- Encourage nutrition -- Repeat metabolic profile tomorrow AM -- Medications are currently appropriately dosed for renal function
--- NOTE | 2016-08-02 10:44 | Hematology/Oncology Prog Note ---
Hematology/Onc Progress Note Date of Service Aug 02, 2016. Diagnoses Multiple myeloma Renal failure Medications Medications Administered Medications (Trade) Dose Ordered Sig/Willy Route Start Time Stop Time Status Last Admin Dose Admin Sodium Chloride 250 ml @ 999 mls/hr Q16M STAT IV 07/29/16 17:48 07/29/16 18:03 DC 07/29/16 17:48 999 MLS/HR Sodium Chloride (Nss 1000ml) 1,000 ml @ 125 mls/hr Q8H STAT IV 07/29/16 17:48 07/29/16 21:37 DC 07/29/16 17:48 125 MLS/HR Ondansetron HCl (Zofran Inj) 4 mg Q6H PRN IV 07/29/16 20:15 08/28/16 20:14 07/31/16 10:23 4 MG Metoprolol Succinate 50 mg 50 mg QAM PO 07/30/16 09:00 08/29/16 08:59 08/02/16 07:47 50 MG Furosemide 40 mg/ Albumin Human 54 ml @ 54 mls/hr ONE ONCE IV 07/29/16 22:00 07/29/16 22:59 DC 07/29/16 22:21 54 MLS/HR Pamidronate Disodium 60 mg/ Sodium Chloride 1,020 ml @ 250 mls/hr Q4H5M IV 07/29/16 22:00 07/30/16 02:04 DC 07/29/16 22:19 250 MLS/HR Sodium Chloride 1,000 ml @ 150 mls/hr Q6H40M IV 07/30/16 04:00 07/30/16 17:07 DC 07/30/16 14:48 150 MLS/HR Sodium Chloride (Nss 500ml) 500 ml @ 500 mls/hr NOW STAT IV 07/30/16 05:30 07/30/16 06:29 DC 07/30/16 05:40 500 MLS/HR Aspirin (Ecotrin Tab) 81 mg QAM PO 07/31/16 09:00 08/30/16 08:59 08/02/16 07:47 81 MG Heparin Sodium (Porcine) 5000 unit 5,000 unit Q12 SQ 07/30/16 21:00 08/29/16 20:59 Future Hold 08/01/16 08:34 5,000 UNIT Furosemide 40 mg/ Albumin Human 54 ml @ 54 mls/hr NOW STAT IV 07/31/16 04:09 07/31/16 05:08 DC 07/31/16 04:24 54 MLS/HR Furosemide 80 mg/ Syringe 8 ml @ 4 mls/min 1200 ONCE IV 07/31/16 12:00 07/31/16 12:01 DC 07/31/16 11:59 4 MLS/MIN Ceftriaxone Sodium/Dextrose (Rocephin Inj/D5 50ml) 70 ml @ 100 mls/hr Q24H IV 07/31/16 13:00 08/07/16 12:59 08/01/16 12:49 100 MLS/HR Pantoprazole Sodium (Protonix Tab) 40 mg QAM PO 08/01/16 09:00 08/31/16 08:59 08/02/16 07:47 40 MG Pantoprazole Sodium 40 mg 40 mg NOW STAT PO 07/31/16 12:44 07/31/16 12:53 DC 07/31/16 14:42 40 MG Bumetanide/ Dextrose (Bumex IV/D5 50ml) 50 ml @ 10 mls/hr Q5H IV 07/31/16 19:45 08/30/16 19:44 Future Hold 08/01/16 11:20 10 MLS/HR Dicyclomine HCl (Bentyl Tab) 20 mg NOW ONCE PO 08/01/16 12:30 08/01/16 12:31 DC 08/01/16 12:49 20 MG Docusate Sodium (coLACE CAP) 100 mg BID PO 08/01/16 21:00 08/31/16 20:59 08/02/16 07:47 100 MG Dexamethasone 20 mg 20 mg DAILY PO 08/02/16 09:00 08/03/16 23:59 08/02/16 07:49 20 MG Sodium Chloride (Nss 250ml) 250 ml @ 999 mls/hr Q16M ONCE IV 08/01/16 15:45 08/01/16 16:00 DC 08/01/16 16:09 999 MLS/HR Dexamethasone 20 mg 20 mg NOW ONCE PO 08/01/16 15:45 08/01/16 15:50 DC 08/01/16 16:14 20 MG Sodium Chloride (Nss 250ml) 250 ml @ 999 mls/hr Q16M ONCE IV 08/01/16 17:00 08/01/16 17:16 DC 08/01/16 16:58 999 MLS/HR Albumin Human (Albumin 25%) 12.5 gm ONE ONCE IV 08/01/16 17:15 08/01/16 17:18 DC 08/01/16 17:36 12.5 GM Subjective She seems to be fairly comfortable today. Her daughter is in the room. She denies new pain however she does go on to say her back bothers her once in a while. Review of Systems: Constitutional: Negative for night sweats, or fever Eyes: Negative for event change of vision ENT: Negative for epistaxis, nasal discharge, sore throat, or deafness Cardiovascular: Negative for chest pain, palpitations, dizziness, diaphoresis Respiratory: Negative for new shortness of breath,hemoptysis, or purulent cough Gastrointestinal: Negative for diarrhea, hematemesis, melena, nausea, vomiting , or dyspepsia Integumentary (skin): Negative for rash or jaundice discoloration Genitourinary: Negative for urinary frequency, hematuria, or dysuria Neurological: Negative for weakness, seizure activity, headache, or dizziness Lymphatic/Hematologic: Negative for petechiae, bleeding or new adenopathy Musculoskeletal: Negative for new joint Allergic/Immunologic: Negative for unusual rash or pruritis. Vital Signs Vital Signs Past 12 Hours Date Time Temp Pulse Resp B/P Pulse Ox O2 Delivery O2 Flow Rate FiO2 08/02/16 08:30 Nasal Cannula 2.0 08/02/16 08:14 36.5 101 16 126/82 97 08/02/16 04:06 36.3 99 20 122/79 98 Nasal Cannula 2.0 08/02/16 04:05 Nasal Cannula 2.0 08/02/16 00:05 36.4 93 18 106/67 98 Nasal Cannula 2.0 08/02/16 00:05 Nasal Cannula 2.0 Physical Exam Constitutional: vitals are stable. Eyes: Eyes are RAMAKRISHNA EOMI without conjuctival erythema or icterus. ENT: External examination was negative for masses. Neck: Negative for masses or palpable thyromegaly Respiratory: Lung sounds were generally clear bilaterally Cardiovascular: Heart was RRR without significant murmur, gallops aoe rubs Gastrointestinal: No palpable hepatic or splenomegaly. The abdomen was soft with normal bowel sounds. Lymphatic system: there was no palpable peripheral lymphadenopathy Musculoskeletal System: The musculoskeletal system seemed concordant with age. Skin: The skin was negative for jaundice. Neurologic exam: The exam was negative for any focal findings. Deep tendon reflexes were equal and symmetrical. Psychiatric exam: Was essentially negative with normal mood and effect. Breast exam: Not done Extremities: Negative for edema Constitutional: General Apperance: too thin Level of Distress: chronically ill (frail-appearing and weak) Ambulation: in wheelchair Psychiatric: Mental Status: active & alert Orientation: oriented except where noted Lungs: Auscuitation: deminished air movement (in lower rider bilaterally, R>L) Cardiovascular: Heart Auscultation: RRR Abdomen: Inspection & Palpation: soft, non-distended, no tenderness, guarding & rebound Extremities: no edema Laboratory Last 24 Hours Test 08/01/16 16:01 08/01/16 21:28 08/02/16 06:11 08/02/16 08:58 White Blood Count 11.57 K/uL 9.39 K/uL Red Blood Count 3.00 M/uL 3.08 M/uL Hemoglobin 10.1 g/dL 10.7 g/dL Hematocrit 30.7 % 31.9 % Mean Corpuscular Volume 102.3 fL 103.6 fL Mean Corpuscular Hemoglobin 33.7 pg 34.7 pg Mean Corpuscular Hemoglobin Concent 32.9 g/dl 33.5 g/dl Platelet Count 123 K/uL 123 K/uL Mean Platelet Volume 9.7 fL 10.5 fL Neutrophils (%) (Auto) 74.4 % 75.6 % Lymphocytes (%) (Auto) 18.8 % 14.4 % Monocytes (%) (Auto) 5.8 % 9.6 % Eosinophils (%) (Auto) 0.3 % 0.0 % Basophils (%) (Auto) 0.4 % 0.1 % Neutrophils # (Auto) 8.61 K/uL 7.10 K/uL Lymphocytes # (Auto) 2.17 K/uL 1.35 K/uL Monocytes # (Auto) 0.67 K/uL 0.90 K/uL Eosinophils # (Auto) 0.03 K/uL 0.00 K/uL Basophils # (Auto) 0.05 K/uL 0.01 K/uL RDW Standard Deviation 76.6 fL 77.7 fL RDW Coefficient of Variation 20.7 % 20.7 % Immature Granulocyte % (Auto) 0.3 % 0.3 % Immature Granulocyte # (Auto) 0.04 K/uL 0.03 K/uL Anisocytosis PRESENT Prothrombin Time 12.5 SECONDS 12.2 SECONDS Prothromb Time International Ratio 1.2 1.1 Activated Partial Thromboplast Time 77.0 SECONDS 74.1 SECONDS Partial Thromboplastin Ratio 3.0 2.8 Sodium Level 138 mmol/L 137 mmol/L Potassium Level 3.9 mmol/L 3.7 mmol/L Chloride Level 104 mmol/L 102 mmol/L Carbon Dioxide Level 18 mmol/L 21 mmol/L Anion Gap 16.0 mmol/L 14.0 mmol/L Blood Urea Nitrogen 67 mg/dl 82 mg/dl Creatinine 4.90 mg/dl 4.80 mg/dl Est Creatinine Clear Calc Drug Dose 6.8 ml/min 7.0 ml/min Estimated GFR () 8.6 8.9 Estimated GFR (Non- 7.5 7.7 BUN/Creatinine Ratio 13.7 17.2 Random Glucose 106 mg/dl 142 mg/dl Lactic Acid Level 2.5 mmol/L 1.3 mmol/L Calcium Level 8.7 mg/dl 8.2 mg/dl Rouleau 2+ Fibrinogen 350 mg/dl Total Bilirubin 0.4 mg/dl Aspartate Amino Transf (AST/SGOT) 20 U/L Alanine Aminotransferase (ALT/SGPT) 11 U/L Alkaline Phosphatase 83 U/L Total Protein 7.8 gm/dl Albumin 2.6 gm/dl Globulin 5.2 gm/dl Albumin/Globulin Ratio 0.5 Assessment & Plan Multiple myeloma with worsening renal function. She has begun on a moderate dose of bolus Decadron 20 mg a day for 4 days. We may have to intervene further with Velcade dependent on how her renal function goes over the next few days. The prolonged PTT remains unexplained. His been no overt bleeding. Pro time is stable. Platelet count is stable. Fibrinogen level is adequate. I have ordered a circulating inhibitor dilution screen. Other possibilities include acquired von Willebrand inhibitor or factor X deficiency secondary to amyloid but again temporally these really don't fit in that her PTT on admission was actually quite good.
--- NOTE | 2016-08-02 11:20 | Family Medicine Progress Note ---
Progress Note Date of Service Aug 02, 2016. Subjective Pt evaluation today including: conversation w/ patient, conversation w/ family Patient remained stable overnight Feels better today Attempting to have more fluids. Reports having had a bowel movement, Abdomen feels a bit distended but no cramping. Constitutional: + fatigue, + weakness, No chills, No fever Eyes: No worsening of vision ENT: No hearing loss Respiratory: No cough, No dyspnea on exertion, No shortness of breath, No sputum, No wheezing Cardiovascular: No chest pain Abdomen: + constipation, No diarrhea, No nausea, No pain, No vomiting Objective Physical Exam General Appearance: no apparent distress Eyes: PERRL, EOMI ENT: hearing grossly normal Neck: supple, no adenopathy, thyroid normal, no JVD Respiratory/Chest: no respiratory distress, no accessory muscle use, + decreased breath sounds, + crackles (at bases) Cardiovascular: regular rate, rhythm Abdomen: normal bowel sounds, non tender, soft, + distended (mildly) Extremities: normal range of motion, + pedal edema (1+), + pertinent finding ( multiple ecchymotic areas) Neurologic/Psychiatric: no motor/sensory deficits, alert, normal mood/affect, oriented x 3, + pertinent finding (overall weakness) Assessment and Plan 86 y/o F with recent diagnosis of multiple myeloma here with shortness of breath and found to have bilateral pleural effusion. She is s/p Bilateral thoracocentesis. Her resp status is much improved and she has declined any further taps for now, though pulm has recommended it mohsen. if shortness of breath ensues. She has remained stable over night despite the initial concern of decompensation with unstable blood pressures. She feels better. Daughter is at bedside and is admitted in the bed next to her. We did discuss starting an appetite stimulant such as Megace, however patient has been started on steroids for her multiple myeloma and I suspect that will help her some. Daughter: Alicia Carrillo: [phone]- wants to be called and she will come to the hospital anytime if things exchange underwriting consultant night. Hypotension- stable likely 2/2 to dehydration + bumex GTT + not eating/drinking much Continue to Hold Bumex drip- consider switching to Bumex BID as long as she remains stable yesterday she was given 2 bolus NSS @ 250 + albumin x 1 dose given Repeat lactate was normal, repeat CBC without white count this morning Acute respiratory failure 2/2 Bilateral pleural effusions - stable s/p bilateral Thoracocentesis Still has an oxygen requirement; wonder about reaccumulation of pleural effusion Will get a chest xray today Clinically Stable for now, patient declines further tap, though this is an option if her Effusions start to reaccumulate Tap cytology showing malignant cells- will D/C ceftriaxone. Acute renal failure - stable today 2/2 multiple myeloma? vs poor cardiac function/ cardio renal Appreciate nephrology recommendations- no biopsy at this time; started Decadron 20 mg- Day renal ultrasound with evidence of renal disease KUB from 07/31 with evidence of renal injury/ATN + lytic foci in skeletal structures suggestive of MM/Mets. Holding lisinopril, indapamide, furosemide. Recheck labs AM Will D/C barton today Abdominal cramping- resolved Given a dose of Bentyl KUB yesterday without evidence of SBO Treat constipation- with colace- Had BM Acute systolic heart failure EF 20-25% - stable unclear etiology Better diuresis yesterday continue b candie. d/c luis carlos due to durga Elevated PTT Not sure what to make of this Appreciate Oncology recommendations Further blood work pending fibrinogen normal No evidence of bleeding Redraw still elevated Elevated troponin- stable Mild troponin elevation - nonspecific. ? worsening renal function? not trending currently, patient is asymptomatic B candie Continue aspirin Malnutrition Steroids will help with appetite can start Megace later Encourage PO intake HTN holding meds except metoprolol Complete heart block s/p PPM - stable HR controlled. follow. Hypercalcemia/multiple myeloma-- improved s/p pamidronate 60 mg IV DVT proph Heparin held due to elevated PTT recheck PTT/ coags/ platelet count Misc. Pt/Ot- to maintain patient's baseline function- does not have to be aggressive at this point [place] paper work for daughter History Resident Physician Supervision Note: I interviewed and examined the patient. Discussed with Dr. Arnold and agree with findings and plan as documented in the note. Any exceptions or clarifications are listed here: Blood pressure much improved today, feeling more energetic, is moving her bowels and has eaten the most today she has all week. Her abdominal pain is gone Vitals reviewed No acute distress, thin, lying in bed and does answer some questions with a hoarse voice Regular rhythm, mildly tachycardic, no murmurs gallops or rubs Clear to auscultation bilaterally, no wheezes crackles or rales, decreased lung sounds at the bases bilaterally Positive bowel sounds, soft, no tenderness to palpation Extremities-trace pitting edema bilaterally to the knees Chest x-ray image reviewed by me and show some reaccumulation of pleural effusion on the left This patient is an 86-year-old female with acute systolic CHF, multiple myeloma , aggressively worsening acute kidney injury likely secondary to multiple myeloma, here with bilateral large malignant pleural effusions status post thoracentesis. Overall not a very good prognosis, her creatinine continued to rise but is now stabilized. Continues on Decadron and hopefully help with kidney function and multiple myeloma. Continue to follow renal function CHF with EF of 20-25%-unclear etiology. Cardiology today thinks it could be related to the malignancy and that her pleural effusions are not necessarily all from her CHF. Cannot diuresis anymore at this point due to hypotension which is slightly improved with colloid fluids and stopping the Bumex drip. Continue beta candie, not able to add LUIS CARLOS inhibitor at this time due to acute kidney injury -Continue to Follow chest x-ray to see if the effusions reaccumulate requiring repeated thoracenteses-appreciate pulmonary management -Starting Decadron for multiple myeloma and renal failure, follow creatinine -appetite seems to be increasing with starting Decadron -Continue to hold Bumex drip for hypotension-appreciate nephrology recommendations -Appreciate oncology and cardiology consults as well -Elevated PTT is persistent-hematology has ordered a specialized tests to be done in the morning after she has been off of heparin for 48 hours -Stop Rocephin as this is not a parapneumonic effusion Documented By: Vaishali Johnson
[2016-08-02 12:05] VITALS: BP 126/72; PULSE 95; TEMP 36.4; O2SAT 94
--- NOTE | 2016-08-02 12:20 | DIAGNOSTIC IMAGING REPORT ---
CHEST ONE VIEW PORTABLE CLINICAL HISTORY: r/o pleural effusion reaccumulation pleural effusion COMPARISON STUDY: 07/31/2016 FINDINGS: Mild increase in volume of a left-sided pleural effusion. Pre-existing right effusion unchanged. Stable moderate cardiac megaly. Pulmonary apices are clear. IMPRESSION: Mild reaccumulation of pleural fluid left lung base. Unchanging increase in density right base. Stable moderate cardiomegaly. Electronically signed by: Giovany Giron M.D. 08/02/2016 12:18 PM Dictated Date/Time: 08/02/2016 12:17 PM
[2016-08-02] MEDS: CEFTRIAXONE SOD INJ 2,000 MG in DEXTROSE 5% 50ML 50 ML IV SCH (12:57)
[2016-08-02 15:24] VITALS: BP 107/70; PULSE 93; TEMP 36.5; O2SAT 99
[2016-08-02 19:46] VITALS: BP 116/67; PULSE 102; TEMP 36.6; O2SAT 97
[2016-08-03] VITALS (10 sets, daily range): BP systolic 104–122; BP diastolic 65–79; PULSE 81–108; TEMP 36.2–36.9; O2SAT 92–100
--- NOTE | 2016-08-03 07:33 | PULMONARY PROGRESS NOTE ---
DATE: 08/03/2016 The patient is very comfortable today, stating each day she is getting stronger. She denies chest pain or shortness of breath. She is lying flat without any orthopnea. Her daughter and the patient's were there and I spoke with her daughter quite a long time. She had driven up several days ago from [place] even after having surgery and is quite pleased with the patient's care. The patient has not had much urine output over the last 24 hours, had a bladder scan that showed 181 mL. VITAL SIGNS: Stable. Her blood pressure has improved to 108/71, oxygen saturation is 95-98% on 2 liters, and she is afebrile. I\T\O, 468 in, 825 out. Weight 57.1 kilograms. She was 54.3 kilograms on 07/29/2016. MEDICATIONS: Reviewed. PHYSICAL EXAMINATION: NECK: There is no neck vein distention or HJR. HEENT: Posterior pharynx unremarkable. No adenopathy is noted. HEART: Regular rate and rhythm. No murmurs are heard. LUNGS: With decreased breath sounds bilaterally with dullness at both bases. No fremitus is noted. ABDOMEN: Soft, nontender. EXTREMITIES: She has no cyanosis, clubbing or edema. The cultures of the pleural fluid are unremarkable with rare inflammatory cells. AFB smears were negative. Blood cultures are pending. The cytology is positive for multiple myeloma bilaterally. Chest x-ray yesterday revealed slight enlargement of left-sided pleural effusion with the right-sided pleural effusion about the same. LABORATORY DATA: Hemoglobin was 10.7 yesterday with hyperchromic indices, is pending for today. BUN is 82 with a creatinine of 4.8 which is stable. PTT is 74 seconds. IMPRESSION: 1. Bilateral pleural effusions related to recurrent multiple myeloma. 2. Myeloma. 3. Mild anemia. 4. Chronic kidney disease stage IV, followed by Dr. Maurer. 5. Hypotension, improved. RECOMMENDATIONS: At this point, the patient seems to be quite comfortable. She does not have significant dyspnea, but I suspect because of the multiple myeloma in the chest cavity, that these pleural effusions will get worse. At this point I would recommend reevaluation by Dr. Canales. I will speak with Tao Rosas PA-C, asking to get in touch with Dr. Canales to consider an additional thoracentesis on the left side. I discussed this with the patient and she has agreed. Dr. Rothman's notes are noted. I have increased the patient's activity, continue with good anticoagulation. Overall, she is stable and actually improved. She has agreed to have the thoracentesis done in the next several days since she is stronger.
[2016-08-03] MEDS: METOPROLOL SUCC 50MG EXT REL TAB PO SCH (08:32)
[2016-08-03] MEDS: PANTOprazole SOD 40 MG TAB PO SCH (08:32)
[2016-08-03] MEDS: DEXAMETHASONE 4 MG TAB PO SCH (08:34)
[2016-08-03] MEDS: ASPIRIN 81 MG ECTAB PO SCH (08:34)
[2016-08-03 09:04] LABS: HEMATOCRIT 29.6 % (37-47); MEAN CELL VOLUME 100.7 fL (80-100); MEAN CORPUSCULAR HEMOGLOBIN 33.7 pg (25-34); MEAN CORPUSCULAR HGB CONC 33.4 g/dl (32-36); MEAN PLATELET VOLUME 10.5 fL (7.4-10.4); PLATELET COUNT 113 K/uL (130-400); RED BLOOD COUNT 2.94 M/uL (4.2-5.4); WHITE BLOOD COUNT 13.47 K/uL (4.8-10.8)
[2016-08-03 09:19] LABS: BUN/CREATININE RATIO 26.8 (10-20); CALCIUM 7.8 mg/dl (8.5-10.1); INR 1.1 (0.9-1.1); MAGNESIUM 2.1 mg/dl (1.8-2.4); PARTIAL THROMBOPLASTIN RATIO 1.6; POTASSIUM 3.8 mmol/L (3.5-5.1); PROTHROMBIN TIME (PATIENT) 11.4 SECONDS (9.0-12.0)
--- NOTE | 2016-08-03 09:30 | Hematology/Oncology Prog Note ---
Hematology/Onc Progress Note Date of Service Aug 03, 2016. Diagnoses Multiple myeloma Renal failure Medications Medications Administered Medications (Trade) Dose Ordered Sig/Willy Route Start Time Stop Time Status Last Admin Dose Admin Sodium Chloride 250 ml @ 999 mls/hr Q16M STAT IV 07/29/16 17:48 07/29/16 18:03 DC 07/29/16 17:48 999 MLS/HR Sodium Chloride (Nss 1000ml) 1,000 ml @ 125 mls/hr Q8H STAT IV 07/29/16 17:48 07/29/16 21:37 DC 07/29/16 17:48 125 MLS/HR Ondansetron HCl (Zofran Inj) 4 mg Q6H PRN IV 07/29/16 20:15 08/28/16 20:14 07/31/16 10:23 4 MG Metoprolol Succinate 50 mg 50 mg QAM PO 07/30/16 09:00 08/29/16 08:59 08/03/16 08:32 50 MG Furosemide 40 mg/ Albumin Human 54 ml @ 54 mls/hr ONE ONCE IV 07/29/16 22:00 07/29/16 22:59 DC 07/29/16 22:21 54 MLS/HR Pamidronate Disodium 60 mg/ Sodium Chloride 1,020 ml @ 250 mls/hr Q4H5M IV 07/29/16 22:00 07/30/16 02:04 DC 07/29/16 22:19 250 MLS/HR Sodium Chloride 1,000 ml @ 150 mls/hr Q6H40M IV 07/30/16 04:00 07/30/16 17:07 DC 07/30/16 14:48 150 MLS/HR Sodium Chloride (Nss 500ml) 500 ml @ 500 mls/hr NOW STAT IV 07/30/16 05:30 07/30/16 06:29 DC 07/30/16 05:40 500 MLS/HR Aspirin (Ecotrin Tab) 81 mg QAM PO 07/31/16 09:00 08/30/16 08:59 08/03/16 08:34 81 MG Heparin Sodium (Porcine) 5000 unit 5,000 unit Q12 SQ 07/30/16 21:00 08/29/16 20:59 Future Hold 08/01/16 08:34 5,000 UNIT Furosemide 40 mg/ Albumin Human 54 ml @ 54 mls/hr NOW STAT IV 07/31/16 04:09 07/31/16 05:08 DC 07/31/16 04:24 54 MLS/HR Furosemide 80 mg/ Syringe 8 ml @ 4 mls/min 1200 ONCE IV 07/31/16 12:00 07/31/16 12:01 DC 07/31/16 11:59 4 MLS/MIN Ceftriaxone Sodium/Dextrose (Rocephin Inj/D5 50ml) 70 ml @ 100 mls/hr Q24H IV 07/31/16 13:00 08/02/16 19:30 DC 08/02/16 12:57 100 MLS/HR Pantoprazole Sodium (Protonix Tab) 40 mg QAM PO 08/01/16 09:00 08/31/16 08:59 08/03/16 08:32 40 MG Pantoprazole Sodium 40 mg 40 mg NOW STAT PO 07/31/16 12:44 07/31/16 12:53 DC 07/31/16 14:42 40 MG Bumetanide/ Dextrose (Bumex IV/D5 50ml) 50 ml @ 10 mls/hr Q5H IV 07/31/16 19:45 08/30/16 19:44 Future Hold 08/01/16 11:20 10 MLS/HR Dicyclomine HCl (Bentyl Tab) 20 mg NOW ONCE PO 08/01/16 12:30 08/01/16 12:31 DC 08/01/16 12:49 20 MG Docusate Sodium (coLACE CAP) 100 mg BID PO 08/01/16 21:00 08/31/16 20:59 Future Hold 08/02/16 07:47 100 MG Dexamethasone 20 mg 20 mg DAILY PO 08/02/16 09:00 08/03/16 23:59 08/03/16 08:34 20 MG Sodium Chloride (Nss 250ml) 250 ml @ 999 mls/hr Q16M ONCE IV 08/01/16 15:45 08/01/16 16:00 DC 08/01/16 16:09 999 MLS/HR Dexamethasone 20 mg 20 mg NOW ONCE PO 08/01/16 15:45 08/01/16 15:50 DC 08/01/16 16:14 20 MG Sodium Chloride (Nss 250ml) 250 ml @ 999 mls/hr Q16M ONCE IV 08/01/16 17:00 08/01/16 17:16 DC 08/01/16 16:58 999 MLS/HR Albumin Human (Albumin 25%) 12.5 gm ONE ONCE IV 08/01/16 17:15 08/01/16 17:18 DC 08/01/16 17:36 12.5 GM Subjective She remains comfortable today. Her pain seems more controlled. Creatinine is 4.0. She's had some bowel movements and her abdomen is softer and certainly not as tender or distended. No blood was seen in the bowel movement Review of Systems: Constitutional: Negative for weight loss, night sweats, or fever Eyes: Negative for event change of vision ENT: Negative for epistaxis, nasal discharge, sore throat, or deafness Cardiovascular: Negative for chest pain, palpitations, dizziness, diaphoresis Respiratory: Negative for new shortness of breath,hemoptysis, or purulent cough Gastrointestinal: Negative for diarrhea, hematemesis, melena, nausea, vomiting , or dyspepsia Integumentary (skin): Negative for rash or jaundice discoloration Genitourinary: Negative for urinary frequency, hematuria, or dysuria Neurological: Negative for weakness, seizure activity, headache, or dizziness Lymphatic/Hematologic: Negative for petechiae, bleeding or new adenopathy Musculoskeletal: Negative for new joint or back pain Allergic/Immunologic: Negative for unusual rash or pruritis. Vital Signs Vital Signs Past 12 Hours Date Time Temp Pulse Resp B/P Pulse Ox O2 Delivery O2 Flow Rate FiO2 08/03/16 08:06 36.2 108 16 122/79 95 Nasal Cannula 2.0 08/03/16 04:05 Nasal Cannula 2.0 08/03/16 04:00 36.3 85 18 108/71 95 2.0 08/03/16 00:28 36.4 90 18 107/67 98 08/03/16 00:05 Nasal Cannula 2.0 Physical Exam Constitutional: vitals are stable. Eyes: Eyes are RAMAKRISHNA EOMI without conjuctival erythema or icterus. ENT: External examination was negative for masses. Neck: Negative for masses or palpable thyromegaly Respiratory: Lung sounds were generally clear bilaterally Cardiovascular: Heart was RRR without significant murmur, gallops aoe rubs Gastrointestinal: No palpable hepatic or splenomegaly. The abdomen was mildly distended. Bowel sounds are normal. Lymphatic system: there was no palpable peripheral lymphadenopathy Musculoskeletal System: The musculoskeletal system seemed concordant with age. Skin: The skin was negative for jaundice. Neurologic exam: The exam was negative for any focal findings. Deep tendon reflexes were equal and symmetrical. Psychiatric exam: Was essentially negative with normal mood and effect. Extremities: Negative for edema or erythema Constitutional: General Apperance: too thin Level of Distress: chronically ill (frail-appearing and weak) Ambulation: in wheelchair Psychiatric: Mental Status: active & alert Orientation: oriented except where noted Lungs: Auscuitation: deminished air movement (in lower rider bilaterally, R>L) Cardiovascular: Heart Auscultation: RRR Abdomen: Inspection & Palpation: soft, non-distended, no tenderness, guarding & rebound Extremities: no edema Laboratory Last 24 Hours Test 08/03/16 08:30 White Blood Count 13.47 K/uL Red Blood Count 2.94 M/uL Hemoglobin 9.9 g/dL Hematocrit 29.6 % Mean Corpuscular Volume 100.7 fL Mean Corpuscular Hemoglobin 33.7 pg Mean Corpuscular Hemoglobin Concent 33.4 g/dl RDW Standard Deviation 75.1 fL RDW Coefficient of Variation 20.6 % Platelet Count 113 K/uL Mean Platelet Volume 10.5 fL Prothrombin Time 11.4 SECONDS Prothromb Time International Ratio 1.1 Activated Partial Thromboplast Time 41.1 SECONDS Partial Thromboplastin Ratio 1.6 Sodium Level 136 mmol/L Potassium Level 3.8 mmol/L Chloride Level 101 mmol/L Carbon Dioxide Level 21 mmol/L Anion Gap 14.0 mmol/L Blood Urea Nitrogen 107 mg/dl Creatinine 4.00 mg/dl Est Creatinine Clear Calc Drug Dose 8.3 ml/min Estimated GFR () 11.1 Estimated GFR (Non- 9.5 BUN/Creatinine Ratio 26.8 Random Glucose 164 mg/dl Calcium Level 7.8 mg/dl Phosphorus Level 7.0 mg/dl Magnesium Level 2.1 mg/dl Albumin 2.7 gm/dl Assessment & Plan No overt bleeding. Circulating inhibitor screen is pending. The pleural fluid is being interpreted as being involved with myeloma. I believe it is time to add a drug like bortezomib to her therapy. We will give a dose of 1.3 mg/m today and this will be a weekly treatment along with Decadron. I reviewed this with the patient. Her daughter was present. I reviewed the major potential side effect some mild nausea risk of fever or infection bleeding or paresthesias. A consent has been signed. We will begin the dose of Velcade today. It's dose does not need to be adjusted because of renal function. Again this will be repeated in one week. For now in addition she will complete her 4 days of moderate dose Decadron.
[2016-08-03 10:35] LABS: BASO % 0.1 %; BASO ABS # 0.01 K/uL (0-0.2); IG% 0.4 %; LYMPH ABS # 0.66 K/uL (1.2-3.4); MONO % 4.8 %; NEUT % 89.7 %
[2016-08-03 10:38] LABS: SHPL IMMED PTT 27.6 SECONDS
[2016-08-03] MEDS ORDERED: ONDANSETRON 8 MG TAB PO ONE (11:00)
[2016-08-03] MEDS ORDERED: ONDANSETRON 4MG OD TAB ONE (11:01)
[2016-08-03 11:02] LABS: ANISOCYTOSIS PRESENT; COMPLETE YES
[2016-08-03] MEDS ORDERED: BORTEZOMIB SQ ONE (11:30)
--- NOTE | 2016-08-03 11:37 | Family Medicine Progress Note ---
Progress Note Date of Service Aug 03, 2016. Subjective Pt evaluation today including: conversation w/ patient, conversation w/ family patient feels better Urine output is minimal Denies shortness of breath Slightly better appetite today Constitutional: + fatigue, + weakness, No chills, No fever Eyes: No worsening of vision Respiratory: No cough, No dyspnea on exertion, No shortness of breath, No sputum, No wheezing Cardiovascular: No chest pain Abdomen: + diarrhea, No constipation, No nausea, No pain, No vomiting Musculoskeletal: No joint pain Female : No dysuria, No urinary frequency Objective Physical Exam General Appearance: no apparent distress Eyes: PERRL, EOMI ENT: hearing grossly normal Neck: supple, no adenopathy, thyroid normal Respiratory/Chest: no respiratory distress, no accessory muscle use, + decreased breath sounds Cardiovascular: regular rate, rhythm, no edema Abdomen: normal bowel sounds, non tender, soft Extremities: non-tender, normal inspection, no calf tenderness, + pertinent finding (trace edema) Neurologic/Psychiatric: alert, oriented x 3, + disoriented Assessment and Plan 86 y/o F with recent diagnosis of multiple myeloma here with shortness of breath and found to have bilateral pleural effusion. She is s/p Bilateral thoracocentesis. Her resp status is somewhat stable, though Xray from yesterday reveals reaccumulation of effusions. She did decline a tap yesterday. However, this morning, pulmonology recommended tapping her. We had a conversation with Dr. Canales who contemplated doing a chest tube/IPC due to myeloma cells seen in the pleural fluid that was drained a few days ago; however, this may possibly make things worse for her in terms of worsening dehydration and protein loss. So he will do a Tap on the right side tomorrow. She has been relatively stable from a hemodynamic standpoint. Though, she is not making much urine likely secondary to her kidney dysfunction and intravascular volume depletion. Hypotension- stable Continue to Hold Bumex drip. Acute respiratory failure 2/2 Bilateral pleural effusions with reaccumulation s/p bilateral Thoracocentesis on 07/30, 07/31 Still has an oxygen requirement; Xray confirms reaccumulation of pleural effusions Discussion with Dr. Canales reveals that her effusions are likely trapped. And she may have an empyema since pleural fluid from tap on 07/30 is growing staph species? Wonder about contamination though. He will plan for a repeat tap tomorrow Tap cytology showing malignant cells so Ceftriaxone was DC'd, however with possible staph, will restart Ceftriaxone and add clindamycin. Check MRSA swab. Acute renal failure / Low urine output - improvement in Cr. to 4 2/2 multiple myeloma? vs poor cardiac function/ cardio renal Appreciate nephrology recommendations- no biopsy at this time; started Decadron 20 mg- Day renal ultrasound with evidence of renal disease KUB from 07/31 with evidence of renal injury/ATN + lytic foci in skeletal structures suggestive of MM/Mets. Holding lisinopril, indapamide, furosemide. Recheck labs AM Low urine output - Will do a dose of album 25 gm + lasix 40 mg as she responded well to this previously- will help B/P as well. Multiple Myeloma Started on Velcade today - once per week Tx as per Oncology Anemia: secondary to multiple myeloma vs. blood loss b12 and folate were normal iron studies- anemia of chronic disease Hemoccult positive today Records from PCP indicate that she had routine colonoscopy in 2009 with evidence of diverticular disease but no bleeds trend H/H May need to consider consulting GI for scope- don't think shes a candidate currently though with her multiple issues. 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 about further recommendations. Abdominal cramping- resolved - no SBO on xray Acute systolic heart failure EF 20-25% - stable unclear etiology continue b candie. acei dc'd due to SANDER Elevated troponin- stable not trending currently, patient is asymptomatic Malnutrition Steroids will help with appetite can start Megace later Encourage PO intake HTN holding meds except metoprolol Complete heart block s/p PPM - stable HR controlled. follow. Hypercalcemia/multiple myeloma-- improved s/p pamidronate 60 mg IV DVT proph Heparin held due to elevated PTT recheck PTT/ coags/ platelet count SCD's strongly encouraged, nursing aware. Misc. PT has not seen patient yet OT recommends inpatient rehab while here and continued rehab on discharge FMLA paper work for daughter History Resident Physician Supervision Note: I interviewed and examined the patient. Discussed with Dr. Arnold and agree with findings and plan as documented in the note. Any exceptions or clarifications are listed here: Feeling better, eating food today, has had two loose BMs today, nonbloody. No previous h/o C. diff as confirmed with pt today (there was question of this in the past). No abd pain. Vitals reviewed No acute distress, thin, sitting up in bed Regular rhythm, reg rate, no murmurs gallops or rubs Clear to auscultation bilaterally, no wheezes crackles or rales, except decreased lung sounds at the bases bilaterally Positive bowel sounds, soft, no tenderness to palpation Extremities-trace pitting edema bilaterally to the knees This patient is an 86-year-old female with acute systolic CHF, multiple myeloma , acute kidney injury likely secondary to multiple myeloma vs ATN, cardiorenal syndrome, or combination of those, here with bilateral large malignant pleural effusions status post thoracentesis. Overall not a very good prognosis, her creatinine continued to rise but is now decreasing after starting Decadron. Continues on Decadron and hopefully help with kidney function and multiple myeloma. Continue to follow renal function. Albumin and lasix as above for improved UOP. CHF with EF of 20-25%-unclear etiology. Could be related to the malignancy and that her pleural effusions are not necessarily all from her CHF. Diuresis has been difficult due to hypotension and had to stop Bumex drip. -Continue beta candie, not able to add LUIS CARLOS inhibitor at this time due to acute kidney injury -Continue to Follow chest x-ray to see if the effusions reaccumulate requiring repeated thoracenteses-appreciate pulmonary management--> for tap tomorrow, repeat cultures, restart abx as above-Rocephin and CLinda -continue Decadron for multiple myeloma and renal failure-1 more day -started bortezomib for MM -check C. diff stool for loose stools, start probiotic Documented By: Vaishali Johnson
[2016-08-03 12:08] LABS: MIXING STUDY INTERPRET APTT APTT CORRECTED; PAT:SHPL 37 PTT 29.5 SECONDS; PTT CALC 37 4.9; SHPL 37 PTT 27.5 SECONDS
--- NOTE | 2016-08-03 14:55 | Cardiology Follow-Up ---
Subjective Date of Service: Aug 03, 2016. Pt evaluation today including: conversation w/ patient, conversation w/ family , physical exam, lab review, review of studies, conversation w/ [facility] consultant, review of inpatient medication list History of Present Illness She remains very tired, she is not having much in the way of pain or shortness of breath currently. Social History Smoking Status: Never Smoker History of Alcohol Use: Yes (occasionally) Review of Systems Respiratory: No cough, No dyspnea on exertion, No shortness of breath, No sputum, No wheezing Cardiac: No chest pain Objective Vital Signs Past 12 Hours Date Time Temp Pulse Resp B/P Pulse Ox O2 Delivery O2 Flow Rate FiO2 08/03/16 12:55 36.5 101 104/68 100 Room Air 08/03/16 12:00 Nasal Cannula 2.0 08/03/16 11:39 36.7 94 16 105/70 96 Nasal Cannula 2.0 08/03/16 08:06 36.2 108 16 122/79 95 Nasal Cannula 2.0 08/03/16 08:00 Nasal Cannula 2.0 08/03/16 04:05 Nasal Cannula 2.0 08/03/16 04:00 36.3 85 18 108/71 95 2.0 Last Recorded Weight-Kilograms: 57.100 Intake & Output 8-Hour Column 08/02/16 08/03/16 08/03/16 16:00 00:00 08:00 Intake Total 360 ml Output Total 150 ml Balance -150 ml 360 ml 24-Hour Column 08/03/16 08:00 Intake Total 360 ml Output Total 150 ml Balance 210 ml Physical Exam Constitutional: General Apperance: too thin Level of Distress: mild distress Lungs: Auscultation: decreased breath sounds (bilateral bases) Cardiovascular: Heart Auscultation: RRR, no murmurs Data Laboratory Results: Last 24 Hours Test 08/03/16 08:30 White Blood Count 13.47 K/uL Red Blood Count 2.94 M/uL Hemoglobin 9.9 g/dL Hematocrit 29.6 % Mean Corpuscular Volume 100.7 fL Mean Corpuscular Hemoglobin 33.7 pg Mean Corpuscular Hemoglobin Concent 33.4 g/dl Platelet Count 113 K/uL Mean Platelet Volume 10.5 fL Neutrophils (%) (Auto) 89.7 % Lymphocytes (%) (Auto) 5.0 % Monocytes (%) (Auto) 4.8 % Eosinophils (%) (Auto) 0.0 % Basophils (%) (Auto) 0.1 % Neutrophils # (Auto) 11.77 K/uL Lymphocytes # (Auto) 0.66 K/uL Monocytes # (Auto) 0.63 K/uL Eosinophils # (Auto) 0.00 K/uL Basophils # (Auto) 0.01 K/uL RDW Standard Deviation 75.1 fL RDW Coefficient of Variation 20.6 % Immature Granulocyte % (Auto) 0.4 % Immature Granulocyte # (Auto) 0.05 K/uL Nucleated RBC Absolute Count (auto) 0.00 K/uL Nucleated Red Blood Cells % 0.0 % Anisocytosis PRESENT Prothrombin Time 11.4 SECONDS Prothromb Time International Ratio 1.1 Activated Partial Thromboplast Time 41.1 SECONDS Partial Thromboplastin Ratio 1.6 PT Mixing Studies Interpretation PTT Mixing Studies Interpretation APTT CORRECTED Sodium Level 136 mmol/L Potassium Level 3.8 mmol/L Chloride Level 101 mmol/L Carbon Dioxide Level 21 mmol/L Anion Gap 14.0 mmol/L Blood Urea Nitrogen 107 mg/dl Creatinine 4.00 mg/dl Est Creatinine Clear Calc Drug Dose 8.3 ml/min Estimated GFR () 11.1 Estimated GFR (Non- 9.5 BUN/Creatinine Ratio 26.8 Random Glucose 164 mg/dl Calcium Level 7.8 mg/dl Phosphorus Level 7.0 mg/dl Magnesium Level 2.1 mg/dl Albumin 2.7 gm/dl Assessment and Plan #1. Bilateral pleural effusions: Appear to be secondary to her multiple myeloma not congestive heart failure primarily. #2. Left ventricular dysfunction: There is no clear evidence that this is ischemic, I suspect it is nonischemic possibly due to her malignancy by mechanism that is not clear. Her left ventricular size is normal. It may be due to her acute illness. There is little to be done for it, she is on a beta candie and I don't think we can increase the dose now due to low blood pressure and I certainly don't think we can add an LUIS CARLOS inhibitor. #3. Pacemaker: Clinically it appears to be working well, we can interrogate it but it is functioning properly. She is ventricular pacing which can be detrimental, but she has had a single-chamber pacemaker many years and has not developed left ventricular dysfunction in the past and therefore I suspect that is not the cause of her current cardiomyopathy although it may contribute to making her more susceptible to some other insult which would lead to a cardiomyopathy. Again there is little that can be done, certainly I would not consider revising the system to either an ICD or a biventricular device at this time. Thank you for allowing me to participate in her care.
[2016-08-03] MEDS ORDERED: CLINDAMYCIN IV 600 MG in DEXTROSE 5% ADD-VANTAGE 50ML 50 ML IV SCH (16:00)
[2016-08-03] MEDS ORDERED: ALBUMIN 25% 50 ML with FUROSEMIDE INJ 40 MG IV ONE ×2 (16:30)
--- NOTE | 2016-08-03 16:55 | Nephrology Progress Note ---
Nephrology Progress Note Date of Service Aug 03, 2016. Chief Complaint SANDER Subjective Suha was seen and evaluated in her hospital room this morning. Her daughter and were present. Suha was out of bed to a chair for approximately 1 hour today. She remains weak. She denies significant shortness of breath. She has not had any fevers of chills. Appetite remains poor but slightly increased. She is hopeful for good response to Velcade and continued improvement. Urine output remains low but she denies any urinary complaints. Review of Systems A complete review of systems was performed. Pertinent positives are noted above. All other systems are negative. Vital Signs Last 8 Hrs Date Time Temp Pulse Resp B/P Pulse Ox O2 Delivery O2 Flow Rate FiO2 08/03/16 16:11 36.9 84 16 111/70 Nasal Cannula 2.0 08/03/16 12:55 36.5 101 104/68 100 Room Air 08/03/16 12:00 Nasal Cannula 2.0 08/03/16 11:52 101 16 108/69 08/03/16 11:50 36.3 101 16 107/65 08/03/16 11:39 36.7 94 16 105/70 96 Nasal Cannula 2.0 I & O 24-Hour Column 08/03/16 08:00 Intake Total 360 ml Output Total 150 ml Balance 210 ml Last Recorded Weight Weight (Kilograms): 57.100 Physical Exam General Appearance: no apparent distress, + thin Head: normocephalic, atraumatic Eyes: normal inspection, sclerae normal ENT: normal ENT inspection, pharynx normal Neck: supple, + JVD (JVP 10 cm) Respiratory/Chest: no respiratory distress, no accessory muscle use, + decreased breath sounds Cardiovascular: no gallop, no murmur, + tachycardia Abdomen/GI: non tender, soft Extremities/Musculoskelatal: normal inspection, no pedal edema Neurologic/Psych: alert, oriented x 3 Family History FH: heart disease Social History Smokeless Tobacco Use: No Alcohol Use: none Drug Use: none Marital Status: Housing Status: lives with family Occupation: retired Laboratory Results Past 24 Hours 08/03/16 08:30 Red Blood Count 2.94, Mean Corpuscular Volume 100.7, Mean Corpuscular Hemoglobin 33.7, Mean Corpuscular Hemoglobin Concent 33.4, Mean Platelet Volume 10.5, Neutrophils (%) (Auto) 89.7, Lymphocytes (%) (Auto) 5.0, Monocytes (%) ( Auto) 4.8, Eosinophils (%) (Auto) 0.0, Basophils (%) (Auto) 0.1, Neutrophils # ( Auto) 11.77, Lymphocytes # (Auto) 0.66, Monocytes # (Auto) 0.63, Eosinophils # ( Auto) 0.00, Basophils # (Auto) 0.01 08/03/16 08:30 Test 08/03/16 08:30 08/03/16 15:10 White Blood Count 13.47 K/uL (4.8-10.8) Red Blood Count 2.94 M/uL (4.2-5.4) Hemoglobin 9.9 g/dL (12.0-16.0) Hematocrit 29.6 % (37-47) Mean Corpuscular Volume 100.7 fL (80-100) Mean Corpuscular Hemoglobin 33.7 pg (25-34) Mean Corpuscular Hemoglobin Concent 33.4 g/dl (32-36) Platelet Count 113 K/uL (130-400) Mean Platelet Volume 10.5 fL (7.4-10.4) Neutrophils (%) (Auto) 89.7 % Lymphocytes (%) (Auto) 5.0 % Monocytes (%) (Auto) 4.8 % Eosinophils (%) (Auto) 0.0 % Basophils (%) (Auto) 0.1 % Neutrophils # (Auto) 11.77 K/uL (1.4-6.5) Lymphocytes # (Auto) 0.66 K/uL (1.2-3.4) Monocytes # (Auto) 0.63 K/uL (0.11-0.59) Eosinophils # (Auto) 0.00 K/uL (0-0.5) Basophils # (Auto) 0.01 K/uL (0-0.2) RDW Standard Deviation 75.1 fL (36.4-46.3) RDW Coefficient of Variation 20.6 % (11.5-14.5) Immature Granulocyte % (Auto) 0.4 % Immature Granulocyte # (Auto) 0.05 K/uL (0.00-0.02) Nucleated RBC Absolute Count (auto) 0.00 K/uL (0-0) Nucleated Red Blood Cells % 0.0 % Anisocytosis PRESENT Prothrombin Time 11.4 SECONDS (9.0-12.0) Prothromb Time International Ratio 1.1 (0.9-1.1) Activated Partial Thromboplast Time 41.1 SECONDS (21.0-31.0) Partial Thromboplastin Ratio 1.6 PT Mixing Studies Interpretation PTT Mixing Studies Interpretation APTT CORRECTED Anion Gap 14.0 mmol/L (3-11) Est Creatinine Clear Calc Drug Dose 8.3 ml/min Estimated GFR () 11.1 Estimated GFR (Non- 9.5 BUN/Creatinine Ratio 26.8 (10-20) Calcium Level 7.8 mg/dl (8.5-10.1) Phosphorus Level 7.0 mg/dl (2.5-4.9) Magnesium Level 2.1 mg/dl (1.8-2.4) Albumin 2.7 gm/dl (3.4-5.0) Stool Occult Blood POSITIVE (NEGATIVE) Allergies Coded Allergies: Sulfa Antibiotics (Verified Allergy, Unknown, RASH, 07/29/16) Medications Current Inpatient Medications Medications (Trade) Dose Ordered Sig/Willy Route Start Time Stop Time Status Last Admin Dose Admin Acetaminophen (Tylenol Tab) 650 mg Q4H PRN PO 07/29/16 20:15 08/28/16 20:14 Zolpidem Tartrate (Ambien Tab) 5 mg HSZ PRN PO 07/29/16 20:15 08/28/16 20:14 Ondansetron HCl (Zofran Inj) 4 mg Q6H PRN IV 07/29/16 20:15 08/28/16 20:14 07/31/16 10:23 4 MG Metoprolol Succinate (Toprol Xl Tab) 50 mg QAM PO 07/30/16 09:00 08/29/16 08:59 08/03/16 08:32 50 MG Ipratropium [place] (Atrovent 0.02% 0.5MG/2.5ML Neb) 0.5 mg Q2H PRN INH 07/29/16 21:00 08/28/16 20:59 Levalbuterol (Xopenex 1.25MG/ 0.5ML Neb) 1.25 mg Q2H PRN INH 07/29/16 21:00 08/28/16 20:59 Pantoprazole Sodium 40 mg 40 mg QAM PO 08/01/16 09:00 08/31/16 08:59 08/03/16 08:32 40 MG Bumetanide/ Dextrose (Bumex IV/D5 50ml) 50 ml @ 10 mls/hr Q5H IV 07/31/16 19:45 08/30/16 19:44 Future Hold 08/01/16 11:20 10 MLS/HR Docusate Sodium (coLACE CAP) 100 mg BID PO 08/01/16 21:00 08/31/16 20:59 Future Hold 08/02/16 07:47 100 MG Dexamethasone 20 mg 20 mg DAILY PO 08/02/16 09:00 08/03/16 23:59 08/03/16 08:34 20 MG Ceftriaxone Sodium 1 gm/ Dextrose 50 ml @ 100 mls/hr DAILY@1600 IV 08/03/16 16:00 08/07/16 15:59 Furosemide 40 mg/ Albumin Human 54 ml @ 54 mls/hr 1630 ONCE IV 08/03/16 16:30 08/03/16 17:29 08/03/16 16:30 54 MLS/HR Clindamycin Phosphate/Dextrose (Cleocin Iv/ Dextrose Add-[place] 50ML) 54 ml @ 100 mls/hr Q8@0200,1000,1800 IV 08/03/16 18:00 08/10/16 17:59 Impression (1) Acute renal insufficiency (2) Multiple myeloma (3) Acute systolic CHF (congestive heart failure) (4) Diastolic dysfunction (5) Hypertension (6) Anemia (7) Bilateral pleural effusion Mrs. Suha Kelly is an 86-year-old female with multiple myeloma (IgG kappa), systolic and diastolic CHF, hypertension and acute renal insufficiency. Creatinine at baseline less than 1 mg/dL. Creatinine was 1.3 mg/dL last month. Creatinine 3.0 mg/dL on admission with oliguria. Decadron started 08/01/16. Velcade ordered to start today. Pleural fluid cultures from 07/30/[address] Canales planning to repeat thoracentesis tomorrow AM. Blood cultures negative to date. Metabolic profile has been otherwise appropriate. Creatinine slightly improved this morning despite decreased urine output. She was hypercalcemic on admission. Calcium improved with a dose of pamidronate. Anemia stable. SANDER is multifactorial. Myeloma kidney certainly possible with either plasma cell infiltration or cast nephropathy. SANDER may be associated with hemodynamic changes from cardiorenal syndrome associated with LV systolic and diastolic dysfunction. There is also a likely component of ATN. Certainly iodinated contrast from CTA could be contributory. Pamidronate while less likely, may contribute to renal insufficiency. Given the multiple medical comorbidities including cardiac disease and multiple myeloma, Suha is a very poor candidate for dialysis. There is no indication for renal replacement therapy currently. Renal US showed normal kidney size and there is no evidence of obstruction. UA/ micro notable for PCR 0.8 and positive for microscopic hematuria and pyuria, culture sent. Recommendations -- Discussed plan of care with Dr. Johnson -- One dose of Furosemide 40 mg with albumin this afternoon to encourage UOP -- Monitor I/O's -- Encourage nutrition -- Repeat metabolic profile tomorrow AM -- Medications are currently appropriately dosed for renal function
[2016-08-03] MEDS: CEFTRIAXONE SOD INJ 1 GM in DEXTROSE 5% ADD-VANTAGE 50ML 50 ML IV SCH (17:31)
[2016-08-03] MEDS: CLINDAMYCIN IV 600 MG in DEXTROSE 5% ADD-VANTAGE 50ML 50 ML IV SCH (18:42)
[2016-08-04] MEDS: CLINDAMYCIN IV 600 MG in DEXTROSE 5% ADD-VANTAGE 50ML 50 ML IV SCH ×3 (02:04→18:17)
[2016-08-04 04:48] VITALS: BP 124/77; PULSE 90; TEMP 36.4; O2SAT 94
[2016-08-04 06:34] LABS: HEMATOCRIT 26.4 % (37-47); MEAN CELL VOLUME 100.8 fL (80-100); MEAN CORPUSCULAR HEMOGLOBIN 33.6 pg (25-34); MEAN CORPUSCULAR HGB CONC 33.3 g/dl (32-36); RED BLOOD COUNT 2.62 M/uL (4.2-5.4); WHITE BLOOD COUNT 11.16 K/uL (4.8-10.8)
[2016-08-04 06:48] LABS: INR 1.1 (0.9-1.1); PARTIAL THROMBOPLASTIN RATIO 1.4
[2016-08-04 07:16] LABS: MEAN PLATELET VOLUME 10.7 fL (7.4-10.4); PLATELET COUNT 77 K/uL (130-400); PLT ESTIMATE DECREASED
[2016-08-04 07:29] LABS: BUN/CREATININE RATIO 31.9 (10-20); CALCIUM 7.1 mg/dl (8.5-10.1); CREATININE 3.5 mg/dl (0.60-1.20); MAGNESIUM 2.2 mg/dl (1.8-2.4); PHOSPHORUS 6.9 mg/dl (2.5-4.9); POTASSIUM 3.8 mmol/L (3.5-5.1)
--- NOTE | 2016-08-04 07:49 | Procedure Note ---
Procedure Note Date of Service Aug 04, 2016. Procedure Note Procedure: Right-sided thoracentesis, ultrasound-guided Consent: Obtained to the patient placed in the chart Preprocedural diagnosis: Right-sided exudative pleural effusion Postprocedural diagnosis: Right-sided pleural effusion Analgesia: 7 cc of 1% liquid lidocaine Procedure: Consent was obtained and the patient was placed in an upright position. Following this she was then draped and prepped in a sterile fashion. A modified Seldinger technique was then used for catheter placement under ultrasound guidance. We will to pull out approximately 1.3 L of yellow free-flowing fluid until the patient noted increased cough and tension on her right hemithorax. At this time the procedure was discontinued. Postprocedural ultrasound evaluation of the right hemithorax: There was good pleural sign/lung sliding. The M-mode was not functioning properly. Chest x-ray: Pending EBL: None Follow-up: Continued inpatient follow-up by the pulmonary service.
--- NOTE | 2016-08-04 08:02 | Pulmonology Progress Note ---
Pulmonary Progress Note Date of Service Aug 04, 2016. Attending Dr. Canales Subjective Patient notably weak today with progressive shortness of breath Objective Patient notably fatigued today showing no signs of respiratory insufficiency VS: stable on 2L nc RESP: decreased bs bilateral with dullness to percussion by auscultation US: large (b) pleural effusions CARD: S1S2 RRR with distant HS ABD: soft, non-tender Thoracentesis of the right hemithorax perform please see dictation Assessment & Plan 86y/o female with bilateral exudative effusions: 1) Pleural Effusions: Bilateral exudative effusion right-sided pH of 7.19 and the left side pH 7.25. Via ATS/ACCP guidelines the right sided pleural effusion should have a chest tube placed between 10 and 14 [place] for complete drainage. As there is very little literature combining multiple myeloma, heart failure ejection fraction of 25%, severe decompensation and empyema I suggest at this time we continue to perform therapeutic thoracentesis. I believe placing a chest tube would severely dehydrated this patient possibly malnourished her great increased discomfort in most likely lead to poor quality of life and increased decompensation. The repeat thoracentesis of the right side performed today shows normal-looking pleural fluid. I've spoken to the primary care team and I suggest we continue the current antibiotics ceftriaxone/clindamycin treating his if we had a chronic complex parapneumonic effusion for the next 10 days. If the patient has notable decompensation at that time chest tube would be warranted. I've spoken to the family both the daughter patient and at this time at length about this decision. They all agree. Have also spoken to the hematology oncology team informed above the current plan. Data Medications: Current Inpatient Medications Medications (Trade) Dose Ordered Sig/Willy Route Start Time Stop Time Status Last Admin Dose Admin Acetaminophen (Tylenol Tab) 650 mg Q4H PRN PO 07/29/16 20:15 08/28/16 20:14 Zolpidem Tartrate (Ambien Tab) 5 mg HSZ PRN PO 07/29/16 20:15 08/28/16 20:14 Ondansetron HCl (Zofran Inj) 4 mg Q6H PRN IV 07/29/16 20:15 08/28/16 20:14 07/31/16 10:23 4 MG Metoprolol Succinate (Toprol Xl Tab) 50 mg QAM PO 07/30/16 09:00 08/29/16 08:59 08/03/16 08:32 50 MG Ipratropium [place] (Atrovent 0.02% 0.5MG/2.5ML Neb) 0.5 mg Q2H PRN INH 07/29/16 21:00 08/28/16 20:59 Levalbuterol (Xopenex 1.25MG/ 0.5ML Neb) 1.25 mg Q2H PRN INH 07/29/16 21:00 08/28/16 20:59 Pantoprazole Sodium 40 mg 40 mg QAM PO 08/01/16 09:00 08/31/16 08:59 08/03/16 08:32 40 MG Bumetanide/ Dextrose (Bumex IV/D5 50ml) 50 ml @ 10 mls/hr Q5H IV 07/31/16 19:45 08/30/16 19:44 Future Hold 08/01/16 11:20 10 MLS/HR Docusate Sodium 100 mg 100 mg BID PO 08/01/16 21:00 08/31/16 20:59 Future Hold 08/02/16 07:47 100 MG Ceftriaxone Sodium 1 gm/ Dextrose 50 ml @ 100 mls/hr DAILY@1600 IV 08/03/16 16:00 08/07/16 15:59 08/03/16 17:31 100 MLS/HR Clindamycin Phosphate/Dextrose (Cleocin Iv/ Dextrose Add-[place] 50ML) 54 ml @ 100 mls/hr Q8@0200,1000,1800 IV 08/03/16 18:00 08/10/16 17:59 08/04/16 02:04 100 MLS/HR Saccharomyces Boulardii (Florastor Cap) 250 mg DAILY PO 08/04/16 09:00 09/03/16 08:59 I & O: 24-Hour Column 08/04/16 08:00 Intake Total 750 ml Output Total 900 ml Balance -150 ml Vital Signs: Date Time Temp Pulse Resp B/P Pulse Ox O2 Delivery O2 Flow Rate FiO2 08/04/16 04:48 36.4 90 18 124/77 94 Nasal Cannula 2.0 08/04/16 04:00 Nasal Cannula 2.0 08/04/16 00:01 Nasal Cannula 2.0 08/03/16 23:22 36.3 81 16 115/73 92 Nasal Cannula 2.0 08/03/16 20:00 Nasal Cannula 2.0 08/03/16 19:50 36.5 88 18 111/71 98 Room Air 2.0 08/03/16 16:11 36.9 84 16 111/70 Nasal Cannula 2.0 08/03/16 16:00 Nasal Cannula 2.0 08/03/16 12:55 36.5 101 104/68 100 Room Air 08/03/16 12:00 Nasal Cannula 2.0 08/03/16 11:52 101 16 108/69 08/03/16 11:50 36.3 101 16 107/65 08/03/16 11:39 36.7 94 16 105/70 96 Nasal Cannula 2.0 08/03/16 08:06 36.2 108 16 122/79 95 Nasal Cannula 2.0 08/03/16 08:00 Nasal Cannula 2.0 Laboratory Results: Last 24 Hours Test 08/03/16 08:30 08/03/16 15:10 08/04/16 05:55 White Blood Count 13.47 K/uL 11.16 K/uL Red Blood Count 2.94 M/uL 2.62 M/uL Hemoglobin 9.9 g/dL 8.8 g/dL Hematocrit 29.6 % 26.4 % Mean Corpuscular Volume 100.7 fL 100.8 fL Mean Corpuscular Hemoglobin 33.7 pg 33.6 pg Mean Corpuscular Hemoglobin Concent 33.4 g/dl 33.3 g/dl Platelet Count 113 K/uL 77 K/uL Mean Platelet Volume 10.5 fL 10.7 fL Neutrophils (%) (Auto) 89.7 % Lymphocytes (%) (Auto) 5.0 % Monocytes (%) (Auto) 4.8 % Eosinophils (%) (Auto) 0.0 % Basophils (%) (Auto) 0.1 % Neutrophils # (Auto) 11.77 K/uL Lymphocytes # (Auto) 0.66 K/uL Monocytes # (Auto) 0.63 K/uL Eosinophils # (Auto) 0.00 K/uL Basophils # (Auto) 0.01 K/uL RDW Standard Deviation 75.1 fL 73.9 fL RDW Coefficient of Variation 20.6 % 20.3 % Immature Granulocyte % (Auto) 0.4 % Immature Granulocyte # (Auto) 0.05 K/uL Nucleated RBC Absolute Count (auto) 0.00 K/uL Nucleated Red Blood Cells % 0.0 % Anisocytosis PRESENT Prothrombin Time 11.4 SECONDS 12.0 SECONDS Prothromb Time International Ratio 1.1 1.1 Activated Partial Thromboplast Time 41.1 SECONDS 36.8 SECONDS Partial Thromboplastin Ratio 1.6 1.4 PT Mixing Studies Interpretation PTT Mixing Studies Interpretation APTT CORRECTED Sodium Level 136 mmol/L 142 mmol/L Potassium Level 3.8 mmol/L 3.8 mmol/L Chloride Level 101 mmol/L 106 mmol/L Carbon Dioxide Level 21 mmol/L 22 mmol/L Anion Gap 14.0 mmol/L 14.0 mmol/L Blood Urea Nitrogen 107 mg/dl 112 mg/dl Creatinine 4.00 mg/dl 3.50 mg/dl Est Creatinine Clear Calc Drug Dose 8.3 ml/min 9.5 ml/min Estimated GFR () 11.1 13.0 Estimated GFR (Non- 9.5 11.2 BUN/Creatinine Ratio 26.8 31.9 Random Glucose 164 mg/dl 121 mg/dl Calcium Level 7.8 mg/dl 7.1 mg/dl Phosphorus Level 7.0 mg/dl 6.9 mg/dl Magnesium Level 2.1 mg/dl 2.2 mg/dl Albumin 2.7 gm/dl 2.6 gm/dl Stool Occult Blood POSITIVE Platelet Estimate DECREASED
--- NOTE | 2016-08-04 08:28 | DIAGNOSTIC IMAGING REPORT ---
CHEST ONE VIEW PORTABLE HISTORY: S/P Thoracentesis COMPARISON: Chest 08/02/2016. FINDINGS: No pneumothorax. Small right pleural effusion has decreased in size. Small left pleural effusion remains unchanged. The heart remains mildly enlarged. Right-sided pacemaker. IMPRESSION: 1. No pneumothorax. 2. Small right pleural effusion has decreased in size. Small left pleural effusion remains unchanged. Electronically signed by: Vikas Valdivia M.D. 08/04/2016 8:26 AM Dictated Date/Time: 08/04/2016 8:25 AM
[2016-08-04 08:58] LABS: PLEURAL FLUID APPEARANCE CLOUDY; PLEURAL FLUID COLOR YELLOW; PLEURAL FLUID MONONUC RELAT 76.8 %; PLEURAL FLUID POLYNUC 23.2 %; PLEURAL FLUID SOURCE RIGHT LUNG; PLEURAL FLUID WBC (A) 2622 /uL
--- NOTE | 2016-08-04 09:35 | Hematology/Oncology Prog Note ---
Hematology/Onc Progress Note Date of Service Aug 04, 2016. Diagnoses Multiple myeloma Renal failure Medications Medications Administered Medications (Trade) Dose Ordered Sig/Willy Route Start Time Stop Time Status Last Admin Dose Admin Sodium Chloride 250 ml @ 999 mls/hr Q16M STAT IV 07/29/16 17:48 07/29/16 18:03 DC 07/29/16 17:48 999 MLS/HR Sodium Chloride (Nss 1000ml) 1,000 ml @ 125 mls/hr Q8H STAT IV 07/29/16 17:48 07/29/16 21:37 DC 07/29/16 17:48 125 MLS/HR Ondansetron HCl (Zofran Inj) 4 mg Q6H PRN IV 07/29/16 20:15 08/28/16 20:14 07/31/16 10:23 4 MG Metoprolol Succinate 50 mg 50 mg QAM PO 07/30/16 09:00 08/29/16 08:59 08/03/16 08:32 50 MG Furosemide 40 mg/ Albumin Human 54 ml @ 54 mls/hr ONE ONCE IV 07/29/16 22:00 07/29/16 22:59 DC 07/29/16 22:21 54 MLS/HR Pamidronate Disodium 60 mg/ Sodium Chloride 1,020 ml @ 250 mls/hr Q4H5M IV 07/29/16 22:00 07/30/16 02:04 DC 07/29/16 22:19 250 MLS/HR Sodium Chloride 1,000 ml @ 150 mls/hr Q6H40M IV 07/30/16 04:00 07/30/16 17:07 DC 07/30/16 14:48 150 MLS/HR Sodium Chloride (Nss 500ml) 500 ml @ 500 mls/hr NOW STAT IV 07/30/16 05:30 07/30/16 06:29 DC 07/30/16 05:40 500 MLS/HR Aspirin (Ecotrin Tab) 81 mg QAM PO 07/31/16 09:00 08/03/16 16:02 DC 08/03/16 08:34 81 MG Heparin Sodium (Porcine) 5000 unit 5,000 unit Q12 SQ 07/30/16 21:00 08/03/16 16:02 DC 08/01/16 08:34 5,000 UNIT Furosemide 40 mg/ Albumin Human 54 ml @ 54 mls/hr NOW STAT IV 07/31/16 04:09 07/31/16 05:08 DC 07/31/16 04:24 54 MLS/HR Furosemide 80 mg/ Syringe 8 ml @ 4 mls/min 1200 ONCE IV 07/31/16 12:00 07/31/16 12:01 DC 07/31/16 11:59 4 MLS/MIN Ceftriaxone Sodium/Dextrose (Rocephin Inj/D5 50ml) 70 ml @ 100 mls/hr Q24H IV 07/31/16 13:00 08/02/16 19:30 DC 08/02/16 12:57 100 MLS/HR Pantoprazole Sodium (Protonix Tab) 40 mg QAM PO 08/01/16 09:00 08/31/16 08:59 08/03/16 08:32 40 MG Pantoprazole Sodium 40 mg 40 mg NOW STAT PO 07/31/16 12:44 07/31/16 12:53 DC 07/31/16 14:42 40 MG Bumetanide/ Dextrose (Bumex IV/D5 50ml) 50 ml @ 10 mls/hr Q5H IV 07/31/16 19:45 08/30/16 19:44 Future Hold 08/01/16 11:20 10 MLS/HR Dicyclomine HCl (Bentyl Tab) 20 mg NOW ONCE PO 08/01/16 12:30 08/01/16 12:31 DC 08/01/16 12:49 20 MG Docusate Sodium (coLACE CAP) 100 mg BID PO 08/01/16 21:00 08/31/16 20:59 Future Hold 08/02/16 07:47 100 MG Dexamethasone 20 mg 20 mg DAILY PO 08/02/16 09:00 08/03/16 23:59 DC 08/03/16 08:34 20 MG Sodium Chloride (Nss 250ml) 250 ml @ 999 mls/hr Q16M ONCE IV 08/01/16 15:45 08/01/16 16:00 DC 08/01/16 16:09 999 MLS/HR Dexamethasone 20 mg 20 mg NOW ONCE PO 08/01/16 15:45 08/01/16 15:50 DC 08/01/16 16:14 20 MG Sodium Chloride (Nss 250ml) 250 ml @ 999 mls/hr Q16M ONCE IV 08/01/16 17:00 08/01/16 17:16 DC 08/01/16 16:58 999 MLS/HR Albumin Human 12.5 gm 12.5 gm ONE ONCE IV 08/01/16 17:15 08/01/16 17:18 DC 08/01/16 17:36 12.5 GM Bortezomib/Syringe (Velcade INJ/ Syringe) 0.8 ml @ 2,880 mls/hr TODAY@1130 ONCE SQ 08/03/16 11:30 08/03/16 11:31 DC 08/03/16 11:51 2,880 MLS/HR Ondansetron HCl 8 mg 8 mg STK-MED ONCE .ROUTE 08/03/16 11:01 08/03/16 11:02 DC 08/03/16 10:58 8 MG Ceftriaxone Sodium 1 gm/ Dextrose 50 ml @ 100 mls/hr DAILY@1600 IV 08/03/16 16:00 08/07/16 15:59 08/03/16 17:31 100 MLS/HR Furosemide 40 mg/ Albumin Human 54 ml @ 54 mls/hr 1630 ONCE IV 08/03/16 16:30 08/03/16 17:29 DC 08/03/16 16:30 54 MLS/HR Clindamycin Phosphate/Dextrose (Cleocin Iv/ Dextrose Add-[place] 50ML) 54 ml @ 100 mls/hr Q8@0200,1000,1800 IV 08/03/16 18:00 08/10/16 17:59 08/04/16 02:04 100 MLS/HR Subjective Seems even more comfortable today. Her pain is present but tolerable. She received a dose of Velcade yesterday and tolerated it well. Creatinine is 3.5. A thoracentesis was done this morning Review of Systems: Constitutional: Negative for weight loss, night sweats, or fever Eyes: Negative for event change of vision ENT: Negative for epistaxis, nasal discharge, sore throat, or deafness Cardiovascular: Negative for chest pain, palpitations, dizziness, diaphoresis Respiratory: Negative for new shortness of breath,hemoptysis, or purulent cough Gastrointestinal: Negative for diarrhea, hematemesis, melena, nausea, vomiting , or dyspepsia Integumentary (skin): Negative for rash or jaundice discoloration Genitourinary: Negative for urinary frequency, hematuria, or dysuria Neurological: Negative for weakness, seizure activity, headache, or dizziness Lymphatic/Hematologic: Negative for petechiae, bleeding or new adenopathy Musculoskeletal: Continues to have bone pain as before perhaps less prominent Allergic/Immunologic: Negative for unusual rash or pruritis. Vital Signs Vital Signs Past 12 Hours Date Time Temp Pulse Resp B/P Pulse Ox O2 Delivery O2 Flow Rate FiO2 08/04/16 04:48 36.4 90 18 124/77 94 Nasal Cannula 2.0 08/04/16 04:00 Nasal Cannula 2.0 08/04/16 00:01 Nasal Cannula 2.0 08/03/16 23:22 36.3 81 16 115/73 92 Nasal Cannula 2.0 Physical Exam Constitutional: vitals are stable. Eyes: Eyes are RAMAKRISHNA EOMI without conjuctival erythema or icterus. ENT: External examination was negative for masses. Neck: Negative for masses or palpable thyromegaly Respiratory: Lung sounds were generally clear bilaterally Cardiovascular: Heart was RRR without significant murmur, gallops aoe rubs Gastrointestinal: No palpable hepatic or splenomegaly. The abdomen was soft with normal bowel sounds. Lymphatic system: there was no palpable peripheral lymphadenopathy Musculoskeletal System: The musculoskeletal system seemed concordant with age. Skin: The skin was negative for jaundice. Neurologic exam: The exam was negative for any focal findings. Deep tendon reflexes were equal and symmetrical. Psychiatric exam: Was essentially negative with normal mood and effect. Breast exam: Not done Extremities: Negative for significant edema or tenderness Constitutional: General Apperance: too thin Level of Distress: chronically ill (frail-appearing and weak) Ambulation: in wheelchair Psychiatric: Mental Status: active & alert Orientation: oriented except where noted Lungs: Auscuitation: deminished air movement (in lower rider bilaterally, R>L) Cardiovascular: Heart Auscultation: RRR Abdomen: Inspection & Palpation: soft, non-distended, no tenderness, guarding & rebound Extremities: no edema Laboratory Last 24 Hours Test 08/03/16 15:10 08/04/16 05:55 08/04/16 08:02 Stool Occult Blood POSITIVE White Blood Count 11.16 K/uL Red Blood Count 2.62 M/uL Hemoglobin 8.8 g/dL Hematocrit 26.4 % Mean Corpuscular Volume 100.8 fL Mean Corpuscular Hemoglobin 33.6 pg Mean Corpuscular Hemoglobin Concent 33.3 g/dl RDW Standard Deviation 73.9 fL RDW Coefficient of Variation 20.3 % Platelet Count 77 K/uL Mean Platelet Volume 10.7 fL Platelet Estimate DECREASED Prothrombin Time 12.0 SECONDS Prothromb Time International Ratio 1.1 Activated Partial Thromboplast Time 36.8 SECONDS Partial Thromboplastin Ratio 1.4 Sodium Level 142 mmol/L Potassium Level 3.8 mmol/L Chloride Level 106 mmol/L Carbon Dioxide Level 22 mmol/L Anion Gap 14.0 mmol/L Blood Urea Nitrogen 112 mg/dl Creatinine 3.50 mg/dl Est Creatinine Clear Calc Drug Dose 9.5 ml/min Estimated GFR () 13.0 Estimated GFR (Non- 11.2 BUN/Creatinine Ratio 31.9 Random Glucose 121 mg/dl Calcium Level 7.1 mg/dl Phosphorus Level 6.9 mg/dl Magnesium Level 2.2 mg/dl Albumin 2.6 gm/dl Pleural Fluid Source RIGHT LUNG Pleural Fluid Color YELLOW Pleural Fluid Appearance CLOUDY Pleural Fluid WBC 2622 /uL Pleural Fluid RBC < 3000 /uL Pleural Fluid Polynuclear WBCs % 23.2 % Pleural Fluid Mononuclear WBCs % 76.8 % Assessment & Plan No overt bleeding. Circulating inhibitor screen is negative and that the PTT corrected on 1:1 dilution. She received a dose of Velcade yesterday with the next as planned for next week along with Decadron in our clinic. A follow-up will be arranged. This morning a thoracentesis was done. I reviewed with Dr. Canales yesterday and we reached the consensus to plan thoracentesis for now as needed. Hopefully as therapy for her myeloma proceeds and hopefully as a tumor response the pleural fluid will become less of an issue. Platelet count 77 ,000 is noted. No overt bleeding. No need for transfusions.
[2016-08-04] MEDS: PANTOprazole SOD 40 MG TAB PO SCH (09:36)
[2016-08-04] MEDS: SACCHAROMYCES BOUL (FLORASTOR) 250 MG CAP PO SCH (09:36)
[2016-08-04] MEDS: METOPROLOL SUCC 50MG EXT REL TAB PO SCH (09:36)
[2016-08-04 09:57] LABS: PLEURAL FLUID TOTAL PROTEIN 4.5 g/dl
--- NOTE | 2016-08-04 10:02 | Nephrology Progress Note ---
Nephrology Progress Note Date of Service Aug 04, 2016. Chief Complaint SANDER Subjective No acute events overnight. Suha remains weak but has no acute complaints this morning. Appetite continues to slowly improved. Dr. Canales repeated thoracentesis this morning for an additional 1.2 liters of straw colored fluid. Suha tolerated the procedure well. She denies significant shortness of breath at rest. No fevers or chills. She received Velcade yesterday. She is hopeful that she is approaching a point of potential discharge. Her continues to improve on a daily basis. Suha is voiding urine without difficulty. Urine output increase yesterday following a dose of furosemide and albumin. I discussed the plan of care with Dr. Rothman and Dr. Salazar this morning. Review of Systems A complete review of systems was performed. Pertinent positives are noted above. All other systems are negative. Vital Signs Last 8 Hrs Date Time Temp Pulse Resp B/P Pulse Ox O2 Delivery O2 Flow Rate FiO2 08/04/16 04:48 36.4 90 18 124/77 94 Nasal Cannula 2.0 08/04/16 04:00 Nasal Cannula 2.0 I & O 24-Hour Column 08/04/16 08:00 Intake Total 750 ml Output Total 900 ml Balance -150 ml Last Recorded Weight Weight (Kilograms): 57.000 Physical Exam General Appearance: no apparent distress, + thin Head: normocephalic, atraumatic Eyes: normal inspection, sclerae normal ENT: normal ENT inspection, pharynx normal Neck: supple, + JVD (JVP 10 cm) Respiratory/Chest: no respiratory distress, no accessory muscle use, + decreased breath sounds, + rales (few at right midlung) Cardiovascular: regular rate, rhythm, no gallop Abdomen/GI: non tender, soft Extremities/Musculoskelatal: normal inspection, no pedal edema Neurologic/Psych: alert, normal mood/affect Family History FH: heart disease Social History Smokeless Tobacco Use: No Alcohol Use: none Drug Use: none Marital Status: Housing Status: lives with family Occupation: retired Laboratory Results Past 24 Hours 08/04/16 05:55 08/04/16 05:55 Test 08/03/16 15:10 08/04/16 05:55 08/04/16 08:02 Stool Occult Blood POSITIVE (NEGATIVE) Red Blood Count 2.62 M/uL (4.2-5.4) Mean Corpuscular Volume 100.8 fL (80-100) Mean Corpuscular Hemoglobin 33.6 pg (25-34) Mean Corpuscular Hemoglobin Concent 33.3 g/dl (32-36) RDW Standard Deviation 73.9 fL (36.4-46.3) RDW Coefficient of Variation 20.3 % (11.5-14.5) Mean Platelet Volume 10.7 fL (7.4-10.4) Platelet Estimate DECREASED Prothrombin Time 12.0 SECONDS (9.0-12.0) Prothromb Time International Ratio 1.1 (0.9-1.1) Activated Partial Thromboplast Time 36.8 SECONDS (21.0-31.0) Partial Thromboplastin Ratio 1.4 Anion Gap 14.0 mmol/L (3-11) Est Creatinine Clear Calc Drug Dose 9.5 ml/min Estimated GFR () 13.0 Estimated GFR (Non- 11.2 BUN/Creatinine Ratio 31.9 (10-20) Calcium Level 7.1 mg/dl (8.5-10.1) Phosphorus Level 6.9 mg/dl (2.5-4.9) Magnesium Level 2.2 mg/dl (1.8-2.4) Albumin 2.6 gm/dl (3.4-5.0) Pleural Fluid Source RIGHT LUNG Pleural Fluid Color YELLOW Pleural Fluid Appearance CLOUDY Pleural Fluid WBC 2622 /uL Pleural Fluid RBC < 3000 /uL Pleural Fluid Polynuclear WBCs % 23.2 % Pleural Fluid Mononuclear WBCs % 76.8 % Date/Time Source Procedure Growth Status 08/03/16 17:30 Nasal MRSA DNA Surveillance Screen - Final Specimen Negative for MRSA by DNA Probe Complete Allergies Coded Allergies: Sulfa Antibiotics (Verified Allergy, Unknown, RASH, 07/29/16) Medications Current Inpatient Medications Medications (Trade) Dose Ordered Sig/Willy Route Start Time Stop Time Status Last Admin Dose Admin Acetaminophen (Tylenol Tab) 650 mg Q4H PRN PO 07/29/16 20:15 08/28/16 20:14 Zolpidem Tartrate (Ambien Tab) 5 mg HSZ PRN PO 07/29/16 20:15 08/28/16 20:14 Ondansetron HCl (Zofran Inj) 4 mg Q6H PRN IV 07/29/16 20:15 08/28/16 20:14 07/31/16 10:23 4 MG Metoprolol Succinate (Toprol Xl Tab) 50 mg QAM PO 07/30/16 09:00 08/29/16 08:59 08/04/16 09:36 50 MG Ipratropium [place] (Atrovent 0.02% 0.5MG/2.5ML Neb) 0.5 mg Q2H PRN INH 07/29/16 21:00 08/28/16 20:59 Levalbuterol (Xopenex 1.25MG/ 0.5ML Neb) 1.25 mg Q2H PRN INH 07/29/16 21:00 08/28/16 20:59 Pantoprazole Sodium 40 mg 40 mg QAM PO 08/01/16 09:00 08/31/16 08:59 08/04/16 09:36 40 MG Bumetanide/ Dextrose (Bumex IV/D5 50ml) 50 ml @ 10 mls/hr Q5H IV 07/31/16 19:45 08/30/16 19:44 Future Hold 08/01/16 11:20 10 MLS/HR Docusate Sodium 100 mg 100 mg BID PO 08/01/16 21:00 08/31/16 20:59 Future Hold 08/02/16 07:47 100 MG Ceftriaxone Sodium 1 gm/ Dextrose 50 ml @ 100 mls/hr DAILY@1600 IV 08/03/16 16:00 08/07/16 15:59 08/03/16 17:31 100 MLS/HR Clindamycin Phosphate/Dextrose (Cleocin Iv/ Dextrose Add-[place] 50ML) 54 ml @ 100 mls/hr Q8@0200,1000,1800 IV 08/03/16 18:00 08/10/16 17:59 08/04/16 02:04 100 MLS/HR Saccharomyces Boulardii (Florastor Cap) 250 mg DAILY PO 08/04/16 09:00 09/03/16 08:59 08/04/16 09:36 250 MG Impression (1) Acute renal insufficiency (2) Multiple myeloma (3) Acute systolic CHF (congestive heart failure) (4) Diastolic dysfunction (5) Hypertension (6) Anemia (7) Bilateral pleural effusion Mrs. Suha Kelly is an 86-year-old female with multiple myeloma (IgG kappa), systolic and diastolic CHF, hypertension and acute renal insufficiency. Creatinine at baseline less than 1 mg/dL. Creatinine was 1.3 mg/dL last month. Creatinine 3.0 mg/dL on admission with oliguria. Urine output improving. Creatinine peaked at 4.9 mg/dL on August 01. Renal function continues to show evidence of recovery. Decadron started 08/01/16. Velcade given on 08/03/16. Pleural fluid cultures from 07/30/[address] Canales planning to repeat thoracentesis as needed. Additional 1.2 liters removed this morning. Blood cultures negative to date. Metabolic profile has been otherwise appropriate. She was hypercalcemic on admission. Calcium improved with a dose of pamidronate. Anemia fairly stable. Stool is positive for heme but patient denies any melena or hematochezia. Platelet count dropped this morning to 77,000. PTT has been elevated mixing study suggests factor deficiency. Fibrinogen was normal. SANDER is multifactorial. 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 This appears to be responding to treatment. SANDER may be associated with hemodynamic changes from cardiorenal syndrome associated with LV systolic and diastolic dysfunction. TTE had documented severely reduced LVEF with regional wall motion abnormalities as well as elevated PA/RA pressures. There is also a likely component of ATN likely related to CTA prior to admission. Pamidronate while less likely, may contribute to renal insufficiency. Given the multiple medical comorbidities including cardiac disease and multiple myeloma, Suha is a very poor candidate for dialysis. There is no indication for renal replacement therapy currently. Renal US showed normal kidney size and there is no evidence of obstruction. UA/ micro notable for PCR 0.8 and positive for microscopic hematuria and pyuria, culture sent. Recommendations SANDER: -- Renal function continues to improve -- Maintain even to slightly negative fluid balance -- Avoid significant dietary restrictions and encourage nutrition -- Medications appropriately dosed for renal function -- Continue to document I/O's and metabolic profile while inpatient Myeloma: -- Decadron induction completed today -- Velcade weekly started yesterday -- Continued treatment to be arranged in the hematology clinic by Dr. Rothman/Yessenia Prakash Cardiomyopathy/heart block: -- PPM -- Volume status currently acceptable without significant evidence of decompensated heart failure -- Avoid LUIS CARLOS/ARB in setting of SANDER Pleural effusions: -- Exudative per Light's criteria (although cholesterol less than 50) -- Initial culture positive for Staph -- Attributed at least in part to Myeloma and hypoalbuminemia -- Therapeutic thoracentesis planned PRN
[2016-08-04 11:18] VITALS: BP 104/68; PULSE 86; TEMP 36.1; O2SAT 99
[2016-08-04] MEDS: CEFTRIAXONE SOD INJ 1 GM in DEXTROSE 5% ADD-VANTAGE 50ML 50 ML IV SCH (15:45)
[2016-08-04 16:05] VITALS: O2SAT 99
[2016-08-04 16:16] VITALS: BP 97/65; PULSE 90; TEMP 36.4; O2SAT 97
[2016-08-04 20:12] VITALS: BP 104/71; PULSE 80; TEMP 36.3; O2SAT 94
--- NOTE | 2016-08-04 21:47 | Family Medicine Progress Note ---
Progress Note Date of Service Aug 04, 2016. Subjective Pt evaluation today including: conversation w/ patient, conversation w/ family Feels about the same Was tapped on the right side this morining, tolerated procedure well. Constitutional: + fatigue, + weakness, No chills, No fever Eyes: No worsening of vision ENT: No hearing loss Respiratory: No cough, No dyspnea on exertion, No shortness of breath, No sputum, No wheezing Cardiovascular: No chest pain Abdomen: + diarrhea, No constipation, No nausea, No pain, No vomiting Female : No dysuria, No urinary frequency Objective Physical Exam General Appearance: no apparent distress Eyes: PERRL, EOMI ENT: hearing grossly normal, pharynx normal Neck: supple, no adenopathy Respiratory/Chest: no respiratory distress, no accessory muscle use, + decreased breath sounds, + crackles (L>R), + pertinent finding (poor air movement) Cardiovascular: regular rate, rhythm, no edema, no murmur Abdomen: normal bowel sounds, non tender, soft Extremities: non-tender, no calf tenderness, + pertinent finding (ecchymotic areas on lower extrmities) Neurologic/Psychiatric: alert, normal mood/affect, oriented x 3 Assessment and Plan 86 y/o F with recent diagnosis of multiple myeloma here with shortness of breath and found to have bilateral pleural effusion. She is s/p Bilateral thoracocentesis that was done shortly after admission. In the interim she was noted to have acute renal failure likely secondary to a combination of myeloma kidney and cardio renal syndrome (with underlying CHF). This was managed with Bumex drip. However, she became hypotensive and required albumin/lasix to stabilize. Bumex was held. She was started on Decadron for her kidney failure and shown improvement as well as Velcade for her MM. She has since reaccumulated effusions bilaterally. This morning Dr. Canales performed therapeutic thoracocentesis to her right lung and removed about 1.2 L. She will continue to be on Antibiotics in case there is a parapneumonic effusion. She has been relatively stable from a hemodynamic standpoint. We did do another round of albumin and lasix yesterday to help with Urine output which she has responded to nicely. Hypotension- stable Continue to Hold Bumex drip. Acute respiratory failure 2/2 Bilateral pleural effusions with reaccumulation and repeat right thoracocentesis s/p bilateral Thoracocentesis on 07/30, 07/31, repeat right sided 08/04 Appreciate Pulmonary recommendations Continue Ceftriaxone and Clindamycin x 10 days Needs picc line for IV Abx at [facility] Repeat Tap pathology pending initial Tap cytology showing myeloma cells MRSA negative Acute renal failure / Low urine output - improvement in Cr. to 3.5 2/2 multiple myeloma? vs poor cardiac function/ cardio renal Appreciate nephrology recommendations- no biopsy at this time; started Decadron 20 mg- Day renal ultrasound with evidence of renal disease KUB from 07/31 with evidence of renal injury/ATN + lytic foci in skeletal structures suggestive of MM/Mets. Holding lisinopril, indapamide, furosemide. Recheck labs AM Improved urine output - given album 25 gm + lasix 40 mg yesterday- responded well, making urine and b/p stable. Multiple Myeloma Started on Velcade - once per week Tx as per Oncology Anemia/thrombocytopenia: secondary to multiple myeloma vs. blood loss b12 and folate were normal iron studies- anemia of chronic disease Hemoccult positive Records from PCP indicate that she had routine colonoscopy in 2009 with evidence of diverticular disease but no bleeds trend H/H- dropped to 8.8- continue to trend, type and cross Irradiated rbcs May need to consider consulting GI for scope- don't think shes a candidate currently though with her multiple issues. ? is thrombocytopenia from Velcade? Hyperphosphatemia: Monitor, no need for phoslo now Elevated PTT- improving Mixing studies indicate a factor deficiency Defer to heme/onc. about further recommendations. Abdominal cramping- resolved - no SBO on xray Acute systolic heart failure EF 20-25% - compensated unclear etiology continue b candie. acei dc'd due to SANDER Effusions from myeloma and not CHF Elevated troponin- stable not trending currently, patient is asymptomatic Malnutrition Steroids will help with appetite can start Megace later Encourage PO intake HTN holding meds except metoprolol Complete heart block s/p PPM - stable HR controlled. follow. Hypercalcemia/multiple myeloma-- improved s/p pamidronate 60 mg IV DVT proph Heparin held due to elevated PTT recheck PTT/ coags/ platelet count SCD's strongly encouraged, nursing aware. Misc. PT has not seen patient yet OT recommends inpatient rehab while here and continued rehab on discharge FMLA paper work for daughter Will need SNF placement- possibly [facility]? Reviewed: Pt Seen/Exam by Me History Resident Physician Supervision Note: I interviewed and examined the patient. Discussed with Dr. Arnold and agree with findings and plan as documented in the note. Any exceptions or clarifications are listed here: Feeling better, eating food today, C. diff was negative, no more abdominal pain. Had thoracentesis with 1.2 L of straw-colored fluid removed today. Had lengthy discussion with patient and and daughter about need for SNIF placement, continued IV antibiotics and placement of PICC line. They are all in agreement. Vitals reviewed No acute distress, thin, sitting up in bed Regular rhythm, reg rate, no murmurs gallops or rubs Clear to auscultation bilaterally, no wheezes crackles or rales, except decreased lung sounds at the bases bilaterally however this is improved from previous on the right side Positive bowel sounds, soft, no tenderness to palpation Extremities-trace pitting edema bilaterally to the knees This patient is an 86-year-old female with acute systolic CHF, multiple myeloma , acute kidney injury likely secondary to multiple myeloma vs ATN, cardiorenal syndrome, or combination of those, here with bilateral large malignant pleural effusions status post thoracentesis. Overall not a very good prognosis, her creatinine continued to rise but is now decreasing after starting Decadron and Velcade for treatment of her multiple myeloma. Continue to follow renal function. Albumin and lasix as above for improved UOP when necessary. CHF with EF of 20-25%-unclear etiology. Could be related to the malignancy and that her pleural effusions are not necessarily all from her CHF. Diuresis has been difficult due to hypotension and had to stop Bumex drip. Growing staph species out of her previous pleural fluid. Will need 10 days of IV ceftriaxone and clindamycin to treat for empyema as chest tube is contraindicated at this time as per pulmonary due to risk of dehydration and hypoalbuminemia. -Continue beta candie, not able to add LUIS CARLOS inhibitor for heart failure at this time due to acute kidney injury -Continue to Follow chest x-ray to see if the effusions reaccumulate requiring repeated thoracenteses-appreciate pulmonary management--> for tap as needed for comfort at this point -started bortezomib for MM which will be once weekly, will need outpatient follow-up with oncology -PICC line today and await placement at SNF Documented By: Vaishali Johnson
[2016-08-04 23:46] VITALS: BP 97/66; PULSE 78; TEMP 36.9; O2SAT 97
[2016-08-05] VITALS (10 sets, daily range): BP systolic 89–113; BP diastolic 57–72; PULSE 60–88; TEMP 36.4–36.9; O2SAT 93–100
[2016-08-05] MEDS: CLINDAMYCIN IV 600 MG in DEXTROSE 5% ADD-VANTAGE 50ML 50 ML IV SCH ×3 (02:43→18:04)
[2016-08-05 06:01] LABS: HEMATOCRIT 26.1 % (37-47); MEAN CORPUSCULAR HEMOGLOBIN 33.7 pg (25-34); MEAN CORPUSCULAR HGB CONC 33.7 g/dl (32-36); RED BLOOD COUNT 2.61 M/uL (4.2-5.4); WHITE BLOOD COUNT 7.43 K/uL (4.8-10.8)
[2016-08-05 06:02] LABS: MEAN PLATELET VOLUME 10.5 fL (7.4-10.4); PLATELET COUNT 58 K/uL (130-400)
[2016-08-05 06:07] LABS: INR 1.1 (0.9-1.1); PARTIAL THROMBOPLASTIN RATIO 1.2; PROTHROMBIN TIME (PATIENT) 11.4 SECONDS (9.0-12.0)
[2016-08-05 06:38] LABS: BUN/CREATININE RATIO 39.3 (10-20); CALCIUM 6.8 mg/dl (8.5-10.1); CREATININE 2.7 mg/dl (0.60-1.20); MAGNESIUM 2.1 mg/dl (1.8-2.4); PHOSPHORUS 4.9 mg/dl (2.5-4.9); POTASSIUM 3.1 mmol/L (3.5-5.1)
[2016-08-05] MEDS: METOPROLOL SUCC 50MG EXT REL TAB PO SCH (08:07)
[2016-08-05] MEDS: SACCHAROMYCES BOUL (FLORASTOR) 250 MG CAP PO SCH (08:07)
[2016-08-05] MEDS: PANTOprazole SOD 40 MG TAB PO SCH (08:07)
[2016-08-05] MEDS: POTASSIUM CHLR 10 MEQ / WTR 10 MEQ in PREMIXED WATER 100 ML IV SCH ×2 (08:11→11:46)
[2016-08-05 08:51] LABS: IMMUNOGLOBULN A 32.3 mg/dL (70-400); IMMUNOGLOBULN M 9.3 mg/dL (40-230)
--- NOTE | 2016-08-05 09:09 | Family Medicine Progress Note ---
Progress Note Date of Service Aug 05, 2016. Subjective Pt evaluation today including: conversation w/ patient Voiding: no voiding problems Didn't sleep last night Potassium infusing- patient is uncomfortable. Has had 3 loose BM's over night Patient's family does not want her to leave the hospital yet. Ideally they want her to have her second Velcade before transfer to SNF Constitutional: + fatigue, + weakness, No chills, No fever, No sweats Eyes: No worsening of vision ENT: No hearing loss Respiratory: + cough, No dyspnea on exertion, No shortness of breath, No sputum, No wheezing Cardiovascular: No chest pain Abdomen: + diarrhea, No constipation, No nausea, No pain, No vomiting Musculoskeletal: No calf pain, No joint pain, No muscle pain, No swelling Female : No dysuria, No urinary frequency Objective Physical Exam General Appearance: no apparent distress, + thin Eyes: PERRL, EOMI ENT: hearing grossly normal, pharynx normal Neck: no adenopathy Respiratory/Chest: no respiratory distress, no accessory muscle use, + decreased breath sounds, + pertinent finding (no wheezing, crackles L>R) Cardiovascular: regular rate, rhythm, no edema, no JVD, no murmur Abdomen: normal bowel sounds, non tender, soft Extremities: non-tender, no pedal edema, no calf tenderness Neurologic/Psychiatric: alert, oriented x 3, + depressed affect Assessment and Plan 86 y/o F with recent diagnosis of multiple myeloma here with shortness of breath and found to have bilateral pleural effusion. She is s/p Bilateral thoracocentesis that was done shortly after admission. In the interim she was noted to have acute renal failure likely secondary to a combination of myeloma kidney and cardio renal syndrome (with underlying CHF). This was managed with Bumex drip. However, she became hypotensive and required albumin/lasix to stabilize. Bumex was held. She has completed 4 doses of Decadron for her presumed myeloma kidney and shown improvement as well as had one dose Velcade for her MM. She has since reaccumulated effusions bilaterally and is s/p Right therapeutic thoracocentesis by Dr. Canales. She has been relatively stable from a hemodynamic standpoint. She required Albumin/lasix combo to help with urine output and maintain blood pressures. This patient will need acute rehab. PT has been attempting to work with her. The more she stays in the hospital, the more deconditioned she will get, so we are really encouraging mobility and PT. Hypotension- stable Continue to Hold Bumex drip. Acute respiratory failure 2/2 Bilateral pleural effusions with reaccumulation and repeat right thoracocentesis s/p bilateral Thoracocentesis on 07/30, 07/31, repeat right sided on 08/04 Repeat chest x-ray, starting to show reaccumulation in the right lung and slight worsening of the left lung effusions Appreciate Pulmonary recommendations Continue Ceftriaxone and Clindamycin x 10 days Received picc line today Repeat Tap pathology pending initial Tap cytology showing myeloma cells MRSA negative Acute renal failure / Low urine output - improvement in Cr. to 2.5 and increased UOP 2/2 multiple myeloma? vs poor cardiac function/ cardio renal Starting to show improvement and post ATN recovery phase/diuresis Appreciate nephrology recommendations- no biopsy at this time; completed 4 days of Decadron renal ultrasound with evidence of renal disease KUB from 07/31 with evidence of renal injury/ATN + lytic foci in skeletal structures suggestive of MM/Mets. Holding lisinopril, indapamide, furosemide. Recheck labs AM Improved urine output - given album 25 gm + lasix 40 mg - responded well, making urine and b/p stable. Appreciate Nephro recommendations Multiple Myeloma Started on Velcade - once per week Tx as per Oncology Anemia/thrombocytopenia secondary to multiple myeloma vs. blood loss b12 and folate were normal iron studies- anemia of chronic disease Hemoccult positive Records from PCP indicate that she had routine colonoscopy in 2009 with evidence of diverticular disease but no bleeds trend H/H-stable at 8.8- continue to trend, type and cross Irradiated rbcs, Probably not a candidate for endoscopy with her multiple issues. Discusssed with Dr. Rothman, Thrombocytopenia from consumptive process? Will likely drop further with Velcade Hyperphosphatemia- improved to 4.9 Monitor, no need for phoslo now Hypokalemia: 3.1 replaced recheck BMP AM Elevated PTT- improving Mixing studies indicate a factor deficiency Defer to heme/onc. about further recommendations. Abdominal cramping- resolved - no SBO on xray Acute systolic heart failure EF 20-25% - compensated unclear etiology continue b candie. acei dc'd due to SNADER Effusions from myeloma and not CHF Elevated troponin- stable not trending currently, patient is asymptomatic Malnutrition- better appetite Steroids will help with appetite can start Megace later Encourage PO intake Add Boost TID HTN holding meds except metoprolol Complete heart block s/p PPM - stable HR controlled. follow. Hypercalcemia/multiple myeloma-- Ca starting to be low s/p pamidronate 60 mg IV actually low, corrected calcium at 7.9 today will trend and if continues to drop will need to supplement DVT proph Heparin held due to elevated PTT recheck PTT/ coags/ platelet count SCD's strongly encouraged, nursing aware. Misc. PT eval pending OT recommends inpatient rehab while here and continued rehab on discharge FMLA paper work for daughter Will need SNF placement- possibly [facility]?- Family would like patient to stay in the hospital as long as possible; preferable until next velcade treatment as the daughter feels it will be too difficult to transfer mom back and forth. Reviewed: Pt Seen/Exam by Me History Resident Physician Supervision Note: I interviewed and examined the patient. Discussed with Dr. Arnold and agree with findings and plan as documented in the note. Any exceptions or clarifications are listed here: Had PICC line placed today and had some bleeding at the site, otherwise no evidence of bleeding. Platelets have dropped. Afebrile. Still feeling weak but was able to get out of bed to chair and work with physical therapy today. Vitals reviewed No acute distress, thin, sitting up in bed Regular rhythm, reg rate, no murmurs gallops or rubs Clear to auscultation bilaterally, no wheezes crackles or rales, except decreased lung sounds at the bases bilaterally however this is improved from previous on the right side Positive bowel sounds, soft, no tenderness to palpation Extremities-trace pitting edema bilaterally to the knees This patient is an 86-year-old female with acute systolic CHF, multiple myeloma , acute kidney injury likely secondary to multiple myeloma vs ATN, cardiorenal syndrome, or combination of those, here with bilateral large malignant pleural effusions status post thoracentesis. Her creatinine continues to decrease after starting Decadron and Velcade for treatment of her multiple myeloma. Continue to follow renal function. Albumin and lasix as above for improved UOP when necessary. CHF with EF of 20-25%-unclear etiology. Could be related to the malignancy and that her pleural effusions are not necessarily all from her CHF. Diuresis has been difficult due to hypotension and had to stop Bumex drip. No diuresis needed at this time. Growing coag-negative staph out of her previous pleural fluid which is likely a contaminant. However with pH of pleural fluid less than 7.2, must be considered to be an empyema as per pulmonary. Will need 10 days of IV ceftriaxone and clindamycin to treat for empyema as chest tube is contraindicated at this time as per pulmonary due to risk of dehydration and hypoalbuminemia. -Continue beta candie, not able to add LUIS CARLOS inhibitor for heart failure at this time due to acute kidney injury -Continue to Follow chest x-ray to see if the effusions reaccumulate requiring repeated thoracenteses-appreciate pulmonary management--> for tap as needed for comfort at this point . We'll check chest x-ray for worsening symptoms otherwise early next week -started bortezomib for MM which will be once weekly, will need outpatient follow-up with oncology -Watch platelets dropping and transfuse if less than 10,000 or if has evidence of bleeding -Watch hemoglobin and transfuse to keep hemoglobin greater than 7-8 -Oncology would like patient to stay until next treatment of Velcade next Monday and then plan to discharge to SNF Documented By: Vaishali Johnson
--- NOTE | 2016-08-05 10:14 | Hematology/Oncology Prog Note ---
Hematology/Onc Progress Note Date of Service Aug 05, 2016. Diagnoses Multiple myeloma Renal failure Medications Medications Administered Medications (Trade) Dose Ordered Sig/Willy Route Start Time Stop Time Status Last Admin Dose Admin Sodium Chloride 250 ml @ 999 mls/hr Q16M STAT IV 07/29/16 17:48 07/29/16 18:03 DC 07/29/16 17:48 999 MLS/HR Sodium Chloride (Nss 1000ml) 1,000 ml @ 125 mls/hr Q8H STAT IV 07/29/16 17:48 07/29/16 21:37 DC 07/29/16 17:48 125 MLS/HR Ondansetron HCl (Zofran Inj) 4 mg Q6H PRN IV 07/29/16 20:15 08/28/16 20:14 07/31/16 10:23 4 MG Metoprolol Succinate 50 mg 50 mg QAM PO 07/30/16 09:00 08/29/16 08:59 08/05/16 08:07 50 MG Furosemide 40 mg/ Albumin Human 54 ml @ 54 mls/hr ONE ONCE IV 07/29/16 22:00 07/29/16 22:59 DC 07/29/16 22:21 54 MLS/HR Pamidronate Disodium 60 mg/ Sodium Chloride 1,020 ml @ 250 mls/hr Q4H5M IV 07/29/16 22:00 07/30/16 02:04 DC 07/29/16 22:19 250 MLS/HR Sodium Chloride 1,000 ml @ 150 mls/hr Q6H40M IV 07/30/16 04:00 07/30/16 17:07 DC 07/30/16 14:48 150 MLS/HR Sodium Chloride (Nss 500ml) 500 ml @ 500 mls/hr NOW STAT IV 07/30/16 05:30 07/30/16 06:29 DC 07/30/16 05:40 500 MLS/HR Aspirin (Ecotrin Tab) 81 mg QAM PO 07/31/16 09:00 08/03/16 16:02 DC 08/03/16 08:34 81 MG Heparin Sodium (Porcine) 5000 unit 5,000 unit Q12 SQ 07/30/16 21:00 08/03/16 16:02 DC 08/01/16 08:34 5,000 UNIT Furosemide 40 mg/ Albumin Human 54 ml @ 54 mls/hr NOW STAT IV 07/31/16 04:09 07/31/16 05:08 DC 07/31/16 04:24 54 MLS/HR Furosemide 80 mg/ Syringe 8 ml @ 4 mls/min 1200 ONCE IV 07/31/16 12:00 07/31/16 12:01 DC 07/31/16 11:59 4 MLS/MIN Ceftriaxone Sodium/Dextrose (Rocephin Inj/D5 50ml) 70 ml @ 100 mls/hr Q24H IV 07/31/16 13:00 08/02/16 19:30 DC 08/02/16 12:57 100 MLS/HR Pantoprazole Sodium (Protonix Tab) 40 mg QAM PO 08/01/16 09:00 08/31/16 08:59 08/05/16 08:07 40 MG Pantoprazole Sodium 40 mg 40 mg NOW STAT PO 07/31/16 12:44 07/31/16 12:53 DC 07/31/16 14:42 40 MG Bumetanide/ Dextrose (Bumex IV/D5 50ml) 50 ml @ 10 mls/hr Q5H IV 07/31/16 19:45 08/30/16 19:44 Future Hold 08/01/16 11:20 10 MLS/HR Dicyclomine HCl (Bentyl Tab) 20 mg NOW ONCE PO 08/01/16 12:30 08/01/16 12:31 DC 08/01/16 12:49 20 MG Docusate Sodium (coLACE CAP) 100 mg BID PO 08/01/16 21:00 08/31/16 20:59 Future Hold 08/02/16 07:47 100 MG Dexamethasone 20 mg 20 mg DAILY PO 08/02/16 09:00 08/03/16 23:59 DC 08/03/16 08:34 20 MG Sodium Chloride (Nss 250ml) 250 ml @ 999 mls/hr Q16M ONCE IV 08/01/16 15:45 08/01/16 16:00 DC 08/01/16 16:09 999 MLS/HR Dexamethasone 20 mg 20 mg NOW ONCE PO 08/01/16 15:45 08/01/16 15:50 DC 08/01/16 16:14 20 MG Sodium Chloride (Nss 250ml) 250 ml @ 999 mls/hr Q16M ONCE IV 08/01/16 17:00 08/01/16 17:16 DC 08/01/16 16:58 999 MLS/HR Albumin Human 12.5 gm 12.5 gm ONE ONCE IV 08/01/16 17:15 08/01/16 17:18 DC 08/01/16 17:36 12.5 GM Bortezomib/Syringe (Velcade INJ/ Syringe) 0.8 ml @ 2,880 mls/hr TODAY@1130 ONCE SQ 08/03/16 11:30 08/03/16 11:31 DC 08/03/16 11:51 2,880 MLS/HR Ondansetron HCl 8 mg 8 mg STK-MED ONCE .ROUTE 08/03/16 11:01 08/03/16 11:02 DC 08/03/16 10:58 8 MG Ceftriaxone Sodium 1 gm/ Dextrose 50 ml @ 100 mls/hr DAILY@1600 IV 08/03/16 16:00 08/07/16 15:59 08/04/16 15:45 100 MLS/HR Furosemide 40 mg/ Albumin Human 54 ml @ 54 mls/hr 1630 ONCE IV 08/03/16 16:30 08/03/16 17:29 DC 08/03/16 16:30 54 MLS/HR Clindamycin Phosphate/Dextrose (Cleocin Iv/ Dextrose Add-[place] 50ML) 54 ml @ 100 mls/hr Q8@0200,1000,1800 IV 08/03/16 18:00 08/10/16 17:59 08/05/16 02:43 100 MLS/HR Saccharomyces Boulardii 250 mg 250 mg DAILY PO 08/04/16 09:00 09/03/16 08:59 08/05/16 08:07 250 MG Potassium Chloride/Prmx (Kcl 10 Meq / Wtr/Premixed Water) 100 ml @ 100 mls/hr Q1H IV 08/05/16 08:00 08/05/16 09:59 DC 08/05/16 08:11 100 MLS/HR Subjective Currently having a PICC line placed. She denies new pain. She does her mildly tachypneic. Review of Systems: Constitutional: Negative for night sweats, or fever Eyes: Negative for event change of vision ENT: Negative for epistaxis, nasal discharge, sore throat, or deafness Cardiovascular: Negative for chest pain, palpitations, dizziness, diaphoresis Respiratory: Negative for new shortness of breath, although she has been fairly chronically short of breath this admission. Negative for hemoptysis, or purulent cough Gastrointestinal: Negative for hematemesis, melena, nausea, vomiting, or dyspepsia. She has been having diarrhea Integumentary (skin): Negative for rash or jaundice discoloration Genitourinary: Negative for urinary frequency, hematuria, or dysuria Neurological: Negative for weakness, seizure activity, headache, or dizziness Lymphatic/Hematologic: Negative for petechiae, bleeding or new adenopathy Musculoskeletal: Negative for new joint. She has had back pain but apparently it's fairly well controlled Allergic/Immunologic: Negative for unusual rash or pruritis. Vital Signs Vital Signs Past 12 Hours Date Time Temp Pulse Resp B/P Pulse Ox O2 Delivery O2 Flow Rate FiO2 08/05/16 07:07 36.5 71 16 111/65 93 2.0 08/05/16 04:00 Nasal Cannula 2.0 08/05/16 04:00 36.5 78 16 113/72 98 Nasal Cannula 2.0 08/05/16 00:01 Nasal Cannula 2.0 08/04/16 23:46 36.9 78 16 97/66 97 Nasal Cannula 2.0 Physical Exam Constitutional: vitals are stable. Eyes: Eyes are RAMAKRISHNA EOMI without conjuctival erythema or icterus. ENT: External examination was negative for masses. Neck: Negative for masses or palpable thyromegaly Respiratory: Lung sounds were generally clear bilaterally Cardiovascular: Heart was RRR without significant murmur, gallops aoe rubs Gastrointestinal: No palpable hepatic or splenomegaly. The abdomen was soft with normal bowel sounds. Lymphatic system: there was no palpable peripheral lymphadenopathy Musculoskeletal System: The musculoskeletal system seemed concordant with age. Skin: The skin was negative for jaundice. Neurologic exam: The exam was negative for any focal findings. Deep tendon reflexes were equal and symmetrical. Psychiatric exam: Was essentially negative with normal mood and effect. Breast exam: Not done Extremities: Negative for edema Constitutional: General Apperance: too thin Level of Distress: chronically ill (frail-appearing and weak) Ambulation: in wheelchair Psychiatric: Mental Status: active & alert Orientation: oriented except where noted Lungs: Auscuitation: deminished air movement (in lower rider bilaterally, R>L) Cardiovascular: Heart Auscultation: RRR Abdomen: Inspection & Palpation: soft, non-distended, no tenderness, guarding & rebound Extremities: no edema Laboratory Last 24 Hours Test 08/05/16 05:16 08/05/16 07:25 White Blood Count 7.43 K/uL Red Blood Count 2.61 M/uL Hemoglobin 8.8 g/dL Hematocrit 26.1 % Mean Corpuscular Volume 100.0 fL Mean Corpuscular Hemoglobin 33.7 pg Mean Corpuscular Hemoglobin Concent 33.7 g/dl RDW Standard Deviation 72.5 fL RDW Coefficient of Variation 19.9 % Platelet Count 58 K/uL Mean Platelet Volume 10.5 fL Prothrombin Time 11.4 SECONDS Prothromb Time International Ratio 1.1 Activated Partial Thromboplast Time 31.5 SECONDS Partial Thromboplastin Ratio 1.2 Sodium Level 141 mmol/L Potassium Level 3.1 mmol/L Chloride Level 105 mmol/L Carbon Dioxide Level 26 mmol/L Anion Gap 10.0 mmol/L Blood Urea Nitrogen 106 mg/dl Creatinine 2.70 mg/dl Est Creatinine Clear Calc Drug Dose 12.4 ml/min Estimated GFR () 17.8 Estimated GFR (Non- 15.3 BUN/Creatinine Ratio 39.3 Random Glucose 103 mg/dl Calcium Level 6.8 mg/dl Phosphorus Level 4.9 mg/dl Magnesium Level 2.1 mg/dl Albumin 2.6 gm/dl Immunoglobulin G 1930.0 mg/dL Immunoglobulin A 32.3 mg/dL Immunoglobulin M 9.3 mg/dL Assessment & Plan She does appear mildly tachypneic. She is afebrile. Platelet count is drifting down. I doubt that this is from bortezomib given 2 days ago. I suspect we are now seeing a consumptive process from the periods of hypotension from a few days before. PTT is gradually normalizing. She has very fragile. The daughter shares with me her concerns about moving her to a fci just yet. I have little doubt that Mr. Kelly will need to stay in the hospital least a few more days for the hopes of further stabilization.
--- NOTE | 2016-08-05 10:20 | Nephrology Progress Note ---
Nephrology Progress Note Date of Service Aug 05, 2016. Chief Complaint Follow up evaluation of this patient w/ SANDER Subjective Mrs. Kelly was seen & examined in her hospital room this morning. Her is hospitalized in the same room and her daughter Alicia was present at the time of my evaluation. The patient complains of weakness and discomfort from the KCl infusion. She currently denies fever, angina or dyspnea. She reports brisk urine output. Alicia is investigating [facility] [place] for her parents following discharge from the hospital. Review of Systems Constitutional: No fever Cardiovascular: No chest pain Respiratory: No dyspnea at rest Abdomen: No nausea, No pain, No vomiting Extremities: No leg edema A complete review of systems was performed. Pertinent positives are noted above. All other systems are negative. Vital Signs Last 8 Hrs Date Time Temp Pulse Resp B/P Pulse Ox O2 Delivery O2 Flow Rate FiO2 08/05/16 07:07 36.5 71 16 111/65 93 2.0 08/05/16 04:00 Nasal Cannula 2.0 08/05/16 04:00 36.5 78 16 113/72 98 Nasal Cannula 2.0 I & O 24-Hour Column 08/05/16 08:00 Intake Total 1105 ml Output Total 850 ml Balance 255 ml Last Recorded Weight Weight (Kilograms): 55.200 Physical Exam General Appearance: no apparent distress, + thin (frail appearing) Head: normocephalic, atraumatic Eyes: PERRL, EOMI Neck: no adenopathy Respiratory/Chest: lungs clear, no respiratory distress Cardiovascular: regular rate, rhythm Abdomen/GI: normal bowel sounds, non tender, soft Extremities/Musculoskelatal: no calf tenderness, no pedal edema Neurologic/Psych: alert, oriented x 3 Family History FH: heart disease Social History Smokeless Tobacco Use: No Alcohol Use: none Drug Use: none Marital Status: Housing Status: lives with family Occupation: retired Laboratory Results Past 24 Hours 08/05/16 05:16 08/05/16 05:16 Test 08/05/16 05:16 08/05/16 07:25 Red Blood Count 2.61 M/uL (4.2-5.4) Mean Corpuscular Volume 100.0 fL (80-100) Mean Corpuscular Hemoglobin 33.7 pg (25-34) Mean Corpuscular Hemoglobin Concent 33.7 g/dl (32-36) RDW Standard Deviation 72.5 fL (36.4-46.3) RDW Coefficient of Variation 19.9 % (11.5-14.5) Mean Platelet Volume 10.5 fL (7.4-10.4) Prothrombin Time 11.4 SECONDS (9.0-12.0) Prothromb Time International Ratio 1.1 (0.9-1.1) Activated Partial Thromboplast Time 31.5 SECONDS (21.0-31.0) Partial Thromboplastin Ratio 1.2 Anion Gap 10.0 mmol/L (3-11) Est Creatinine Clear Calc Drug Dose 12.4 ml/min Estimated GFR () 17.8 Estimated GFR (Non- 15.3 BUN/Creatinine Ratio 39.3 (10-20) Calcium Level 6.8 mg/dl (8.5-10.1) Phosphorus Level 4.9 mg/dl (2.5-4.9) Magnesium Level 2.1 mg/dl (1.8-2.4) Albumin 2.6 gm/dl (3.4-5.0) Immunoglobulin G 1930.0 mg/dL (700-1600) Immunoglobulin A 32.3 mg/dL (70-400) Immunoglobulin M 9.3 mg/dL (40-230) Allergies Coded Allergies: Sulfa Antibiotics (Verified Allergy, Unknown, RASH, 07/29/16) Medications Current Inpatient Medications Medications (Trade) Dose Ordered Sig/Willy Route Start Time Stop Time Status Last Admin Dose Admin Acetaminophen (Tylenol Tab) 650 mg Q4H PRN PO 07/29/16 20:15 08/28/16 20:14 Zolpidem Tartrate (Ambien Tab) 5 mg HSZ PRN PO 07/29/16 20:15 08/28/16 20:14 Ondansetron HCl (Zofran Inj) 4 mg Q6H PRN IV 07/29/16 20:15 08/28/16 20:14 07/31/16 10:23 4 MG Metoprolol Succinate (Toprol Xl Tab) 50 mg QAM PO 07/30/16 09:00 08/29/16 08:59 08/05/16 08:07 50 MG Ipratropium [place] (Atrovent 0.02% 0.5MG/2.5ML Neb) 0.5 mg Q2H PRN INH 07/29/16 21:00 08/28/16 20:59 Levalbuterol (Xopenex 1.25MG/ 0.5ML Neb) 1.25 mg Q2H PRN INH 07/29/16 21:00 08/28/16 20:59 Pantoprazole Sodium 40 mg 40 mg QAM PO 08/01/16 09:00 08/31/16 08:59 08/05/16 08:07 40 MG Bumetanide/ Dextrose (Bumex IV/D5 50ml) 50 ml @ 10 mls/hr Q5H IV 07/31/16 19:45 08/30/16 19:44 Future Hold 08/01/16 11:20 10 MLS/HR Docusate Sodium 100 mg 100 mg BID PO 08/01/16 21:00 08/31/16 20:59 Future Hold 08/02/16 07:47 100 MG Ceftriaxone Sodium 1 gm/ Dextrose 50 ml @ 100 mls/hr DAILY@1600 IV 08/03/16 16:00 08/07/16 15:59 08/04/16 15:45 100 MLS/HR Clindamycin Phosphate/Dextrose (Cleocin Iv/ Dextrose Add-[place] 50ML) 54 ml @ 100 mls/hr Q8@0200,1000,1800 IV 08/03/16 18:00 08/10/16 17:59 08/05/16 02:43 100 MLS/HR Saccharomyces Boulardii (Florastor Cap) 250 mg DAILY PO 08/04/16 09:00 09/03/16 08:59 08/05/16 08:07 250 MG Enteral Nutritional Formula (Boost) 1 can TID PO 08/05/16 14:00 09/04/16 13:59 Impression (1) Acute renal insufficiency (2) Multiple myeloma (3) Acute systolic CHF (congestive heart failure) (4) Diastolic dysfunction (5) Hypertension (6) Anemia (7) Bilateral pleural effusion Mrs. Kelly is an 86-year-old female w/ multiple myeloma (IgG kappa), systolic and diastolic CHF, HTN and SANDER. Creatinine at baseline was ~ 1 mg/dL. Creatinine peaked at 4.9 mg/dL w/ oliguria. Patient is now in recovery phase of SANDER Decadron started 08/01/16. Velcade given on 08/03/16. Mrs. Kelly was hypercalcemic on admission. Calcium improved with a dose of pamidronate. Thoracentesis 07/30/16 w/ 1.2 L volume removal. Pleural culture + for staph. Blood cultures were negative SANDER is multifactorial. 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 This appears to be responding to treatment. SANDER may be associated with hemodynamic changes from cardiorenal syndrome associated with LV systolic and diastolic dysfunction. TTE had documented severely reduced LVEF with regional wall motion abnormalities as well as elevated PA/RA pressures. There is also a likely component of ATN likely related to CTA prior to admission. Pamidronate while less likely, may contribute to renal insufficiency. Given the multiple medical comorbidities including cardiac disease and multiple myeloma, Suha is a very poor candidate for dialysis. There is no indication for renal replacement therapy currently. Renal US showed normal kidney size and there is no evidence of obstruction. UA/ micro notable for PCR 0.8 and positive for microscopic hematuria and pyuria Recommendations SANDER: -- Recovery phase. Patient is nonoliguric. Serum creatinine has dropped to 2.7 (baseline 1.0) -- Azotemia due to SANDER and steroid therapy. BUN is now trending down -- Serum potassium has been supplemented by primary service MYELOMA: -- Decadron induction completed 08/04/16 -- Velcade weekly started 08/03/16 -- Continued treatment to be arranged in the hematology clinic by Dr. Rothman / Shekhar CARDIOMYOPATHY: -- PPM -- Avoid LUIS CARLOS/ARB in setting of SANDER PLEURAL EFFUSION: -- Initial culture positive for Staph -- Attributed at least in part to Myeloma and hypoalbuminemia -- Therapeutic thoracentesis planned PRN by Pulmonology
--- NOTE | 2016-08-05 10:37 | DIAGNOSTIC IMAGING REPORT ---
CHEST ONE VIEW PORTABLE CLINICAL HISTORY: PICC line placement in Left arm. Thanks line placement COMPARISON STUDY: 08/04/2016 FINDINGS: Left-sided PICC catheter place in superior vena cava. No evidence pneumothorax. Left pleural effusion slightly increased in voiding from the prior study. Possible small right effusion. IMPRESSION: PICC catheter place in superior vena cava. No evidence pneumothorax. Left pleural effusion slightly increased in volume from the prior study Electronically signed by: Giovany Giron M.D. 08/05/2016 10:35 AM Dictated Date/Time: 08/05/2016 10:33 AM
[2016-08-05] MEDS ORDERED: BOOST VANILLA PO SCH ×2 (14:00)
[2016-08-05] MEDS: CEFTRIAXONE SOD INJ 1 GM in DEXTROSE 5% ADD-VANTAGE 50ML 50 ML IV SCH (16:01)
[2016-08-05] MEDS: ONDANSETRON INJ 2 MG/ML 2 ML VIAL IV PRN (17:31)
[2016-08-05] MEDS ORDERED: SIMETHICONE 80 MG CHEW PO PRN (18:00)
[2016-08-05] MEDS: BOOST VANILLA PO SCH ×2 (21:15)
[2016-08-06] VITALS (13 sets, daily range): BP systolic 96–118; BP diastolic 61–77; PULSE 71–83; TEMP 36.3–37.4; O2SAT 96–100
[2016-08-06] MEDS: CLINDAMYCIN IV 600 MG in DEXTROSE 5% ADD-VANTAGE 50ML 50 ML IV SCH ×3 (02:11→17:55)
[2016-08-06] MEDS: ONDANSETRON INJ 2 MG/ML 2 ML VIAL IV PRN (06:18)
[2016-08-06 06:24] LABS: HEMATOCRIT 22.9 % (37-47); MEAN CELL VOLUME 100.9 fL (80-100); MEAN CORPUSCULAR HEMOGLOBIN 33.5 pg (25-34); MEAN CORPUSCULAR HGB CONC 33.2 g/dl (32-36); RED BLOOD COUNT 2.27 M/uL (4.2-5.4); WHITE BLOOD COUNT 5.14 K/uL (4.8-10.8)
[2016-08-06 06:25] LABS: MEAN PLATELET VOLUME 10.7 fL (7.4-10.4); PLATELET COUNT 53 K/uL (130-400)
[2016-08-06 06:49] LABS: INR 1.1 (0.9-1.1); PROTHROMBIN TIME (PATIENT) 11.4 SECONDS (9.0-12.0)
[2016-08-06 07:23] LABS: BUN/CREATININE RATIO 46.1 (10-20); CALCIUM 6.8 mg/dl (8.5-10.1); CREATININE 1.8 mg/dl (0.60-1.20); PHOSPHORUS 3.2 mg/dl (2.5-4.9); POTASSIUM 3.5 mmol/L (3.5-5.1)
[2016-08-06] MEDS: SACCHAROMYCES BOUL (FLORASTOR) 250 MG CAP PO SCH (09:00)
[2016-08-06] MEDS: PANTOprazole SOD 40 MG TAB PO SCH (09:00)
[2016-08-06] MEDS: BOOST VANILLA PO SCH ×4 (09:05→19:30)
[2016-08-06] MEDS: METOPROLOL SUCC 50MG EXT REL TAB PO SCH (09:05)
--- NOTE | 2016-08-06 09:59 | Hematology/Oncology Prog Note ---
Hematology/Onc Progress Note Date of Service Aug 06, 2016. Diagnoses Multiple myeloma Renal failure Medications Medications Administered Medications (Trade) Dose Ordered Sig/Willy Route Start Time Stop Time Status Last Admin Dose Admin Sodium Chloride 250 ml @ 999 mls/hr Q16M STAT IV 07/29/16 17:48 07/29/16 18:03 DC 07/29/16 17:48 999 MLS/HR Sodium Chloride (Nss 1000ml) 1,000 ml @ 125 mls/hr Q8H STAT IV 07/29/16 17:48 07/29/16 21:37 DC 07/29/16 17:48 125 MLS/HR Ondansetron HCl (Zofran Inj) 4 mg Q6H PRN IV 07/29/16 20:15 08/28/16 20:14 08/06/16 06:18 4 MG Metoprolol Succinate 50 mg 50 mg QAM PO 07/30/16 09:00 08/29/16 08:59 08/06/16 09:05 50 MG Furosemide 40 mg/ Albumin Human 54 ml @ 54 mls/hr ONE ONCE IV 07/29/16 22:00 07/29/16 22:59 DC 07/29/16 22:21 54 MLS/HR Pamidronate Disodium 60 mg/ Sodium Chloride 1,020 ml @ 250 mls/hr Q4H5M IV 07/29/16 22:00 07/30/16 02:04 DC 07/29/16 22:19 250 MLS/HR Sodium Chloride 1,000 ml @ 150 mls/hr Q6H40M IV 07/30/16 04:00 07/30/16 17:07 DC 07/30/16 14:48 150 MLS/HR Sodium Chloride (Nss 500ml) 500 ml @ 500 mls/hr NOW STAT IV 07/30/16 05:30 07/30/16 06:29 DC 07/30/16 05:40 500 MLS/HR Aspirin (Ecotrin Tab) 81 mg QAM PO 07/31/16 09:00 08/03/16 16:02 DC 08/03/16 08:34 81 MG Heparin Sodium (Porcine) 5000 unit 5,000 unit Q12 SQ 07/30/16 21:00 08/03/16 16:02 DC 08/01/16 08:34 5,000 UNIT Furosemide 40 mg/ Albumin Human 54 ml @ 54 mls/hr NOW STAT IV 07/31/16 04:09 07/31/16 05:08 DC 07/31/16 04:24 54 MLS/HR Furosemide 80 mg/ Syringe 8 ml @ 4 mls/min 1200 ONCE IV 07/31/16 12:00 07/31/16 12:01 DC 07/31/16 11:59 4 MLS/MIN Ceftriaxone Sodium/Dextrose (Rocephin Inj/D5 50ml) 70 ml @ 100 mls/hr Q24H IV 07/31/16 13:00 08/02/16 19:30 DC 08/02/16 12:57 100 MLS/HR Pantoprazole Sodium (Protonix Tab) 40 mg QAM PO 08/01/16 09:00 08/31/16 08:59 08/05/16 08:07 40 MG Pantoprazole Sodium 40 mg 40 mg NOW STAT PO 07/31/16 12:44 07/31/16 12:53 DC 07/31/16 14:42 40 MG Bumetanide/ Dextrose (Bumex IV/D5 50ml) 50 ml @ 10 mls/hr Q5H IV 07/31/16 19:45 08/30/16 19:44 Future Hold 08/01/16 11:20 10 MLS/HR Dicyclomine HCl (Bentyl Tab) 20 mg NOW ONCE PO 08/01/16 12:30 08/01/16 12:31 DC 08/01/16 12:49 20 MG Docusate Sodium (coLACE CAP) 100 mg BID PO 08/01/16 21:00 08/31/16 20:59 Future Hold 08/02/16 07:47 100 MG Dexamethasone 20 mg 20 mg DAILY PO 08/02/16 09:00 08/03/16 23:59 DC 08/03/16 08:34 20 MG Sodium Chloride (Nss 250ml) 250 ml @ 999 mls/hr Q16M ONCE IV 08/01/16 15:45 08/01/16 16:00 DC 08/01/16 16:09 999 MLS/HR Dexamethasone 20 mg 20 mg NOW ONCE PO 08/01/16 15:45 08/01/16 15:50 DC 08/01/16 16:14 20 MG Sodium Chloride (Nss 250ml) 250 ml @ 999 mls/hr Q16M ONCE IV 08/01/16 17:00 08/01/16 17:16 DC 08/01/16 16:58 999 MLS/HR Albumin Human 12.5 gm 12.5 gm ONE ONCE IV 08/01/16 17:15 08/01/16 17:18 DC 08/01/16 17:36 12.5 GM Bortezomib/Syringe (Velcade INJ/ Syringe) 0.8 ml @ 2,880 mls/hr TODAY@1130 ONCE SQ 08/03/16 11:30 08/03/16 11:31 DC 08/03/16 11:51 2,880 MLS/HR Ondansetron HCl 8 mg 8 mg STK-MED ONCE .ROUTE 08/03/16 11:01 08/03/16 11:02 DC 08/03/16 10:58 8 MG Ceftriaxone Sodium 1 gm/ Dextrose 50 ml @ 100 mls/hr DAILY@1600 IV 08/03/16 16:00 08/07/16 15:59 08/05/16 16:01 100 MLS/HR Furosemide 40 mg/ Albumin Human 54 ml @ 54 mls/hr 1630 ONCE IV 08/03/16 16:30 08/03/16 17:29 DC 08/03/16 16:30 54 MLS/HR Clindamycin Phosphate/Dextrose (Cleocin Iv/ Dextrose Add-[place] 50ML) 54 ml @ 100 mls/hr Q8@0200,1000,1800 IV 08/03/16 18:00 08/10/16 17:59 08/06/16 02:11 100 MLS/HR Saccharomyces Boulardii 250 mg 250 mg DAILY PO 08/04/16 09:00 09/03/16 08:59 08/05/16 08:07 250 MG Potassium Chloride/Prmx (Kcl 10 Meq / Wtr/Premixed Water) 100 ml @ 100 mls/hr Q1H IV 08/05/16 08:00 08/05/16 09:59 DC 08/05/16 11:46 100 MLS/HR Enteral Nutritional Formula (Boost) 1 can TID PO 08/05/16 14:00 08/05/16 14:29 DC 08/05/16 14:13 1 CAN Enteral Nutritional Formula (Boost) 1 can Q12H PO 08/05/16 19:30 09/04/16 19:29 08/06/16 09:05 1 CAN Simethicone (Mylicon Chew Tab) 80 mg Q6H PRN PO 08/05/16 18:00 09/04/16 17:59 08/05/16 20:03 80 MG Heparin Sodium (Porcine) (Heparin 10 Unit/ ml 5 ml Flush) 5 ml PRN PRN FLUSH 08/06/16 01:30 09/05/16 01:29 08/06/16 05:21 5 ML Subjective Seems very comfortable now. Pain seems controlled. Diarrhea is less. Vitals are stable. Does not appear as tachypneic Review of Systems: Constitutional: Negative for night sweats, or fever Eyes: Negative for event change of vision ENT: Negative for epistaxis, nasal discharge, sore throat, or deafness Cardiovascular: Negative for chest pain, palpitations, dizziness, diaphoresis Respiratory: Negative for new shortness of breath,hemoptysis, or purulent cough Gastrointestinal: Negative for diarrhea, hematemesis, melena, nausea, vomiting , or dyspepsia Integumentary (skin): Negative for rash or jaundice discoloration Neurological: Negative for weakness, seizure activity, headache, or dizziness Lymphatic/Hematologic: Negative for petechiae, bleeding or new adenopathy Musculoskeletal: Negative for new joint or back pain Allergic/Immunologic: Negative for unusual rash or pruritis. Vital Signs Vital Signs Past 12 Hours Date Time Temp Pulse Resp B/P Pulse Ox O2 Delivery O2 Flow Rate FiO2 08/06/16 07:00 37.4 83 16 111/71 99 Nasal Cannula 2.0 08/06/16 04:27 36.9 80 20 110/69 100 Nasal Cannula 2.0 08/06/16 04:19 Nasal Cannula 2.0 08/06/16 02:04 Nasal Cannula 2.0 08/05/16 23:58 36.5 88 20 96/60 98 Nasal Cannula 2.0 Physical Exam Constitutional: vitals are stable. Eyes: Eyes are RAMAKRISHNA EOMI without conjuctival erythema or icterus. ENT: External examination was negative for masses. Neck: Negative for masses or palpable thyromegaly Respiratory: Lung sounds were generally clear bilaterally Cardiovascular: Heart was RRR without significant murmur, gallops aoe rubs Gastrointestinal: No palpable hepatic or splenomegaly. The abdomen was soft with normal bowel sounds. The abdomen is much more soft than before Lymphatic system: there was no palpable peripheral lymphadenopathy Musculoskeletal System: The musculoskeletal system seemed concordant with age. Skin: The skin was negative for jaundice. Neurologic exam: The exam was negative for any focal findings. Deep tendon reflexes were equal and symmetrical. Psychiatric exam: Was essentially negative with normal mood and effect. Breast exam: Not done Extremities: Negative for edema Constitutional: General Apperance: too thin Level of Distress: chronically ill (frail-appearing and weak) Ambulation: in wheelchair Psychiatric: Mental Status: active & alert Orientation: oriented except where noted Lungs: Auscuitation: deminished air movement (in lower rider bilaterally, R>L) Cardiovascular: Heart Auscultation: RRR Abdomen: Inspection & Palpation: soft, non-distended, no tenderness, guarding & rebound Extremities: no edema Laboratory Last 24 Hours Test 08/06/16 06:07 White Blood Count 5.14 K/uL Red Blood Count 2.27 M/uL Hemoglobin 7.6 g/dL Hematocrit 22.9 % Mean Corpuscular Volume 100.9 fL Mean Corpuscular Hemoglobin 33.5 pg Mean Corpuscular Hemoglobin Concent 33.2 g/dl RDW Standard Deviation 71.4 fL RDW Coefficient of Variation 19.3 % Platelet Count 53 K/uL Mean Platelet Volume 10.7 fL Prothrombin Time 11.4 SECONDS Prothromb Time International Ratio 1.1 Sodium Level 142 mmol/L Potassium Level 3.5 mmol/L Chloride Level 108 mmol/L Carbon Dioxide Level 25 mmol/L Anion Gap 9.0 mmol/L Blood Urea Nitrogen 83 mg/dl Creatinine 1.80 mg/dl Est Creatinine Clear Calc Drug Dose 18.6 ml/min Estimated GFR () 29.0 Estimated GFR (Non- 25.0 BUN/Creatinine Ratio 46.1 Random Glucose 90 mg/dl Calcium Level 6.8 mg/dl Phosphorus Level 3.2 mg/dl Magnesium Level 2.0 mg/dl Albumin 2.5 gm/dl Assessment & Plan Seems stable. Hemoglobin is 7.6. We transfuse with one unit of irradiated red cells. Platelet count is stable. No overt bleeding. Supportive care continues. Renal function seems to be continually improving.
--- NOTE | 2016-08-06 10:46 | Nephrology Progress Note ---
Nephrology Progress Note Date of Service Aug 06, 2016. Chief Complaint Follow up evaluation of this patient w/ SANDER Subjective Mrs. Kelly was seen & examined in her hospital room this morning. Her daughter Alicia was present at the time of my evaluation. The patient complains of nausea. She has been able to keep down her breakfast. She currently denies abdominal pain, fever, angina or dyspnea. She denies diarrhea. Alicia is investigating [facility] for her parents following discharge from the hospital. Review of Systems Constitutional: No fever Cardiovascular: No chest pain Respiratory: No dyspnea at rest Abdomen: + nausea, No pain, No vomiting Genitourinary - Female: No dysuria Extremities: No leg edema A complete review of systems was performed. Pertinent positives are noted above. All other systems are negative. Vital Signs Last 8 Hrs Date Time Temp Pulse Resp B/P Pulse Ox O2 Delivery O2 Flow Rate FiO2 08/06/16 08:00 99 Nasal Cannula 2.0 08/06/16 07:00 37.4 83 16 111/71 99 Nasal Cannula 2.0 08/06/16 04:27 36.9 80 20 110/69 100 Nasal Cannula 2.0 08/06/16 04:19 Nasal Cannula 2.0 I & O 24-Hour Column 08/06/16 08:00 Intake Total 660 ml Output Total 475 ml Balance 185 ml Last Recorded Weight Weight (Kilograms): 54.800 Physical Exam General Appearance: no apparent distress Head: normocephalic, atraumatic Eyes: PERRL, EOMI Neck: no adenopathy Respiratory/Chest: lungs clear, no respiratory distress Cardiovascular: regular rate, rhythm, no murmur Abdomen/GI: normal bowel sounds, non tender, soft Extremities/Musculoskelatal: no calf tenderness, no pedal edema Neurologic/Psych: alert, oriented x 3 Family History FH: heart disease Social History Smokeless Tobacco Use: No Alcohol Use: none Drug Use: none Marital Status: Housing Status: lives with family Occupation: retired Laboratory Results Past 24 Hours 08/06/16 06:07 08/06/16 06:07 Test 08/06/16 06:07 Red Blood Count 2.27 M/uL (4.2-5.4) Mean Corpuscular Volume 100.9 fL (80-100) Mean Corpuscular Hemoglobin 33.5 pg (25-34) Mean Corpuscular Hemoglobin Concent 33.2 g/dl (32-36) RDW Standard Deviation 71.4 fL (36.4-46.3) RDW Coefficient of Variation 19.3 % (11.5-14.5) Mean Platelet Volume 10.7 fL (7.4-10.4) Prothrombin Time 11.4 SECONDS (9.0-12.0) Prothromb Time International Ratio 1.1 (0.9-1.1) Anion Gap 9.0 mmol/L (3-11) Est Creatinine Clear Calc Drug Dose 18.6 ml/min Estimated GFR () 29.0 Estimated GFR (Non- 25.0 BUN/Creatinine Ratio 46.1 (10-20) Calcium Level 6.8 mg/dl (8.5-10.1) Phosphorus Level 3.2 mg/dl (2.5-4.9) Magnesium Level 2.0 mg/dl (1.8-2.4) Albumin 2.5 gm/dl (3.4-5.0) Allergies Coded Allergies: Sulfa Antibiotics (Verified Allergy, Unknown, RASH, 07/29/16) Medications Current Inpatient Medications Medications (Trade) Dose Ordered Sig/Willy Route Start Time Stop Time Status Last Admin Dose Admin Acetaminophen (Tylenol Tab) 650 mg Q4H PRN PO 07/29/16 20:15 08/28/16 20:14 Zolpidem Tartrate (Ambien Tab) 5 mg HSZ PRN PO 07/29/16 20:15 08/28/16 20:14 Ondansetron HCl (Zofran Inj) 4 mg Q6H PRN IV 07/29/16 20:15 08/28/16 20:14 08/06/16 06:18 4 MG Metoprolol Succinate (Toprol Xl Tab) 50 mg QAM PO 07/30/16 09:00 08/29/16 08:59 08/06/16 09:05 50 MG Ipratropium [place] (Atrovent 0.02% 0.5MG/2.5ML Neb) 0.5 mg Q2H PRN INH 07/29/16 21:00 08/28/16 20:59 Levalbuterol (Xopenex 1.25MG/ 0.5ML Neb) 1.25 mg Q2H PRN INH 07/29/16 21:00 08/28/16 20:59 Pantoprazole Sodium 40 mg 40 mg QAM PO 08/01/16 09:00 08/31/16 08:59 08/05/16 08:07 40 MG Bumetanide/ Dextrose (Bumex IV/D5 50ml) 50 ml @ 10 mls/hr Q5H IV 07/31/16 19:45 08/30/16 19:44 Future Hold 08/01/16 11:20 10 MLS/HR Docusate Sodium 100 mg 100 mg BID PO 08/01/16 21:00 08/31/16 20:59 Future Hold 08/02/16 07:47 100 MG Ceftriaxone Sodium 1 gm/ Dextrose 50 ml @ 100 mls/hr DAILY@1600 IV 08/03/16 16:00 08/07/16 15:59 08/05/16 16:01 100 MLS/HR Clindamycin Phosphate/Dextrose (Cleocin Iv/ Dextrose Add-[place] 50ML) 54 ml @ 100 mls/hr Q8@0200,1000,1800 IV 08/03/16 18:00 08/10/16 17:59 08/06/16 10:26 100 MLS/HR Saccharomyces Boulardii (Florastor Cap) 250 mg DAILY PO 08/04/16 09:00 09/03/16 08:59 08/05/16 08:07 250 MG Enteral Nutritional Formula (Boost) 1 can Q12H PO 08/05/16 19:30 09/04/16 19:29 08/06/16 09:05 1 CAN Simethicone (Mylicon Chew Tab) 80 mg Q6H PRN PO 08/05/16 18:00 09/04/16 17:59 08/05/16 20:03 80 MG Heparin Sodium (Porcine) (Heparin 10 Unit/ ml 5 ml Flush) 5 ml PRN PRN FLUSH 08/06/16 01:30 09/05/16 01:29 08/06/16 05:21 5 ML Impression (1) Acute renal insufficiency (2) Multiple myeloma (3) Acute systolic CHF (congestive heart failure) (4) Diastolic dysfunction (5) Hypertension (6) Anemia (7) Bilateral pleural effusion Mrs. Kelly is an 86-year-old female w/ multiple myeloma (IgG kappa), systolic and diastolic CHF, HTN and SANDER. Creatinine at baseline was ~ 1 mg/dL. Creatinine peaked at 4.9 mg/dL w/ oliguria. Patient is now in recovery phase of SANDER Decadron started 08/01/16. Velcade given on 08/03/16. Mrs. Kelly was hypercalcemic on admission. Calcium improved with a dose of pamidronate. Thoracentesis 07/30/16 w/ 1.2 L volume removal. Pleural culture + for staph. Blood cultures were negative SANDER is multifactorial. 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 This appears to be responding to treatment. SANDER may be associated with hemodynamic changes from cardiorenal syndrome associated with LV systolic and diastolic dysfunction. TTE had documented severely reduced LVEF with regional wall motion abnormalities as well as elevated PA/RA pressures. There is also a likely component of ATN likely related to CTA prior to admission. Pamidronate while less likely, may contribute to renal insufficiency. Given the multiple medical comorbidities including cardiac disease and multiple myeloma, Suha is a very poor candidate for dialysis. There is no indication for renal replacement therapy currently. Renal US showed normal kidney size and there is no evidence of obstruction. UA/ micro notable for PCR 0.8 and positive for microscopic hematuria and pyuria Recommendations SANDER: -- Recovery phase. Patient is nonoliguric. Serum creatinine has dropped to 1.8 (baseline 1.0) -- Azotemia due to SANDER and steroid therapy. BUN is trending down -- Serum potassium has been corrected MYELOMA: -- Decadron induction completed 08/04/16 -- Velcade weekly started 08/03/16 -- Continued treatment to be arranged in the hematology clinic by Dr. Rothman / [place] CARDIOMYOPATHY: -- PPM -- Avoid LUIS CARLOS/ARB in setting of SANDER PLEURAL EFFUSION: -- Initial culture positive for Staph -- Attributed at least in part to Myeloma and hypoalbuminemia -- Therapeutic thoracentesis planned PRN by Pulmonology GI: -- Has PPI prescribed
[2016-08-06] MEDS: CEFTRIAXONE SOD INJ 1 GM in DEXTROSE 5% ADD-VANTAGE 50ML 50 ML IV SCH (16:39)
--- NOTE | 2016-08-06 17:41 | Family Medicine Progress Note ---
Progress Note Date of Service Aug 06, 2016. Subjective Pt evaluation today including: conversation w/ patient, physical exam, chart review, lab review, review of studies Pain: No pain reported this morning Voiding: no voiding problems, no incontinence Patient is resting comfortably in bed this morning with no acute complaints. Patient had no appetite this morning and did not eat breakfast. Yesterday she was seen by physical therapy but was quite weak and had a difficult time moving around the room. This morning she was able to get out of bed and move into the bedside chair. She also complains of chills this morning. Constitutional: + chills, No fever, No sweats Respiratory: No cough, No sputum, No wheezing Cardiovascular: No chest pain, No palpitations Abdomen: No constipation, No diarrhea, No nausea, No pain, No vomiting Female : No dysuria Medications Current Inpatient Medications Medications (Trade) Dose Ordered Sig/Willy Route Start Time Stop Time Status Last Admin Dose Admin Acetaminophen (Tylenol Tab) 650 mg Q4H PRN PO 07/29/16 20:15 08/28/16 20:14 Zolpidem Tartrate (Ambien Tab) 5 mg HSZ PRN PO 07/29/16 20:15 08/28/16 20:14 Ondansetron HCl (Zofran Inj) 4 mg Q6H PRN IV 07/29/16 20:15 08/28/16 20:14 08/06/16 06:18 4 MG Metoprolol Succinate (Toprol Xl Tab) 50 mg QAM PO 07/30/16 09:00 08/29/16 08:59 08/06/16 09:05 50 MG Ipratropium [place] (Atrovent 0.02% 0.5MG/2.5ML Neb) 0.5 mg Q2H PRN INH 07/29/16 21:00 08/28/16 20:59 Levalbuterol (Xopenex 1.25MG/ 0.5ML Neb) 1.25 mg Q2H PRN INH 07/29/16 21:00 08/28/16 20:59 Pantoprazole Sodium 40 mg 40 mg QAM PO 08/01/16 09:00 08/31/16 08:59 08/05/16 08:07 40 MG Bumetanide/ Dextrose (Bumex IV/D5 50ml) 50 ml @ 10 mls/hr Q5H IV 07/31/16 19:45 08/30/16 19:44 Future Hold 08/01/16 11:20 10 MLS/HR Docusate Sodium 100 mg 100 mg BID PO 08/01/16 21:00 08/31/16 20:59 Future Hold 08/02/16 07:47 100 MG Ceftriaxone Sodium 1 gm/ Dextrose 50 ml @ 100 mls/hr DAILY@1600 IV 08/03/16 16:00 08/07/16 15:59 08/06/16 16:39 100 MLS/HR Clindamycin Phosphate/Dextrose (Cleocin Iv/ Dextrose Add-[place] 50ML) 54 ml @ 100 mls/hr Q8@0200,1000,1800 IV 08/03/16 18:00 08/10/16 17:59 08/06/16 10:26 100 MLS/HR Saccharomyces Boulardii (Florastor Cap) 250 mg DAILY PO 08/04/16 09:00 09/03/16 08:59 08/05/16 08:07 250 MG Enteral Nutritional Formula (Boost) 1 can Q12H PO 08/05/16 19:30 09/04/16 19:29 08/06/16 09:05 1 CAN Simethicone (Mylicon Chew Tab) 80 mg Q6H PRN PO 08/05/16 18:00 09/04/16 17:59 08/05/16 20:03 80 MG Heparin Sodium (Porcine) (Heparin 10 Unit/ ml 5 ml Flush) 5 ml PRN PRN FLUSH 08/06/16 01:30 09/05/16 01:29 08/06/16 05:21 5 ML Objective Vital Signs Date Time Temp Pulse Resp B/P Pulse Ox O2 Delivery O2 Flow Rate FiO2 08/06/16 15:10 37.3 81 18 113/77 97 08/06/16 14:06 36.3 83 18 107/67 100 2.0 08/06/16 13:17 36.6 83 18 96/61 100 2.0 08/06/16 12:40 36.7 74 18 118/67 100 2.0 08/06/16 12:25 36.7 71 18 117/67 98 2.0 08/06/16 12:10 36.8 77 20 108/70 100 08/06/16 12:10 36.7 76 18 112/67 08/06/16 12:00 97 Nasal Cannula 2.0 08/06/16 08:00 99 Nasal Cannula 2.0 08/06/16 07:00 37.4 83 16 111/71 99 Nasal Cannula 2.0 08/06/16 04:27 36.9 80 20 110/69 100 Nasal Cannula 2.0 08/06/16 04:19 Nasal Cannula 2.0 08/06/16 02:04 Nasal Cannula 2.0 08/05/16 23:58 36.5 88 20 96/60 98 Nasal Cannula 2.0 08/05/16 20:00 Nasal Cannula 2.0 08/05/16 19:44 36.9 81 18 89/60 100 Nasal Cannula 2.0 08/05/16 19:21 104/58 Physical Exam General Appearance: WD/WN, no apparent distress, + thin Eyes: normal inspection, sclerae normal Neck: supple, no carotid bruits, trachea midline Respiratory/Chest: no respiratory distress, no accessory muscle use, + decreased breath sounds Cardiovascular: regular rate, rhythm, no gallop, no murmur Abdomen: normal bowel sounds, non tender, soft Extremities: no pedal edema, no calf tenderness Neurologic/Psychiatric: alert, normal mood/affect, oriented x 3 Laboratory Results Results Past 24 Hours Test 08/06/16 06:07 Range/Units White Blood Count 5.14 4.8-10.8 K/uL Red Blood Count 2.27 4.2-5.4 M/uL Hemoglobin 7.6 12.0-16.0 g/dL Hematocrit 22.9 37-47 % Mean Corpuscular Volume 100.9 80-100 fL Mean Corpuscular Hemoglobin 33.5 25-34 pg Mean Corpuscular Hemoglobin Concent 33.2 32-36 g/dl RDW Standard Deviation 71.4 36.4-46.3 fL RDW Coefficient of Variation 19.3 11.5-14.5 % Platelet Count 53 130-400 K/uL Mean Platelet Volume 10.7 7.4-10.4 fL Prothrombin Time 11.4 9.0-12.0 SECONDS Prothromb Time International Ratio 1.1 0.9-1.1 Sodium Level 142 136-145 mmol/L Potassium Level 3.5 3.5-5.1 mmol/L Chloride Level 108 98-107 mmol/L Carbon Dioxide Level 25 21-32 mmol/L Anion Gap 9.0 3-11 mmol/L Blood Urea Nitrogen 83 7-18 mg/dl Creatinine 1.80 0.60-1.20 mg/dl Est Creatinine Clear Calc Drug Dose 18.6 ml/min Estimated GFR () 29.0 Estimated GFR (Non- 25.0 BUN/Creatinine Ratio 46.1 10-20 Random Glucose 90 70-99 mg/dl Calcium Level 6.8 8.5-10.1 mg/dl Phosphorus Level 3.2 2.5-4.9 mg/dl Magnesium Level 2.0 1.8-2.4 mg/dl Albumin 2.5 3.4-5.0 gm/dl Assessment and Plan Patient is an 86 year old recently diagnosed in June with Multiple Myeloma that presented with shortness of breath and was found to have bilateral pleural effusions. She was taken for thoracocentesis three times so far during her admission, repeatedly having her pleural effusion recur. 1) Acute Respiratory Failure 2/2 Bilateral Pleural Effusions - Taken for thoracocentesis on 07/30, 07/31, and 08/04 - CXR on 08/05 shows worsening L side effusion - Pulmonary Consult recommendations - 10 day course of Ceftriaxone and Clindamycin (Pleural fluid pH 7.19 and found to be exudative, unable to place chest tube so will attempt abx) - PICC line placement - Pleural fluid pathology pending from most recent thoracocentesis - initial fluid cytology revealed MM cells - MRSA negative 2) Acute Renal failure - Continued improvement - Creatinine of 1.8 today - Urine output only 200ml yesterday, continue to monitor -> 2/2 to decreased intake? - 2/2 to Multiple myeloma / Cardiorenal syndrome? - Completed 4 days of Decadron treatment - Renal US 07/31: No hydronephrosis. Echogenic kidneys consistent with medical renal disease. - KUB 07/31: - Markedly delayed bilateral nephrograms which suggests acute renal injury/ tubular necrosis. - Lytic foci within visualized skeletal structures which suggests multiple myeloma or metastatic disease. - Holding lisinopril, indapamide, and furosemide - Daily BMP - Nephrology following 3) Hypotension - Holding Bumex - Blood Pressure improving (111/71) 4) Multiple Myeloma - Oncology following - Velcade treatment once per week 5) Anemia / Thrombocytopenia - Anemia Secondary to Multiple Myeloma + GI Losses - Hgb 7.6 this morning - 1 unit of irradiated blood transfused this morning - Iron Studies - Anemia of chronic disease - Hemoccult positive - Colonoscopy 2009 - diverticular disease with no evident bleeds - Thrombocytopenia Secondary to Consumptive Process vs Velcade - Found to have elevated PTT with acquired factor deficiency possibly attributing to further consumption of platelets 6) Hyperphosphatemia - Improved - 3.2 7) Hypokalemia - Replaced - 3.5 8) Elevated PTT - Improving - Mixing studies indicate an acquired factor deficiency - Heme/Onc recommendations appreciated 9) Abdominal Cramping - Resolved - 07/31 KUB: No SBO - C Diff stool toxin negative - Probiotic supplementation 10) Acute Systolic Heart Failure - ECHO: EF 20-25% - Metoprolol Succinate 50mg QAM - D/C'd ACEi d/t SANDER - Pleural effusions 2/2 MM not CHF - Complete heart block s/p Pacemaker Placment 11) Elevated Troponin - Stable - Peak 0.131 - Asymptomatic 12) Malnutrition - Decreased appetite today - Discuss Zofran/Phenergan vs Megace - Boost ID - Encourage PO intake 13) HTN - Metoprolol - Hold other medications 14) Hypercalcemia - 2/2 Multiple Myeloma - Calcium borderline low with corection - Pamidronate 60mg IV - Calcium Carbonate supplementation 500mg daily 15) DVT Prophylaxis - Heparin on hold d/t elevated PTT - Continue to follow coagulation factors, PTT, and Platelets - SCDs 16) PT/OT - PT eval pending - OT recommends rehab on discharge 17) Code Status - Full Resuscitation Reviewed: Pt Seen/Exam by Me History Resident Physician Supervision Note: I interviewed and examined the patient. Discussed with Dr. Arnold and agree with findings and plan as documented in the note. Any exceptions or clarifications are listed here: Feeling low appetite today. Hemoglobin was down and is currently receiving PRBC transfusion. Vitals reviewed No acute distress, thin, sitting up in bed Regular rhythm, reg rate, no murmurs gallops or rubs Clear to auscultation bilaterally, no wheezes crackles or rales, except decreased lung sounds at the bases bilaterally however this is improved from previous on the right side Positive bowel sounds, soft, no tenderness to palpation Extremities-trace pitting edema bilaterally to the knees This patient is an 86-year-old female with acute systolic CHF, multiple myeloma , acute kidney injury likely secondary to multiple myeloma vs ATN, cardiorenal syndrome, or combination of those, here with bilateral large malignant pleural effusions status post thoracentesis. Her creatinine continues to decrease after starting Decadron and Velcade for treatment of her multiple myeloma. Continue to follow renal function. Albumin and lasix as above for improved UOP when necessary. CHF with EF of 20-25%-unclear etiology. Could be related to the malignancy and that her pleural effusions are not necessarily all from her CHF. Diuresis has been difficult due to hypotension and had to stop Bumex drip. No diuresis needed at this time. Growing coag-negative staph out of her previous pleural fluid which is likely a contaminant. However with pH of pleural fluid less than 7.2, must be considered to be an empyema as per pulmonary. Will need 10 days of IV ceftriaxone and clindamycin to treat for empyema as chest tube is contraindicated at this time as per pulmonary due to risk of dehydration and hypoalbuminemia. -Continue beta candie, not able to add LUIS CARLOS inhibitor for heart failure at this time due to acute kidney injury -Continue to Follow chest x-ray to see if the effusions reaccumulate requiring repeated thoracenteses-appreciate pulmonary management--> for tap as needed for comfort at this point . We'll check chest x-ray for worsening effusions otherwise early next week -started bortezomib for MM which will be once weekly, will need outpatient follow-up with oncology -Watch platelets dropping and transfuse if less than 10,000 or if has evidence of bleeding -Watch hemoglobin and transfuse to keep hemoglobin greater than 7-8 -Oncology would like patient to stay until next treatment of Velcade next Monday and then plan to discharge to SNF -Encourage by mouth intake and mobilization Documented By: Vaisahli Johnson
[2016-08-06] MEDS ORDERED: CALCIUM CARBONATE 500 MG CHEWABLE PO ONE (17:45)
[2016-08-07] VITALS (10 sets, daily range): BP systolic 110–132; BP diastolic 59–83; PULSE 74–86; TEMP 36.4–36.8; O2SAT 95–97
[2016-08-07] MEDS: CLINDAMYCIN IV 600 MG in DEXTROSE 5% ADD-VANTAGE 50ML 50 ML IV SCH ×3 (02:58→19:25)
[2016-08-07] MEDS: ONDANSETRON INJ 2 MG/ML 2 ML VIAL IV PRN (05:08)
[2016-08-07 06:53] LABS: HEMATOCRIT 28.4 % (37-47); MEAN CELL VOLUME 91.6 fL (80-100); MEAN CORPUSCULAR HGB CONC 33.8 g/dl (32-36); MEAN PLATELET VOLUME 11.2 fL (7.4-10.4); PLATELET COUNT 60 K/uL (130-400); WHITE BLOOD COUNT 6.06 K/uL (4.8-10.8)
[2016-08-07 07:01] LABS: BUN/CREATININE RATIO 42.9 (10-20); CALCIUM 6.8 mg/dl (8.5-10.1); CREATININE 1.2 mg/dl (0.60-1.20); MAGNESIUM 1.8 mg/dl (1.8-2.4); PHOSPHORUS 2.2 mg/dl (2.5-4.9); POTASSIUM 3.2 mmol/L (3.5-5.1)
[2016-08-07] MEDS ORDERED: POTASSIUM PHOS 3 MMOL/1 ML INFUSION IV ONE (07:30)
[2016-08-07] MEDS: BOOST VANILLA PO SCH ×4 (07:30→19:26)
[2016-08-07] MEDS ORDERED: MAGNESIUM SULFATE 1GM / D5W 1 GM in PREMIXED IN D5W 100 ML IV ONE (08:00)
[2016-08-07] MEDS: POTASSIUM CHLR 10 MEQ / WTR 10 MEQ in PREMIXED WATER 100 ML IV SCH ×4 (08:23→13:27)
[2016-08-07] MEDS: METOPROLOL SUCC 50MG EXT REL TAB PO SCH (08:25)
[2016-08-07] MEDS: CALCIUM CARBONATE 500 MG CHEWABLE PO SCH (08:25)
[2016-08-07] MEDS: PANTOprazole SOD 40 MG TAB PO SCH (08:25)
[2016-08-07] MEDS: SACCHAROMYCES BOUL (FLORASTOR) 250 MG CAP PO SCH (09:00)
--- NOTE | 2016-08-07 09:28 | Hematology/Oncology Prog Note ---
Hematology/Onc Progress Note Date of Service Aug 07, 2016. Diagnoses Multiple myeloma Renal failure Medications Medications Administered Medications (Trade) Dose Ordered Sig/Willy Route Start Time Stop Time Status Last Admin Dose Admin Sodium Chloride 250 ml @ 999 mls/hr Q16M STAT IV 07/29/16 17:48 07/29/16 18:03 DC 07/29/16 17:48 999 MLS/HR Sodium Chloride (Nss 1000ml) 1,000 ml @ 125 mls/hr Q8H STAT IV 07/29/16 17:48 07/29/16 21:37 DC 07/29/16 17:48 125 MLS/HR Ondansetron HCl (Zofran Inj) 4 mg Q6H PRN IV 07/29/16 20:15 08/28/16 20:14 08/07/16 05:08 4 MG Metoprolol Succinate 50 mg 50 mg QAM PO 07/30/16 09:00 08/29/16 08:59 08/07/16 08:25 50 MG Furosemide 40 mg/ Albumin Human 54 ml @ 54 mls/hr ONE ONCE IV 07/29/16 22:00 07/29/16 22:59 DC 07/29/16 22:21 54 MLS/HR Pamidronate Disodium 60 mg/ Sodium Chloride 1,020 ml @ 250 mls/hr Q4H5M IV 07/29/16 22:00 07/30/16 02:04 DC 07/29/16 22:19 250 MLS/HR Sodium Chloride 1,000 ml @ 150 mls/hr Q6H40M IV 07/30/16 04:00 07/30/16 17:07 DC 07/30/16 14:48 150 MLS/HR Sodium Chloride (Nss 500ml) 500 ml @ 500 mls/hr NOW STAT IV 07/30/16 05:30 07/30/16 06:29 DC 07/30/16 05:40 500 MLS/HR Aspirin (Ecotrin Tab) 81 mg QAM PO 07/31/16 09:00 08/03/16 16:02 DC 08/03/16 08:34 81 MG Heparin Sodium (Porcine) 5000 unit 5,000 unit Q12 SQ 07/30/16 21:00 08/03/16 16:02 DC 08/01/16 08:34 5,000 UNIT Furosemide 40 mg/ Albumin Human 54 ml @ 54 mls/hr NOW STAT IV 07/31/16 04:09 07/31/16 05:08 DC 07/31/16 04:24 54 MLS/HR Furosemide 80 mg/ Syringe 8 ml @ 4 mls/min 1200 ONCE IV 07/31/16 12:00 07/31/16 12:01 DC 07/31/16 11:59 4 MLS/MIN Ceftriaxone Sodium/Dextrose (Rocephin Inj/D5 50ml) 70 ml @ 100 mls/hr Q24H IV 07/31/16 13:00 08/02/16 19:30 DC 08/02/16 12:57 100 MLS/HR Pantoprazole Sodium (Protonix Tab) 40 mg QAM PO 08/01/16 09:00 08/31/16 08:59 08/07/16 08:25 40 MG Pantoprazole Sodium 40 mg 40 mg NOW STAT PO 07/31/16 12:44 07/31/16 12:53 DC 07/31/16 14:42 40 MG Bumetanide/ Dextrose (Bumex IV/D5 50ml) 50 ml @ 10 mls/hr Q5H IV 07/31/16 19:45 08/30/16 19:44 Future Hold 08/01/16 11:20 10 MLS/HR Dicyclomine HCl (Bentyl Tab) 20 mg NOW ONCE PO 08/01/16 12:30 08/01/16 12:31 DC 08/01/16 12:49 20 MG Docusate Sodium (coLACE CAP) 100 mg BID PO 08/01/16 21:00 08/31/16 20:59 Future Hold 08/02/16 07:47 100 MG Dexamethasone 20 mg 20 mg DAILY PO 08/02/16 09:00 08/03/16 23:59 DC 08/03/16 08:34 20 MG Sodium Chloride (Nss 250ml) 250 ml @ 999 mls/hr Q16M ONCE IV 08/01/16 15:45 08/01/16 16:00 DC 08/01/16 16:09 999 MLS/HR Dexamethasone 20 mg 20 mg NOW ONCE PO 08/01/16 15:45 08/01/16 15:50 DC 08/01/16 16:14 20 MG Sodium Chloride (Nss 250ml) 250 ml @ 999 mls/hr Q16M ONCE IV 08/01/16 17:00 08/01/16 17:16 DC 08/01/16 16:58 999 MLS/HR Albumin Human 12.5 gm 12.5 gm ONE ONCE IV 08/01/16 17:15 08/01/16 17:18 DC 08/01/16 17:36 12.5 GM Bortezomib/Syringe (Velcade INJ/ Syringe) 0.8 ml @ 2,880 mls/hr TODAY@1130 ONCE SQ 08/03/16 11:30 08/03/16 11:31 DC 08/03/16 11:51 2,880 MLS/HR Ondansetron HCl 8 mg 8 mg STK-MED ONCE .ROUTE 08/03/16 11:01 08/03/16 11:02 DC 08/03/16 10:58 8 MG Ceftriaxone Sodium 1 gm/ Dextrose 50 ml @ 100 mls/hr DAILY@1600 IV 08/03/16 16:00 08/07/16 15:59 08/06/16 16:39 100 MLS/HR Furosemide 40 mg/ Albumin Human 54 ml @ 54 mls/hr 1630 ONCE IV 08/03/16 16:30 08/03/16 17:29 DC 08/03/16 16:30 54 MLS/HR Clindamycin Phosphate/Dextrose (Cleocin Iv/ Dextrose Add-[place] 50ML) 54 ml @ 100 mls/hr Q8@0200,1000,1800 IV 08/03/16 18:00 08/10/16 17:59 08/07/16 02:58 100 MLS/HR Saccharomyces Boulardii 250 mg 250 mg DAILY PO 08/04/16 09:00 09/03/16 08:59 08/05/16 08:07 250 MG Potassium Chloride/Prmx (Kcl 10 Meq / Wtr/Premixed Water) 100 ml @ 100 mls/hr Q1H IV 08/05/16 08:00 08/05/16 09:59 DC 08/05/16 11:46 100 MLS/HR Enteral Nutritional Formula (Boost) 1 can TID PO 08/05/16 14:00 08/05/16 14:29 DC 08/05/16 14:13 1 CAN Enteral Nutritional Formula (Boost) 1 can Q12H PO 08/05/16 19:30 09/04/16 19:29 08/06/16 09:05 1 CAN Simethicone (Mylicon Chew Tab) 80 mg Q6H PRN PO 08/05/16 18:00 09/04/16 17:59 08/05/16 20:03 80 MG Heparin Sodium (Porcine) (Heparin 10 Unit/ ml 5 ml Flush) 5 ml PRN PRN FLUSH 08/06/16 01:30 09/05/16 01:29 08/07/16 05:29 5 ML Calcium Carbonate (Tums Chew Tab) 500 mg DAILY PO 08/07/16 09:00 09/06/16 08:59 08/07/16 08:25 500 MG Calcium Carbonate 500 mg 500 mg 1745 ONCE PO 08/06/16 17:45 08/06/16 17:46 DC 08/06/16 17:57 500 MG Potassium Chloride 10 meq/ Prmx 100 ml @ 100 mls/hr Q1H IV 08/07/16 09:00 08/07/16 12:59 08/07/16 08:23 100 MLS/HR Magnesium Sulfate/ Prmx (Magnesium Sulfate/Premixed D5W) 100 ml @ 100 mls/hr NOW ONCE IV 08/07/16 08:00 08/07/16 08:59 DC 08/07/16 08:24 100 MLS/HR Subjective Continues to appear very comfortable. Pain is not an issue. Renal function with creatinine is now 1.2. CBC is stable. Platelet count of 60,000 Review of Systems: Constitutional: Negative for night sweats, or fever Eyes: Negative for event change of vision ENT: Negative for epistaxis, nasal discharge, sore throat, or deafness Cardiovascular: Negative for chest pain, palpitations, dizziness, diaphoresis Respiratory: Negative for new shortness of breath,hemoptysis, or purulent cough Gastrointestinal: Negative for diarrhea, hematemesis, melena, nausea, vomiting , or dyspepsia Integumentary (skin): Negative for rash or jaundice discoloration Neurological: Negative for weakness, seizure activity, headache, or dizziness Lymphatic/Hematologic: Negative for petechiae, bleeding or new adenopathy Musculoskeletal: Negative for new joint or back pain Allergic/Immunologic: Negative for unusual rash or pruritis. Vital Signs Vital Signs Past 12 Hours Date Time Temp Pulse Resp B/P Pulse Ox O2 Delivery O2 Flow Rate FiO2 08/07/16 07:34 36.4 79 16 132/74 97 Room Air 08/07/16 04:51 Room Air 08/07/16 04:00 36.6 78 18 116/74 95 Room Air 08/07/16 00:14 36.4 80 18 114/69 95 Room Air 08/07/16 00:04 Room Air Physical Exam Constitutional: vitals are stable. Eyes: Eyes are RAMAKRISHNA EOMI without conjuctival erythema or icterus. ENT: External examination was negative for masses. Neck: Negative for masses or palpable thyromegaly Respiratory: Lung sounds were generally clear bilaterally Cardiovascular: Heart was RRR without significant murmur, gallops or rubs Gastrointestinal: No palpable hepatic or splenomegaly. The abdomen was soft with normal bowel sounds. Lymphatic system: there was no palpable peripheral lymphadenopathy Musculoskeletal System: The musculoskeletal system seemed concordant with age. Skin: The skin was negative for jaundice. Neurologic exam: The exam was negative for any focal findings. Deep tendon reflexes were equal and symmetrical. Psychiatric exam: Was essentially negative with normal mood and effect. Extremities: Negative for edema Constitutional: General Apperance: too thin Level of Distress: chronically ill (frail-appearing and weak) Ambulation: in wheelchair Psychiatric: Mental Status: active & alert Orientation: oriented except where noted Lungs: Auscuitation: deminished air movement (in lower rider bilaterally, R>L) Cardiovascular: Heart Auscultation: RRR Abdomen: Inspection & Palpation: soft, non-distended, no tenderness, guarding & rebound Extremities: no edema Laboratory Last 24 Hours Test 08/07/16 05:31 White Blood Count 6.06 K/uL Red Blood Count 3.10 M/uL Hemoglobin 9.6 g/dL Hematocrit 28.4 % Mean Corpuscular Volume 91.6 fL Mean Corpuscular Hemoglobin 31.0 pg Mean Corpuscular Hemoglobin Concent 33.8 g/dl Platelet Count 60 K/uL Mean Platelet Volume 11.2 fL Sodium Level 145 mmol/L Potassium Level 3.2 mmol/L Chloride Level 110 mmol/L Carbon Dioxide Level 26 mmol/L Anion Gap 9.0 mmol/L Blood Urea Nitrogen 52 mg/dl Creatinine 1.20 mg/dl Est Creatinine Clear Calc Drug Dose 27.8 ml/min Estimated GFR () 47.4 Estimated GFR (Non- 40.9 BUN/Creatinine Ratio 42.9 Random Glucose 81 mg/dl Calcium Level 6.8 mg/dl Phosphorus Level 2.2 mg/dl Magnesium Level 1.8 mg/dl Albumin 2.5 gm/dl Assessment & Plan Seems quite stable. Hemoglobin 9.6 posttransfusion. Platelet count 60,000. Focus should now be on rehabilitation with physical therapy. Next dose of Velcade at 1.3 mg meter squared will be on Monday along with a dose of Decadron (20 mg orally)
--- NOTE | 2016-08-07 10:29 | Nephrology Progress Note ---
Nephrology Progress Note Date of Service Aug 07, 2016. Chief Complaint Follow up evaluation of this patient w/ SANDER Subjective Mrs. Kelly was seen & examined this morning. She is subjectively improved. Her RN & daughter helped her into a wheel chair this morning and took her around the halls to get her out of the room. Mrs. Kelly reports that her nausea is improved. She currently denies abdominal pain, fever, angina or dyspnea. She denies diarrhea. Alicia is investigating [facility] for her parents following discharge from the hospital. Review of Systems Constitutional: No fever Cardiovascular: No chest pain Respiratory: No dyspnea at rest Abdomen: No nausea, No pain, No vomiting Genitourinary - Female: No dysuria Extremities: No leg edema A complete review of systems was performed. Pertinent positives are noted above. All other systems are negative. Vital Signs Last 8 Hrs Date Time Temp Pulse Resp B/P Pulse Ox O2 Delivery O2 Flow Rate FiO2 08/07/16 07:34 36.4 79 16 132/74 97 Room Air 08/07/16 04:51 Room Air 08/07/16 04:00 36.6 78 18 116/74 95 Room Air I & O 24-Hour Column 08/07/16 08:00 Intake Total 1045 ml Output Total 1475 ml Balance -430 ml Last Recorded Weight Weight (Kilograms): 55.300 Physical Exam General Appearance: no apparent distress Head: normocephalic, atraumatic Eyes: PERRL, EOMI ENT: pharynx normal Neck: no adenopathy Respiratory/Chest: lungs clear, no respiratory distress Cardiovascular: regular rate, rhythm Abdomen/GI: normal bowel sounds, non tender, soft Extremities/Musculoskelatal: no calf tenderness, no pedal edema Neurologic/Psych: alert, oriented x 3 Family History FH: heart disease Social History Smokeless Tobacco Use: No Alcohol Use: none Drug Use: none Marital Status: Housing Status: lives with family Occupation: retired Laboratory Results Past 24 Hours 08/07/16 05:31 08/07/16 05:31 Test 08/07/16 05:31 Red Blood Count 3.10 M/uL (4.2-5.4) Mean Corpuscular Volume 91.6 fL (80-100) Mean Corpuscular Hemoglobin 31.0 pg (25-34) Mean Corpuscular Hemoglobin Concent 33.8 g/dl (32-36) Mean Platelet Volume 11.2 fL (7.4-10.4) Anion Gap 9.0 mmol/L (3-11) Est Creatinine Clear Calc Drug Dose 27.8 ml/min Estimated GFR () 47.4 Estimated GFR (Non- 40.9 BUN/Creatinine Ratio 42.9 (10-20) Calcium Level 6.8 mg/dl (8.5-10.1) Phosphorus Level 2.2 mg/dl (2.5-4.9) Magnesium Level 1.8 mg/dl (1.8-2.4) Albumin 2.5 gm/dl (3.4-5.0) Allergies Coded Allergies: Sulfa Antibiotics (Verified Allergy, Unknown, RASH, 07/29/16) Medications Current Inpatient Medications Medications (Trade) Dose Ordered Sig/Willy Route Start Time Stop Time Status Last Admin Dose Admin Acetaminophen (Tylenol Tab) 650 mg Q4H PRN PO 07/29/16 20:15 08/28/16 20:14 Zolpidem Tartrate (Ambien Tab) 5 mg HSZ PRN PO 07/29/16 20:15 08/28/16 20:14 Ondansetron HCl (Zofran Inj) 4 mg Q6H PRN IV 07/29/16 20:15 08/28/16 20:14 08/07/16 05:08 4 MG Metoprolol Succinate (Toprol Xl Tab) 50 mg QAM PO 07/30/16 09:00 08/29/16 08:59 08/07/16 08:25 50 MG Ipratropium [place] (Atrovent 0.02% 0.5MG/2.5ML Neb) 0.5 mg Q2H PRN INH 07/29/16 21:00 08/28/16 20:59 Levalbuterol (Xopenex 1.25MG/ 0.5ML Neb) 1.25 mg Q2H PRN INH 07/29/16 21:00 08/28/16 20:59 Pantoprazole Sodium 40 mg 40 mg QAM PO 08/01/16 09:00 08/31/16 08:59 08/07/16 08:25 40 MG Bumetanide/ Dextrose (Bumex IV/D5 50ml) 50 ml @ 10 mls/hr Q5H IV 07/31/16 19:45 08/30/16 19:44 Future Hold 08/01/16 11:20 10 MLS/HR Docusate Sodium 100 mg 100 mg BID PO 08/01/16 21:00 08/31/16 20:59 Future Hold 08/02/16 07:47 100 MG Ceftriaxone Sodium 1 gm/ Dextrose 50 ml @ 100 mls/hr DAILY@1600 IV 08/03/16 16:00 08/07/16 15:59 08/06/16 16:39 100 MLS/HR Clindamycin Phosphate/Dextrose (Cleocin Iv/ Dextrose Add-[place] 50ML) 54 ml @ 100 mls/hr Q8@0200,1000,1800 IV 08/03/16 18:00 08/10/16 17:59 08/07/16 09:36 100 MLS/HR Saccharomyces Boulardii (Florastor Cap) 250 mg DAILY PO 08/04/16 09:00 09/03/16 08:59 08/05/16 08:07 250 MG Enteral Nutritional Formula (Boost) 1 can Q12H PO 08/05/16 19:30 09/04/16 19:29 08/06/16 09:05 1 CAN Simethicone (Mylicon Chew Tab) 80 mg Q6H PRN PO 08/05/16 18:00 09/04/16 17:59 08/05/16 20:03 80 MG Heparin Sodium (Porcine) (Heparin 10 Unit/ ml 5 ml Flush) 5 ml PRN PRN FLUSH 08/06/16 01:30 09/05/16 01:29 08/07/16 05:29 5 ML Calcium Carbonate 500 mg 500 mg DAILY PO 08/07/16 09:00 09/06/16 08:59 08/07/16 08:25 500 MG Potassium Chloride 10 meq/ Prmx 100 ml @ 100 mls/hr Q1H IV 08/07/16 09:00 08/07/16 12:59 08/07/16 09:35 100 MLS/HR Potassium Phosphate/Sodium Chloride (Potassium Phosphate Inj/Nss 250ml) 255 ml @ 88 mls/hr TODAY@1300 IV 08/07/16 13:00 08/07/16 15:54 Impression (1) Acute renal insufficiency (2) Multiple myeloma (3) Acute systolic CHF (congestive heart failure) (4) Diastolic dysfunction (5) Hypertension (6) Anemia (7) Bilateral pleural effusion Mrs. Kelly is an 86-year-old female w/ multiple myeloma (IgG kappa), systolic and diastolic CHF, HTN and SANDER. Creatinine at baseline was ~ 1 mg/dL. Creatinine peaked at 4.9 mg/dL w/ oliguria. Patient is now in recovery phase of SANDER Decadron started 08/01/16. Velcade given on 08/03/16. Mrs. Kelly was hypercalcemic on admission. Calcium improved with a dose of pamidronate. Thoracentesis 07/30/16 w/ 1.2 L volume removal. Pleural culture + for staph. Blood cultures were negative SANDER is multifactorial. 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 This appears to be responding to treatment. SANDER may be associated with hemodynamic changes from cardiorenal syndrome associated with LV systolic and diastolic dysfunction. TTE had documented severely reduced LVEF with regional wall motion abnormalities as well as elevated PA/RA pressures. There is also a likely component of ATN likely related to CTA prior to admission. Pamidronate while less likely, may contribute to renal insufficiency. Given the multiple medical comorbidities including cardiac disease and multiple myeloma, Suha is a very poor candidate for dialysis. There is no indication for renal replacement therapy currently. Renal US showed normal kidney size and there is no evidence of obstruction. UA/ micro notable for PCR 0.8 and positive for microscopic hematuria and pyuria Recommendations SANDER: -- Kidney function has recovered. Azotemia has improved. Patient is nonoliguric. Recommend supplementing w/ KCl to keep serum potassium > 3.5. No further nephrology evaluation needed at this time. Will sign off. Please call if further nephrology assistance is needed. -- Recommend scheduling outpatient nephrology follow up in 1 week w/ Dr. Taqueria Maurer . I have provided the patient with a lab slip to have CBC & PRP drawn 1 - 2 days prior to her outpatient visit MYELOMA: -- Decadron induction completed 08/04/16 -- Velcade weekly started 08/03/16 -- Continued treatment to be arranged in the hematology clinic by Dr. Rothman / Shekhar CARDIOMYOPATHY: -- PPM PLEURAL EFFUSION: -- Initial culture positive for Staph -- Attributed at least in part to Myeloma and hypoalbuminemia -- Therapeutic thoracentesis planned PRN by Pulmonology GI: -- Has PPI prescribed
[2016-08-07] MEDS ORDERED: POTASSIUM PHOSPHATE INJ 15 MMOL in SODIUM CHLORIDE 0.9% 250ML 250 ML IV SCH (13:00)
--- NOTE | 2016-08-07 15:13 | Family Medicine Progress Note ---
Progress Note Date of Service Aug 07, 2016. Subjective Pt evaluation today including: conversation w/ patient, physical exam, chart review, lab review, review of studies Pain: No pain reported this morning Voiding: no voiding problems, no incontinence Patient is resting comfortably in the bedside chair this morning with no acute complaints overnight. She does not have much of an appetite but nausea is improved. She states she is very tired this morning but was able to walk down the hallway with the nurse this morning. Constitutional: No chills, No fever Respiratory: No cough, No shortness of breath Cardiovascular: No chest pain Abdomen: No nausea, No pain, No vomiting Female : No dysuria Endo: + fatigue Medications Current Inpatient Medications Medications (Trade) Dose Ordered Sig/Willy Route Start Time Stop Time Status Last Admin Dose Admin Acetaminophen (Tylenol Tab) 650 mg Q4H PRN PO 07/29/16 20:15 08/28/16 20:14 Zolpidem Tartrate (Ambien Tab) 5 mg HSZ PRN PO 07/29/16 20:15 08/28/16 20:14 Ondansetron HCl (Zofran Inj) 4 mg Q6H PRN IV 07/29/16 20:15 08/28/16 20:14 08/07/16 05:08 4 MG Metoprolol Succinate (Toprol Xl Tab) 50 mg QAM PO 07/30/16 09:00 08/29/16 08:59 08/07/16 08:25 50 MG Ipratropium [place] (Atrovent 0.02% 0.5MG/2.5ML Neb) 0.5 mg Q2H PRN INH 07/29/16 21:00 08/28/16 20:59 Levalbuterol (Xopenex 1.25MG/ 0.5ML Neb) 1.25 mg Q2H PRN INH 07/29/16 21:00 08/28/16 20:59 Pantoprazole Sodium 40 mg 40 mg QAM PO 08/01/16 09:00 08/31/16 08:59 08/07/16 08:25 40 MG Bumetanide/ Dextrose (Bumex IV/D5 50ml) 50 ml @ 10 mls/hr Q5H IV 07/31/16 19:45 08/30/16 19:44 Future Hold 08/01/16 11:20 10 MLS/HR Docusate Sodium 100 mg 100 mg BID PO 08/01/16 21:00 08/31/16 20:59 Future Hold 08/02/16 07:47 100 MG Ceftriaxone Sodium 1 gm/ Dextrose 50 ml @ 100 mls/hr DAILY@1600 IV 08/03/16 16:00 08/09/16 23:59 08/06/16 16:39 100 MLS/HR Clindamycin Phosphate/Dextrose (Cleocin Iv/ Dextrose Add-[place] 50ML) 54 ml @ 100 mls/hr Q8@0200,1000,1800 IV 08/03/16 18:00 08/13/16 17:59 08/07/16 09:36 100 MLS/HR Saccharomyces Boulardii (Florastor Cap) 250 mg DAILY PO 08/04/16 09:00 09/03/16 08:59 08/05/16 08:07 250 MG Enteral Nutritional Formula (Boost) 1 can Q12H PO 08/05/16 19:30 09/04/16 19:29 08/06/16 09:05 1 CAN Simethicone (Mylicon Chew Tab) 80 mg Q6H PRN PO 08/05/16 18:00 09/04/16 17:59 08/05/16 20:03 80 MG Heparin Sodium (Porcine) (Heparin 10 Unit/ ml 5 ml Flush) 5 ml PRN PRN FLUSH 08/06/16 01:30 09/05/16 01:29 08/07/16 05:29 5 ML Calcium Carbonate 500 mg 500 mg DAILY PO 08/07/16 09:00 09/06/16 08:59 08/07/16 08:25 500 MG Potassium Chloride 10 meq/ Prmx 100 ml @ 100 mls/hr Q1H IV 08/07/16 09:00 08/07/16 12:59 08/07/16 11:58 100 MLS/HR Potassium Phosphate/Sodium Chloride (Potassium Phosphate Inj/Nss 250ml) 255 ml @ 88 mls/hr TODAY@1300 IV 08/07/16 13:00 08/07/16 15:54 Objective Vital Signs Date Time Temp Pulse Resp B/P Pulse Ox O2 Delivery O2 Flow Rate FiO2 08/07/16 11:04 36.6 75 16 110/76 97 Room Air 08/07/16 08:00 97 Room Air 08/07/16 07:34 36.4 79 16 132/74 97 Room Air 08/07/16 04:51 Room Air 08/07/16 04:00 36.6 78 18 116/74 95 Room Air 08/07/16 00:14 36.4 80 18 114/69 95 Room Air 08/07/16 00:04 Room Air 08/06/16 20:19 96 Room Air 08/06/16 19:35 36.4 83 20 116/76 99 Room Air 08/06/16 16:00 98 Nasal Cannula 2.0 08/06/16 15:10 37.3 81 18 113/77 97 08/06/16 14:06 36.3 83 18 107/67 100 2.0 08/06/16 13:17 36.6 83 18 96/61 100 2.0 Physical Exam General Appearance: WD/WN, no apparent distress, + thin Neck: supple, no carotid bruits, trachea midline Respiratory/Chest: chest non-tender, + decreased breath sounds Cardiovascular: regular rate, rhythm, no edema, no gallop Abdomen: normal bowel sounds, non tender, soft Extremities: non-tender, no pedal edema, no calf tenderness Neurologic/Psychiatric: alert, normal mood/affect, oriented x 3 Laboratory Results Results Past 24 Hours Test 08/07/16 05:31 Range/Units White Blood Count 6.06 4.8-10.8 K/uL Red Blood Count 3.10 4.2-5.4 M/uL Hemoglobin 9.6 12.0-16.0 g/dL Hematocrit 28.4 37-47 % Mean Corpuscular Volume 91.6 80-100 fL Mean Corpuscular Hemoglobin 31.0 25-34 pg Mean Corpuscular Hemoglobin Concent 33.8 32-36 g/dl Platelet Count 60 130-400 K/uL Mean Platelet Volume 11.2 7.4-10.4 fL Sodium Level 145 136-145 mmol/L Potassium Level 3.2 3.5-5.1 mmol/L Chloride Level 110 98-107 mmol/L Carbon Dioxide Level 26 21-32 mmol/L Anion Gap 9.0 3-11 mmol/L Blood Urea Nitrogen 52 7-18 mg/dl Creatinine 1.20 0.60-1.20 mg/dl Est Creatinine Clear Calc Drug Dose 27.8 ml/min Estimated GFR () 47.4 Estimated GFR (Non- 40.9 BUN/Creatinine Ratio 42.9 10-20 Random Glucose 81 70-99 mg/dl Calcium Level 6.8 8.5-10.1 mg/dl Phosphorus Level 2.2 2.5-4.9 mg/dl Magnesium Level 1.8 1.8-2.4 mg/dl Albumin 2.5 3.4-5.0 gm/dl Assessment and Plan Patient is an 86 year old recently diagnosed in June with Multiple Myeloma that presented with shortness of breath and was found to have bilateral pleural effusions. She was taken for thoracocentesis three times so far during her admission, repeatedly having her pleural effusion recur. 1) Acute Respiratory Failure 2/2 Bilateral Pleural Effusions - Malignant Pleural Effusions 2/2 Multiple Myeloma confirmed with thoracocentesis path - Taken for thoracocentesis on 07/30, 07/31, and 08/04 - CXR on 08/05 shows worsening L side effusion - Repeat chest X Ray ordered for tomorrow - Pulmonary Consult recommendations - 10 day course of Ceftriaxone and Clindamycin (Pleural fluid pH 7.19 and found to be exudative, unable to place chest tube so will attempt abx) - Today is day 5/10 of antibiotic treatment - PICC line placement - Pleural fluid pathology - cytology has repeatedly revealed cells consistent MM cells - MRSA negative 2) Acute Renal failure - 2/2 to Multiple myeloma / Cardiorenal syndrome? - Continued improvement - Creatinine of 1.2 today - Urine output of 1125ml over last 24 hrs, continue to monitor urine output - Completed 4 days of Decadron treatment - Renal US 07/31: No hydronephrosis. Echogenic kidneys consistent with medical renal disease. - KUB 07/31: - Markedly delayed bilateral nephrograms which suggests acute renal injury/ tubular necrosis. - Lytic foci within visualized skeletal structures which suggests multiple myeloma or metastatic disease. - Holding lisinopril, indapamide, and furosemide - Daily BMP - Nephrology following 3) Multiple Myeloma - Oncology following - Velcade treatment on Monday with Dose of Decadron (20mg) 4) Anemia / Thrombocytopenia - Anemia Secondary to Multiple Myeloma + GI Losses - Hgb 9.6 this morning - 1 unit of irradiated blood transfused on 08/06 - Transfuse again if Hgb <7-8 - Iron Studies - Anemia of chronic disease - Hemoccult positive - Colonoscopy 2009 - diverticular disease with no evident bleeds - Thrombocytopenia Secondary to Consumptive Process vs Velcade - Found to have elevated PTT with acquired factor deficiency possibly attributing to further consumption of platelets 5) FEN - Hypophosphatemia (was initially hyperphosphatemic) - 2.2 Today - 15 mmol supplementation today - Hypokalemia - 3.2 Today - 40mEq IV K+ supplemented today - Hypomagnesemia - Magnesium of 1.8 today - 1mg Magnesium supplemented today - Hypocalcemia (Initially hypercalcemic due to multiple myeloma) - Calcium borderline low with correction - Calcium 6.8 + Albumin 2.5 = Corrected Calcium of 8.0 - Pamidronate 60mg IV - Calcium Carbonate supplementation 500mg daily 6) Elevated PTT - Improving - PTT lab ordered for tomorrow morning - Mixing studies indicate an acquired factor deficiency - Heme/Onc recommendations appreciated 7) Abdominal Cramping - Resolved - 07/31 KUB: No SBO - C Diff stool toxin negative - Probiotic supplementation 8) Acute Systolic Heart Failure - Currently compensated and do not think this major contributing factor to shortness of breath, so stopped Bumex due hypotension, blood pressure now stabilizing - ECHO: EF 20-25% - Repeat ECHO in 1 month and follow up with Cardiology - Metoprolol Succinate 50mg QAM - D/C'd ACEi d/t SANDER - Pleural effusions 2/2 MM not CHF - Complete heart block s/p Pacemaker Placment 9) Elevated Troponin - Demand Ischemia in setting of CHF and Multiple Myeloma - Stable - Peak 0.131 - Asymptomatic 10) Malnutrition - Decreased appetite today - Discuss Zofran/Phenergan vs Megace - Boost ID - Encourage PO intake 11) HTN - Metoprolol - Hold other medications 12) DVT Prophylaxis - Heparin on hold d/t elevated PTT - Continue to follow coagulation factors, PTT, and Platelets - SCDs 13) PT/OT - PT - Recommend continue therapy as inpatient as well as SNF placement - OT recommends rehab on discharge 14) Code Status - Full Resuscitation Reviewed: Pt Seen/Exam by Me History Resident Physician Supervision Note: I interviewed and examined the patient. Discussed with Dr. Arnold and agree with findings and plan as documented in the note. Any exceptions or clarifications are listed here: Little more energy today, still with poor appetite but even more than yesterday. We discussed her CODE STATUS and she wishes to remain full code at this time. Vitals reviewed No acute distress, thin, sitting up in bed Regular rhythm, reg rate, no murmurs gallops or rubs Clear to auscultation bilaterally, no wheezes crackles or rales, except decreased lung sounds at the bases bilaterally Positive bowel sounds, soft, no tenderness to palpation Extremities-trace pitting edema bilaterally to the knees This patient is an 86-year-old female with acute systolic CHF, multiple myeloma , acute kidney injury likely secondary to multiple myeloma vs ATN, cardiorenal syndrome, or combination of those, here with bilateral large malignant pleural effusions status post thoracentesis. Her creatinine continues to decrease after starting Decadron and Velcade for treatment of her multiple myeloma. Continue to follow renal function. Albumin and lasix as above for improved UOP when necessary. CHF with EF of 20-25%-unclear etiology. Could be related to the malignancy and that her pleural effusions are not necessarily all from her CHF. Diuresis has been difficult due to hypotension and had to stop Bumex drip. No diuresis needed at this time. Growing coag-negative staph out of her previous pleural fluid which is likely a contaminant. However with pH of pleural fluid less than 7.2, must be considered to be an empyema as per pulmonary. Will need 10 days of IV ceftriaxone and clindamycin to treat for empyema as chest tube is contraindicated at this time as per pulmonary due to risk of dehydration and hypoalbuminemia. -Continue beta candie, not able to add LUIS CARLOS inhibitor for heart failure at this time due to acute kidney injury. -Repeat echo in 1 month. Follow-up cardiology to see if has improvement of cardiac function -Continue to Follow chest x-ray to see if the effusions reaccumulate requiring repeated thoracenteses-appreciate pulmonary management--> for tap as needed for comfort at this point . We'll check chest x-ray for worsening effusions tomorrow -started bortezomib for MM which will be once weekly, will need outpatient follow-up with oncology -Watch platelets dropping and transfuse if less than 10,000 or if has evidence of bleeding -Watch hemoglobin and transfuse to keep hemoglobin greater than 7-8 -Oncology would like patient to stay until next treatment of Velcade on Monday and then plan to discharge to SNF -Encourage by mouth intake and mobilization Documented By: Vaishali Johnson
[2016-08-07] MEDS: CEFTRIAXONE SOD INJ 1 GM in DEXTROSE 5% ADD-VANTAGE 50ML 50 ML IV SCH (18:12)
[2016-08-08] VITALS (9 sets, daily range): BP systolic 123–145; BP diastolic 76–85; PULSE 76–96; TEMP 36.3–36.9; O2SAT 95–98
[2016-08-08] MEDS: CLINDAMYCIN IV 600 MG in DEXTROSE 5% ADD-VANTAGE 50ML 50 ML IV SCH ×3 (02:03→17:49)
[2016-08-08 06:19] LABS: HEMATOCRIT 27.3 % (37-47); MEAN CELL VOLUME 91.9 fL (80-100); MEAN CORPUSCULAR HEMOGLOBIN 30.6 pg (25-34); MEAN CORPUSCULAR HGB CONC 33.3 g/dl (32-36); RED BLOOD COUNT 2.97 M/uL (4.2-5.4); WHITE BLOOD COUNT 6.06 K/uL (4.8-10.8)
[2016-08-08 06:20] LABS: MEAN PLATELET VOLUME 11.1 fL (7.4-10.4); PLATELET COUNT 71 K/uL (130-400)
[2016-08-08 06:47] LABS: BUN/CREATININE RATIO 34.4 (10-20); CALCIUM 6.8 mg/dl (8.5-10.1); CREATININE 0.87 mg/dl (0.60-1.20); MAGNESIUM 1.8 mg/dl (1.8-2.4); PARTIAL THROMBOPLASTIN RATIO 1.3; POTASSIUM 3.8 mmol/L (3.5-5.1)
--- NOTE | 2016-08-08 07:48 | Family Medicine Progress Note ---
Progress Note Date of Service Aug 08, 2016. Subjective Pt evaluation today including: conversation w/ patient, conversation w/ family Patient comfortably lying in bed. She denies acute overnight events. She denies current SOB or CP. She states she is sleeping decently. She admits that she is not eating as she has no appetite. Constitutional: No chills, No fever Respiratory: No cough, No shortness of breath, No wheezing Cardiovascular: No chest pain, No palpitations Abdomen: No nausea, No pain, No vomiting Objective Vital Signs Date Time Temp Pulse Resp B/P Pulse Ox O2 Delivery O2 Flow Rate FiO2 08/08/16 07:09 36.9 80 16 144/85 96 Room Air 08/08/16 04:31 36.6 82 20 123/77 97 Room Air 08/08/16 04:00 95 Room Air 08/08/16 00:00 95 Room Air 08/07/16 23:07 36.8 77 16 118/74 95 Room Air 08/07/16 20:10 Room Air 08/07/16 19:29 36.8 86 16 132/83 97 Room Air 08/07/16 16:00 95 Room Air 08/07/16 15:53 36.6 74 16 110/59 97 Room Air 08/07/16 12:00 96 Room Air 08/07/16 11:04 36.6 75 16 110/76 97 Room Air 08/07/16 08:00 97 Room Air Physical Exam General Appearance: WD/WN, no apparent distress Eyes: normal inspection, EOMI ENT: hearing grossly normal Neck: supple Respiratory/Chest: no respiratory distress, no accessory muscle use, + decreased breath sounds (Worse in left), + crackles Cardiovascular: regular rate, rhythm, no edema Abdomen: normal bowel sounds, non tender, soft Extremities: no pedal edema, no calf tenderness Neurologic/Psychiatric: alert, normal mood/affect, oriented x 3 Skin: normal color, warm/dry, no rash Laboratory Results Results Past 24 Hours Test 08/08/16 05:15 Range/Units White Blood Count 6.06 4.8-10.8 K/uL Red Blood Count 2.97 4.2-5.4 M/uL Hemoglobin 9.1 12.0-16.0 g/dL Hematocrit 27.3 37-47 % Mean Corpuscular Volume 91.9 80-100 fL Mean Corpuscular Hemoglobin 30.6 25-34 pg Mean Corpuscular Hemoglobin Concent 33.3 32-36 g/dl Platelet Count 71 130-400 K/uL Mean Platelet Volume 11.1 7.4-10.4 fL Activated Partial Thromboplast Time 32.9 21.0-31.0 SECONDS Partial Thromboplastin Ratio 1.3 Sodium Level 143 136-145 mmol/L Potassium Level 3.8 3.5-5.1 mmol/L Chloride Level 110 98-107 mmol/L Carbon Dioxide Level 26 21-32 mmol/L Anion Gap 7.0 3-11 mmol/L Blood Urea Nitrogen 30 7-18 mg/dl Creatinine 0.87 0.60-1.20 mg/dl Est Creatinine Clear Calc Drug Dose 38.4 ml/min Estimated GFR () 69.9 Estimated GFR (Non- 60.3 BUN/Creatinine Ratio 34.4 10-20 Random Glucose 80 70-99 mg/dl Calcium Level 6.8 8.5-10.1 mg/dl Phosphorus Level 2.0 2.5-4.9 mg/dl Magnesium Level 1.8 1.8-2.4 mg/dl Albumin 2.3 3.4-5.0 gm/dl Assessment and Plan 86 year old female with recently diagnosed multiple myeloma admitted with shortness of breath 2/2 bilateral pleural effusions, requiring thoracocentesis x3 so far during her admission, repeatedly having her pleural effusion recur. Acute respiratory failure 2/2 bilateral pleural effusions - Taken for thoracocentesis on 07/30, 07/31, and 08/04. 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 MRSA negative. Pulmonary consulted - recs appreciated. Pleural fluid pH 7.19 and found to be exudative, unable to place chest tube so will attempt antibiotics. - Continue Ceftriaxone and Clindamycin - day 6 of 10 day course - Repeat CXR done today. Reassess for repeat imaging as per patient clinical assessment Multiple myeloma - oncology consulted - recs appreciated. PICC line placement. - Velcade treatment on Monday with Decadron 20mg Malnutrition - ongoing decreased appetite, without nausea - Encourage PO intake - Boost ID - Started on Prednisone 10mg daily as appetite stimulant (+ aids with MM treatment) Electrolytes imbalance - Hypophosphatemia - 2.0 today - IV KPO4 15 mmol supplementation today - Hypokalemia - 3.8 today - IV KCl 40mEq last supplemented 08/07 - Hypomagnesemia - 1.8 today - IV MgSO4 1g supplemented today - Hypocalcemia - Calcium 6.8 + Albumin 2.3 = Corrected Calcium of 8.2. Continue calcium carbonate supplementation 500mg daily Anemia 2/2 multiple myeloma + GI losses (+FOBT) - required transfusion of 1 unit of irradiated blood transfused on 08/06. Iron Studies consistent with anemia of chronic disease. Colonoscopy in 2009 showed diverticular disease with no evident bleeds. No plans for scoping now. - Monitor H/H - Transfuse again if Hgb <7-8, or if symptomatic Thrombocytopenia 2/2 consumptive process vs Velcade - elevated PTT with acquired factor deficiency possibly attributing to further consumption of platelets - Monitor CBC - Transfuse platelets if <10,000, or if signs of bruising/bleeding Elevated PTT - Improving. Heme/Onc recs appreciated. 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 - resolved. Nephrology consulted - recs appreciated. Renal US 07/31 showed no hydronephrosis, but consistent with medical renal disease. KUB 07/31 showed markedly delayed bilateral nephrograms which suggests acute renal injury/ tubular necrosis. Lytic foci were also visualized. Completed 4 days of Decadron treatment. - Holding lisinopril, indapamide, and furosemide - Creatinine normalized - 0.87 today - Daily BMP, monitor I/O's Abdominal cramping - resolved. KUB 07/31 showed no SBO. C Diff stool toxin negative. - Continue probiotic supplementation Acute Systolic Heart Failure - Complete heart block s/p pacemaker placement. Compensated and not likely contributor to SOB. Bumex discontinued due hypotension, blood pressure stabilized. ECHO showed EF 20-25%. Pleural effusions 2/2 MM not CHF. Discontinued ACEi due to SANDER - Metoprolol Succinate 50mg QAM - Repeat ECHO in 1 month and follow up with Cardiology Elevated Troponin - Demand ischemia in setting of CHF and Multiple Myeloma. Peak trop 0.131, patient asymptomatic HTN - Continue metoprolol - Hold other medications DVT Prophylaxis - Heparin on hold due to elevated PTT - Continue to follow coagulation factors, PTT, and Platelets - SCDs PT/OT - Ongoing therapy Code Status - Full Resuscitation Dispo - To [facility] post next chemotherapy session Resident Physician Supervision Note: I interviewed and examined the patient. Discussed with Dr. Calderón and agree with findings and plan as documented in the note. Any exceptions or clarifications are listed here: None Documented By: Estuardo Rendon feeling OK just no appetite. no abdominal pain no nausea -- just no appetite for one more chemo treatment then likely discharge to SNF by midweek dtr present as well vitals noted breathing unlabored, no pallor or icterus, CXR reviewed a/p poor appetite -secondary to acute illness/meds/procedures. R1 d/w heme/onc and with steroids being part of her regimen for myeloma suggested 10mg prednisone daily for now- very reasonable and likely to help w appetite//is already part of chemo -encouraged better PO intake -discussed acute risks w malnutrition -continue encouragement pleural effusions -now more stable myeloma -ongoing chemo DVT proph -pharmacologic contraindicated due to thrombocytopenia -mechanical of dubious benefit and possible harm (skin breakdown, falls) - encourage ambulation as best as possible otherwise as above Continued [facility] stay due to: multiple IV medications needed Discharge planning: detention facility Resident Tracking Resident Involvement: Resident Care Provided Care Provided: Adult Hospital Medicine
--- NOTE | 2016-08-08 08:10 | DIAGNOSTIC IMAGING REPORT ---
CHEST 2 VIEWS ROUTINE CLINICAL HISTORY: Recurrent Pleural Effusions pleural effusion COMPARISON STUDY: 08/05/2016 FINDINGS: Left pleural effusion similar to slightly diminished in the prior exam. Slight increase in right pleural effusion. Otherwise unchanged exam. IMPRESSION: Slight reaccumulation of pleural fluid right hemithorax. 2. Unchanging left pleural effusion Electronically signed by: Giovany Giron M.D. 08/08/2016 8:08 AM Dictated Date/Time: 08/08/2016 8:05 AM
[2016-08-08] MEDS: BOOST VANILLA PO SCH ×4 (08:23→20:45)
[2016-08-08] MEDS: CALCIUM CARBONATE 500 MG CHEWABLE PO SCH (08:25)
[2016-08-08] MEDS: PANTOprazole SOD 40 MG TAB PO SCH (08:26)
[2016-08-08] MEDS: METOPROLOL SUCC 50MG EXT REL TAB PO SCH (08:26)
[2016-08-08] MEDS: SACCHAROMYCES BOUL (FLORASTOR) 250 MG CAP PO SCH (08:26)
--- NOTE | 2016-08-08 08:57 | HEME/ONC PROGRESS NOTE ---
DATE: 08/08/2016 DIAGNOSES: 1. Bilateral pleural effusion. 2. Hypercalcemia. 3. Multiple myeloma. HOSPITAL COURSE: Suha is a pleasant 86-year-old female patient who was admitted back on July 29 with shortness of breath. She was found to have bilateral pleural effusions and has had a thoracentesis involving the left side yielding pleural fluid containing plasma cells. She continues to receive dexamethasone and Velcade in-house, making slow but steady progress. She is due for Velcade on Monday. She is ambulating with some assistance moving her bowels and appetite is satisfactory at this time. She received 2 units of packed RBCs over the weekend. PHYSICAL EXAMINATION: GENERAL: She is in no acute distress. VITAL SIGNS: Temperature 36.9, pulse 80, respiration 16, blood pressure 144/85. SKIN: Without rash or lesion. HEENT: No buccal lesions or ulcerations. NECK: Supple. HEART: Regular rate and rhythm. LUNGS: Diminished breath sounds in the left posterior base. ABDOMEN: Soft, nontender, nondistended. EXTREMITIES: No clubbing, cyanosis or edema. NEUROLOGIC: Grossly intact. LABORATORY DATA: WBC count 6060, hemoglobin 9.1, platelet count 71,000. Sodium 143, potassium 3.8, chloride 110, carbon dioxide 26, BUN 30, creatinine 0.87. IMPRESSION: 1. Bilateral pleural effusion. 2. Status post laps thoracentesis. 3. Hypercalcemia. 4. Multiple myeloma. PLAN: Suha is a pleasant 86-year-old female who was recently diagnosed with multiple myeloma under the care of Dr. Raul Corrigan. Pleural fluid is positive for a plasmacytosis. She is in the midst of receiving chemotherapy, specifically rituximab weekly. She also received intermittent doses of dexamethasone. Seems to be getting a little closer to discharge. Her was recently hospitalized and was discharged to a step down unit and I suspect the same plan holds for Ms. Kelly. She received a transfusion over the weekend which was well tolerated. We will discuss further with Dr. Corrigan regarding continuance of care. If she remains here by Monday will receive Velcade in-house. We will continue to follow her periodically during her hospital stay. Thank you for assisting us in the care of this very pleasant patient.
[2016-08-08] MEDS: ACYCLOVIR 200 MG CAP PO SCH ×2 (10:07→20:45)
[2016-08-08 11:11] LABS: FREE KAPPA 50.8 MG/L (3.3-19.4); FREE KAPPA/LAMBDA RATIO 19.54 (0.26-1.65); FREE LAMBDA 2.6 MG/L (5.7-26.3)
--- NOTE | 2016-08-08 13:51 | Pulmonology Progress Note ---
Pulmonary Progress Note Date of Service Aug 08, 2016. Attending Dr. Fernando Subjective Improved energy and strength today. Denies any increased dyspnea. Denies increased cough or any chest discomfort. Appetite is poor without abdominal discomfort or symptoms. Denies any oral irritation. Objective 86-year-old female with history of newly diagnosed IgG kappa multiple myeloma ( 06/2016) admitted to [facility] 07/29/2016 with 4 day history of progressive dyspnea despite outpatient course of diuretics. On admission CT angiogram was consistent with progressive bilateral pleural effusion with associated atelectasis - No pulmonary embolism. PMHx includes: Multiple Myeloma, chronic DVT, SSS and AVB s/p pacemaker, and c.diff colitis. 07/30/2016 Right-sided thoracentesis: evacuation of 1 liter of cloudy yellow fluid. - Micro: + PCN sensitive coag-negative staph - pH: 7.19, protein: 5.6, albumin: 2.2, chol: 39, WBC: 4310, LDH: 357 - Clinical: partial improvement post-procedure. Echocardiogram 07/30: RVSP: 50-60mmHg, moderate diastolic dysfunction. EF 20-25% 07/31/16 Left- sided thoracentesis: evacuation of 1.5L cloudy yellow fluid - Micro: no growth - pH: 7.25, Protein: 5, LDH: 337, Cholesterol: 34, Amylase: 21, Glucose: 56, WBC : 4571 08/04/16: Right-sided thoracentesis: evacuation of 1.3L yellow cloudy fluid - Micro: no growth - pH: Cancelled - WBC: 2622, Protein: 4.5, LDH: 383, Glucose: 111 - Clinical: significant improvement Her hospital course was complicated by SANDER. She is treated with therapeutic/ diagnostic thoracentesis (as above), intermittent diuresis, intermittent Decadron, blood transfusion, and chemotherapy. Today: - 95-97% RA - Afebrile, HD stable - WBC: 6.06, Hgb/Hct/platelets: 9.1/27.3/71 - BUN: down-trending (30_ - 08/04 pleural fluid - no growth - Day #10/01 clindamycin and ceftriaxone Physical Exam: Constitutional: Thin elderly female lying in hospital bed. No acute distress. Head: + facial symmetry Eyes: EOMi, PERRLA, no conjunctival injection Mouth: Moist mucous membranes. No erythema, exudate, or post nasal gtt Neck: Trachea midline. No adenopathy or masses Respiratory: Non-labored respirations. No wheeze. BS diminished at bases and bottom 1/3 bilaterally. Faint crackles left base and laterally. No clubbing or cyanosis. Cardiovascular: RRR, no MRG. +2 radial pulses. <1s capillary refill. Abdomen: soft, non-tender, active bowel sounds Integumentary: no rashes, or ecchymosis MSK/Extremities: Moving and developed symmetrically. Trace peripheral edema. No calf tenderness. Neurologic: A&O, data recall in-tact. Appropriate affect. Assessment & Plan 86y/o female admitted with dyspnea, anemia and SANDER with bilateral exudative effusions: Patient did benefit clinically post thoracentesis - Per Dr. Canales: avoid placement of chest tube at this time with concern for malnutrition but continue therapeutic thoracentesis as clinically indicated - CXR with persistent effusions - follow clinical symptoms - Follow cultures - Complete 10-day course ceftriaxone and clindamycin (day 10/01) Data Medications: Current Inpatient Medications Medications (Trade) Dose Ordered Sig/Willy Route Start Time Stop Time Status Last Admin Dose Admin Acetaminophen (Tylenol Tab) 650 mg Q4H PRN PO 07/29/16 20:15 08/28/16 20:14 Zolpidem Tartrate (Ambien Tab) 5 mg HSZ PRN PO 07/29/16 20:15 08/28/16 20:14 Ondansetron HCl (Zofran Inj) 4 mg Q6H PRN IV 07/29/16 20:15 08/28/16 20:14 08/07/16 05:08 4 MG Metoprolol Succinate (Toprol Xl Tab) 50 mg QAM PO 07/30/16 09:00 08/29/16 08:59 08/08/16 08:26 50 MG Ipratropium [place] (Atrovent 0.02% 0.5MG/2.5ML Neb) 0.5 mg Q2H PRN INH 07/29/16 21:00 08/28/16 20:59 Levalbuterol (Xopenex 1.25MG/ 0.5ML Neb) 1.25 mg Q2H PRN INH 07/29/16 21:00 08/28/16 20:59 Pantoprazole Sodium 40 mg 40 mg QAM PO 08/01/16 09:00 08/31/16 08:59 08/08/16 08:26 40 MG Bumetanide/ Dextrose (Bumex IV/D5 50ml) 50 ml @ 10 mls/hr Q5H IV 07/31/16 19:45 08/30/16 19:44 Future Hold 08/01/16 11:20 10 MLS/HR Docusate Sodium 100 mg 100 mg BID PO 08/01/16 21:00 08/31/16 20:59 Future Hold 08/02/16 07:47 100 MG Ceftriaxone Sodium 1 gm/ Dextrose 50 ml @ 100 mls/hr DAILY@1600 IV 08/03/16 16:00 08/09/16 23:59 08/07/16 18:12 100 MLS/HR Clindamycin Phosphate/Dextrose (Cleocin Iv/ Dextrose Add-[place] 50ML) 54 ml @ 100 mls/hr Q8@0200,1000,1800 IV 08/03/16 18:00 08/13/16 17:59 08/08/16 10:06 100 MLS/HR Saccharomyces Boulardii (Florastor Cap) 250 mg DAILY PO 08/04/16 09:00 09/03/16 08:59 08/08/16 08:26 250 MG Enteral Nutritional Formula (Boost) 1 can Q12H PO 08/05/16 19:30 09/04/16 19:29 08/06/16 09:05 1 CAN Simethicone (Mylicon Chew Tab) 80 mg Q6H PRN PO 08/05/16 18:00 09/04/16 17:59 08/05/16 20:03 80 MG Heparin Sodium (Porcine) (Heparin 10 Unit/ ml 5 ml Flush) 5 ml PRN PRN FLUSH 08/06/16 01:30 09/05/16 01:29 08/08/16 05:10 5 ML Calcium Carbonate (Tums Chew Tab) 500 mg DAILY PO 08/07/16 09:00 09/06/16 08:59 08/07/16 08:25 500 MG Acyclovir (Zovirax Cap) 400 mg BID PO 08/08/16 09:00 08/21/16 08:59 08/08/16 10:07 400 MG Prednisone (PredniSONE TAB) 10 mg DAILY PO 08/09/16 09:00 09/08/16 08:59 I & O: 24-Hour Column 08/08/16 08:00 Intake Total 1908 ml Output Total 750 ml Balance 1158 ml Vital Signs: Date Time Temp Pulse Resp B/P Pulse Ox O2 Delivery O2 Flow Rate FiO2 08/08/16 11:55 Room Air 08/08/16 11:02 36.5 76 18 142/82 98 Room Air 08/08/16 07:45 Room Air 08/08/16 07:09 36.9 80 16 144/85 96 Room Air 08/08/16 04:31 36.6 82 20 123/77 97 Room Air 08/08/16 04:00 95 Room Air 08/08/16 00:00 95 Room Air 08/07/16 23:07 36.8 77 16 118/74 95 Room Air 08/07/16 20:10 Room Air 08/07/16 19:29 36.8 86 16 132/83 97 Room Air 08/07/16 16:00 95 Room Air 08/07/16 15:53 36.6 74 16 110/59 97 Room Air Laboratory Results: Last 24 Hours Test 08/08/16 05:15 White Blood Count 6.06 K/uL Red Blood Count 2.97 M/uL Hemoglobin 9.1 g/dL Hematocrit 27.3 % Mean Corpuscular Volume 91.9 fL Mean Corpuscular Hemoglobin 30.6 pg Mean Corpuscular Hemoglobin Concent 33.3 g/dl Platelet Count 71 K/uL Mean Platelet Volume 11.1 fL Activated Partial Thromboplast Time 32.9 SECONDS Partial Thromboplastin Ratio 1.3 Sodium Level 143 mmol/L Potassium Level 3.8 mmol/L Chloride Level 110 mmol/L Carbon Dioxide Level 26 mmol/L Anion Gap 7.0 mmol/L Blood Urea Nitrogen 30 mg/dl Creatinine 0.87 mg/dl Est Creatinine Clear Calc Drug Dose 38.4 ml/min Estimated GFR () 69.9 Estimated GFR (Non- 60.3 BUN/Creatinine Ratio 34.4 Random Glucose 80 mg/dl Calcium Level 6.8 mg/dl Phosphorus Level 2.0 mg/dl Magnesium Level 1.8 mg/dl Albumin 2.3 gm/dl
[2016-08-08] MEDS: CEFTRIAXONE SOD INJ 1 GM in DEXTROSE 5% ADD-VANTAGE 50ML 50 ML IV SCH (15:31)
[2016-08-08] MEDS ORDERED: POTASSIUM PHOS 3 MMOL/1 ML INFUSION IV STA (20:03)
[2016-08-08] MEDS ORDERED: POTASSIUM PHOSPHATE INJ 15 MMOL in SODIUM CHLORIDE 0.9% 250ML 250 ML IV SCH (21:00)
[2016-08-08] MEDS: MAGNESIUM SULFATE 1GM / D5W 1 GM in PREMIXED IN D5W 100 ML IV SCH ×2 (21:25→22:20)
[2016-08-09] VITALS (10 sets, daily range): BP systolic 92–144; BP diastolic 51–82; PULSE 85–103; TEMP 36.2–37; O2SAT 94–98
[2016-08-09] MEDS: CLINDAMYCIN IV 600 MG in DEXTROSE 5% ADD-VANTAGE 50ML 50 ML IV SCH ×3 (02:13→17:50)
[2016-08-09 06:10] LABS: HEMATOCRIT 29.8 % (37-47); MEAN CELL VOLUME 91.4 fL (80-100); MEAN CORPUSCULAR HEMOGLOBIN 30.7 pg (25-34); MEAN CORPUSCULAR HGB CONC 33.6 g/dl (32-36); RED BLOOD COUNT 3.26 M/uL (4.2-5.4); WHITE BLOOD COUNT 7.17 K/uL (4.8-10.8)
[2016-08-09 06:14] LABS: MEAN PLATELET VOLUME 11.2 fL (7.4-10.4); PLATELET COUNT 92 K/uL (130-400)
[2016-08-09 06:22] LABS: PARTIAL THROMBOPLASTIN RATIO 1.2
[2016-08-09 06:47] LABS: BUN/CREATININE RATIO 24.5 (10-20); CALCIUM 7.1 mg/dl (8.5-10.1); CREATININE 0.81 mg/dl (0.60-1.20); MAGNESIUM 2.2 mg/dl (1.8-2.4); PHOSPHORUS 2.1 mg/dl (2.5-4.9); POTASSIUM 3.6 mmol/L (3.5-5.1)
--- NOTE | 2016-08-09 07:00 | Family Medicine Progress Note ---
Progress Note Date of Service Aug 09, 2016. Subjective Pt evaluation today including: conversation w/ patient, conversation w/ family Patient is lying comfortably in bed, she denies any issues overnight. She denies any worsening symptoms of SOB. She claims no CP or back pain. She was sitting OOD earlier in the morning and tolerated it well. Her appetite remains diminished, but states after the education and tips Dr. Rendon provided yesterday, she is making more of an effort to eat, even when she is not hungry and regardless of poor taste. Today we discussed increasing fluid intake as well. Constitutional: No chills, No fever Respiratory: No cough, No shortness of breath, No wheezing Cardiovascular: No PND, No chest pain, No edema, No orthopnea, No palpitations Abdomen: No nausea, No pain, No vomiting Female : No dysuria Objective Vital Signs Date Time Temp Pulse Resp B/P Pulse Ox O2 Delivery O2 Flow Rate FiO2 08/09/16 04:00 96 Room Air 08/09/16 04:00 36.6 89 18 130/82 94 Room Air 08/09/16 00:00 36.5 92 18 132/81 96 Room Air 08/09/16 00:00 96 Room Air 08/08/16 20:00 96 Room Air 08/08/16 19:45 36.7 96 16 123/76 96 Room Air 08/08/16 16:00 96 Room Air 08/08/16 15:35 36.3 83 16 145/84 96 Room Air 08/08/16 11:55 Room Air 08/08/16 11:02 36.5 76 18 142/82 98 Room Air 08/08/16 07:45 Room Air 08/08/16 07:09 36.9 80 16 144/85 96 Room Air Physical Exam General Appearance: WD/WN, no apparent distress Eyes: normal inspection ENT: hearing grossly normal Neck: supple Respiratory/Chest: normal breath sounds (at R lobe), no respiratory distress, no accessory muscle use, + decreased breath sounds (at LLL) Cardiovascular: regular rate, rhythm, no murmur Abdomen: normal bowel sounds, non tender, soft Extremities: normal inspection, no pedal edema, no calf tenderness Neurologic/Psychiatric: alert, normal mood/affect, oriented x 3 Skin: normal color, warm/dry, no rash Laboratory Results Results Past 24 Hours Test 08/09/16 05:30 Range/Units White Blood Count 7.17 4.8-10.8 K/uL Red Blood Count 3.26 4.2-5.4 M/uL Hemoglobin 10.0 12.0-16.0 g/dL Hematocrit 29.8 37-47 % Mean Corpuscular Volume 91.4 80-100 fL Mean Corpuscular Hemoglobin 30.7 25-34 pg Mean Corpuscular Hemoglobin Concent 33.6 32-36 g/dl Platelet Count 92 130-400 K/uL Mean Platelet Volume 11.2 7.4-10.4 fL Activated Partial Thromboplast Time 32.1 21.0-31.0 SECONDS Partial Thromboplastin Ratio 1.2 Sodium Level 141 136-145 mmol/L Potassium Level 3.6 3.5-5.1 mmol/L Chloride Level 108 98-107 mmol/L Carbon Dioxide Level 23 21-32 mmol/L Anion Gap 10.0 3-11 mmol/L Blood Urea Nitrogen 20 7-18 mg/dl Creatinine 0.81 0.60-1.20 mg/dl Est Creatinine Clear Calc Drug Dose 41.2 ml/min Estimated GFR () 76.2 Estimated GFR (Non- 65.8 BUN/Creatinine Ratio 24.5 10-20 Random Glucose 100 70-99 mg/dl Calcium Level 7.1 8.5-10.1 mg/dl Phosphorus Level 2.1 2.5-4.9 mg/dl Magnesium Level 2.2 1.8-2.4 mg/dl Albumin 2.5 3.4-5.0 gm/dl Assessment and Plan 86 year old female with recently diagnosed multiple myeloma admitted with shortness of breath 2/2 bilateral pleural effusions, requiring thoracocentesis x3 so far during her admission, repeatedly having her pleural effusion recur. Acute respiratory failure 2/2 bilateral pleural effusions - Taken for thoracocentesis on 07/30, 07/31, and 08/04. 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 MRSA negative. Pulmonary consulted - recs appreciated. Pleural fluid pH 7.19 and found to be exudative, unable to place chest tube so will attempt antibiotics. - Continue Ceftriaxone and Clindamycin - day 7 of 10 day course - Plan to reassess for repeat CXR as per patient clinical assessment Multiple myeloma - oncology consulted - recs appreciated. PICC line placement. - Velcade treatment on Monday with Decadron 20mg Malnutrition - ongoing decreased appetite, without nausea - Encourage PO intake including Boost ID - Encourage PO fluid intake in view of evidence of dehydration (decreased urine output, hemoconcentration, elevated BUN:Cr ration) - Continue Prednisone 10mg daily as appetite stimulant (+ aids with MM treatment ) Electrolytes imbalance - Hypophosphatemia - 2.1 today - IV KPO4 15 mmol supplementation today - Hypokalemia - 3.8 today - IV KCl 40mEq last supplemented 08/07 - Hypomagnesemia - 2.2 today - IV MgSO4 1g supplemented 08/08 - Hypocalcemia - Calcium 7.1 + Albumin 2.2 = Corrected Calcium of 8.3. Continue calcium carbonate supplementation 500mg daily Anemia 2/2 multiple myeloma + GI losses (+FOBT) - required transfusion of 1 unit of irradiated blood transfused on 08/06. Iron Studies consistent with anemia of chronic disease. Colonoscopy in 2009 showed diverticular disease with no evident bleeds. No plans for scoping now. - Monitor H/H - Transfuse again if Hgb <7-8, or if symptomatic Thrombocytopenia 2/2 consumptive process vs Velcade - elevated PTT with acquired factor deficiency possibly attributing to further consumption of platelets - Monitor CBC - Transfuse platelets if <10,000, or if signs of bruising/bleeding Elevated PTT - Improving. Heme/Onc recs appreciated. 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 - resolved. Nephrology consulted - recs appreciated. Renal US 07/31 showed no hydronephrosis, but consistent with medical renal disease. KUB 07/31 showed markedly delayed bilateral nephrograms which suggests acute renal injury/ tubular necrosis. Lytic foci were also visualized. Completed 4 days of Decadron treatment. - Holding lisinopril, indapamide, and furosemide - Creatinine normalized - 0.89 today - Daily BMP, monitor I/O's Abdominal cramping - resolved. KUB 07/31 showed no SBO. C Diff stool toxin negative. - Continue probiotic supplementation Acute Systolic Heart Failure - Complete heart block s/p pacemaker placement. Compensated and not likely contributor to SOB. Bumex discontinued due hypotension, blood pressure stabilized. ECHO showed EF 20-25%. Pleural effusions 2/2 MM not CHF. Discontinued ACEi due to SANDER - Metoprolol Succinate 50mg QAM - Repeat ECHO in 1 month and follow up with Cardiology Elevated Troponin - Demand ischemia in setting of CHF and Multiple Myeloma. Peak trop 0.131, patient asymptomatic HTN - Continue metoprolol - Hold other medications DVT Prophylaxis - Heparin on hold due to elevated PTT - Continue to follow coagulation factors, PTT, and Platelets - SCDs PT/OT - Ongoing therapy Code Status - Full Resuscitation Dispo - To [facility] post chemotherapy session Resident Physician Supervision Note: I interviewed and examined the patient. Discussed with Dr. Calderón and agree with findings and plan as documented in the note. Any exceptions or clarifications are listed here: None Documented By: Estuardo Rendon feeling about the same, trying to eat and drink better. actually seems to be doing fairly well at this. still no taste for food but realizes she has to eat anyway. no other new complaints ros otherwise negative except for as above vitals noted, nad, mmm, breathing unlabored myeloma w effusions - now stabilized w effusions, breathing RA, ongoing chemo. poor appetite - improving intake even if appetite hasn't improved much yet. follow for ongoing intake. prednisone as discussed w heme/onc may help. for juniper either tomorrow or early on 08/11 depending on response to next dose of chemo, bed availability, and approvals Continued [facility] stay due to: inadequate po fluid intake Discharge planning: halfway facility Resident Tracking Resident Involvement: Resident Care Provided Care Provided: Adult Hospital Medicine
[2016-08-09] MEDS: CALCIUM CARBONATE 500 MG CHEWABLE PO SCH (08:17)
[2016-08-09] MEDS: PANTOprazole SOD 40 MG TAB PO SCH (08:17)
[2016-08-09] MEDS: ACYCLOVIR 200 MG CAP PO SCH ×2 (08:17→20:47)
[2016-08-09] MEDS: SACCHAROMYCES BOUL (FLORASTOR) 250 MG CAP PO SCH (08:18)
[2016-08-09] MEDS: METOPROLOL SUCC 50MG EXT REL TAB PO SCH (08:18)
--- NOTE | 2016-08-09 09:10 | HEME/ONC PROGRESS NOTE ---
DATE: 08/09/2016 DIAGNOSES: 1. Bilateral pleural effusion. 2. Hypercalcemia. 3. Multiple myeloma. HOSPITAL COURSE: Suha is a pleasant 86-year-old female patient admitted back on the 29 of July with shortness of breath. She underwent thoracentesis for left-sided pleural effusion, which did indeed contain plasma cells. She continues to receive dexamethasone and Velcade in house. She is due for Velcade tomorrow. She continues to make steady progress towards discharge. According to the patient and her daughter, plans are underway to send her to a step-down assisted living facility. She had also received 2 units packed RBCs over the weekend without complication. No complaints overnight. PHYSICAL EXAMINATION: GENERAL: She is in no acute distress. VITAL SIGNS: Current temperature 36.6, pulse 85, respirations 20, and blood pressure 144/78. SKIN: Without rash or lesion. HEENT: Oral mucosa without erythema or ulceration. NECK: Supple. HEART: Regular rate and rhythm. LUNGS: Diminished breath sounds in the left posterior base. ABDOMEN: Soft, nontender, and nondistended. EXTREMITIES: No clubbing, cyanosis or edema. NEUROLOGIC: Grossly intact. LABORATORY DATA: WBC count 7170, hemoglobin 10, and platelet count 92,000. Sodium 141, potassium 3.6, chloride 108, carbon dioxide 23, BUN 20, and creatinine 0.81. IMPRESSION: 1. Bilateral pleural effusions. 2. Status post thoracentesis. 3. Hypercalcemia. 4. Multiple myeloma. PLAN: Suha is a pleasant 86-year-old patient of Dr. Raul Corrigan, recently diagnosed with multiple myeloma. She will be due for bortezomib weekly. She continues to receive intermittent dose of dexamethasone. She is making steady progress towards discharge. If she remains in house tomorrow, we will make arrangements for subQ Velcade to be administered that time. We will ensure that she has appropriate outpatient followup. Thank you again for assisting us in the care of this very pleasant patient.
--- NOTE | 2016-08-09 12:08 | Pulmonology Progress Note ---
Pulmonary Progress Note Date of Service Aug 09, 2016. Attending Dr. Fernando Subjective Feeling relatively well today. Has been making an effort to drink her nutrition supplements. Denies any increased cough or dyspnea. Denies any chest pain or discomfort. Anticipating tentative discharge to [facility] 08/11/16 Objective 86-year-old female with history of newly diagnosed IgG kappa multiple myeloma ( 06/2016) admitted to [facility] 07/29/2016 with h/o progressive dyspnea and bilateral pleural effusion with associated atelectasis on imaging. MHx includes: Multiple Myeloma, chronic DVT, SSS and AVB s/p pacemaker, and c.diff colitis. 07/30/2016 Right-sided thoracentesis: evacuation of 1 liter of cloudy yellow fluid. - Micro: + PCN sensitive coag-negative staph - pH: 7.19, protein: 5.6, albumin: 2.2, chol: 39, WBC: 4310, LDH: 357 - Clinical: partial improvement post-procedure. Echocardiogram 07/30: RVSP: 50-60mmHg, moderate diastolic dysfunction. EF 20-25% 07/31/16 Left- sided thoracentesis: evacuation of 1.5L cloudy yellow fluid - Micro: no growth - pH: 7.25, Protein: 5, LDH: 337, Cholesterol: 34, Amylase: 21, Glucose: 56, WBC : 4571 08/04/16: Right-sided thoracentesis: evacuation of 1.3L yellow cloudy fluid - Micro: no growth to date - pH: Cancelled - WBC: 2622, Protein: 4.5, LDH: 383, Glucose: 111 - Clinical: significant improvement Her hospital course was complicated by SANDER. She is treated with therapeutic/ diagnostic thoracentesis (as above), intermittent diuresis, intermittent Decadron, blood transfusion, and chemotherapy. Today: - 60% RA - Afebrile, HD stable - WBC/Hgb/Hct/Plts: 7.17/10/29. - BUN improvin - 08/04 pleural fluid - no growth to date - Day #7 clindamycin and ceftriaxone Physical Exam: Constitutional: Thin elderly female sitting in chair at bedside visiting with family. No acute distress. Head: + facial symmetry Eyes: EOMi, PERRLA, no conjunctival injection Mouth: Moist mucous membranes. No erythema, exudate, or post nasal gtt Neck: Trachea midline. No adenopathy or masses Respiratory: Non-labored respirations. No wheeze. BS diminished at bases and with Faint crackles left base and lateral rider. Air movement is generally improved from prior. No clubbing or cyanosis. Cardiovascular: Regular rate, no MRG. +2 radial pulses. <1s capillary refill. Abdomen: soft, non-tender, active bowel sounds Integumentary: no rashes, or ecchymosis MSK/Extremities: Moving and developed symmetrically. Trace peripheral edema. No calf tenderness. Neurologic: A&O, data recall in-tact. Appropriate affect. Assessment & Plan 86y/o female admitted with dyspnea, anemia and SANDER with bilateral exudative effusions: - Despite mild reaccumulation on imaging, patient remains asymptomatic. Will repeat therapeutic thoracentesis should she become symptomatic - Complete 10-day course ceftriaxone and clindamycin (day 10/01) - F/U in outpatient pulmonary office within 2-weeks post discharge or sooner PRN. Data Medications: Current Inpatient Medications Medications (Trade) Dose Ordered Sig/Willy Route Start Time Stop Time Status Last Admin Dose Admin Acetaminophen (Tylenol Tab) 650 mg Q4H PRN PO 07/29/16 20:15 08/28/16 20:14 Zolpidem Tartrate (Ambien Tab) 5 mg HSZ PRN PO 07/29/16 20:15 08/28/16 20:14 Ondansetron HCl (Zofran Inj) 4 mg Q6H PRN IV 07/29/16 20:15 08/28/16 20:14 08/07/16 05:08 4 MG Metoprolol Succinate (Toprol Xl Tab) 50 mg QAM PO 07/30/16 09:00 08/29/16 08:59 08/09/16 08:18 50 MG Ipratropium [place] (Atrovent 0.02% 0.5MG/2.5ML Neb) 0.5 mg Q2H PRN INH 07/29/16 21:00 08/28/16 20:59 Levalbuterol (Xopenex 1.25MG/ 0.5ML Neb) 1.25 mg Q2H PRN INH 07/29/16 21:00 08/28/16 20:59 Pantoprazole Sodium 40 mg 40 mg QAM PO 08/01/16 09:00 08/31/16 08:59 08/09/16 08:17 40 MG Bumetanide/ Dextrose (Bumex IV/D5 50ml) 50 ml @ 10 mls/hr Q5H IV 07/31/16 19:45 08/30/16 19:44 Future Hold 08/01/16 11:20 10 MLS/HR Docusate Sodium 100 mg 100 mg BID PO 08/01/16 21:00 08/31/16 20:59 Future Hold 08/02/16 07:47 100 MG Ceftriaxone Sodium 1 gm/ Dextrose 50 ml @ 100 mls/hr DAILY@1600 IV 08/03/16 16:00 08/10/16 15:59 08/08/16 15:31 100 MLS/HR Clindamycin Phosphate/Dextrose (Cleocin Iv/ Dextrose Add-[place] 50ML) 54 ml @ 100 mls/hr Q8@0200,1000,1800 IV 08/03/16 18:00 08/13/16 17:59 08/09/16 02:13 100 MLS/HR Saccharomyces Boulardii (Florastor Cap) 250 mg DAILY PO 08/04/16 09:00 09/03/16 08:59 08/09/16 08:18 250 MG Enteral Nutritional Formula (Boost) 1 can Q12H PO 08/05/16 19:30 08/15/16 19:29 08/08/16 20:45 1 CAN Simethicone (Mylicon Chew Tab) 80 mg Q6H PRN PO 08/05/16 18:00 09/04/16 17:59 08/05/16 20:03 80 MG Heparin Sodium (Porcine) (Heparin 10 Unit/ ml 5 ml Flush) 5 ml PRN PRN FLUSH 08/06/16 01:30 09/05/16 01:29 08/09/16 06:23 5 ML Calcium Carbonate (Tums Chew Tab) 500 mg DAILY PO 08/07/16 09:00 09/06/16 08:59 08/09/16 08:17 500 MG Acyclovir (Zovirax Cap) 400 mg BID PO 08/08/16 09:00 08/21/16 08:59 08/09/16 08:17 400 MG Prednisone (PredniSONE TAB) 10 mg DAILY PO 08/09/16 09:00 09/08/16 08:59 08/09/16 08:16 10 MG I & O: 24-Hour Column 08/09/16 08:00 Intake Total 750 ml Output Total 750 ml Balance 0 ml Vital Signs: Date Time Temp Pulse Resp B/P Pulse Ox O2 Delivery O2 Flow Rate FiO2 08/09/16 08:00 96 Room Air 2.0 08/09/16 07:53 36.6 85 20 144/78 96 Room Air 08/09/16 04:00 96 Room Air 08/09/16 04:00 36.6 89 18 130/82 94 Room Air 08/09/16 00:00 36.5 92 18 132/81 96 Room Air 08/09/16 00:00 96 Room Air 08/08/16 20:00 96 Room Air 08/08/16 19:45 36.7 96 16 123/76 96 Room Air 08/08/16 16:00 96 Room Air 08/08/16 15:35 36.3 83 16 145/84 96 Room Air Laboratory Results: Last 24 Hours Test 08/09/16 05:30 White Blood Count 7.17 K/uL Red Blood Count 3.26 M/uL Hemoglobin 10.0 g/dL Hematocrit 29.8 % Mean Corpuscular Volume 91.4 fL Mean Corpuscular Hemoglobin 30.7 pg Mean Corpuscular Hemoglobin Concent 33.6 g/dl Platelet Count 92 K/uL Mean Platelet Volume 11.2 fL Activated Partial Thromboplast Time 32.1 SECONDS Partial Thromboplastin Ratio 1.2 Sodium Level 141 mmol/L Potassium Level 3.6 mmol/L Chloride Level 108 mmol/L Carbon Dioxide Level 23 mmol/L Anion Gap 10.0 mmol/L Blood Urea Nitrogen 20 mg/dl Creatinine 0.81 mg/dl Est Creatinine Clear Calc Drug Dose 41.2 ml/min Estimated GFR () 76.2 Estimated GFR (Non- 65.8 BUN/Creatinine Ratio 24.5 Random Glucose 100 mg/dl Calcium Level 7.1 mg/dl Phosphorus Level 2.1 mg/dl Magnesium Level 2.2 mg/dl Albumin 2.5 gm/dl
[2016-08-09] MEDS: BOOST VANILLA PO SCH ×4 (13:34→20:54)
[2016-08-09] MEDS: CEFTRIAXONE SOD INJ 1 GM in DEXTROSE 5% ADD-VANTAGE 50ML 50 ML IV SCH (15:56)
[2016-08-09] MEDS ORDERED: POTASSIUM PHOS 3 MMOL/1 ML INFUSION IV STA (19:57)
[2016-08-09] MEDS ORDERED: POTASSIUM PHOSPHATE INJ 15 MMOL in SODIUM CHLORIDE 0.9% 250ML 250 ML IV SCH (20:30)
[2016-08-10] VITALS (10 sets, daily range): BP systolic 107–130; BP diastolic 69–78; PULSE 86–106; TEMP 36.3–36.6; O2SAT 95–97
[2016-08-10] MEDS: CLINDAMYCIN IV 600 MG in DEXTROSE 5% ADD-VANTAGE 50ML 50 ML IV SCH ×2 (02:15→13:01)
[2016-08-10 05:19] LABS: HEMATOCRIT 27.8 % (37-47); MEAN CELL VOLUME 93.3 fL (80-100); MEAN CORPUSCULAR HEMOGLOBIN 30.9 pg (25-34); MEAN CORPUSCULAR HGB CONC 33.1 g/dl (32-36); RED BLOOD COUNT 2.98 M/uL (4.2-5.4)
[2016-08-10 05:20] LABS: MEAN PLATELET VOLUME 10.1 fL (7.4-10.4); PLATELET COUNT 94 K/uL (130-400)
[2016-08-10 05:36] LABS: PARTIAL THROMBOPLASTIN RATIO 1.3
[2016-08-10 05:38] LABS: BUN/CREATININE RATIO 17.2 (10-20); CALCIUM 6.7 mg/dl (8.5-10.1); CREATININE 0.83 mg/dl (0.60-1.20); MAGNESIUM 1.7 mg/dl (1.8-2.4); PHOSPHORUS 2.2 mg/dl (2.5-4.9); POTASSIUM 4.1 mmol/L (3.5-5.1)
[2016-08-10] MEDS ORDERED: POTASSIUM PHOS 3 MMOL/1 ML INFUSION IV STA (07:22)
[2016-08-10] MEDS ORDERED: MAGNESIUM SULFATE 1GM / D5W 1 GM in PREMIXED IN D5W 100 ML IV STA (07:34)
[2016-08-10] MEDS ORDERED: POTASSIUM PHOSPHATE INJ 21 MMOL in SODIUM CHLORIDE 0.9% 500ML 500 ML IV SCH (08:00)
[2016-08-10] MEDS: CALCIUM CARBONATE 500 MG CHEWABLE PO SCH (08:01)
[2016-08-10] MEDS: ACYCLOVIR 200 MG CAP PO SCH ×2 (08:01→21:30)
[2016-08-10] MEDS: METOPROLOL SUCC 50MG EXT REL TAB PO SCH (08:01)
[2016-08-10] MEDS: SACCHAROMYCES BOUL (FLORASTOR) 250 MG CAP PO SCH (08:02)
[2016-08-10] MEDS: PANTOprazole SOD 40 MG TAB PO SCH (08:02)
[2016-08-10] MEDS: BOOST VANILLA PO SCH ×4 (08:03→21:00)
--- NOTE | 2016-08-10 08:34 | HEME/ONC PROGRESS NOTE ---
DATE: 08/10/2016 DATE: 08/10/2016 DIAGNOSES: 1. Bilateral pleural effusions. 2. Hypercalcemia. 3. Multiple myeloma. HOSPITAL COURSE: Suha is a pleasant 86-year-old female patient well known to [facility] with diagnosis of multiple myeloma. She had previously undergone a left-sided thoracentesis which yielded plasma cells within the pleural fluid. She is due for Velcade in house today. According to her daughter may be discharged later on today to step down unit. She had received transfusion of 2 units packed RBCs over the weekend without complication. She voices no concerns in the last 24 hours. PHYSICAL EXAMINATION: GENERAL: She is in no acute distress. VITAL SIGNS: Temperature 36.6, pulse 93, respirations 20, blood pressure 130/78. SKIN: Without rash or lesion. HEAD, EYES, EARS, NOSE, AND THROAT: Oral mucosa without erythema or ulceration. NECK: Supple. HEART: Regular rate and rhythm. No clicks, rubs or murmurs. LUNGS: Continued diminished breath sounds, particularly in the left posterior base. ABDOMEN: Soft, nontender, nondistended. EXTREMITIES: No clubbing, cyanosis or edema. NEUROLOGIC: She is grossly intact. LABORATORY DATA: WBC count 6,900, hemoglobin 9.2, platelet count 94,000. Sodium 138, potassium 4.1, chloride 107, carbon dioxide 28, BUN 14, creatinine 0.83, albumin 2.4, phosphorus 2.2. IMPRESSIONS: 1. Bilateral pleural effusions. 2. Status post thoracentesis. 3. Hypercalcemia. 4. Hypophosphatemia. 5. Hypoalbuminemia. 6. Multiple myeloma. PLAN: Suha is a pleasant 86-year-old patient of Dr. Raul Corrigan recently diagnosed with multiple myeloma. She is due for bortezomib today. According to nursing staff, the patient's daughter may be discharged to a step down unit. We will make arrangements to have her see Dr. Corrigan in the outpatient arena as appropriate. Thank you for assisting us in the care of this very pleasant patient.
--- NOTE | 2016-08-10 10:56 | Pulmonology Progress Note ---
Pulmonary Progress Note Date of Service Aug 10, 2016. Attending Dr. Fernando Subjective Reports some fatigue today - didn't sleep well over the night. No increased dyspnea. No cough or wheeze. Some increase in LE edema. Anticipating discharge today or tomorrow. Objective 86-year-old female with history of multiple myeloma (dx: 06/2016) admitted with h/o progressive dyspnea and bilateral pleural effusion with associated atelectasis on imaging. MHx includes: Multiple Myeloma, chronic DVT, SSS and AVB s/p pacemaker, and c.diff colitis. 07/30/2016 Right-sided thoracentesis: 1 liter of cloudy yellow fluid - Micro: + PCN sensitive coag-negative staph - pH: 7.19, protein: 5.6, albumin: 2.2, chol: 39, WBC: 4310, LDH: 357 - Clinical: partial improvement post-procedure. Echocardiogram 07/30: RVSP: 50-60mmHg, moderate diastolic dysfunction. EF 20-25% 07/31/16 Left- sided thoracentesis: 1.5L cloudy yellow fluid - Micro: no growth - pH: 7.25, Protein: 5, LDH: 337, Cholesterol: 34, Amylase: 21, Glucose: 56, WBC : 4571 08/04/16: Right-sided thoracentesis: evacuation of 1.3L yellow cloudy fluid - Micro: no growth: final - WBC: 2622, Protein: 4.5, LDH: 383, Glucose: 111 - Clinical: significant improvement - Fluid consistent with plasma cell myeloma Her hospital course was complicated by SANDER. She is treated with therapeutic/ diagnostic thoracentesis (as above), intermittent diuresis, steroid, blood transfusion, and chemotherapy. Today: - 95-97% -RA - Afebrile, HD stable - WBC/Hgb/Hct/Plts: 6.9/9.2/27.8/94 - Day #8/10 clindamycin and ceftriaxone Physical Exam: Constitutional: Thin elderly lying in hospital bed with daughter at bedside. No acute distress. Head: + facial symmetry Eyes: EOMi, PERRLA, no conjunctival injection Mouth: Moist mucous membranes. No erythema, exudate, or post nasal gtt Neck: Trachea midline. No adenopathy or masses Respiratory: Non-labored respirations. No wheeze. up 1/3-1/2 lung rider bilaterally and with fine crackles left base and lateral rider. No clubbing or cyanosis. Cardiovascular: Regular rate, soft systolic murmur. +2 radial pulses. <1s capillary refill. Abdomen: soft, active bowel sounds Integumentary: no rashes, scattered areas of ecchymosis on LEs bilaterally MSK/Extremities: Moving and developed symmetrically. +1 peripheral edema bilaterally. No calf tenderness. Neurologic: A&O, data recall in-tact. Appropriate affect. Assessment & Plan 86y/o female with bilateral pleural effusion - consistent with plasma cell myeloma: some clinical ? of increased accumulation today but patient remains asymptomatic - Clinically improved - thoracentesis PRN clinical symptoms - Complete 10-day course ceftriaxone and clindamycin (day 12/01) - F/U in outpatient pulmonary office within 2-weeks post discharge or sooner PRN. Data Medications: Current Inpatient Medications Medications (Trade) Dose Ordered Sig/Willy Route Start Time Stop Time Status Last Admin Dose Admin Acetaminophen (Tylenol Tab) 650 mg Q4H PRN PO 07/29/16 20:15 08/28/16 20:14 Zolpidem Tartrate (Ambien Tab) 5 mg HSZ PRN PO 07/29/16 20:15 08/28/16 20:14 Ondansetron HCl (Zofran Inj) 4 mg Q6H PRN IV 07/29/16 20:15 08/28/16 20:14 08/07/16 05:08 4 MG Metoprolol Succinate (Toprol Xl Tab) 50 mg QAM PO 07/30/16 09:00 08/29/16 08:59 08/10/16 08:01 50 MG Ipratropium [place] (Atrovent 0.02% 0.5MG/2.5ML Neb) 0.5 mg Q2H PRN INH 07/29/16 21:00 08/28/16 20:59 Levalbuterol (Xopenex 1.25MG/ 0.5ML Neb) 1.25 mg Q2H PRN INH 07/29/16 21:00 08/28/16 20:59 Pantoprazole Sodium 40 mg 40 mg QAM PO 08/01/16 09:00 08/31/16 08:59 08/10/16 08:02 40 MG Bumetanide/ Dextrose (Bumex IV/D5 50ml) 50 ml @ 10 mls/hr Q5H IV 07/31/16 19:45 08/30/16 19:44 Future Hold 08/01/16 11:20 10 MLS/HR Docusate Sodium 100 mg 100 mg BID PO 08/01/16 21:00 08/31/16 20:59 Future Hold 08/02/16 07:47 100 MG Ceftriaxone Sodium 1 gm/ Dextrose 50 ml @ 100 mls/hr DAILY@1600 IV 08/03/16 16:00 08/10/16 15:59 08/09/16 15:56 100 MLS/HR Clindamycin Phosphate/Dextrose (Cleocin Iv/ Dextrose Add-[place] 50ML) 54 ml @ 100 mls/hr Q8@0200,1000,1800 IV 08/03/16 18:00 08/13/16 17:59 08/10/16 02:15 100 MLS/HR Saccharomyces Boulardii (Florastor Cap) 250 mg DAILY PO 08/04/16 09:00 09/03/16 08:59 08/10/16 08:02 250 MG Simethicone (Mylicon Chew Tab) 80 mg Q6H PRN PO 08/05/16 18:00 09/04/16 17:59 08/05/16 20:03 80 MG Heparin Sodium (Porcine) (Heparin 10 Unit/ ml 5 ml Flush) 5 ml PRN PRN FLUSH 08/06/16 01:30 09/05/16 01:29 08/10/16 06:48 5 ML Calcium Carbonate (Tums Chew Tab) 500 mg DAILY PO 08/07/16 09:00 09/06/16 08:59 08/10/16 08:01 500 MG Acyclovir (Zovirax Cap) 400 mg BID PO 08/08/16 09:00 08/21/16 08:59 08/10/16 08:01 400 MG Prednisone (PredniSONE TAB) 10 mg DAILY PO 08/09/16 09:00 09/08/16 08:59 08/10/16 08:01 10 MG Enteral Nutritional Formula 1 can 1 can BID PO 08/09/16 21:00 09/08/16 20:59 08/10/16 08:03 1 CAN Potassium Phosphate/Sodium Chloride (Potassium Phosphate Inj/Nss 500ml) 507 ml @ 130 mls/hr TODAY@0800 IV 08/10/16 08:00 08/10/16 11:53 08/10/16 09:03 130 MLS/HR I & O: 24-Hour Column 08/10/16 08:00 Intake Total 967 ml Output Total 875 ml Balance 92 ml Vital Signs: Date Time Temp Pulse Resp B/P Pulse Ox O2 Delivery O2 Flow Rate FiO2 08/10/16 08:00 96 Room Air 2.0 08/10/16 07:40 36.6 93 20 130/78 96 08/10/16 04:00 Room Air 08/10/16 03:17 36.6 86 18 121/76 97 Room Air 08/10/16 00:01 Room Air 08/09/16 23:09 36.2 92 18 121/74 95 Room Air 08/09/16 20:00 97 Room Air 08/09/16 18:59 37.0 94 20 102/67 97 08/09/16 16:00 98 Room Air 08/09/16 15:56 36.4 103 20 92/51 98 08/09/16 12:00 96 Room Air 2.0 08/09/16 12:00 36.5 90 20 132/72 94 Room Air Laboratory Results: Last 24 Hours Test 08/10/16 05:05 White Blood Count 6.90 K/uL Red Blood Count 2.98 M/uL Hemoglobin 9.2 g/dL Hematocrit 27.8 % Mean Corpuscular Volume 93.3 fL Mean Corpuscular Hemoglobin 30.9 pg Mean Corpuscular Hemoglobin Concent 33.1 g/dl Platelet Count 94 K/uL Mean Platelet Volume 10.1 fL Activated Partial Thromboplast Time 33.7 SECONDS Partial Thromboplastin Ratio 1.3 Sodium Level 138 mmol/L Potassium Level 4.1 mmol/L Chloride Level 107 mmol/L Carbon Dioxide Level 28 mmol/L Anion Gap 3.0 mmol/L Blood Urea Nitrogen 14 mg/dl Creatinine 0.83 mg/dl Est Creatinine Clear Calc Drug Dose 40.2 ml/min Estimated GFR () 74.0 Estimated GFR (Non- 63.9 BUN/Creatinine Ratio 17.2 Random Glucose 86 mg/dl Calcium Level 6.7 mg/dl Phosphorus Level 2.2 mg/dl Magnesium Level 1.7 mg/dl Albumin 2.4 gm/dl
[2016-08-10] MEDS ORDERED: ONDANSETRON 8 MG TAB PO SCH (11:00)
[2016-08-10] MEDS ORDERED: BORTEZOMIB SQ SCH (11:30)
--- NOTE | 2016-08-10 18:20 | Family Medicine Progress Note ---
Progress Note Date of Service Aug 10, 2016. Subjective Pt evaluation today including: conversation w/ patient, conversation w/ family Patient is lying comfortably in bed, she denies any issues overnight. She denies worsening symptoms of SOB, CP, or lightheadedness. She was sitting OOB earlier in the morning and tolerated it well. Her appetite remains diminished, daughter says she ate relatively better yesterday, but she hasn't eaten much today thus far. Patient is still making efforts to eat and drink as much as tolerated. Constitutional: No fever Respiratory: No cough, No shortness of breath, No wheezing Cardiovascular: No PND, No chest pain, No edema, No orthopnea, No palpitations Abdomen: No nausea, No pain Objective Vital Signs Date Time Temp Pulse Resp B/P Pulse Ox O2 Delivery O2 Flow Rate FiO2 08/10/16 16:00 95 Room Air 08/10/16 14:45 36.3 93 20 108/72 95 08/10/16 12:40 36.3 93 20 111/69 97 Room Air 08/10/16 12:02 102 18 107/73 08/10/16 12:00 97 Room Air 08/10/16 11:55 106 18 118/78 08/10/16 08:00 97 Room Air 08/10/16 08:00 96 Room Air 08/10/16 07:40 36.6 93 20 130/78 96 08/10/16 04:00 Room Air 08/10/16 03:17 36.6 86 18 121/76 97 Room Air 08/10/16 00:01 Room Air 08/09/16 23:09 36.2 92 18 121/74 95 Room Air 08/09/16 20:00 97 Room Air 08/09/16 18:59 37.0 94 20 102/67 97 Physical Exam General Appearance: WD/WN, no apparent distress Neck: supple Respiratory/Chest: no respiratory distress, no accessory muscle use, + decreased breath sounds, + crackles (Worse on left, slightly worse on right.) Cardiovascular: regular rate, rhythm, no murmur Abdomen: normal bowel sounds, non tender, soft Extremities: normal inspection, no pedal edema, no calf tenderness Neurologic/Psychiatric: alert, normal mood/affect, oriented x 3 Skin: normal color, warm/dry, no rash Assessment and Plan 86 year old female with recently diagnosed multiple myeloma admitted with shortness of breath 2/2 bilateral pleural effusions, requiring thoracocentesis x3 so far during her admission, repeatedly having her pleural effusion recur. Acute respiratory failure 2/2 bilateral pleural effusions - Taken for thoracocentesis on 07/30, 07/31, and 08/04. 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 MRSA negative. Pulmonary consulted - recs appreciated. Pleural fluid pH 7.19 and found to be exudative, unable to place chest tube so will attempt antibiotics. - Antibiotics oralized to Cefdinir and Clindamycin - day 8 of 10 day course - Plan to reassess for repeat CXR as per patient clinical assessment Multiple myeloma - oncology consulted - recs appreciated. PICC line placement. - Velcade administration today Malnutrition - ongoing decreased appetite, without nausea - Encourage PO intake including Boost ID - Encourage PO fluid intake - Continue Prednisone 10mg daily as appetite stimulant (+ aids with MM treatment ) Electrolytes imbalance - Hypophosphatemia - 2.2 today - IV KPO4 15 mmol supplementation today - Hypokalemia - 4.1 today - IV KCl 40mEq last supplemented 08/07 - Hypomagnesemia - 1.7 today - IV MgSO4 1g supplemented today - Hypocalcemia - Calcium 6.7 + Albumin 2.4 = Corrected Calcium of 8.0. Continue calcium carbonate supplementation 500mg daily Anemia 2/2 multiple myeloma + GI losses (+FOBT) - required transfusion of 1 unit of irradiated blood transfused on 08/06. Iron Studies consistent with anemia of chronic disease. Colonoscopy in 2009 showed diverticular disease with no evident bleeds. No plans for scoping now. - Monitor H/H - Transfuse again if Hgb <7-8, or if symptomatic Thrombocytopenia 2/2 consumptive process vs Velcade - elevated PTT with acquired factor deficiency possibly attributing to further consumption of platelets - Monitor CBC - Transfuse platelets if <10,000, or if signs of bruising/bleeding Elevated PTT - Improving. Heme/Onc recs appreciated. 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 - resolved. Nephrology consulted - recs appreciated. Renal US 07/31 showed no hydronephrosis, but consistent with medical renal disease. KUB 07/31 showed markedly delayed bilateral nephrograms which suggests acute renal injury/ tubular necrosis. Lytic foci were also visualized. Completed 4 days of Decadron treatment. Creatinine now WNL. - Holding lisinopril, indapamide, and furosemide - Daily BMP, monitor I/O's Abdominal cramping - resolved. KUB 07/31 showed no SBO. C Diff stool toxin negative. - Continue probiotic supplementation Acute Systolic Heart Failure - Complete heart block s/p pacemaker placement. Compensated and not likely contributor to SOB. Bumex discontinued due hypotension, blood pressure stabilized. ECHO showed EF 20-25%. Pleural effusions 2/2 MM not CHF. Discontinued ACEi due to SANDER - Metoprolol Succinate 50mg QAM - Repeat ECHO in 1 month and follow up with Cardiology Elevated Troponin - Demand ischemia in setting of CHF and Multiple Myeloma. Peak trop 0.131, patient asymptomatic HTN - Continue metoprolol - Hold other medications DVT Prophylaxis - Heparin on hold due to elevated PTT - Continue to follow coagulation factors, PTT, and platelets - SCDs PT/OT - Ongoing therapy Code Status - Full Resuscitation Dispo - To [facility] Resident Physician Supervision Note: I interviewed and examined the patient. Discussed with Dr. Calderón and agree with findings and plan as documented in the note. Any exceptions or clarifications are listed here: None Documented By: Estuardo Rendon feeling ok for juniper tomorrow continues to try to eat well vitals noted nad breathing unlabored poor appetite -- continue to encu[place] intake, doing better, family pleased with progress myeloma w effusions - ongoing treatment for juniper tomorrow Continued [facility] stay due to: home environment unsafe for pt Discharge planning: intermediate facility Resident Tracking Resident Involvement: Resident Care Provided Care Provided: Adult Hospital Medicine
[2016-08-10] MEDS: CEFDINIR 250 MG/5 ML 60 ML PO SCH (21:30)
[2016-08-10] MEDS: CLINDAMYCIN HCL 150 MG CAP PO SCH (21:30)
[2016-08-11 00:02] VITALS: BP 132/76; PULSE 89; TEMP 36.5; O2SAT 95
[2016-08-11 04:00] VITALS: BP 133/81; PULSE 88; TEMP 36.6; O2SAT 93
[2016-08-11 06:08] LABS: HEMATOCRIT 27.8 % (37-47); MEAN CELL VOLUME 94.2 fL (80-100); MEAN CORPUSCULAR HEMOGLOBIN 30.5 pg (25-34); MEAN CORPUSCULAR HGB CONC 32.4 g/dl (32-36); MEAN PLATELET VOLUME 10.4 fL (7.4-10.4); PLATELET COUNT 116 K/uL (130-400); RED BLOOD COUNT 2.95 M/uL (4.2-5.4); WHITE BLOOD COUNT 9.85 K/uL (4.8-10.8)
[2016-08-11 06:18] LABS: PARTIAL THROMBOPLASTIN RATIO 1.3
[2016-08-11] MEDS: CLINDAMYCIN HCL 150 MG CAP PO SCH ×2 (06:32→13:21)
[2016-08-11 06:43] LABS: BUN/CREATININE RATIO 13.9 (10-20); CALCIUM 6.7 mg/dl (8.5-10.1); CREATININE 0.86 mg/dl (0.60-1.20); MAGNESIUM 1.8 mg/dl (1.8-2.4); PHOSPHORUS 2.3 mg/dl (2.5-4.9); POTASSIUM 4.3 mmol/L (3.5-5.1)
[2016-08-11 07:27] VITALS: BP 133/83; PULSE 87; TEMP 36.3; O2SAT 96
[2016-08-11] MEDS ORDERED: POTASSIUM PHOS 3 MMOL/1 ML INFUSION IV STA (07:45)
[2016-08-11] MEDS ORDERED: POTASSIUM PHOSPHATE INJ 15 MMOL in SODIUM CHLORIDE 0.9% 250ML 250 ML IV SCH (08:00)
[2016-08-11] MEDS: BOOST VANILLA PO SCH ×2 (09:00)
[2016-08-11] MEDS ORDERED: POT PHOSPHATE MONOBASIC W/ SOD TAB PO SCH (09:00)
[2016-08-11] MEDS ORDERED: MAGNESIUM OXIDE 400 MG TAB PO SCH (09:00)
[2016-08-11] MEDS: SACCHAROMYCES BOUL (FLORASTOR) 250 MG CAP PO SCH (09:09)
[2016-08-11] MEDS: METOPROLOL SUCC 50MG EXT REL TAB PO SCH (09:10)
[2016-08-11] MEDS: PANTOprazole SOD 40 MG TAB PO SCH (09:10)
[2016-08-11] MEDS: ACYCLOVIR 200 MG CAP PO SCH (09:11)
[2016-08-11] MEDS: CEFDINIR 250 MG/5 ML 60 ML PO SCH (09:11)
[2016-08-11] MEDS: CALCIUM CARBONATE 500 MG CHEWABLE PO SCH (09:14)
[2016-08-11 11:16] VITALS: BP 112/77; PULSE 89; TEMP 36.2; O2SAT 95
[2016-08-11] MEDS ORDERED: LACTOBACILLUS ACIDOPHILUS (FLORANEX) TAB PO SCH (12:00)
[2016-08-11] MEDS ORDERED: Enteral Nutrition Formula PO (13:25)
[2016-08-11] MEDS ORDERED: ZFRI4 IV (13:25)
[2016-08-11] MEDS ORDERED: LCTX PO (13:25)
[2016-08-11] MEDS ORDERED: MYL80 PO (13:25)
[2016-08-11] MEDS ORDERED: ACYC-56 PO (13:25)
[2016-08-11] MEDS ORDERED: [UNRECOGNIZED DRUG - CODE] PO (13:25)
[2016-08-11] MEDS ORDERED: CLC150 PO (13:25)
[2016-08-11] MEDS ORDERED: TUMS PO (13:25)
[2016-08-11] MEDS ORDERED: POTTAB2 PO (13:25)
[2016-08-11] MEDS ORDERED: PRT40 PO (13:25)
[2016-08-11] MEDS ORDERED: PRD10 PO (13:25)
--- NOTE | 2016-08-11 13:45 | Discharge Instructions ---
Discharge Instructions Date of Service Aug 11, 2016. Admission Reason for Admission: Bilateral Pleural Effusion, Hypercalcemia Discharge Discharge Diagnosis / Problem: Bilateral pleural effusions secondary to multiple myeloma Discharge Goals Goal(s): Decrease discomfort, Improve function, Improve nutritional status, Diagnostic testing, Therapeutic intervention Activity Recommendations Activity Limitations: resume your previous activity . Instructions / Follow-Up Instructions / Follow-Up 86 year old female with recently diagnosed multiple myeloma admitted with shortness of breath 2/2 bilateral pleural effusions, requiring thoracocentesis x3 during her admission, repeatedly having her pleural effusion recur. Acute respiratory failure 2/2 bilateral pleural effusions - Taken for thoracocentesis on 07/30, 07/31, and 08/04. 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 MRSA negative. Pulmonary consulted. Pleural fluid pH 7.19 and found to be exudative, unable to place chest tube so will attempt antibiotics. - Contine Cefdinir and Clindamycin - currently day 9 of . Course completed on 08/11. - Patient had 1 day intermittent diarrhea. Low suspicion for c.diff, but if ongoing diarrhea, check for c.diff toxin. Continue probiotics. - Reassess daily for SOB, decreasing ox saturation etc.. If indicated, get CXR and if worsening pleural effusions call for urgent outpatient thoracocentesis with Dr. Canales. Multiple myeloma - oncology consulted. Last administration of Velcade on 08/10. - Continue outpatient follow up with oncology and treatment as prescribed by them Malnutrition - ongoing decreased appetite, without nausea - Encourage PO intake including Boost ID - Encourage PO fluid intake (in view of previous dehydration) - Continue Prednisone 10mg daily as appetite stimulant (+ aids with MM treatment ) Electrolytes imbalance - Continue calcium, magnesium, phosphate supplementation. - Check BMP+Mg+PO4 weekly. Re-evaluate need for supplementation if diet good, and electrolyte levels within normal limits. Anemia 2/2 multiple myeloma + GI losses (+FOBT) - required transfusion of 1 unit of irradiated blood transfused on 08/06. Iron Studies consistent with anemia of chronic disease. Colonoscopy in 2009 showed diverticular disease with no evident bleeds. No plans for scoping now. - Monitor H/H via weekly, unless clinic suspicion of worsening anemia - Transfuse again if Hgb <7-8, or if symptomatic Thrombocytopenia 2/2 consumptive process vs Velcade - elevated PTT with acquired factor deficiency possibly attributing to further consumption of platelets - Monitor CBC weekly or sooner if evidence of excessive bruising/bleeding - Transfuse platelets if <10,000, or if signs of bruising/bleeding Elevated PTT - Improving. Heme/Onc recs appreciated. 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 - resolved. Nephrology consulted - recs appreciated. Renal US 07/31 showed no hydronephrosis, but consistent with medical renal disease. KUB 07/31 showed markedly delayed bilateral nephrograms which suggests acute renal injury/ tubular necrosis. Lytic foci were also visualized. Completed 4 days of Decadron treatment. Creatinine now WNL. Lisinopril, indapamide, and furosemide held through out admission and not continued on discharge. - Reassess BP and edema daily, and assess for need to restart - Check BMP weekly Acute Systolic Heart Failure - Complete heart block s/p pacemaker placement. Compensated and not likely contributor to SOB. Bumex discontinued due hypotension, blood pressure stabilized. ECHO showed EF 20-25%. Pleural effusions 2/2 MM not CHF. Discontinued ACEi due to SANDER - Continue metoprolol Succinate 50mg QAM - Repeat ECHO in 1 month and follow up with Cardiology Elevated Troponin - Demand ischemia in setting of CHF and Multiple Myeloma. Peak trop 0.131, patient asymptomatic HTN - Continue metoprolol - Discontinue other medications unless clinically indicated to restart DVT Prophylaxis - Heparin held due to elevated PTT - Continue to follow coagulation factors, PTT, and platelets weekly - SCDs PT/OT - Ongoing therapy recommended Code Status - Full Resuscitation Current Hospital Diet Patient's current hospital diet: AHA Diet (Heart Healthy) Discharge Diet Recommended Diet: AHA Diet (Heart Healthy) Pending Studies Studies pending at discharge: no Medical Emergencies . Who to Call and When: Medical Emergencies: If at any time you feel your situation is an emergency, please call 911 immediately. . Non-Emergent Contact Non-Emergency issues call your: Primary Care Provider . . "Provider Documentation" section prepared by Angie Calderón. . VTE Core Measure Inpt VTE Proph given/why not?: SCD's
[2016-08-11 13:49] VITALS: BP 112/77; PULSE 89; TEMP 36.2; O2SAT 95
--- NOTE | 2016-08-11 16:36 | Discharge Summary ---
Discharge Summary Date of Service Aug 11, 2016. (Alka. Calderón MD) Discharge Summary Admission Date: Jul 29, 2016 at 20:23 Discharge Date: Aug 11, 2016 Discharge Disposition: residential facility Principal Diagnosis: Bilateral pleural effusions secondary to multiple myeloma Immunizations: Have You Had Influenza Vaccine: Yes History of Tetanus Vaccine?: No History of Pneumococcal: Yes History of Hepatitis B Vaccine: Yes (Alka. Calderón MD) Principal Diagnosis: multiple myeloma (Estuardo Rendon D.O.) Medication Reconciliation New Medications: Acyclovir (Acyclovir) 200 Mg Cap 400 MG PO BID for 30 Days, #120 CAP Calcium Carbonate (Tums) 500 Mg Chew 500 MG PO DAILY for 30 Days, #30 TAB Cefdinir (Cefdinir) 250 Mg/5 Ml Susp 300 MG PO Q12 for 2 Days, #3 TAB Clindamycin HCl (Clindamycin HCl) 150 Mg Cap 600 MG PO Q8 for 2 Days, #20 CAP Lactobacillus Acidophilus (Floranex) 1 Tab Tab 4 TAB PO TIDM for 30 Days, #90 TAB Ondansetron (Ondansetron Hcl) 2 Mg/Ml Inj 4 MG IV Q6H PRN for Nausea for 30 Days, #30 TAB Pantoprazole (Pantoprazole Sodium) 40 Mg Tab 40 MG PO QAM for 30 Days, #30 TAB Pot Phosphate Monobasic W/ Sod (Phospha 250 Neutral) 1 Tab Tab 1 TAB PO DAILY for 30 Days, #30 TAB Prednisone (Prednisone) 10 Mg Tab 10 MG PO DAILY for 30 Days, #30 TAB Simethicone (Mi-Acid Gas Relief) 80 Mg Chew 80 MG PO Q6H PRN for gas for 30 Days, #30 [Enteral Nutrition Formula] () 1 CAN LIQD 1 CAN PO BID for 30 Days Continued Medications: Acetaminophen (Arthritis Pain) 650 Mg Tab 2 TAB PO Q6H PRN for Pain Aspirin (Aspirin Ec) 81 Mg Tab 81 MG PO QAM Cholecalciferol (Vitamin D3) 1,000 Unit Cap 1000 INTUNIT PO QAM Magnesium Oxide (Magnesium-Oxide) 400 Mg Tab 400 MG PO QAM for 30 Days, #30 TAB Metoprolol Succinate (Metoprolol Succinate ER) 50 Mg Tabcr 1 TAB PO QAM, #90 Discontinued Medications: Furosemide (Furosemide) 20 Mg Tab 40 MG PO QAM, #30 Indapamide (Lozol) 1.25 Mg Tab 1.25 MG PO DAILY, TAB Lisinopril (Zestril) 40 Mg Tab 20 MG PO DAILY, TAB Potassium Chloride (K-Tabs) 10 Meq Tab 1 TAB PO QAM Discharge Exam Patient feeling well today, keen for transfer. Patient is lying comfortably in bed, she denies any issues overnight. She denies worsening symptoms of SOB, CP, or lightheadedness. She has been sitting OOB for increased durations and tolerated it well. Her appetite remains diminished, but patient is still making efforts to eat and drink as much as tolerated. Review of Systems: Constitutional: + fatigue, No chills, No fever Respiratory: No cough, No shortness of breath Cardiovascular: No PND, No chest pain, No edema, No orthopnea, No palpitations Abdomen: + diarrhea, No GI bleeding, No nausea, No vomiting Genitourinary - Female: No dysuria Physical Exam: General Appearance: WD/WN, no apparent distress Eyes: normal inspection ENT: hearing grossly normal Neck: supple Respiratory/Chest: no respiratory distress, no accessory muscle use, + decreased breath sounds (worse on left), + crackles Cardiovascular: regular rate, rhythm, no murmur Abdomen / GI: normal bowel sounds, non tender, soft Extremities: normal inspection, no calf tenderness, no pedal edema Neurologic/Psychiatric: alert, normal mood/affect, oriented x 3 Skin: normal color, warm/dry, no rash (Alka. Calderón MD) Hospital Course 86 year old female with recently diagnosed multiple myeloma admitted with shortness of breath 2/2 bilateral pleural effusions, requiring thoracocentesis x3 during her admission, repeatedly having her pleural effusion recur. Acute respiratory failure 2/2 bilateral pleural effusions - Taken for thoracocentesis on 07/30, 07/31, and 08/04. 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 MRSA negative. Pulmonary consulted. Pleural fluid pH 7.19 and found to be exudative, unable to place chest tube so will attempt antibiotics. - Continue Cefdinir and Clindamycin - currently day 9 of . Course completed on 08/11. - Patient had 1 day intermittent diarrhea. Low suspicion for c.diff, but if ongoing diarrhea, check for c.diff toxin. Continue probiotics. - Reassess daily for SOB, decreasing ox saturation etc. If indicated, get CXR and if worsening pleural effusions call for urgent outpatient thoracocentesis with Dr. Canales. Multiple myeloma - oncology consulted. Last administration of Velcade on 08/10. - Continue outpatient follow up with oncology and treatment as prescribed by them Malnutrition - ongoing decreased appetite, without nausea - Encourage PO intake including Boost ID - Encourage PO fluid intake (in view of previous dehydration) - Continue Prednisone 10mg daily as appetite stimulant (+ aids with MM treatment ) Electrolytes imbalance - Continue calcium, magnesium, phosphate supplementation. - Check BMP+Mg+PO4 weekly. Re-evaluate need for supplementation if diet good, and electrolyte levels within normal limits. Anemia 2/2 multiple myeloma + GI losses (+FOBT) - required transfusion of 1 unit of irradiated blood transfused on 08/06. Iron Studies consistent with anemia of chronic disease. Colonoscopy in 2009 showed diverticular disease with no evident bleeds. No plans for scoping now. - Monitor H/H via weekly, unless clinic suspicion of worsening anemia - Transfuse again if Hgb <7-8, or if symptomatic Thrombocytopenia 2/2 consumptive process vs Velcade - elevated PTT with acquired factor deficiency possibly attributing to further consumption of platelets - Monitor CBC weekly or sooner if evidence of excessive bruising/bleeding - Transfuse platelets if <10,000, or if signs of bruising/bleeding Elevated PTT - Improving. Heme/Onc recs appreciated. 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 - resolved. Nephrology consulted - recs appreciated. Renal US 07/31 showed no hydronephrosis, but consistent with medical renal disease. KUB 07/31 showed markedly delayed bilateral nephrograms which suggests acute renal injury/ tubular necrosis. Lytic foci were also visualized. Completed 4 days of Decadron treatment. Creatinine now WNL. Lisinopril, indapamide, and furosemide held through out admission and not continued on discharge. - Reassess BP and edema daily, and assess for need to restart - Check BMP weekly Acute Systolic Heart Failure - Complete heart block s/p pacemaker placement. Compensated and not likely contributor to SOB. Bumex discontinued due hypotension, blood pressure stabilized. ECHO showed EF 20-25%. Pleural effusions 2/2 MM not CHF. Discontinued ACEi due to SANDER - Continue metoprolol Succinate 50mg QAM - Repeat ECHO in 1 month and follow up with Cardiology Elevated Troponin - Demand ischemia in setting of CHF and Multiple Myeloma. Peak trop 0.131, patient asymptomatic HTN - Continue metoprolol - Discontinue other medications unless clinically indicated to restart DVT Prophylaxis - Heparin held due to elevated PTT - Continue to follow coagulation factors, PTT, and platelets weekly - SCDs PT/OT - Ongoing therapy recommended Code Status - Full Resuscitation Total Time Spent: Less than 30 minutes This includes examination of the patient, discharge planning, medication reconciliation, and communication with other providers. (Alka. Calderón MD) Resident Physician Supervision Note: I interviewed and examined the patient. Discussed with Dr. Calderón and agree with findings and plan as documented in the note. Any exceptions or clarifications are listed here: None Documented By: Estuardo Rendon ready to go to [facility] no acute complaints. pleased with care vitals noted, nad breathing unlabored no pallor or icterus myeloma, effusions - ongoing chemo, ongoing vigilance for any new respiratory worsening that would warrant repeat thoracentesis (buthas been stable for days) poor appetite - improved intake (prednisone 10mg as discussed with heme/onc to serve as both appetite stim and treatment for now - consider weaning in near future as PO intake improves) ongoing encouragement to eat and drink Total Time Spent: Less than 30 minutes (Estuardo Rendon, D.O.) Discharge Instructions Please refer to the electronic Patient Visit Report (Discharge Instructions) for additional information. (Alka. Calderón MD)
[2016-09-08] MEDS ORDERED: ACET160S78 PO (14:04)
[2016-09-08] MEDS ORDERED: MRPL PO (14:04)
== END 2016-08-11 14:14 | DRG 840 ==
LOC: ENRESERVDT → ENRESERVTM → C.EDB 14:52 → C.MED 20:23
PROVIDERS: ADMIT Hospitalist; ATTEND Family Medicine
PROC: 0W9930Z Drainage of Right Pleural Cavity with Drainage Device, Percutaneous Approach (ICD-10-PCS; 2016-07-30)
PROC: 0W9B30Z Drainage of Left Pleural Cavity with Drainage Device, Percutaneous Approach (ICD-10-PCS; 2016-07-31)
PROC: 0W993ZX Drainage of Right Pleural Cavity, Percutaneous Approach, Diagnostic (ICD-10-PCS; 2016-08-04)
PROC: 02HV33Z Insertion of Infusion Device into Superior Vena Cava, Percutaneous Approach (ICD-10-PCS; principal; 2016-08-05)
DX: C90.00 Multiple myeloma not having achieved remission (principal); N17.0 Acute kidney failure with tubular necrosis; J91.0 Malignant pleural effusion; I44.2 Atrioventricular block, complete; E46 Unspecified protein-calorie malnutrition; I50.21 Acute systolic (congestive) heart failure; N18.4 Chronic kidney disease, stage 4 (severe); I24.8 Other forms of acute ischemic heart disease; J96.00 Acute respiratory failure, unspecified whether with hypoxia or hypercapnia; I42.9 Cardiomyopathy, unspecified; E83.52 Hypercalcemia; Z88.2 Allergy status to sulfonamides; E86.0 Dehydration; D69.59 Other secondary thrombocytopenia; I13.10 Hypertensive heart and chronic kidney disease without heart failure, with stage 1 through stage 4 chronic kidney disease, or unspecified chronic kidney disease; Z95.0 Presence of cardiac pacemaker; I95.89 Other hypotension; E83.39 Other disorders of phosphorus metabolism; E88.09 Other disorders of plasma-protein metabolism, not elsewhere classified; E87.6 Hypokalemia; E83.42 Hypomagnesemia; D63.0 Anemia in neoplastic disease

== ENCOUNTER 2016-09-06 08:23 | Inpatient (IN) | payer BC, OTHER ==
[~2016-09-06] VITALS: Ht 160 cm; Wt 58.7 kg
[~2016-09-06 08:23] MED LIST changes: +ACYC-56 PO; +CLC150 PO; +Enteral Nutrition Formula PO; -HYDR-4079 PO; -HYDR-5688 PO; -INDA1TAB3 PO; +LCTX PO; -LISI40TA PO; +MYL80 PO; +POTTAB2 PO; +PRD10 PO; +PRT40 PO; +TPRSR/50 PO; -TPRSR50 PO; +TUMS PO; +ZFRI4 IV; +[UNRECOGNIZED DRUG - CODE] PO
--- NOTE | 2016-09-06 08:55 | DIAGNOSTIC IMAGING REPORT ---
CHEST ONE VIEW PORTABLE CLINICAL HISTORY: EVALUATE RESPIRATORY DISTRESS. DYSPNEA dyspnea COMPARISON STUDY: 08/08/2016 FINDINGS: Bilateral pleural effusions. Components of congestive failure. Study is radiographically similar compared to the prior exam. IMPRESSION: Congestive failure. Bilateral pleural effusions. Electronically signed by: Giovany Giron M.D. 09/06/2016 8:53 AM Dictated Date/Time: 09/06/2016 8:52 AM
[2016-09-06 09:43] LABS: HEMATOCRIT 28.7 % (37-47); MEAN CORPUSCULAR HEMOGLOBIN 33.8 pg (25-34); MEAN CORPUSCULAR HGB CONC 34.1 g/dl (32-36); PLATELET COUNT 114 K/uL (130-400); WHITE BLOOD COUNT 11.33 K/uL (4.8-10.8)
[2016-09-06 10:02] LABS: INR 1.2 (0.9-1.1); PARTIAL THROMBOPLASTIN RATIO 1.1; PROTHROMBIN TIME (PATIENT) 13.1 SECONDS (9.0-12.0)
[2016-09-06 10:09] LABS: URINE APPEARANCE CLEAR (CLEAR); URINE BILIRUBIN NEG (NEG); URINE COLOR YELLOW; URINE NITRITE NEG (NEG); URINE PH 5.5 (4.5-7.5); URINE SPECIFIC GRAVITY 1.016 (1.000-1.030); UROBILINOGEN NEG (NEG); ZZURINE CULT IF INDIC CATH NO
[2016-09-06 10:09] LABS: ALB/GLOB RATIO 0.6 (0.9-2); ALKALINE PHOSPHATASE 71 U/L (45-117); ALT/SGPT 14 U/L (12-78); AST/SGOT 28 U/L (15-37); BLOOD UREA NITROGEN 20 mg/dl (7-18); BUN/CREATININE RATIO 15.1 (10-20); CALCIUM 7.5 mg/dl (8.5-10.1); CARBON DIOXIDE 34 mmol/L (21-32); CHLORIDE 94 mmol/L (98-107); GLUCOSE 128 mg/dl (70-99); POTASSIUM 2.5 mmol/L (3.5-5.1); SODIUM 136 mmol/L (136-145)
[2016-09-06] MEDS ORDERED: POTASSIUM CHLORIDE 10 MEQ TABCR PO STA (10:12)
[2016-09-06 10:18] LABS: MANUAL MICROSCOPIC REQUIRED? NO; REVIEW REQ? NO
[2016-09-06 10:21] LABS: ANISOCYTOSIS PRESENT; BASO % 0.4 %; BASO ABS # 0.04 K/uL (0-0.2); COMPLETE YES; HYPERSEGMENTED POLYS 1+; IG% 0.3 %; LYMPH % 9.3 %; LYMPH ABS # 1.05 K/uL (1.2-3.4); MONO % 5.4 %; NEUT % 84.6 %; STOMATOCYTE 1+
[2016-09-06] MEDS ORDERED: POTASSIUM CHLORIDE 10 MEQ / 100ML WTR IV STA (10:21)
--- NOTE | 2016-09-06 11:42 | EMERGENCY ROOM VISIT NOTE ---
History Report prepared by Angelia: Polina Michael Under the Supervision of: Dr. Estuardo Braun D.O. First contact with patient: 08:30 Chief Complaint: RESPIRATORY PROBLEMS Stated Complaint: RESPIRATORY ISSUES, NOT ABLE TO URINATE History of Present Illness The patient is a 86 year old female who presents to the Emergency Room with complaints of worsening shortness of breath that started last night. The shortness of breath is worse when lying flat and relieved when sitting upright. The patient's states that the physical therapy specialist was at the house this morning and found that the patient's oxygen saturation was 88% on room air, so she called Dr. Canales and asked him what to do. Dr. Canales recommended coming into the ED for further evaluation. The patient is also experiencing a sore throat and a dry cough, which started 2 days ago. Additionally, she is experiencing lower extremity edema, but she states that it is not new. The patient's last bowel movement was yesterday and she states that it was normal. She denies chest pain, nausea, vomiting, diarrhea, and pain or burning with urination. The patient's states that the patient has multiple myelinoma and Dr. Corrigan - Hematology follows with her for that. The patient's most recent dose of chemotherapy was 6 days ago and her adds that she is not supposed to get treatment this week. She has received 4 shots of chemotherapy so far. The patient had fluid drained off of her lungs in the past, with the most recent time being a couple weeks ago. She has a history of CHF and is on 40 mg of Lasix. Source of History: patient, spouse/significant other () Onset: last night Position: chest Quality: other (shortness of breath) Timing: worsening Modifying Factors (Worsening): other (lying flat) Modifying Factors (Relieving): other (sitting upright) Associated Symptoms: + cough, + sorethroat, No chest pain, No diarrhea, No nausea, No urinary symptoms (pain or burning with urination), No vomiting Note: lower extremity edema Review of Systems See HPI for pertinent positives & negatives. A total of 10 systems reviewed and were otherwise negative. Past Medical & Surgical Medical Problems: (1) Acute renal insufficiency (2) Acute systolic CHF (congestive heart failure) (3) Cardiac Dysrhythmias Nec (4) Cardiomegaly (5) Diastolic dysfunction (6) Diverticulosis Colon (W/O Ment Of Hemorrhage) (7) Hypertension Nos (8) Intractable low back pain (9) Multiple myeloma (10) Osteoporosis Nos (11) Pleural effusion in other conditions classified elsewhere (12) SOB (shortness of breath) (13) Thoracic vertebral fracture Family History FH: heart disease Social History Smoking Status: Never Smoker Alcohol Use: none Drug Use: none Marital Status: Housing Status: lives with family Occupation Status: retired Current/Historical Medications Scheduled Acyclovir (Acyclovir), 400 MG PO BID Aspirin (Aspirin Ec), 81 MG PO QAM Calcium Carbonate (Tums), 500 MG PO DAILY Lactobacillus Acidophilus (Floranex), 4 TAB PO TIDM Metoprolol Succinate (Metoprolol Succinate ER), 1 TAB PO QAM Pot Phosphate Monobasic W/ Sod (Phospha 250 Neutral), 1 TAB PO DAILY Prednisone (Prednisone), 10 MG PO DAILY Scheduled PRN Acetaminophen (Arthritis Pain), 2 TAB PO Q6H PRN for Pain Simethicone (Mi-Acid Gas Relief), 80 MG PO Q6H PRN for gas Allergies Coded Allergies: Sulfa Antibiotics (Verified Allergy, Unknown, RASH, 09/06/16) Physical Exam Vital Signs Date Time Temp Pulse Resp B/P Pulse Ox O2 Delivery O2 Flow Rate FiO2 09/06/16 10:54 97 16 121/75 96 Nasal Cannula 2.0 09/06/16 09:17 24 123/65 99 Nasal Cannula 2.0 09/06/16 08:55 97 Nasal Cannula 2.0 09/06/16 08:42 54 09/06/16 08:37 84 Room Air 09/06/16 08:37 Nasal Cannula 2.0 09/06/16 08:27 36.6 58 18 137/53 90 Room Air Physical Exam GENERAL: alert, sitting up on edge of bed, chronically ill appearing, disheveled , well nourished, no distress, non-toxic EYE EXAM: normal conjunctiva OROPHARYNX: no exudate, no erythema, lips, buccal mucosa, and tongue normal and mucous membranes are moist NECK: supple, no nuchal rigidity, no adenopathy, non-tender LUNGS: Breath sounds diminished and coarse at the bases. Normal chest wall mechanics HEART: no murmurs, S1 normal and S2 normal ABDOMEN: abdomen soft, non-tender, normo-active bowel sounds, no masses, no rebound or guarding. BACK: Back is symmetrical on inspection and there is no deformity, no midline tenderness, no CVA tenderness. SKIN: no rashes and no bruising UPPER EXTREMITIES: upper extremities are grossly normal. LOWER EXTREMITIES: Diffuse pitting edema, calves equal bilaterally. NEURO EXAM: Normal sensorium, cranial nerves II-XII grossly intact, normal speech, no gross weakness of arms, no gross weakness of legs. Medical Decision & Procedures ER Provider Diagnostic Interpretation: Radiology results as stated below per my review and the radiologist's interpretation: CHEST ONE VIEW PORTABLE FINDINGS: Bilateral pleural effusions. Components of congestive failure. Study is radiographically similar compared to the prior exam. IMPRESSION: Congestive failure. Bilateral pleural effusions. Electronically signed by: Giovany Giron M.D. 09/06/2016 8:53 AM Dictated Date/Time: 09/06/2016 8:52 AM Laboratory Results 09/06/16 09:00 Red Blood Count 2.90, Mean Corpuscular Volume 99.0, Mean Corpuscular Hemoglobin 33.8, Mean Corpuscular Hemoglobin Concent 34.1, Mean Platelet Volume 10.0, Neutrophils (%) (Auto) 84.6, Lymphocytes (%) (Auto) 9.3, Monocytes (%) (Auto) 5.4, Eosinophils (%) (Auto) 0.0, Basophils (%) (Auto) 0.4, Neutrophils # (Auto) 9.60, Lymphocytes # (Auto) 1.05, Monocytes # (Auto) 0.61, Eosinophils # (Auto) 0.00, Basophils # (Auto) 0.04 09/06/16 09:00 Test 09/06/16 09:00 09/06/16 09:05 09/06/16 11:00 White Blood Count 11.33 K/uL (4.8-10.8) Red Blood Count 2.90 M/uL (4.2-5.4) Hemoglobin 9.8 g/dL (12.0-16.0) Hematocrit 28.7 % (37-47) Mean Corpuscular Volume 99.0 fL (80-100) Mean Corpuscular Hemoglobin 33.8 pg (25-34) Mean Corpuscular Hemoglobin Concent 34.1 g/dl (32-36) Platelet Count 114 K/uL (130-400) Mean Platelet Volume 10.0 fL (7.4-10.4) Neutrophils (%) (Auto) 84.6 % Lymphocytes (%) (Auto) 9.3 % Monocytes (%) (Auto) 5.4 % Eosinophils (%) (Auto) 0.0 % Basophils (%) (Auto) 0.4 % Neutrophils # (Auto) 9.60 K/uL (1.4-6.5) Lymphocytes # (Auto) 1.05 K/uL (1.2-3.4) Monocytes # (Auto) 0.61 K/uL (0.11-0.59) Eosinophils # (Auto) 0.00 K/uL (0-0.5) Basophils # (Auto) 0.04 K/uL (0-0.2) RDW Standard Deviation 84.0 fL (36.4-46.3) RDW Coefficient of Variation 23.7 % (11.5-14.5) Immature Granulocyte % (Auto) 0.3 % Immature Granulocyte # (Auto) 0.03 K/uL (0.00-0.02) Hypersegmented Polys 1+ Anisocytosis PRESENT Stomatocytes 1+ Prothrombin Time 13.1 SECONDS (9.0-12.0) Prothromb Time International Ratio 1.2 (0.9-1.1) Activated Partial Thromboplast Time 29.2 SECONDS (21.0-31.0) Partial Thromboplastin Ratio 1.1 Anion Gap 8.0 mmol/L (3-11) Estimated GFR () 43.0 Estimated GFR (Non- 37.1 BUN/Creatinine Ratio 15.1 (10-20) Calcium Level 7.5 mg/dl (8.5-10.1) Total Bilirubin 0.9 mg/dl (0.2-1) Aspartate Amino Transf (AST/SGOT) 28 U/L (15-37) Alanine Aminotransferase (ALT/SGPT) 14 U/L (12-78) Alkaline Phosphatase 71 U/L (45-117) Troponin I 0.039 ng/ml (0-0.045) Pro-B-Type Natriuretic Peptide 3435 pg/ml (0-1800) Total Protein 7.3 gm/dl (6.4-8.2) Albumin 2.8 gm/dl (3.4-5.0) Globulin 4.5 gm/dl (2.5-4.0) Albumin/Globulin Ratio 0.6 (0.9-2) Urine WBC (Auto) 1-5 /hpf (0-5) Urine RBC (Auto) 0-4 /hpf (0-4) Urine Hyaline Casts (Auto) 5-10 /lpf (0-5) Urine Epithelial Cells (Auto) 10-20 /lpf (0-5) Urine Bacteria (Auto) NEG (NEG) Laboratory results per my review. Medications Administered Medications (Trade) Dose Ordered Sig/Willy Route Start Time Stop Time Status Last Admin Dose Admin Potassium Chloride (Klor-Con M10) 40 meq NOW STAT PO 09/06/16 10:12 09/06/16 10:13 DC 09/06/16 10:42 40 MEQ Potassium Chloride (Kcl 10 Meq / Wtr) 10 meq NOW STAT IV 09/06/16 10:21 09/06/16 10:22 DC 09/06/16 10:42 10 MEQ ECG Indication: SOB/dyspnea Rate (beats per minute): 51 Rhythm: other Findings: T-wave inversion (Inferior, Lateral), paced rhythm (ventricularly), other (normal axis) Comparison ECG Date: 07/31/2016 Change: T-wave inversions in the inferior and lateral leads are new ED Course ED COURSE: Vital signs were reviewed and showed hypoxia. The patients medical record was reviewed The above diagnostic studies were performed and reviewed. ED treatments and interventions as stated above. 0832: The patient was evaluated in room A2. A complete history and physical examination was performed. 1012: Ordered Potassium Chloride 40 meq PO 1020: I reassessed and updated the patient. 1021: Ordered Potassium Chloride 10 meq PO 1027: I reviewed the patient's case with Dr. Mago Ross [facility] [place]. He will evaluate the patient for further management. 1055: Upon reevaluation, the patient is resting comfortably. I discussed my findings with the patient and she understands and agrees with the treatment plan. Based on the patients age, coexisting illnesses, exam and lab findings the decision to treat as an inpatient was made. The patient remained stable while under my care. The patient will be evaluated for further management. Medical Decision Differential diagnoses includes but is not limited to pneumonia, bronchitis, COPD/Asthma exacerbation, pneumothorax, pulmonary embolism, congestive heart failure, acute coronary syndrome. Patient is an 86 year old female who presents the ER referred in by Dr. Canales for shortness of breath. She was found to be hypoxic at 88% on room air. Patient does have a history of multiple myeloma notes that shortness of breath has been significantly worsening over the past couple days. He does admit to a cough as well. Chest x-ray supports bilateral effusions. CBC shows a chronic anemia. BMP shows a potassium of 2.5. She was given 40 mEq of potassium orally and 10 IV. Renal functions normal and 1.3. BMP is elevated at 3000. Troponin is intact without positive. EKG did show new flipped T waves in the lateral leads. Legs show bilateral edema. Discussed case with internal medicine and patient was admitted for further workup of her pleural effusions associated with hypoxia. Consults Time Called: 1025 Consulting Physician: Dr. Mago AMBROSIO Returned Call: [phone] I reviewed the patient's case with Dr. Mago AMBROSIO. He will evaluate the patient for further management. Impression Primary Impression: Hypoxia Additional Impressions: Bilateral pleural effusion Chronic anemia Hypokalemia Anemia Scribe Attestation The scribe's documentation has been prepared under my direction and personally reviewed by me in its entirety. I confirm that the note above accurately reflects all work, treatment, procedures, and medical decision making performed by me. Departure Information Dispostion Being Evaluated By Hospitalist Baron Rendon M.D. (PCP) Patient Instructions My [facility] Problem Qualifiers Additional Impressions: Anemia Other causes of anemia: other cause, not classified
[2016-09-06] MEDS ORDERED: ACETAMINOPHEN 325 MG TAB PO PRN (11:45)
[2016-09-06] MEDS ORDERED: ALUMINUM/MAGNESIUM/SIMETH (MAALOX MAX) 30 ML UDC PO PRN (11:45)
[2016-09-06] MEDS ORDERED: MAGNESIUM HYDROXIDE SUSP 30 ML UDC PO PRN (11:45)
[2016-09-06] MEDS ORDERED: ZOLPIDEM TARTRATE 5 MG TAB PO PRN (11:45)
[2016-09-06] MEDS ORDERED: ONDANSETRON INJ 2 MG/ML 2 ML VIAL IV PRN (11:45)
[2016-09-06] MEDS ORDERED: SIMETHICONE 80 MG CHEW PO PRN (11:45)
[2016-09-06] MEDS ORDERED: POLYETHYLENE (MIRALAX) 17 GM PACK PO PRN (11:45)
[2016-09-06] MEDS ORDERED: MAGNESIUM SULFATE 1GM / D5W 1 GM BAG IV SCH (12:00)
[2016-09-06] MEDS ORDERED: POTASSIUM CHLORIDE 10 MEQ / 100ML WTR IV SCH (12:00)
--- NOTE | 2016-09-06 12:37 | History and Physical ---
History & Physical Date & Time of Service: September 06, 2016 at 12:00 Chief Complaint: Respiratory Issues, Not Able To Urinate Primary Care Physician: Baron Segura M.D. History of Present Illness Source: patient 86 y/o F Hx CHF, pacer, recurrent B/L malignant pleural effusions. Diagnosed with multiple myeloma 07/18 presented with an acute lumbar compression fracture. She was recently admitted for related SOB and required thoracentesis. She was instructed to attend the hospital today due to worsening SOB. A CXR is consistent with reaccumulation and vascular congestion. She also has worsening lower extremity edema due to both CHF and hypoalbuminemia. She has had difficulty with electrolyte balance and worsening renal function. Initial labs on admission reveal severe hypokalemia. She denies CP, a productive cough, N/V, fevers. The pt is being treated with Bortezomib and has had a total of 4 treatments. She has resultant anemia and required 2 untis PRBCs during her recent admission. Past Medical/Surgical History Medical Problems: (1) Cardiac Dysrhythmias Nec Status: Chronic (2) Cardiomegaly Status: Chronic (3) Diverticulosis Colon (W/O Ment Of Hemorrhage) Status: Chronic (4) Hypertension Nos Status: Chronic (5) Osteoporosis Nos Status: Chronic 6) Multiple Myeloma - diagnosed 07/08 - undergoing treatment with Bortezomib 7) ARF 8) Hypokalemia, Hypophosphatemia, Hypoalbuminemia 9) Lower extremity edema 10) L ventricular function is reported as severely reduced on recent echo - degree of diastolic dysfunction reported as well. Family History FH: heart disease Reviewed - Noncontributory Social History Smoking Status: Never Smoker Drug Use: none Marital Status: Housing status: lives with family Occupational Status: retired Immunizations History of Influenza Vaccine: Yes History of Tetanus Vaccine?: No History of Pneumococcal: Yes History of Hepatitis B Vaccine: Yes Multi-Drug Resistant Organisms History of MDRO: No Allergies Coded Allergies: Sulfa Antibiotics (Verified Allergy, Unknown, RASH, 09/06/16) Home Medications Scheduled Acyclovir (Acyclovir), 400 MG PO BID Aspirin (Aspirin Ec), 81 MG PO QAM Calcium Carbonate (Tums), 500 MG PO DAILY Lactobacillus Acidophilus (Floranex), 4 TAB PO TIDM Metoprolol Succinate (Metoprolol Succinate ER), 1 TAB PO QAM Pot Phosphate Monobasic W/ Sod (Phospha 250 Neutral), 1 TAB PO DAILY Prednisone (Prednisone), 10 MG PO DAILY Scheduled PRN Acetaminophen (Arthritis Pain), 2 TAB PO Q6H PRN for Pain Simethicone (Mi-Acid Gas Relief), 80 MG PO Q6H PRN for gas Review of Systems Constitutional: No chills, No fever, No sweats Eyes: No eye pain, No worsening of vision ENT: No hearing loss, No nasal symptoms, No unusual epistaxis Respiratory: + dyspnea at rest, + dyspnea on exertion, + shortness of breath, No cough Cardiovascular: No PND, No chest pain, No orthopnea Abdomen: No nausea, No pain, No vomiting Musculoskeletal: + problem reported (Chronic back and joint pains) Genitourinary - Female: No dysuria, No urinary frequency, No urinary urgency Neurologic: + weakness, No memory loss, No paralysis Psychiatric: + depression symptoms Endocrine: + fatigue Hematologic / Lymphatic: No abnormal bleeding/bruising Integumentary: No rash Allergic / Immunologic: No environmental allergies Physical Exam Vital Signs Date Time Temp Pulse Resp B/P Pulse Ox O2 Delivery O2 Flow Rate FiO2 09/06/16 10:54 97 16 121/75 96 Nasal Cannula 2.0 09/06/16 09:17 24 123/65 99 Nasal Cannula 2.0 09/06/16 08:55 97 Nasal Cannula 2.0 09/06/16 08:42 54 09/06/16 08:37 84 Room Air 09/06/16 08:37 Nasal Cannula 2.0 09/06/16 08:27 36.6 58 18 137/53 90 Room Air General Appearance: + pertinent finding (Pleasant , kyphotic elederly female in no acute distress ) Head: normocephalic Eyes: normal inspection, PERRL, EOMI ENT: normal ENT inspection, hearing grossly normal, TMs normal, pharynx normal Neck: supple, + JVD Respiratory/Chest: chest non-tender, + decreased breath sounds, + pertinent finding (No air entry at bases up to near mid lung B/L - severe kyphosis) Cardiovascular: no murmur, + bradycardia, + irregularly irregular Abdomen/GI: normal bowel sounds, non tender, soft Back: normal inspection, no CVA tenderness, + decreased range of motion Extremities/Musculoskelatal: + pedal edema (3+ b/l edema) 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, no motor/sensory deficits, alert, normal mood/affect, normal reflexes, oriented x 3 Skin: normal color, + pertinent finding (Some skin breakdown without cellulitis - LE R>L) Diagnostics Laboratory Results Results Past 24 Hours Test 09/06/16 09:00 09/06/16 09:05 09/06/16 11:00 Range/Units White Blood Count 11.33 4.8-10.8 K/uL Red Blood Count 2.90 4.2-5.4 M/uL Hemoglobin 9.8 12.0-16.0 g/dL Hematocrit 28.7 37-47 % Mean Corpuscular Volume 99.0 80-100 fL Mean Corpuscular Hemoglobin 33.8 25-34 pg Mean Corpuscular Hemoglobin Concent 34.1 32-36 g/dl Platelet Count 114 130-400 K/uL Mean Platelet Volume 10.0 7.4-10.4 fL Neutrophils (%) (Auto) 84.6 % Lymphocytes (%) (Auto) 9.3 % Monocytes (%) (Auto) 5.4 % Eosinophils (%) (Auto) 0.0 % Basophils (%) (Auto) 0.4 % Neutrophils # (Auto) 9.60 1.4-6.5 K/uL Lymphocytes # (Auto) 1.05 1.2-3.4 K/uL Monocytes # (Auto) 0.61 0.11-0.59 K/uL Eosinophils # (Auto) 0.00 0-0.5 K/uL Basophils # (Auto) 0.04 0-0.2 K/uL RDW Standard Deviation 84.0 36.4-46.3 fL RDW Coefficient of Variation 23.7 11.5-14.5 % Immature Granulocyte % (Auto) 0.3 % Immature Granulocyte # (Auto) 0.03 0.00-0.02 K/uL Hypersegmented Polys 1+ Anisocytosis PRESENT Stomatocytes 1+ Prothrombin Time 13.1 9.0-12.0 SECONDS Prothromb Time International Ratio 1.2 0.9-1.1 Activated Partial Thromboplast Time 29.2 21.0-31.0 SECONDS Partial Thromboplastin Ratio 1.1 Sodium Level 136 136-145 mmol/L Potassium Level 2.5 3.5-5.1 mmol/L Chloride Level 94 98-107 mmol/L Carbon Dioxide Level 34 21-32 mmol/L Anion Gap 8.0 3-11 mmol/L Blood Urea Nitrogen 20 7-18 mg/dl Creatinine 1.30 0.60-1.20 mg/dl Estimated GFR () 43.0 Estimated GFR (Non- 37.1 BUN/Creatinine Ratio 15.1 10-20 Random Glucose 128 70-99 mg/dl Calcium Level 7.5 8.5-10.1 mg/dl Total Bilirubin 0.9 0.2-1 mg/dl Aspartate Amino Transf (AST/SGOT) 28 15-37 U/L Alanine Aminotransferase (ALT/SGPT) 14 12-78 U/L Alkaline Phosphatase 71 45-117 U/L Troponin I 0.039 0-0.045 ng/ml Pro-B-Type Natriuretic Peptide 3435 0-1800 pg/ml Total Protein 7.3 6.4-8.2 gm/dl Albumin 2.8 3.4-5.0 gm/dl Globulin 4.5 2.5-4.0 gm/dl Albumin/Globulin Ratio 0.6 0.9-2 Urine Color YELLOW Urine Appearance CLEAR CLEAR Urine pH 5.5 4.5-7.5 Urine Specific [place] 1.016 1.000-1.030 Urine Protein TRACE NEG Urine Glucose (UA) NEG NEG Urine Ketones NEG NEG Urine Occult Blood NEG NEG Urine Nitrite NEG NEG Urine Bilirubin NEG NEG Urine Urobilinogen NEG NEG Urine Leukocyte Esterase NEG NEG Urine WBC (Auto) 1-5 0-5 /hpf Urine RBC (Auto) 0-4 0-4 /hpf Urine Hyaline Casts (Auto) 5-10 0-5 /lpf Urine Epithelial Cells (Auto) 10-20 0-5 /lpf Urine Bacteria (Auto) NEG NEG Diagnostic Radiology Congestive failure. Bilateral pleural effusions. EKG Ventricular pacing at 51 BPM Impression Assessment and Plan 86 y/o F Hx CHF, pacer, recurrent B/L malignant pleural effusions. Diagnosed with multiple myeloma 07/18 presented with an acute lumbar compression fracture. She was recently admitted for related SOB and required thoracentesis. She was instructed to attend the hospital today due to worsening SOB. A CXR is consistent with reaccumulation and vascular congestion. She also has worsening lower extremity edema due to both CHF and hypoalbuminemia. She has had difficulty with electrolyte balance and worsening renal function. Initial labs on admission reveal severe hypokalemia. She denies CP, a productive cough, N/V, fevers. 1) SOB - CHF and malignant effusions - Thoracentesis with imaging requested - we will contact pulmonology to determine if a Pleurx may be appropriate to avoid frequent admissions for same. We will also provide Albumin and diuresis as her LE edema is severe and this may help reduce her volume status although the effect is likely to be temporary. She is assigned to telemetry and is maintaining an adequate sat with supplemental 02 2) Multiple Myeloma - can cont Bortezomib as outpt. 3) Hypokalemia - receiving K and Mg - will check phos - she may need more aggressive replacement as this is recurrent. 4) Anemia - stable 5) Renal impairment - Creat is approximately at baseline - will trend function. Full code - Prophylaxis held pending thoracentesis - could not apply SCDs due to degree of edema Total time for this admit including review of labs, meds, EKG, imaging - extensive records - discussion with ER MD, Pt/spouse 45 min Level of Care Telemetry Resuscitation Status FULL RESUSCITATION VTE Prophylaxis VTE Risk Assessment Done? Y/N: Yes Risk Level: Very Low Given or contraindicated: Unfractionated heparin SQ
[2016-09-06] MEDS ORDERED: MAGNESIUM SULFATE 1GM / D5W 1 GM in PREMIXED IN D5W 100 ML IV SCH (13:30)
[2016-09-06] MEDS ORDERED: ALBUMIN HUMAN 25% 12.5 GM/50 ML VIAL IV ONE (13:30)
[2016-09-06] MEDS ORDERED: SPIRONOLACTONE 25 MG TAB PO ONE (13:30)
[2016-09-06] MEDS ORDERED: POTASSIUM CHLR 10 MEQ / WTR 10 MEQ in PREMIXED WATER 100 ML IV SCH (13:30)
[2016-09-06] MEDS ORDERED: HEPARIN SOD 5000 UNIT/0.5 ML CARP SQ SCH (14:00)
[2016-09-06 14:41] VITALS: BP 138/84; PULSE 91; TEMP 37; O2SAT 96; Ht 160 cm; Wt 58.7 kg
[2016-09-06] MEDS ORDERED: IV FLUIDS COMPLETED PRN (14:45)
[2016-09-06 15:10] VITALS: BP 126/79; PULSE 81; TEMP 36.7; O2SAT 96
[2016-09-06 15:12] VITALS: BP 135/82; PULSE 96; TEMP 36.5; O2SAT 97
[2016-09-06] MEDS ORDERED: PNEUMOCOCCAL ADMINISTRATION CHARGE ONE (15:30)
[2016-09-06] MEDS ORDERED: PNEUMOCOCCAL POLYSACCHARIDES 25 MCG/0.5 ML VIAL/SYR IM. ONE (15:30)
[2016-09-06 16:00] VITALS: O2SAT 97
[2016-09-06] MEDS: LACTOBACILLUS ACIDOPHILUS (FLORANEX) TAB PO SCH ×2 (17:00→17:29)
--- NOTE | 2016-09-06 17:35 | Procedure Note ---
Procedure Note Date of Service September 06, 2016. Procedure Note Procedures: Right sided Thoracentesis Consent: obtained via the patient and placed into the chart Pre-Procedural Dx: right sided pleural effusion Post-Procedural Dx: right sided pleural effusion Analgesia: 8cc of 1% Liquid Lidocaine Procedure: The patient was placed in an upright position and thoracic US was used to select a spot for the procedure. A spot along the posterior axillary line was marked in the 7th intercostal space. The patient was then draped and prepped in a sterile fashion. A modified Seldinger technique was then used for catheter placement. Flowing this approximately 1500cc of free flowing yellow pleural fluid was removed. The patient was then cleaned and placed at a 60 degree angle in the bed were the US was used to evaluate for possible pneumothorax. The US showed good lung sliding and [place] signs. EBL: none Complications: none
--- NOTE | 2016-09-06 18:06 | Pulmonary Consultation ---
History General Date of Service: September 06, 2016. Stated Complaint: Sob, Pleural Effusion In Other Conditions HPI The patient is a 86 year old female who presents to [facility] with complaints of Sob, Pleural Effusion In Other Conditions. The patient 's primary care provider is Baron Segura M.D.. 86y/o female admitted secondary to progressive dyspnea at rest with work-up showing recurrent bilateral pleural effusions. The patients PmHx is significant for (b) myelomatis/malignant pleural effusions, CHF, diastolic heart failure and multiple myeloma 07/18 presented with an acute lumbar compression fracture. At the time of this interview the patient notes progressive dyspnea even at rest. She denies: fever, chills, pleurisy, cardiac chest pain, productive cough, diarrhea Oncologist: Dr. Raul Zhao Serum Studies: WBC: 11K PLT: 114K INR: 1.2 PT: 13.1 aPTT: 29.2 BUN/Cr: 20/1.30 Troponin I: 0.039 Pro-BNP: 3435 Albumin: 2.8 TP: 7.3 K+: 2.5 UA: trace protein Work-Up: CTA 07/28/16 Large bilateral pleural effusions R>L with signs of loculation No PE Assoiciated bilateral lower lobe atelectasis CXR 07/29/16 Bilateral large pleural effusions Cephalization with hilar fullness Bilateral DVT 07/29/16 Left distal popliteal vein with signs of chronic non-occlusive DVT CT Thoracic with IV contrast 07/05/16 Small to moderate sized bilateral pleural effusions with signs of loculation Numerous lytic lesions throughout the skeletal system Mammography 08/03/[address] ABD/Pelvis 07/04/16 Small bilateral pleural effusions Signs of diffuse lytic lesions Multiple compression fractures CXR 09/18/14 Left sided costo-phrenic blunting CR ABD/Pelvis 09/18/14 Lower lobes no signs of pleural effusions CXR (09/06/2016) Bilateral pleural effusions Historian: patient, family, EMS Review of Systems Constitutional: reports: weakness Eyes: reports: no symptoms ENT: reports: no symptoms Cardiovascular: reports: no symptoms Respiratory: reports: as stated in HPI Gastrointestinal: reports: no symptoms Genitourinary - Female: reports: no symptoms Musculoskeletal: reports: myalgias Integumentary: reports: no symptoms Neurologic: reports: no symptoms Psychiatric: reports: anxiety Endocrine: no symptoms Hematologic / Lymphatic: no symptoms Allergic / Immunologic: no symptoms Past Medical History Past Medical History: 1. Abnormal weight loss 2. Anemia 3. Sick sinus syndrome / Cardiac pacemaker 4. Third degree AV block / Cardiac pacemaker 5. Complete left bundle branch block 6. Constipation 7. Diverticulitis of colon 8. Hypertension 9. Hyponatremia 10. Intractable low back pain 11. Osteopenia 12. Shortness of breath on exertion 13. Abnormal finding on mammography 14. 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 Gross hematuria 17. blepharitis 18. lipoma 19. urinary tract infection 20. Bilateral exudative/plasma cell myeloma pleural effusions 21. Multpile Myeloma Family History FH: heart disease 1. Arthritis 2. Heart Disease 3. Lung Cancer 5. Bipolar Disorder 6. Depression Social History Social Drinker Marital History - Currently Never a smoker Occupation: Retired Hx Tobacco Use In Past Year?: No Smoking Status: Never Smoker Marital status: Housing status: lives with family Occupational Status: retired Immunizations History of Influenza Vaccine: Yes History of Tetanus Vaccine?: No History of Pneumococcal: Yes History of Hepatitis B Vaccine: Yes History of MDRO History of MDRO: No Allergies Coded Allergies: Sulfa Antibiotics (Verified Allergy, Unknown, RASH, 09/06/16) Current Medications Reported Home Medications Medications Dose Route/Sig Max Daily Dose Days Date Category Prednisone 10 Mg Tab 10 Mg PO DAILY 30 08/11/16 Rx Mi-Acid Gas Relief (Simethicone) 80 Mg Chew 80 Mg PO Q6H PRN 30 08/11/16 Rx Floranex (Lactobacillus Acidophilus) 1 Tab Tab 4 Tab PO TIDM 30 08/11/16 Rx Tums (Calcium Carbonate) 500 Mg Chew 500 Mg PO DAILY 30 08/11/16 Rx Phospha 250 Neutral (Pot Phosphate Monobasic W/ Sod) 1 Tab Tab 1 Tab PO DAILY 30 08/11/16 Rx Acyclovir 200 Mg Cap 400 Mg PO BID 30 08/11/16 Rx Metoprolol Succinate ER (Metoprolol Succinate) 50 Mg Tabcr 1 Tab PO QAM 07/29/16 Reported Arthritis Pain (Acetaminophen) 650 Mg Tab 2 Tab PO Q6H PRN 04/26/16 Reported Aspirin Ec (Aspirin) 81 Mg Tab 81 Mg PO QAM 02/04/14 Reported Physical Physical Exam Vital Signs: Date Time Temp Pulse Resp B/P Pulse Ox O2 Delivery O2 Flow Rate FiO2 09/06/16 15:12 36.5 96 18 135/82 97 Nasal Cannula 2.0 09/06/16 15:10 36.7 81 16 126/79 96 2.0 09/06/16 14:41 37.0 91 20 138/84 96 Nasal Cannula 2.0 09/06/16 12:29 79 20 128/96 96 Nasal Cannula 2.0 09/06/16 12:17 83 09/06/16 10:54 97 16 121/75 96 Nasal Cannula 2.0 09/06/16 09:17 24 123/65 99 Nasal Cannula 2.0 09/06/16 08:55 97 Nasal Cannula 2.0 09/06/16 08:42 54 09/06/16 08:37 84 Room Air 09/06/16 08:37 Nasal Cannula 2.0 09/06/16 08:27 36.6 58 18 137/53 90 Room Air General Appearance: moderate distress, cachetic Head: NORMOCEPHALIC, ATRAUMATIC Eyes: PERRLA, NO DISCHARGE, EOMI, SCLERAE NORMAL, CONJUNCTIVAE NORMAL ENT: NORMAL EAR EXAM, NORMAL NASAL EXAM, NORMAL MOUTH EXAM, NORMAL THROAT EXAM , NORMAL DENTAL EXAM, NORMAL SINUS EXAM Neck: NORMAL RANGE OF MOTION, NO TENDERNESS, TRACHEA MIDLINE, NO STRIDOR, SUPPLE Respiratory: other (decreased BS bilaterally with US showing bilateral large pleural effusions) Cardiovasular: REGULAR RATE/RHYTHM, NORMAL S1S2, other (distant heart sounds) Abdomen: NON TENDER, NORMAL BOWEL SOUNDS, NO REBOUND, NO MASSES Genitourinary - Female: EXTERNAL GENITALIA NORMAL Back: NORMAL INSPECTION, NO MIDLINE TENDERNESS, NO CVA TENDERNESS, NO PARAVERTEBRAL TTP, NORMAL RANGE OF MOTION Upper Extremities: NO EDEMA, NO DEFORMITY, NORMAL ROM Lower Extremities: edema Edema: Bilateral LE (2+) Pulses: carotid (R) (2+), carotid (L) (2+) Neuro: ALERT, ORIENTED x 3, NORMAL MOTOR EXAM, NORMAL SENSATION, NORMAL CEREBELLAR EXAM Reflexes: biceps (R) (2+), bicpes (L) (2+) Babinski Testing: right (downgoing), left (downgoing) Psychiatric: NORMAL AFFECT, NO SUICIDAL IDEATION Diagnostics Labs Results Past 24 Hours Test 09/06/16 09:00 09/06/16 09:05 09/06/16 17:30 Range/Units White Blood Count 11.33 4.8-10.8 K/uL Red Blood Count 2.90 4.2-5.4 M/uL Hemoglobin 9.8 12.0-16.0 g/dL Hematocrit 28.7 37-47 % Mean Corpuscular Volume 99.0 80-100 fL Mean Corpuscular Hemoglobin 33.8 25-34 pg Mean Corpuscular Hemoglobin Concent 34.1 32-36 g/dl Platelet Count 114 130-400 K/uL Mean Platelet Volume 10.0 7.4-10.4 fL Neutrophils (%) (Auto) 84.6 % Lymphocytes (%) (Auto) 9.3 % Monocytes (%) (Auto) 5.4 % Eosinophils (%) (Auto) 0.0 % Basophils (%) (Auto) 0.4 % Neutrophils # (Auto) 9.60 1.4-6.5 K/uL Lymphocytes # (Auto) 1.05 1.2-3.4 K/uL Monocytes # (Auto) 0.61 0.11-0.59 K/uL Eosinophils # (Auto) 0.00 0-0.5 K/uL Basophils # (Auto) 0.04 0-0.2 K/uL RDW Standard Deviation 84.0 36.4-46.3 fL RDW Coefficient of Variation 23.7 11.5-14.5 % Immature Granulocyte % (Auto) 0.3 % Immature Granulocyte # (Auto) 0.03 0.00-0.02 K/uL Hypersegmented Polys 1+ Anisocytosis PRESENT Stomatocytes 1+ Prothrombin Time 13.1 9.0-12.0 SECONDS Prothromb Time International Ratio 1.2 0.9-1.1 Activated Partial Thromboplast Time 29.2 21.0-31.0 SECONDS Partial Thromboplastin Ratio 1.1 Sodium Level 136 136-145 mmol/L Potassium Level 2.5 3.5-5.1 mmol/L Chloride Level 94 98-107 mmol/L Carbon Dioxide Level 34 21-32 mmol/L Anion Gap 8.0 3-11 mmol/L Blood Urea Nitrogen 20 7-18 mg/dl Creatinine 1.30 0.60-1.20 mg/dl Estimated GFR () 43.0 Estimated GFR (Non- 37.1 BUN/Creatinine Ratio 15.1 10-20 Random Glucose 128 70-99 mg/dl Calcium Level 7.5 8.5-10.1 mg/dl Phosphorus Level 3.2 2.5-4.9 mg/dl Total Bilirubin 0.9 0.2-1 mg/dl Aspartate Amino Transf (AST/SGOT) 28 15-37 U/L Alanine Aminotransferase (ALT/SGPT) 14 12-78 U/L Alkaline Phosphatase 71 45-117 U/L Troponin I 0.039 0-0.045 ng/ml Pro-B-Type Natriuretic Peptide 3435 0-1800 pg/ml Total Protein 7.3 6.4-8.2 gm/dl Albumin 2.8 3.4-5.0 gm/dl Globulin 4.5 2.5-4.0 gm/dl Albumin/Globulin Ratio 0.6 0.9-2 Urine Color YELLOW Urine Appearance CLEAR CLEAR Urine pH 5.5 4.5-7.5 Urine Specific [place] 1.016 1.000-1.030 Urine Protein TRACE NEG Urine Glucose (UA) NEG NEG Urine Ketones NEG NEG Urine Occult Blood NEG NEG Urine Nitrite NEG NEG Urine Bilirubin NEG NEG Urine Urobilinogen NEG NEG Urine Leukocyte Esterase NEG NEG Urine WBC (Auto) 1-5 0-5 /hpf Urine RBC (Auto) 0-4 0-4 /hpf Urine Hyaline Casts (Auto) 5-10 0-5 /lpf Urine Epithelial Cells (Auto) 10-20 0-5 /lpf Urine Bacteria (Auto) NEG NEG Diagnostic Radiology CXR (09/06/2016) Bilateral pleural effusions EKG EKG: ventricular paced rhythm Impression Assessment and Plan 86 y/o female with progressive dyspnea at rest and bilateral malignant pleural effusions 1) Dyspnea: most likely combination: deconditioning, progressive pleural effusions and diastolic heart failure. Right sided thoracentesis performed for symptomatic relief. Will discuss the case with primary team and oncology for placement of a IPC.
[2016-09-06] MEDS ORDERED: FUROSEMIDE INJ 20 MG in SYRINGE 0 ML IV SCH (18:15)
[2016-09-06 18:20] LABS: BUN/CREATININE RATIO 16.9 (10-20); CALCIUM 7.7 mg/dl (8.5-10.1); CREATININE 1.2 mg/dl (0.60-1.20); MAGNESIUM 1.5 mg/dl (1.8-2.4); POTASSIUM 3.4 mmol/L (3.5-5.1)
[2016-09-06] MEDS ORDERED: NURSING DECISION MEDICATION ORDER SCH (19:45)
[2016-09-06 20:00] VITALS: O2SAT 97
[2016-09-06] MEDS ORDERED: COUGH DROP (SUGAR FREE) LOZ 24 LOZ/1 BOX PO PRN (20:00)
[2016-09-06 20:25] VITALS: BP 93/62; PULSE 85; TEMP 36.6; O2SAT 96
[2016-09-06] MEDS: ACYCLOVIR 200 MG CAP PO SCH (21:23)
[2016-09-07] VITALS (24 sets, daily range): BP systolic 63–120; BP diastolic 46–70; PULSE 52–106; TEMP 36.5–36.8; O2SAT 96–100
--- NOTE | 2016-09-07 07:03 | DIAGNOSTIC IMAGING REPORT ---
CHEST ONE VIEW PORTABLE HISTORY: S/P right sided Thoracentesis COMPARISON: Chest 09/06/2016. FINDINGS: No pneumothorax. Small right pleural effusion has decreased in size. Small moderate left pleural effusion persists. The heart remains mildly enlarged. Pulmonary edema is again noted. Bibasilar densities. Right-sided dual-chamber pacemaker. IMPRESSION: 1. Decrease in size in the small right pleural effusion. 2. Small to moderate left pleural effusion, unchanged. 3. No pneumothorax. 4. Pulmonary edema and bibasilar densities are again noted. Electronically signed by: Vikas Valdivia M.D. 09/07/2016 7:02 AM Dictated Date/Time: 09/07/2016 7:01 AM
[2016-09-07] MEDS: LACTOBACILLUS ACIDOPHILUS (FLORANEX) TAB PO SCH ×3 (08:00→17:00)
[2016-09-07] MEDS ORDERED: ASPIRIN 81 MG ECTAB PO SCH (09:00)
[2016-09-07 09:01] LABS: HEMATOCRIT 29.5 % (37-47); MEAN CELL VOLUME 98.7 fL (80-100); MEAN CORPUSCULAR HEMOGLOBIN 32.4 pg (25-34); MEAN CORPUSCULAR HGB CONC 32.9 g/dl (32-36); RED BLOOD COUNT 2.99 M/uL (4.2-5.4); WHITE BLOOD COUNT 9.62 K/uL (4.8-10.8)
[2016-09-07] MEDS: METOPROLOL SUCC 50MG EXT REL TAB PO SCH (09:06)
[2016-09-07] MEDS: POT PHOSPHATE MONOBASIC W/ SOD TAB PO SCH (09:06)
[2016-09-07 09:07] LABS: MEAN PLATELET VOLUME 9.7 fL (7.4-10.4); PLATELET COUNT 81 K/uL (130-400)
[2016-09-07 09:22] LABS: ANISOCYTOSIS PRESENT; BASO % 0.1 %; BASO ABS # 0.01 K/uL (0-0.2); COMPLETE YES; IG% 0.3 %; LYMPH ABS # 0.87 K/uL (1.2-3.4); MONO % 5.8 %; NEUT % 84.8 %; STOMATOCYTE 1+
[2016-09-07 09:29] LABS: BUN/CREATININE RATIO 18.3 (10-20); CREATININE 1.2 mg/dl (0.60-1.20); MAGNESIUM 1.9 mg/dl (1.8-2.4); POTASSIUM 3.2 mmol/L (3.5-5.1)
[2016-09-07 09:32] LABS: ALB/GLOB RATIO 0.6 (0.9-2)
[2016-09-07 09:33] LABS: CALCIUM 7.5 mg/dl (8.5-10.1)
--- NOTE | 2016-09-07 10:15 | Procedure Note ---
Procedure Note Date of Service September 07, 2016. Procedure Note Procedures: Right sided Thoracentesis Consent: obtained via the patient and placed into the chart Pre-Procedural Dx: Bilateral pleural effusions secondary to cardiac dysfunction Post-Procedural Dx: Bilateral pleural effusions secondary to cardiac dysfunction Analgesia: 8cc of 1% Liquid Lidocaine Procedure: The patient was placed in an upright position and thoracic US was used to select a spot for the procedure. A spot along the posterior axillary line was marked in the 7th intercostal space. The patient was then draped and prepped in a sterile fashion. A modified Seldinger technique was then used for catheter placement. Flowing this approximately 600cc of dark yellow pleural fluid was removed. The patient was then cleaned and placed at a 60 degree angle in the bed were the US was used to evaluate for possible pneumothorax. The US showed good lung sliding and [place] signs. EBL: none Complications: None
[2016-09-07 12:01] LABS: PLEURAL FLUID SPECIFIC GRAVITY 1.025
[2016-09-07 12:22] LABS: PLEURAL FLUID GLUCOSE 37 mg/dl
[2016-09-07 12:43] LABS: PLEURAL FLUID APPEARANCE CLOUDY; PLEURAL FLUID COLOR YELLOW; PLEURAL FLUID SOURCE RIGHT LUNG; PLEURAL FLUID WBC (A) 6970 /uL
--- NOTE | 2016-09-07 13:07 | Discharge Instructions ---
Discharge Instructions Date of Service September 07, 2016. Admission Reason for Admission: Sob, Pleural Effusion In Other Conditions Discharge Discharge Diagnosis / Problem: Bilateral pleural effusions Discharge Goals Goal(s): Decrease discomfort, Improve function, Diagnostic testing, Therapeutic intervention Activity Recommendations Activity Limitations: resume your previous activity (as tolerated) . Instructions / Follow-Up Instructions / Follow-Up You were admitted to the hospital after presenting with worsening shortness of breath. A chest x ray showed recurrence of your previous pleural effusions as well as acute on chronic congestive heart failure. You were treated with a therapeutic thoracentesis performed by Dr. Canales, which removed 1500 mL of fluid. This fluid was then sent off for further testing, some of which is still pending. Prior to discharge, you received a Pleurex catheter (an indwelling pleural catheter) which was again placed by Dr. Canales. This catheter will allow you to drain fluid as needed without having repeated admissions and thoracenteses. Due to your congestive heart failure, you were also diuresed with a dose of IV Lasix and oral spironolactone to help pull off fluid and improve your breathing. Medications: *Continue your home medications as prescribed. Follow up: *Follow up with Dr. Canales of pulmonology within 1-2 weeks to follow up on your Pleurex catheter placement. *Follow up with your primary care provider in 1 week regarding your hospital stay. *Continue your routine scheduled follow ups with Dr. Corrigan. Your appointment for the injection today can be postponed until next week. Please seek medical attention if you experience fevers, chills, sweats, chest pain, worsening shortness of breath, nausea, vomiting, lightheadedness, loss of consciousness, numbness, tingling, or if you experience redness, swelling, pain , or drainage coming out of the catheter site. Current Hospital Diet Patient's current hospital diet: Regular Diet Discharge Diet Recommended Diet: Regular Diet Procedures Procedures Performed: Thoracentesis, indwelling pleural catheter placement Pending Studies Studies pending at discharge: yes List of pending studies: Pleural fluid white blood cell count, red blood cell count, lipase Medical Emergencies . Who to Call and When: Medical Emergencies: If at any time you feel your situation is an emergency, please call 911 immediately. . Non-Emergent Contact Non-Emergency issues call your: Primary Care Provider, Manager [place] Call Non-Emergent contact if: you have a fever, wound has increased drainage, wound has increased redness, wound has increased pain, you have any medication questions . Past History Medical & Surgical History: (1) Pleural effusion in other conditions classified elsewhere (2) SOB (shortness of breath) (3) Diastolic dysfunction . "Provider Documentation" section prepared by Ellen Hemphill. . VTE Core Measure Inpt VTE Proph given/why not?: Unfractionated heparin SQ
--- NOTE | 2016-09-07 13:54 | Discharge Summary ---
Discharge Summary Date of Service September 07, 2016. (Ellen Hemphill .ANTHONY) Discharge Summary Admission Date: September 06, 2016 at 11:42 Discharge Date: September 07, 2016 Discharge Disposition: Home with services Principal Diagnosis: Bilateral pleural effusions, acute on chronic diastolic CHF Immunizations: Have You Had Influenza Vaccine: Yes History of Tetanus Vaccine?: No History of Pneumococcal: Yes History of Hepatitis B Vaccine: Yes Procedures: Thoracentesis: Procedures: Right sided Thoracentesis Consent: obtained via the patient and placed into the chart Pre-Procedural Dx: right sided pleural effusion Post-Procedural Dx: right sided pleural effusion Analgesia: 8cc of 1% Liquid Lidocaine Procedure: The patient was placed in an upright position and thoracic US was used to select a spot for the procedure. A spot along the posterior axillary line was marked in the 7th intercostal space. The patient was then draped and prepped in a sterile fashion. A modified Seldinger technique was then used for catheter placement. Flowing this approximately 1500cc of free flowing yellow pleural fluid was removed. The patient was then cleaned and placed at a 60 degree angle in the bed were the US was used to evaluate for possible pneumothorax. The US showed good lung sliding and [place] signs. EBL: none Complications: none IPC placement CXR 09/06: IMPRESSION: Congestive failure. Bilateral pleural effusions. CXR 09/07: 1. Decrease in size in the small right pleural effusion. 2. Small to moderate left pleural effusion, unchanged. 3. No pneumothorax. 4. Pulmonary edema and bibasilar densities are again noted. Consultations: Pulmonology--Dr. Canales (Ellen Hemphill .ANTHONY) Medication Reconciliation Continued Medications: Acetaminophen (Arthritis Pain) 650 Mg Tab 2 TAB PO Q6H PRN for Pain Acyclovir (Acyclovir) 200 Mg Cap 400 MG PO BID for 30 Days, #120 CAP Aspirin (Aspirin Ec) 81 Mg Tab 81 MG PO QAM Calcium Carbonate (Tums) 500 Mg Chew 500 MG PO DAILY for 30 Days, #30 TAB Lactobacillus Acidophilus (Floranex) 1 Tab Tab 4 TAB PO TIDM for 30 Days, #90 TAB Metoprolol Succinate (Metoprolol Succinate ER) 50 Mg Tabcr 1 TAB PO QAM, #90 Pot Phosphate Monobasic W/ Sod (Phospha 250 Neutral) 1 Tab Tab 1 TAB PO DAILY for 30 Days, #30 TAB Prednisone (Prednisone) 10 Mg Tab 10 MG PO DAILY for 30 Days, #30 TAB Simethicone (Mi-Acid Gas Relief) 80 Mg Chew 80 MG PO Q6H PRN for gas for 30 Days, #30 Referrals At Discharge Follow up Referrals: Family Practice Referral - Within 1 Week with Baron Segura M.D. Field Marketing Representative Referral - Within 1-2 Weeks with Nile Canales MD Discharge Exam Patient reports feeling much better following the thoracentesis. She states that she does not have any shortness of breath at rest. She has not been up from bed and is unsure if she has any dyspnea on exertion. She does note a mild cough that is non-productive. She states that the cough had been worse overnight but is currently milder. The patient denies fevers, chills, sweats, chest pain, palpitations, claudication, wheezing, shortness of breath, nausea, vomiting, abdominal pain, dysuria, hematuria, urinary retention, paralysis, weakness, numbness and tingling. Review of Systems: Constitutional: No chills, No fever, No sweats Eyes: No diplopia, No eye pain, No worsening of vision ENT: No hearing loss, No sore throat, No trouble swallowing Respiratory: + cough, No shortness of breath, No sputum, No wheezing Cardiovascular: No chest pain, No claudication, No palpitations Abdomen: No nausea, No pain, No vomiting Musculoskeletal: + swelling, No calf pain, No joint pain, No muscle pain Genitourinary - Female: No dysuria, No hematuria, No urinary retention Neurologic: No numbness/tingling, No paralysis, No weakness Integumentary: No color change, No itch, No rash Physical Exam: General Appearance: WD/WN, no apparent distress Eyes: normal inspection, PERRL, EOMI ENT: normal ENT inspection, hearing grossly normal, pharynx normal Neck: supple, no JVD, trachea midline Respiratory/Chest: normal breath sounds, no respiratory distress, + crackles (mid lung rider to bases bilaterally) Cardiovascular: regular rate, rhythm, no gallop, no murmur Abdomen / GI: normal bowel sounds, non tender, soft Extremities: + swelling (3+ pitting edema), + pertinent finding (lower legs TTP bilaterally. Lower legs dusky color with venous stasis changes) Neurologic/Psychiatric: alert, normal mood/affect, oriented x 3 Skin: normal color, warm/dry, no rash (Ellen Hemphill ., PA-C) Hospital Course 86 y/o female with a history of multiple myeloma, s/p recent thoracentesis, chronic diastolic CHF, CKD stage III, and pacer who presented due to worsening SOB. CXR shows congestive heart failure and bilateral pleural effusions. Bilateral pleural effusions, recurrent--improved -Admitted to telemetry. Pt remained in paced rhythm with HR 80s-90s overnight. -Thoracentesis by Dr. Canales on 09/06 which removed 1500 cc fluid -Pleural fluid sent for testing. Unable to test LDH as sample was too old, but meets Light's criteria for exudative effusion with total protein -IPC placed by Dr. Canales 09/07 -O2 by protocol -Pt cleared for d/c following IPC placement by pulmonology Acute on chronic diastolic CHF--improving -Pt received Lasix 20 mg IV x 1 and spironolactone 25 mg PO x1 -Albumin 12.5 gm IV x 1 Hypokalemia--improving -Potassium 2.5 on arrival -Pt given total of 50 mEq KCl PO and 10 mEq KCl IV -Potassium 3.2 prior to discharge -Magnesium as below, phosphorus WNL Hypomagnesemia--resolved -Magnesium 1.5 on arrival -Given mag sulfate 1 gm IV x 1 -Repeat magnesium 1.9 Multiple myeloma--stable -Continue Bortezomib on discharge -Spoke with Dr. Corrigan, who she follows with as an outpt. Pt due for injection today, but this can be delayed until next week Anemia of chronic disease--baseline Hgb around 9-10. Stable -Hgb stable, around baseline CKD stage III--stable. Baseline creatinine around 1.1 -Creatinine 1.3 on arrival, 1.2 prior to discharge DVT prophylaxis -Chemical prophylaxis held due to procedures -SCDs Code Status -Level I, FULL RESUSCITATION STATUS Total Time Spent: Greater than 30 minutes This includes examination of the patient, discharge planning, medication reconciliation, and communication with other providers. (Ellen Hemphill ., PA-C) I agree with PA assessment and plan and have seen and examined pt myself Resting comfortably in bed VSS and labs reviewed Imaging reviewed S/P PleurX insertion F/U as OP Can be DC home once PleurX placed Likely malignant effusions from MM (Saran Barrios D.ORani) Discharge Instructions Please refer to the electronic Patient Visit Report (Discharge Instructions) for additional information. (Ellen Hemphill ., PA-C) Additional Copies To Baron Segura M.D.
--- NOTE | 2016-09-07 15:54 | DIAGNOSTIC IMAGING REPORT ---
CHEST ONE VIEW PORTABLE CLINICAL HISTORY: S/P Thoracentesis COMPARISON STUDY: 09/07/2016 FINDINGS: Bilateral pleural effusions with the right somewhat diminished as compared to the prior exam. Possible small right apical pneumothorax. Unchanging left effusion. Unchanging left basilar consolidative change. IMPRESSION: Post right thoracentesis with the possibility of a small right apical pneumothorax. Unchanging left pleural effusion and left basilar consolidative change. Electronically signed by: Giovany Giron M.D. 09/07/2016 3:53 PM Dictated Date/Time: 09/07/2016 3:51 PM
--- NOTE | 2016-09-07 15:55 | Procedure Note ---
Procedure Note Date of Service September 07, 2016. Procedure Note Procedures: Right sided indwelling pleural catheter insertion Consent: obtained via the patient and placed into the chart Pre-Procedural Dx: myeloma pleural effusion Post-Procedural Dx: myeloma pleural effusion Analgesia: 15cc of 1% Liquid Lidocaine Procedure: The patient was placed in the reverse [place] position and thoracic US was used to select a spot for the procedure. A spot along the posterior axillary line was marked in the 7th intercostal space. The patient was then draped and prepped in a sterile fashion. A modified Seldinger technique was then used for catheter placement. Flowing insertion of the catheter approximately 400cc of delcid pleural fluid was removed. The patient was then cleaned and placed at a 60 degree angle in the bed where thoracic US was used to evaluate for possible pneumothorax. The US showed good lung sliding and [place] signs. EBL: 4cc Complications: none
--- NOTE | 2016-09-07 20:32 | DIAGNOSTIC IMAGING REPORT ---
SINGLE VIEW CHEST CLINICAL HISTORY: Pleural catheter placement. Pneumothorax. FINDINGS: An AP, portable, upright chest radiograph is compared to study dated 09/07/2016. The examination is severely degraded by portable technique and patient rotation. The heart is enlarged and there is atherosclerotic calcification of the thoracic aorta. There is pulmonary vascular congestion with interstitial edema. There are moderate left and small right pleural effusions with associated bibasilar consolidation. A pleural drain is seen at the right lung base. A small right apical pneumothorax is suspected but not clearly identified. The skeletal structures are osteopenic. Advanced degenerative changes noted in the thoracic spine. IMPRESSION: 1. Moderate left and small right pleural effusions with associated consolidation. 2. A small right apical pneumothorax is suspected but not well delineated. 3. Cardiomegaly with evidence of congestive failure and interstitial edema. Electronically signed by: Jose Perez M.D. 09/07/2016 8:31 PM Dictated Date/Time: 09/07/2016 8:27 PM
[2016-09-07] MEDS ORDERED: SODIUM CHLORIDE 0.9% 250ML 250 ML IV ONE (20:45)
[2016-09-07] MEDS ORDERED: NURSING VERBAL MED ORDER ONE (20:45)
[2016-09-07] MEDS ORDERED: ALBUMIN HUMAN 25% 12.5 GM/50 ML VIAL IV STA (20:59)
[2016-09-07] MEDS ORDERED: MAGNESIUM SULFATE 1GM / D5W 1 GM in PREMIXED IN D5W 100 ML IV ONE (21:00)
[2016-09-07 21:03] LABS: HEMATOCRIT 21.7 % (37-47); MEAN CELL VOLUME 100.5 fL (80-100); MEAN CORPUSCULAR HEMOGLOBIN 33.3 pg (25-34); RED BLOOD COUNT 2.16 M/uL (4.2-5.4); WHITE BLOOD COUNT 10.46 K/uL (4.8-10.8)
[2016-09-07] MEDS ORDERED: NOREPINEPHRINE BIT INJ 8 MG in DEXTROSE 5% 500ML 500 ML IV PRN (21:04)
[2016-09-07] MEDS ORDERED: PIPERACILL/TAZOBAC IV 3.375 GM in DEXTROSE 5% 100ML 100 ML IV ONE (21:15)
[2016-09-07] MEDS ORDERED: VANCOMYCIN INJ 1,000 MG in SODIUM CHLORIDE 0.9% 250ML 250 ML IV ONE (21:16)
[2016-09-07] MEDS ORDERED: VANCOMYCIN INJ 1,400 MG in SODIUM CHLORIDE 0.9% 500ML 500 ML IV STA (21:23)
[2016-09-07 21:29] LABS: MEAN CORPUSCULAR HGB CONC 33.2 g/dl (32-36); MEAN PLATELET VOLUME 9.9 fL (7.4-10.4); PLATELET COUNT 84 K/uL (130-400)
[2016-09-07 21:30] LABS: ANISOCYTOSIS PRESENT; BASO % 0.1 %; BASO ABS # 0.01 K/uL (0-0.2); COMPLETE YES; IG% 0.3 %; LYMPH % 10.1 %; LYMPH ABS # 1.06 K/uL (1.2-3.4); MONO % 6.7 %; NEUT % 82.8 %; POLYCHROMASIA 1+
[2016-09-07] MEDS ORDERED: PIPERACILL/TAZOBAC IV 3.375 GM in DEXTROSE 5% 100ML IV STA (21:44)
[2016-09-07] MEDS ORDERED: PIPERACILL/TAZOBAC CONSULT ACTIVE PRN (21:45)
[2016-09-07] MEDS ORDERED: VANCOMYCIN CONSULT ACTIVE PRN (22:00)
[2016-09-07] MEDS ORDERED: PIPERACILL/TAZOBAC IV 3.375 GM in DEXTROSE 5% 100ML 100 ML IV SCH (22:00)
[2016-09-07] MEDS ORDERED: LEVOFLOXACIN CONSULT ACTIVE PRN (22:00)
[2016-09-07 22:07] LABS: ALB/GLOB RATIO 0.6 (0.9-2); BUN/CREATININE RATIO 16.7 (10-20); CALCIUM 6.7 mg/dl (8.5-10.1); CREATININE 1.5 mg/dl (0.60-1.20); MAGNESIUM 1.9 mg/dl (1.8-2.4)
[2016-09-07 22:08] LABS: POTASSIUM 4.1 mmol/L (3.5-5.1)
[2016-09-07 22:23] LABS: VEN BLOOD GAS BASE EXCESS 3.7 mmol/L; VENOUS BLOOD GAS PCO2 43 mmHg (38.0-50.0); VENOUS BLOOD GAS PO2 24 mmHg
[2016-09-07 23:01] LABS: VEN BLD GAS O2 SATURATION < 60.0 %
[2016-09-07] MEDS: CALCIUM CARBONATE 500 MG CHEWABLE PO SCH (23:31)
[2016-09-07] MEDS: ACYCLOVIR 200 MG CAP PO SCH ×2 (23:32→23:43)
[2016-09-08] VITALS (30 sets, daily range): BP systolic 94–137; BP diastolic 47–75; PULSE 60–104; TEMP 36.5–36.8; O2SAT 91–100
[2016-09-08] MEDS ORDERED: LEVOFLOXACIN / D5W 750 MG in PREMIXED IN D5W 150 ML IV SCH
[2016-09-08] MEDS ORDERED: PANTOprazole INJ 40 MG in SYRINGE 0 ML IV STA (02:02)
[2016-09-08 02:22] LABS: BUN/CREATININE RATIO 17.5 (10-20); CALCIUM 6.6 mg/dl (8.5-10.1); CREATININE 1.4 mg/dl (0.60-1.20); POTASSIUM 3.5 mmol/L (3.5-5.1)
[2016-09-08] MEDS ORDERED: PANTOprazole INJ 80 MG in DEXTROSE 5% 100ML IV STA (02:29)
[2016-09-08] MEDS ORDERED: POTASSIUM CHLORIDE 20 MEQ TABCR PO STA (02:45)
[2016-09-08] MEDS: PANTOprazole INJ 40 MG in DEXTROSE 5% 100ML IV SCH ×4 (03:00→17:30)
[2016-09-08] MEDS ORDERED: PIPERACILL/TAZOBAC IV 3.375 GM in DEXTROSE 5% 100ML IV SCH (04:00)
[2016-09-08 06:29] LABS: BUN/CREATININE RATIO 17.2 (10-20); CALCIUM 6.7 mg/dl (8.5-10.1); CREATININE 1.5 mg/dl (0.60-1.20); POTASSIUM 3.6 mmol/L (3.5-5.1)
[2016-09-08 06:32] LABS: ALB/GLOB RATIO 0.8 (0.9-2)
[2016-09-08 06:37] LABS: INR 1.3 (0.9-1.1); PARTIAL THROMBOPLASTIN RATIO 1.6; PROTHROMBIN TIME (PATIENT) 14.2 SECONDS (9.0-12.0)
--- NOTE | 2016-09-08 06:50 | Progress Note ---
Progress Note Date of Service September 08, 2016. Progress Note MD paged for patient BP 60s/40s. Pt was diaphoretic, nauseated, incontinent of diarrhea, SOB and reported blurry vision. MD came to assess the patient and 2 IV boluses were given to total 500ml while in room 289. BP did not improve. Transfer order to ICU received. Report called to receiving nurse Ralph to room 103. All belongings sent with patient including PleurX drainage kit. Family aware and at bedside. Receiving nurse in ICU there to get patient settled. Paged last night around 20:30 due to patient having blurring of vision and BP in 60s/40s. Patient had pleurx catheter placed earlier in the day and plan was to discharge her. No bacteria on gram stain. Noted LVEF 20-25%. IV bolus of 250 ml NSS ordered over the phone. CXR reviewed and stat lab orders placed and went to review patient. She appeared short of breath and complaining of vision blurring. Airway patent, Breath sounds bilateral but reduced at bases, poor inspiratory effort, Circulation showed delayed capillary refil, dry mouth, hypotension and tachycardia, she was in NSR on monitor. No bleeding around pleurx site. Head of the bed declined and her vision blurring improved. Orders placed to transfer to ICU in case her BP did not improve with fluids alone. Albumin 25% 25g ordered. Patient was discussed with Dr Sepulveda (attending hospitalist) and Dr Moore (Vehicle [employer]) - blood cultures and antibiotics ordered to cover for pneumonia. Her BP was similar after the bolus therefore additional 250ml NSS given and ordered. Hgb 7.2. Discussed transfusion or irradiated vs. non irradiated blood transfusion with Dr Corrigan who reported no problems to give non irradiate blood transfusion. She was transferred to the ICU and Levophed started to maintain MAP>60. Lactic acid noted to be 7.2. She received 2 units of blood, awaiting repeat CBC this morning. pantoprazole drip was started. Due to abdominal pain with no clear source of bleeding erect CXR and AXR which showed no air under diaphragm. I will hand over to the day team.
[2016-09-08 07:03] LABS: ANISOCYTOSIS PRESENT; BASO % 0.1 %; BASO ABS # 0.01 K/uL (0-0.2); COMPLETE YES; HEMATOCRIT 26.5 % (37-47); IG% 0.4 %; LYMPH % 7.9 %; LYMPH ABS # 0.63 K/uL (1.2-3.4); MEAN CELL VOLUME 94.6 fL (80-100); MEAN CORPUSCULAR HEMOGLOBIN 31.1 pg (25-34); MEAN CORPUSCULAR HGB CONC 32.8 g/dl (32-36); MEAN PLATELET VOLUME 10.1 fL (7.4-10.4); MONO % 8.3 %; NEUT % 83.3 %; PLATELET COUNT 59 K/uL (130-400); WHITE BLOOD COUNT 7.94 K/uL (4.8-10.8)
--- NOTE | 2016-09-08 07:12 | DIAGNOSTIC IMAGING REPORT ---
KUB CLINICAL HISTORY: Abdominal distention COMPARISON STUDY: 08/01/2016 FINDINGS: A single portable supine study is provided for interpretation. There is no pathologic bowel dilatation. There is a suspected left pleural effusion with left basilar atelectasis/consolidation. IMPRESSION: No evidence of pathologic bowel dilatation Electronically signed by: José Antonio Gutierrez M.D. 09/08/2016 7:11 AM Dictated Date/Time: 09/08/2016 7:10 AM
[2016-09-08] MEDS: LACTOBACILLUS ACIDOPHILUS (FLORANEX) TAB PO SCH ×3 (07:15→16:30)
--- NOTE | 2016-09-08 07:20 | DIAGNOSTIC IMAGING REPORT ---
CHEST ONE VIEW PORTABLE CLINICAL HISTORY: Abdominal pain. Possible free air. COMPARISON STUDY: No previous studies for comparison. FINDINGS: The heart is enlarged. There are persistent bilateral pleural effusions with bibasal airspace opacities. An element of congestive failure is suspected. There is a right subclavian dual-chamber central venous pacemaker. No free air is visualized on this AP portable study. There is a right basilar pleural drainage catheter unchanged in position.[ IMPRESSION: 1. Persistent cardiomegaly with radiographic evidence of mild congestive failure 2. No evidence of free intraperitoneal air 3. Right-sided pleural drainage catheter 4. Moderate left pleural effusion and small right pleural effusion. Associated bibasal airspace opacities. Electronically signed by: José Antonio Gutierrez M.D. 09/08/2016 7:19 AM Dictated Date/Time: 09/08/2016 7:17 AM
--- NOTE | 2016-09-08 08:16 | DIAGNOSTIC IMAGING REPORT ---
CT SCAN OF THE ABDOMEN AND PELVIS WITHOUT CONTRAST CLINICAL HISTORY: Generalized abdominal pain COMPARISON STUDY: 07/04/2016 TECHNIQUE: CT scan of the abdomen and pelvis was performed from the lung bases to the proximal femurs. Images are reviewed in the axial, sagittal, and coronal planes. IV contrast was not administered for this examination. CT DOSE: FINDINGS: Lower chest: There are coronary artery calcifications present. There is a moderate left pleural effusion and small right pleural effusion. There is right lower lobe pulmonary consolidation with air bronchograms. There are left lower lobe compressive atelectatic changes. There is a right-sided chest tube present. There is a moderate right basilar pneumothorax with a pleural separation of 3.5 cm. Liver: Evaluation the liver is limited given the lack of intravenous contrast. There is hyperdense fluid marking the liver consistent with hemoperitoneum. There is irregularity involving the inferior tip of the right lobe. A laceration cannot be excluded. Gallbladder: Unremarkable. Spleen: Normal in size and attenuation. Pancreas: Unremarkable. Adrenal glands: Unremarkable. Kidneys: No renal calculi are visualized. There is 18 mm left renal cyst. There is a 6 mm hyperdense focus within the midpole the left kidney likely representing a hyperdense cyst. There is a 12 mm lower pole left renal cyst. There is an 8 mm right renal cyst. Bowel: There are no transition zones indicate bowel obstruction. There is colonic diverticulosis. Peritoneum: There is moderate ascites. There is hyperdense fluid adjacent to the liver consistent with hemoperitoneum. There is fluid within the left retroperitoneum surrounding the iliac vessels. This could represent a hematoma. Vasculature: The abdominal aorta is normal in course and caliber. Adenopathy: None. Pelvic viscera: There is an indwelling Black catheter. The uterus appears surgically absent. Skeletal structures: The bones are severely osteopenic. There is a mottled trabecular pattern. Metastatic disease/myeloma must be considered. There is a moderate T11 compression fracture and moderate severe T12 compression fracture. IMPRESSION: 1. Moderate left pleural effusion and small right pleural effusion 2. Right lower lobe pulmonary consolidation with air bronchograms. Compressive left lower lobe atelectatic change 3. Indwelling right-sided chest tube with a right-sided pneumothorax 4. Moderate hemoperitoneum. Irregularity involving the inferior right lobe of the liver. A laceration cannot be excluded. A contrast-enhanced study might be of benefit in follow-up 4. Suspected small retroperitoneal hemorrhage with infiltration the soft tissues surrounding the left iliac vessels 5. Diverticulosis 6. T11 and T12 compression fractures. Abnormal trabecular pattern of the bone suspicious for metastatic disease/myeloma 7. No evidence of free intraperitoneal air Electronically signed by: José Antonio Gutierrez M.D. 09/08/2016 8:15 AM Dictated Date/Time: 09/08/2016 7:58 AM
--- NOTE | 2016-09-08 08:35 | Family Medicine Progress Note ---
Progress Note Date of Service September 08, 2016. Objective Vital Signs Date Time Temp Pulse Resp B/P Pulse Ox O2 Delivery O2 Flow Rate FiO2 09/08/16 07:00 90 23 98/58 94 Room Air 09/08/16 06:00 36.6 88 23 98/59 93 Room Air 09/08/16 05:00 74 21 105/63 99 Nasal Cannula 2.0 09/08/16 04:45 80 29 113/64 100 2.0 09/08/16 04:30 77 31 117/61 100 Nasal Cannula 2.0 09/08/16 04:15 68 21 126/66 100 2.0 09/08/16 04:00 36.6 78 23 113/58 100 Nasal Cannula 2.0 09/08/16 04:00 99 Nasal Cannula 2.0 09/08/16 03:45 36.5 80 22 106/58 100 2.0 09/08/16 03:30 86 28 127/70 100 09/08/16 03:15 91 36 137/75 100 09/08/16 03:00 79 23 106/58 100 09/08/16 02:45 36.6 82 20 125/65 100 2.0 09/08/16 02:30 87 98/54 09/08/16 02:15 36.7 83 23 104/60 99 2.0 09/08/16 02:15 36.5 95 23 104/60 100 2.0 09/08/16 02:00 88 29 103/59 100 09/08/16 01:45 36.6 92 25 110/59 100 2.0 09/08/16 01:30 36.5 89 23 97/55 100 2.0 09/08/16 01:17 36.7 86 21 112/63 100 2.0 09/08/16 01:00 36.7 84 22 114/58 100 2.0 09/08/16 00:30 36.6 76 20 117/59 100 2.0 09/08/16 00:10 36.7 85 20 115/62 100 2.0 09/08/16 00:00 93 Room Air 09/08/16 00:00 88 30 111/62 100 09/07/16 23:40 36.7 82 22 113/60 100 2.0 09/07/16 23:25 36.6 82 21 115/52 2.0 09/07/16 23:10 36.6 86 20 120/59 100 2.0 09/07/16 22:56 81 20 117/56 100 09/07/16 22:51 36.5 86 18 95/56 100 2.0 09/07/16 22:51 88 20 95/56 100 09/07/16 22:46 36.5 88 20 110/62 100 09/07/16 22:41 91 20 109/61 97 09/07/16 22:36 84 23 106/60 100 09/07/16 22:31 90 20 101/58 100 09/07/16 22:25 93 20 83/50 100 09/07/16 22:15 105 20 82/55 100 09/07/16 22:11 103 20 71/54 100 09/07/16 22:02 103 20 76/47 97 09/07/16 22:00 36.5 82 115/50 100 Nasal Cannula 2.0 09/07/16 22:00 36.5 106 31 115/59 100 09/07/16 22:00 106 31 100 09/07/16 20:55 2.0 09/07/16 20:07 36.7 91 28 98 Nasal Cannula 2.0 09/07/16 16:00 97 Nasal Cannula 2.0 09/07/16 11:55 97 Nasal Cannula 2.0 Resident Tracking Resident Involvement: Resident Care Provided Care Provided: Adult Hospital Medicine
--- NOTE | 2016-09-08 08:37 | DIAGNOSTIC IMAGING REPORT ---
CHEST CT WITHOUT CONTRAST CT DOSE: 352.70 mGy.cm HISTORY: S/P IPC right sided PTX TECHNIQUE: Multiaxial CT images of the chest were performed without contrast. COMPARISON: Chest CT 07/28/2016. FINDINGS: Small right pneumothorax. There is a right basilar pleural catheter which appears to be in good position. This terminates in the base of the right hemithorax posteriorly. Small right pleural fusion has decreased in size. Moderate left pleural effusion remains unchanged. Right-sided pacemaker/defibrillator. Consolidative airspace opacity involving the majority of the right lower lobe and right middle lobe. Near complete consolidation within the left lower lobe favors compressive atelectasis from the pleural effusion. There is also opacification of the left lower lobe segmental bronchi. No mediastinal lymphadenopathy. The heart remains mildly enlarged. No pericardial effusion. Limited views of the liver and spleen appear unremarkable. Right suprarenal soft tissue nodularity has progressed. There is also asymmetric thickening of the right psoas muscle which favors an intramuscular hematoma. Age-indeterminate mild compression fracture at T11. There are moderate compression fractures at T9 and T12. Multiple lucent lesions seen throughout the spine. This may represent metastatic disease/multiple myeloma. Normal caliber thoracic aorta. IMPRESSION: 1. Decrease in size in the small right pleural effusion status post right pleural catheter placement. There is also small right pneumothorax. 2. Moderate left pleural effusion persists. 3. Consolidation seen within the right lower lobe and right middle lobes. Left lower lobe consolidation favors atelectasis due to the pleural effusion. 4. Age-indeterminate thoracic spine compression fractures as described above. Paraspinal edema within the lower thoracic spine likely represents acute on chronic fractures. 5. Asymmetric thickening of the right psoas muscle likely representing a hematoma. There is also small amount of soft tissue nodularity within the right suprarenal location. This may also represent a small amount of retroperitoneal hemorrhage. Recommend one month chest CT follow-up to ensure resolution. 6. Scattered lytic lesions within the spine suggestive of metastatic disease or multiple myeloma. Electronically signed by: Vikas Valdivia M.D. 09/08/2016 8:36 AM Dictated Date/Time: 09/08/2016 8:20 AM
[2016-09-08] MEDS ORDERED: VANCOMYCIN INJ 1,000 MG in SODIUM CHLORIDE 0.9% 250ML 250 ML IV SCH (09:00)
[2016-09-08] MEDS ORDERED: PANTOprazole INJ 40 MG in SYRINGE 0 ML IV SCH (09:00)
--- NOTE | 2016-09-08 09:01 | Oncology Consultation ---
Oncology/Heme Consultation Date of Consultation: September 08, 2016. Attending Physician: Cameron Mercedes MD Reason for Consultation: Multiple myeloma History of Present Illness Ms. Kelly is an 86 year old woman who was recently diagnosed with multiple myeloma. She had a lengthy recent hospitalization for acute renal failure that improved with initiation of Velcade. She was also found to have a large pleural effusion. Cytology from the fluid revealed myelomatous involvement of the pleura. She presented this admission with increasing shortness of breath. Her effusion was found to have reaccumulated and she underwent therapeutic thoracentesis earlier this week. Yesterday, she had a Pleur-X catheter placed. Overnight, she became hypotensive and tachycardic. She was volume resuscitated and was briefly on vasopressors. A CT this morning reveals a large hemoperitoneum and a possible defect in the inferior tip of the right lobe of the liver. She does not report a significant amount of abdominal pain, but is exquisitely tender. She told me she wants to be done with all of this. Past Medical/Surgical History Medical Problems: (1) Anemia Status: Acute (2) Anemia Status: Acute (3) Bilateral pleural effusion Status: Acute (4) Bilateral pleural effusion Status: Acute (5) Chronic anemia Status: Acute (6) Dehydration Status: Acute (7) Elevated troponin Status: Acute (8) Hypercalcemia Status: Acute (9) Hypokalemia Status: Acute (10) Hypoxia Status: Acute (11) Renal failure Status: Acute Family History FH: heart disease Social History Smoking Status: Never Smoker Drug Use: none Marital Status: Housing Status: lives with family Occupation Status: retired Allergies Coded Allergies: Sulfa Antibiotics (Verified Allergy, Unknown, RASH, 09/06/16) Home Medications Scheduled Acyclovir (Acyclovir), 400 MG PO BID Aspirin (Aspirin Ec), 81 MG PO QAM Calcium Carbonate (Tums), 500 MG PO DAILY Lactobacillus Acidophilus (Floranex), 4 TAB PO TIDM Metoprolol Succinate (Metoprolol Succinate ER), 1 TAB PO QAM Pot Phosphate Monobasic W/ Sod (Phospha 250 Neutral), 1 TAB PO DAILY Prednisone (Prednisone), 10 MG PO DAILY Scheduled PRN Acetaminophen (Arthritis Pain), 2 TAB PO Q6H PRN for Pain Simethicone (Mi-Acid Gas Relief), 80 MG PO Q6H PRN for gas Current Inpatient Medications Current Inpatient Medications Medications (Trade) Dose Ordered Sig/Willy Route Start Time Stop Time Status Last Admin Dose Admin Acyclovir (Zovirax Cap) 400 mg BID PO 09/06/16 21:00 09/16/16 20:59 09/07/16 23:43 400 MG Aspirin (Ecotrin Tab) 81 mg QAM PO 09/07/16 09:00 10/07/16 08:59 Future Hold Calcium Carbonate (Tums Chew Tab) 500 mg DAILY PO 09/07/16 09:00 10/07/16 08:59 Lactobacillus Acidophilus (Floranex Tab) 4 tab TIDM PO 09/06/16 17:00 10/06/16 16:59 Metoprolol Succinate (Toprol Xl Tab) 50 mg QAM PO 09/07/16 09:00 10/07/16 08:59 09/07/16 09:06 50 MG Potassium/ Phosphorus/Sodium (Phospha 250 Neutral 155-852-130 Mg) 1 tab DAILY PO 09/07/16 09:00 10/07/16 08:59 09/07/16 09:06 1 TAB Prednisone (PredniSONE TAB) 10 mg DAILY PO 09/07/16 09:00 10/07/16 08:59 09/07/16 09:06 10 MG Simethicone (Mylicon Chew Tab) 80 mg Q6H PRN PO 09/06/16 11:45 10/06/16 11:44 Acetaminophen (Tylenol Tab) 650 mg Q4H PRN PO 09/06/16 11:45 10/06/16 11:44 09/07/16 16:18 650 MG Al Hydrox/Mg Hydrox/Simethicone (Maalox Max Susp) 15 ml Q4H PRN PO 09/06/16 11:45 10/06/16 11:44 Magnesium Hydroxide (Milk Of Magnesia Susp) 30 ml Q12H PRN PO 09/06/16 11:45 10/06/16 11:44 Zolpidem Tartrate (Ambien Tab) 5 mg HSZ PRN PO 09/06/16 11:45 10/06/16 11:44 Future Hold Ondansetron HCl (Zofran Inj) 4 mg Q6H PRN IV 09/06/16 11:45 10/06/16 11:44 Polyethylene (Miralax Powder Packet) 17 gm DAILY PRN PO 09/06/16 11:45 10/06/16 11:44 Miscellaneous (Iv Fluids Completed) 1 ea PRN PRN N/A 09/06/16 14:45 09/06/17 14:44 Menthol 1 froilan 1 froilan PRN PRN PO 09/06/16 20:00 10/06/16 19:59 09/06/16 20:21 1 FROILAN Norepinephrine Bitartrate 8 mg/ Dextrose 508 ml @ 0 mls/hr Q0M PRN IV 09/07/16 21:04 10/07/16 21:03 09/07/16 22:24 21 MLS/HR Levofloxacin 750 mg/Prmx 150 ml @ 100 mls/hr Q48H IV 09/08/16 00:00 09/10/16 00:00 09/08/16 00:24 100 MLS/HR Piperacillin Sod/ Tazobactam Sod/ Dextrose (Zosyn Iv/D5 100ml) 115 ml @ 28.75 mls/ hr Q8H IV 09/08/16 04:00 09/10/16 03:59 09/08/16 04:06 28.75 MLS/HR Piperacillin Sod/ Tazobactam Sod (Consult) 1 ea UD PRN N/A 09/07/16 21:45 10/07/16 21:44 Vancomycin HCl (Consult) 1 ea UD PRN N/A 09/07/16 22:00 10/07/16 21:59 Levofloxacin 1 ea 1 ea UD PRN N/A 09/07/16 22:00 10/07/16 21:59 Pantoprazole Sodium/Dextrose (Protonix Inj/D5 100ml) 100 ml @ 20 mls/hr Q5H IV 09/08/16 02:30 10/08/16 02:29 09/08/16 03:00 20 MLS/HR Review of Systems Constitutional: + fatigue, + weakness, No chills, No fever Respiratory: + shortness of breath Cardiovascular: No chest pain Abdomen: + diarrhea, + pain Musculoskeletal: + muscle pain (back pain) Genitourinary - Female: + problem reported (anuria) Neurologic: + weakness Hematologic / Lymphatic: + abnormal bleeding/bruising Physical Exam Date Time Temp Pulse Resp B/P Pulse Ox O2 Delivery O2 Flow Rate FiO2 09/08/16 07:00 90 23 98/58 94 Room Air 09/08/16 06:00 36.6 88 23 98/59 93 Room Air 09/08/16 05:00 74 21 105/63 99 Nasal Cannula 2.0 09/08/16 04:45 80 29 113/64 100 2.0 09/08/16 04:30 77 31 117/61 100 Nasal Cannula 2.0 09/08/16 04:15 68 21 126/66 100 2.0 09/08/16 04:00 36.6 78 23 113/58 100 Nasal Cannula 2.0 09/08/16 04:00 99 Nasal Cannula 2.0 09/08/16 03:45 36.5 80 22 106/58 100 2.0 09/08/16 03:30 86 28 127/70 100 09/08/16 03:15 91 36 137/75 100 09/08/16 03:00 79 23 106/58 100 09/08/16 02:45 36.6 82 20 125/65 100 2.0 09/08/16 02:30 87 98/54 09/08/16 02:15 36.7 83 23 104/60 99 2.0 09/08/16 02:15 36.5 95 23 104/60 100 2.0 09/08/16 02:00 88 29 103/59 100 09/08/16 01:45 36.6 92 25 110/59 100 2.0 09/08/16 01:30 36.5 89 23 97/55 100 2.0 09/08/16 01:17 36.7 86 21 112/63 100 2.0 09/08/16 01:00 36.7 84 22 114/58 100 2.0 09/08/16 00:30 36.6 76 20 117/59 100 2.0 09/08/16 00:10 36.7 85 20 115/62 100 2.0 09/08/16 00:00 93 Room Air 09/08/16 00:00 88 30 111/62 100 09/07/16 23:40 36.7 82 22 113/60 100 2.0 09/07/16 23:25 36.6 82 21 115/52 2.0 09/07/16 23:10 36.6 86 20 120/59 100 2.0 09/07/16 22:56 81 20 117/56 100 09/07/16 22:51 36.5 86 18 95/56 100 2.0 09/07/16 22:51 88 20 95/56 100 09/07/16 22:46 36.5 88 20 110/62 100 09/07/16 22:41 91 20 109/61 97 09/07/16 22:36 84 23 106/60 100 09/07/16 22:31 90 20 101/58 100 09/07/16 22:25 93 20 83/50 100 09/07/16 22:15 105 20 82/55 100 09/07/16 22:11 103 20 71/54 100 09/07/16 22:02 103 20 76/47 97 09/07/16 22:00 36.5 82 115/50 100 Nasal Cannula 2.0 09/07/16 22:00 36.5 106 31 115/59 100 09/07/16 22:00 106 31 100 09/07/16 20:55 2.0 09/07/16 20:07 36.7 91 28 98 Nasal Cannula 2.0 09/07/16 16:00 97 Nasal Cannula 2.0 09/07/16 11:55 97 Nasal Cannula 2.0 General Appearance: + mild distress, + thin ENT: + pertinent finding (mucous membranes dry) Respiratory/Chest: chest non-tender Cardiovascular: regular rate, rhythm Abdomen/GI: soft, + tenderness, + guarding Extremities/Musculoskelatal: + pedal edema Neurologic/Psych: alert, oriented x 3 Skin: warm/dry Laboratory Results Last 24 Hours Test 09/07/16 08:54 09/07/16 20:53 09/07/16 22:03 09/08/16 01:50 White Blood Count 9.62 K/uL 10.46 K/uL Red Blood Count 2.99 M/uL 2.16 M/uL Hemoglobin 9.7 g/dL 7.2 g/dL Hematocrit 29.5 % 21.7 % Mean Corpuscular Volume 98.7 fL 100.5 fL Mean Corpuscular Hemoglobin 32.4 pg 33.3 pg Mean Corpuscular Hemoglobin Concent 32.9 g/dl 33.2 g/dl Platelet Count 81 K/uL 84 K/uL Mean Platelet Volume 9.7 fL 9.9 fL Neutrophils (%) (Auto) 84.8 % 82.8 % Lymphocytes (%) (Auto) 9.0 % 10.1 % Monocytes (%) (Auto) 5.8 % 6.7 % Eosinophils (%) (Auto) 0.0 % 0.0 % Basophils (%) (Auto) 0.1 % 0.1 % Neutrophils # (Auto) 8.15 K/uL 8.66 K/uL Lymphocytes # (Auto) 0.87 K/uL 1.06 K/uL Monocytes # (Auto) 0.56 K/uL 0.70 K/uL Eosinophils # (Auto) 0.00 K/uL 0.00 K/uL Basophils # (Auto) 0.01 K/uL 0.01 K/uL RDW Standard Deviation 83.1 fL RDW Coefficient of Variation 23.3 % Immature Granulocyte % (Auto) 0.3 % 0.3 % Immature Granulocyte # (Auto) 0.03 K/uL 0.03 K/uL Anisocytosis PRESENT PRESENT Stomatocytes 1+ Sodium Level 137 mmol/L 138 mmol/L 138 mmol/L Potassium Level 3.2 mmol/L 4.1 mmol/L 3.5 mmol/L Chloride Level 96 mmol/L 97 mmol/L 98 mmol/L Carbon Dioxide Level 35 mmol/L 28 mmol/L 31 mmol/L Anion Gap 6.0 mmol/L 13.0 mmol/L 9.0 mmol/L Blood Urea Nitrogen 22 mg/dl 25 mg/dl 24 mg/dl Creatinine 1.20 mg/dl 1.50 mg/dl 1.40 mg/dl Est Creatinine Clear Calc Drug Dose 27.8 ml/min 22.3 ml/min 23.9 ml/min Estimated GFR () 47.4 36.2 39.3 Estimated GFR (Non- 40.9 31.2 33.9 BUN/Creatinine Ratio 18.3 16.7 17.5 Random Glucose 113 mg/dl 150 mg/dl 154 mg/dl Calcium Level 7.5 mg/dl 6.7 mg/dl 6.6 mg/dl Magnesium Level 1.9 mg/dl 1.9 mg/dl Total Bilirubin 1.0 mg/dl 1.3 mg/dl Aspartate Amino Transf (AST/SGOT) 29 U/L 27 U/L Alanine Aminotransferase (ALT/SGPT) 15 U/L 14 U/L Alkaline Phosphatase 63 U/L 58 U/L Total Protein 6.4 gm/dl 5.8 gm/dl Albumin 2.5 gm/dl 2.1 gm/dl Globulin 3.9 gm/dl 3.7 gm/dl Albumin/Globulin Ratio 0.6 0.6 Polychromasia 1+ Lactic Acid Level 7.2 mmol/L 2.2 mmol/L Troponin I 0.029 ng/ml Venous Blood pH 7.44 Venous Blood Partial Pressure CO2 43 mmHg Venous Blood Partial Pressure O2 24 mmHg Venous Blood HCO3 28 mmol/L Venous Blood Oxygen Saturation < 60.0 % Venous Blood Base Excess 3.7 mmol/L Test 09/08/16 05:50 White Blood Count 7.94 K/uL Red Blood Count 2.80 M/uL Hemoglobin 8.7 g/dL Hematocrit 26.5 % Mean Corpuscular Volume 94.6 fL Mean Corpuscular Hemoglobin 31.1 pg Mean Corpuscular Hemoglobin Concent 32.8 g/dl Platelet Count 59 K/uL Mean Platelet Volume 10.1 fL Neutrophils (%) (Auto) 83.3 % Lymphocytes (%) (Auto) 7.9 % Monocytes (%) (Auto) 8.3 % Eosinophils (%) (Auto) 0.0 % Basophils (%) (Auto) 0.1 % Neutrophils # (Auto) 6.61 K/uL Lymphocytes # (Auto) 0.63 K/uL Monocytes # (Auto) 0.66 K/uL Eosinophils # (Auto) 0.00 K/uL Basophils # (Auto) 0.01 K/uL RDW Standard Deviation 78.3 fL RDW Coefficient of Variation 22.4 % Immature Granulocyte % (Auto) 0.4 % Immature Granulocyte # (Auto) 0.03 K/uL Anisocytosis PRESENT Prothrombin Time 14.2 SECONDS Prothromb Time International Ratio 1.3 Activated Partial Thromboplast Time 40.6 SECONDS Partial Thromboplastin Ratio 1.6 Sodium Level 137 mmol/L Potassium Level 3.6 mmol/L Chloride Level 98 mmol/L Carbon Dioxide Level 30 mmol/L Anion Gap 9.0 mmol/L Blood Urea Nitrogen 26 mg/dl Creatinine 1.50 mg/dl Est Creatinine Clear Calc Drug Dose 22.3 ml/min Estimated GFR () 36.2 Estimated GFR (Non- 31.2 BUN/Creatinine Ratio 17.2 Random Glucose 130 mg/dl Lactic Acid Level 2.1 mmol/L Calcium Level 6.7 mg/dl Total Bilirubin 1.7 mg/dl Aspartate Amino Transf (AST/SGOT) 29 U/L Alanine Aminotransferase (ALT/SGPT) 20 U/L Alkaline Phosphatase 54 U/L Total Protein 6.0 gm/dl Albumin 2.7 gm/dl Globulin 3.3 gm/dl Albumin/Globulin Ratio 0.8 Assessment & Plan I had a conversation with Ms. Kelly and her daughter. Her myeloma is very aggressive, given the pleural involvement. She had initially improved with Velcade, but the reaccumulation of her fluid may have represented progression. Regardless, she has a trapped lung on that side and will likely never see return of normal lung function. She is nearly anuric and likely sustained ATN secondary to her hypotension overnight. The etiology of her abdominal hemorrhage is not entirely clear. It may have been secondary to her procedure or simply a spontaneous hemorrhage. In her weakened state, I do not think she would tolerate a major abdominal surgery and she concurred. She told me clearly that she wants to proceed with hospice care. I told her that was a very appropriate decision, given her circumstances. We reviewed various components of her care in the interim. She opted for comfort measures only, including DNR/ DNI. Her daughter was with her and agreed. I spoke with Palliative Care, who will meet with her shortly to discuss options for end-of-life care.
[2016-09-08] MEDS: POT PHOSPHATE MONOBASIC W/ SOD TAB PO SCH (09:37)
[2016-09-08] MEDS: METOPROLOL SUCC 50MG EXT REL TAB PO SCH (09:38)
[2016-09-08] MEDS: ACYCLOVIR 200 MG CAP PO SCH (09:38)
[2016-09-08] MEDS: CALCIUM CARBONATE 500 MG CHEWABLE PO SCH (09:38)
--- NOTE | 2016-09-08 09:59 | Palliative Care Consultation ---
Consultation Date of Consultation: September 08, 2016. Requesting Physician: Dr. Rendon Attending Physician: Dr. Rendon Reason for Consultation: Goals of care, hospice coordination History of Present Illness This 86 year old female patient presented to the ED two days ago with c/o shortness of breath, even at rest. Has multiple myeloma, diagnosed June 2016, with bilateral malignant pleural effusions requiring thoracentesis about a month ago. She follows with oncology and pulmonology outpatient. Per oncology, patent was initially improving with Velcade. During this admission, after placement of pleur-x, patient became hypotensive and acidotic. Required vasopressors short term to maintain blood pressure-- now off as of this morning. Cytology of pleural fluid reveals myelomatous involvement- a very poor prognostic sign per oncology. Ct of the abd/pelvis shows small retroperitoneal hemorrhage, hepatic laceration cannot be excluded, as well as other findings reported. Patient's case was discussed at length during ICU rounds this morning , Dr. Corrigan present as well. After discussion held with Dr. Corrigan, the patient, and her daughter and , patient is requesting hospice services. Palliative consulted to assist and provide support. I met with the patient, Aashish, and daughter Alicia Carrillo in room 103. Patient and family verbalize understanding of disease and medical conditions. Patient is requesting home with hospice. See plan below. She currently is comfortable with no complaints of pain, SOB, or discomfort at rest. Her abdomen is certainly tender. She denies anxiety. Her only concern is controlling the amount of visitors once she gets home, as she would like her final days, however many she has left, to be private and peaceful with her immediate family. Past Medical/Surgical History Medical History: CHF Pacemaker Multiple Myeloma diagnosed 07/18 Hypoalbuminemia Bilateral malignant pleural effusion s/p thoracentesis about a month ago Diverticulosis Hypertension Osteoporosis Social History Smoking Status: Never Smoker History of Alcohol Use: Yes (occasionally) Drug Use: none Marital Status: Housing Status: lives with family Occupation Status: retired Review of Systems Constitutional: + weakness Respiratory: + dyspnea on exertion, No cough, No dyspnea at rest Cardiac: + edema, No chest pain Abdomen: + problem reported (tender abdomen when palpated), No nausea, No vomiting Female : No problem reported Psychiatric: No anxiety Allergies Coded Allergies: Sulfa Antibiotics (Verified Allergy, Unknown, RASH, 09/06/16) Medications Current Inpatient Medications Medications (Trade) Dose Ordered Sig/Willy Route Start Time Stop Time Status Last Admin Dose Admin Acyclovir (Zovirax Cap) 400 mg BID PO 09/06/16 21:00 09/16/16 20:59 09/07/16 23:43 400 MG Aspirin (Ecotrin Tab) 81 mg QAM PO 09/07/16 09:00 10/07/16 08:59 Future Hold Calcium Carbonate (Tums Chew Tab) 500 mg DAILY PO 09/07/16 09:00 10/07/16 08:59 Lactobacillus Acidophilus (Floranex Tab) 4 tab TIDM PO 09/06/16 17:00 10/06/16 16:59 Metoprolol Succinate (Toprol Xl Tab) 50 mg QAM PO 09/07/16 09:00 10/07/16 08:59 09/07/16 09:06 50 MG Potassium/ Phosphorus/Sodium (Phospha 250 Neutral 155-852-130 Mg) 1 tab DAILY PO 09/07/16 09:00 10/07/16 08:59 09/07/16 09:06 1 TAB Prednisone (PredniSONE TAB) 10 mg DAILY PO 09/07/16 09:00 10/07/16 08:59 09/07/16 09:06 10 MG Simethicone (Mylicon Chew Tab) 80 mg Q6H PRN PO 09/06/16 11:45 10/06/16 11:44 Acetaminophen (Tylenol Tab) 650 mg Q4H PRN PO 09/06/16 11:45 10/06/16 11:44 09/07/16 16:18 650 MG Al Hydrox/Mg Hydrox/Simethicone (Maalox Max Susp) 15 ml Q4H PRN PO 09/06/16 11:45 10/06/16 11:44 Magnesium Hydroxide (Milk Of Magnesia Susp) 30 ml Q12H PRN PO 09/06/16 11:45 10/06/16 11:44 Zolpidem Tartrate (Ambien Tab) 5 mg HSZ PRN PO 09/06/16 11:45 10/06/16 11:44 Future Hold Ondansetron HCl (Zofran Inj) 4 mg Q6H PRN IV 09/06/16 11:45 10/06/16 11:44 Polyethylene (Miralax Powder Packet) 17 gm DAILY PRN PO 09/06/16 11:45 10/06/16 11:44 Miscellaneous (Iv Fluids Completed) 1 ea PRN PRN N/A 09/06/16 14:45 09/06/17 14:44 Menthol 1 bettina 1 bettina PRN PRN PO 09/06/16 20:00 10/06/16 19:59 09/06/16 20:21 1 BETTINA Norepinephrine Bitartrate 8 mg/ Dextrose 508 ml @ 0 mls/hr Q0M PRN IV 09/07/16 21:04 10/07/16 21:03 09/07/16 22:24 21 MLS/HR Levofloxacin 750 mg/Prmx 150 ml @ 100 mls/hr Q48H IV 09/08/16 00:00 09/10/16 00:00 09/08/16 00:24 100 MLS/HR Piperacillin Sod/ Tazobactam Sod/ Dextrose (Zosyn Iv/D5 100ml) 115 ml @ 28.75 mls/ hr Q8H IV 09/08/16 04:00 09/10/16 03:59 09/08/16 04:06 28.75 MLS/HR Piperacillin Sod/ Tazobactam Sod (Consult) 1 ea UD PRN N/A 09/07/16 21:45 10/07/16 21:44 Vancomycin HCl (Consult) 1 ea UD PRN N/A 09/07/16 22:00 10/07/16 21:59 Levofloxacin 1 ea 1 ea UD PRN N/A 09/07/16 22:00 10/07/16 21:59 Pantoprazole Sodium/Dextrose (Protonix Inj/D5 100ml) 100 ml @ 20 mls/hr Q5H IV 09/08/16 02:30 10/08/16 02:29 09/08/16 03:00 20 MLS/HR Physical Exam Date Time Temp Pulse Resp B/P Pulse Ox O2 Delivery O2 Flow Rate FiO2 09/08/16 09:01 60 29 115/59 96 09/08/16 08:03 36.6 89 29 109/53 96 09/08/16 08:00 Room Air 09/08/16 07:28 95 31 94/47 09/08/16 07:00 90 25 98/58 91 09/08/16 07:00 90 23 98/58 94 Room Air 09/08/16 06:00 36.6 88 23 98/59 93 Room Air 09/08/16 05:00 74 21 105/63 99 Nasal Cannula 2.0 09/08/16 04:45 80 29 113/64 100 2.0 09/08/16 04:30 77 31 117/61 100 Nasal Cannula 2.0 09/08/16 04:15 68 21 126/66 100 2.0 09/08/16 04:00 36.6 78 23 113/58 100 Nasal Cannula 2.0 09/08/16 04:00 99 Nasal Cannula 2.0 09/08/16 03:45 36.5 80 22 106/58 100 2.0 09/08/16 03:30 86 28 127/70 100 09/08/16 03:15 91 36 137/75 100 09/08/16 03:00 79 23 106/58 100 09/08/16 02:45 36.6 82 20 125/65 100 2.0 09/08/16 02:30 87 98/54 09/08/16 02:15 36.7 83 23 104/60 99 2.0 09/08/16 02:15 36.5 95 23 104/60 100 2.0 09/08/16 02:00 88 29 103/59 100 09/08/16 01:45 36.6 92 25 110/59 100 2.0 09/08/16 01:30 36.5 89 23 97/55 100 2.0 09/08/16 01:17 36.7 86 21 112/63 100 2.0 09/08/16 01:00 36.7 84 22 114/58 100 2.0 09/08/16 00:30 36.6 76 20 117/59 100 2.0 09/08/16 00:10 36.7 85 20 115/62 100 2.0 09/08/16 00:00 93 Room Air 09/08/16 00:00 88 30 111/62 100 09/07/16 23:40 36.7 82 22 113/60 100 2.0 09/07/16 23:25 36.6 82 21 115/52 2.0 09/07/16 23:10 36.6 86 20 120/59 100 2.0 09/07/16 22:56 81 20 117/56 100 09/07/16 22:51 36.5 86 18 95/56 100 2.0 09/07/16 22:51 88 20 95/56 100 09/07/16 22:46 36.5 88 20 110/62 100 09/07/16 22:41 91 20 109/61 97 09/07/16 22:36 84 23 106/60 100 09/07/16 22:31 90 20 101/58 100 09/07/16 22:25 93 20 83/50 100 09/07/16 22:15 105 20 82/55 100 09/07/16 22:11 103 20 71/54 100 09/07/16 22:02 103 20 76/47 97 09/07/16 22:00 36.5 82 115/50 100 Nasal Cannula 2.0 09/07/16 22:00 36.5 106 31 115/59 100 09/07/16 22:00 106 31 100 09/07/16 20:55 2.0 09/07/16 20:07 36.7 91 28 98 Nasal Cannula 2.0 09/07/16 16:00 97 Nasal Cannula 2.0 09/07/16 11:55 97 Nasal Cannula 2.0 General Appearance: no apparent distress ENT: hearing grossly normal Neck: supple, no JVD Respiratory: no respiratory distress, no accessory muscle use, + pertinent finding (room air) Cardiovascular: regular rate, rhythm, + pertinent finding (anasarca) Abdomen: + pertinent finding (abdomen was not examined by myself- patient reported tenderness to Dr. Corrigan when he examined her) Neurologic/Psychiatric: alert, normal mood/affect, oriented x 3 Laboratory Results Last 24 Hours Test 09/07/16 20:53 09/07/16 22:03 09/08/16 01:50 09/08/16 05:50 White Blood Count 10.46 K/uL 7.94 K/uL Red Blood Count 2.16 M/uL 2.80 M/uL Hemoglobin 7.2 g/dL 8.7 g/dL Hematocrit 21.7 % 26.5 % Mean Corpuscular Volume 100.5 fL 94.6 fL Mean Corpuscular Hemoglobin 33.3 pg 31.1 pg Mean Corpuscular Hemoglobin Concent 33.2 g/dl 32.8 g/dl Platelet Count 84 K/uL 59 K/uL Mean Platelet Volume 9.9 fL 10.1 fL Neutrophils (%) (Auto) 82.8 % 83.3 % Lymphocytes (%) (Auto) 10.1 % 7.9 % Monocytes (%) (Auto) 6.7 % 8.3 % Eosinophils (%) (Auto) 0.0 % 0.0 % Basophils (%) (Auto) 0.1 % 0.1 % Neutrophils # (Auto) 8.66 K/uL 6.61 K/uL Lymphocytes # (Auto) 1.06 K/uL 0.63 K/uL Monocytes # (Auto) 0.70 K/uL 0.66 K/uL Eosinophils # (Auto) 0.00 K/uL 0.00 K/uL Basophils # (Auto) 0.01 K/uL 0.01 K/uL Immature Granulocyte % (Auto) 0.3 % 0.4 % Immature Granulocyte # (Auto) 0.03 K/uL 0.03 K/uL Polychromasia 1+ Anisocytosis PRESENT PRESENT Sodium Level 138 mmol/L 138 mmol/L 137 mmol/L Potassium Level 4.1 mmol/L 3.5 mmol/L 3.6 mmol/L Chloride Level 97 mmol/L 98 mmol/L 98 mmol/L Carbon Dioxide Level 28 mmol/L 31 mmol/L 30 mmol/L Anion Gap 13.0 mmol/L 9.0 mmol/L 9.0 mmol/L Blood Urea Nitrogen 25 mg/dl 24 mg/dl 26 mg/dl Creatinine 1.50 mg/dl 1.40 mg/dl 1.50 mg/dl Est Creatinine Clear Calc Drug Dose 22.3 ml/min 23.9 ml/min 22.3 ml/min Estimated GFR () 36.2 39.3 36.2 Estimated GFR (Non- 31.2 33.9 31.2 BUN/Creatinine Ratio 16.7 17.5 17.2 Random Glucose 150 mg/dl 154 mg/dl 130 mg/dl Lactic Acid Level 7.2 mmol/L 2.2 mmol/L 2.1 mmol/L Calcium Level 6.7 mg/dl 6.6 mg/dl 6.7 mg/dl Magnesium Level 1.9 mg/dl Total Bilirubin 1.3 mg/dl 1.7 mg/dl Aspartate Amino Transf (AST/SGOT) 27 U/L 29 U/L Alanine Aminotransferase (ALT/SGPT) 14 U/L 20 U/L Alkaline Phosphatase 58 U/L 54 U/L Troponin I 0.029 ng/ml Total Protein 5.8 gm/dl 6.0 gm/dl Albumin 2.1 gm/dl 2.7 gm/dl Globulin 3.7 gm/dl 3.3 gm/dl Albumin/Globulin Ratio 0.6 0.8 Venous Blood pH 7.44 Venous Blood Partial Pressure CO2 43 mmHg Venous Blood Partial Pressure O2 24 mmHg Venous Blood HCO3 28 mmol/L Venous Blood Oxygen Saturation < 60.0 % Venous Blood Base Excess 3.7 mmol/L RDW Standard Deviation 78.3 fL RDW Coefficient of Variation 22.4 % Prothrombin Time 14.2 SECONDS Prothromb Time International Ratio 1.3 Activated Partial Thromboplast Time 40.6 SECONDS Partial Thromboplastin Ratio 1.6 Assessment & Plan Palliative Performance Scale: 30 % Problem list: SOB Abdominal tenderness Weakness/ambulatory dysfunction Multiple myeloma Bilateral malignant pleural effusions s/p right sided Pleur-x catheter placement Myeloma in pleural space confirmed by pleural fluid pathology- sign of extremely aggressive disease and poor prognosis Small retroperitoneal hemorrhage on CT scan of abd/pelvis- hepatic laceration cannot be excluded Anemia Acute renal failure- essentially anuric Goals of care (Z51.5) Palliative care plan: discussed with patient, his daughter Alicia, Aashish, and Dr. Rendon. -DNR/DNI per the patient and family's discussion with Dr. Corrigan -Continue Black catheter -Roxanol 5mg PO Q1h PRN pain or SOB- please send script for discharge -Lorazepam 1mg SL Q4h PRN anxiety -Atropine 1% oph soln 4 drops SL Q2h PRN secretions -Pleur-x catheter- keep capped. Patient and daughter, Alicia, both stated they did not think it would be beneficial to have this drained as the patient is comfortable at this time and had one month between last thoracentesis and this Pleur-x placement. 400ml initially drained when it was inserted. -Spoke with Jose Faustin PA-C, who stated he will place a Heimlich valve on the Pleur-x catheter in case it needs drained in the future. -Home with [facility]. Patient has [facility] caregivers from 9am- 1pm already. Family states they can increase this care to 24/7 if needed. Someone will be with patient at all times. Patient's only concern is that she has too many visitors when she's at home-- we had a discussion about this and patient's daughter said they can control the visitors. -Can continue cardiac medications for comfort as long as patient tolerates PO. Will defer to primary medicine whether or not to continue PO prednisone. -Discontinue antibiotics. -Will discuss code status and POLST form later today. Family requested time to be together and discuss. -Pastoral care involved Thank you kindly for this consult and allowing me to participate in the care of this nice patient and family.
[2016-09-08] MEDS ORDERED: MoRPHine SULFATE 5 MG/0.25 ML UDP PO PRN (10:15)
--- NOTE | 2016-09-08 11:20 | Progress Note ---
Progress Note Date of Service September 08, 2016. Progress Note Lab Instructor: I was called about this patient last evening by Dr. Arcos and spoke with him several times. I also communicated with Dr. Edmond and the evening RN and they did not feel I needed to come in and see the patient at that time. This patient was transferred to the ICU with hypotension s/p pleurex catheter placement in the face of advanced multiple myeloma. She was resuscitated with fluid boluses and PRBC's overnight - her blood pressure stabilize and her levophed was weaned off early this morning. Cultures were drawn and she was started on broad spectrum antibiotics. CT scan of the abdomen and pelvis this morning showed, among other things, intrabdominal bleeding. She has been seen by heme/onc and Dr. Canales and has made the decision to focus on comfort. The palliative care service has seen her and she is being transferred home later today. I will not do a consult on her but her care was discussed in detail on multidisciplinary rounds so some orders were placed at that time. Please do not bill this patient for a consult.
--- NOTE | 2016-09-08 13:41 | Pulmonology Progress Note ---
Pulmonary Progress Note Date of Service September 08, 2016. Attending Dr. Canales Subjective Patient's notes breathing is back to normal but she has abdominal pain Objective Patient not using accessory muscles of breathing but notable in uncorforable VS: Stable on RA RESP: decreased BS over the right mackenzie-thorax with dullness to precution of the LLL subsegements CARDIAC: S1S2 but distant heart sounds Thorax: no sub-q frematous ABD: distended with no rebound VB.44/43corrected to 7.47/36 INR: 1.3 H/H: / (transfused)01/18 Plt: 114--59 CT Chest/ABD 1. Moderate left pleural effusion and small right pleural effusion 2. Right lower lobe pulmonary consolidation with air bronchograms. Compressive left lower lobe atelectatic change 3. Indwelling right-sided chest tube with a right-sided pneumothorax 4. Moderate hemoperitoneum. Irregularity involving the inferior right lobe of the liver. 4. Suspected small retroperitoneal hemorrhage with infiltration the soft tissues surrounding the left iliac vessels 6. T11 and T12 compression fractures. Abnormal trabecular pattern of the bone suspicious for metastatic disease/myeloma 7. No evidence of free intraperitoneal air Assessment & Plan 86y/o female with advanced MM currently with active bleeding and right sided PTX : 1) PTX: The patient's PTX is secondary to the IPC most likely from the catheter breaking down the already weak lung wall/pleura. At this time the patient desires to move to hospice care. To help with her comfort I have spoken to the ICU team and they will place a Heimlich valve to help avoid SOB and tension physiology. 2) Bleeding: It's possible that during the IPC placement the lidocaine needle interned the liver but the procedure was performed under US guidance and no abnormalities were noted during the procedure. The etiology of the retroperitoneal hemorrhage is unknown but patient's with advanced MM are at increased risk of bleed as the proteins will inter the vascular beds and decreased their ability to vaso-constrict. Data Medications: Current Inpatient Medications Medications (Trade) Dose Ordered Sig/Willy Route Start Time Stop Time Status Last Admin Dose Admin Acyclovir (Zovirax Cap) 400 mg BID PO 09/06/16 21:00 09/16/16 20:59 09/07/16 23:43 400 MG Aspirin (Ecotrin Tab) 81 mg QAM PO 09/07/16 09:00 10/07/16 08:59 Future Hold Calcium Carbonate (Tums Chew Tab) 500 mg DAILY PO 09/07/16 09:00 10/07/16 08:59 Lactobacillus Acidophilus (Floranex Tab) 4 tab TIDM PO 09/06/16 17:00 10/06/16 16:59 Metoprolol Succinate (Toprol Xl Tab) 50 mg QAM PO 09/07/16 09:00 10/07/16 08:59 09/07/16 09:06 50 MG Potassium/ Phosphorus/Sodium (Phospha 250 Neutral 155-852-130 Mg) 1 tab DAILY PO 09/07/16 09:00 10/07/16 08:59 09/07/16 09:06 1 TAB Prednisone (PredniSONE TAB) 10 mg DAILY PO 09/07/16 09:00 10/07/16 08:59 09/07/16 09:06 10 MG Simethicone (Mylicon Chew Tab) 80 mg Q6H PRN PO 09/06/16 11:45 10/06/16 11:44 Acetaminophen (Tylenol Tab) 650 mg Q4H PRN PO 09/06/16 11:45 10/06/16 11:44 09/07/16 16:18 650 MG Al Hydrox/Mg Hydrox/Simethicone (Maalox Max Susp) 15 ml Q4H PRN PO 09/06/16 11:45 10/06/16 11:44 Magnesium Hydroxide (Milk Of Magnesia Susp) 30 ml Q12H PRN PO 09/06/16 11:45 10/06/16 11:44 Zolpidem Tartrate (Ambien Tab) 5 mg HSZ PRN PO 09/06/16 11:45 10/06/16 11:44 Future Hold Ondansetron HCl (Zofran Inj) 4 mg Q6H PRN IV 09/06/16 11:45 10/06/16 11:44 Polyethylene (Miralax Powder Packet) 17 gm DAILY PRN PO 09/06/16 11:45 10/06/16 11:44 Miscellaneous (Iv Fluids Completed) 1 ea PRN PRN N/A 09/06/16 14:45 09/06/17 14:44 Menthol 1 bettina 1 bettina PRN PRN PO 09/06/16 20:00 10/06/16 19:59 09/06/16 20:21 1 BETTINA Norepinephrine Bitartrate 8 mg/ Dextrose 508 ml @ 0 mls/hr Q0M PRN IV 09/07/16 21:04 10/07/16 21:03 09/07/16 22:24 21 MLS/HR Pantoprazole Sodium/Dextrose (Protonix Inj/D5 100ml) 100 ml @ 20 mls/hr Q5H IV 09/08/16 02:30 10/08/16 02:29 09/08/16 03:00 20 MLS/HR Morphine Sulfate (Roxanol Oral Soln) FOR PAIN, 5-10 MG 5 MG ... Q2H PRN PO 09/08/16 10:15 09/22/16 10:14 I & O: 24-Hour Column 09/08/16 07:59 Intake Total 2663 ml Output Total 405 ml Balance 2258 ml Vital Signs: Date Time Temp Pulse Resp B/P Pulse Ox O2 Delivery O2 Flow Rate FiO2 09/08/16 12:01 103 31 98/61 96 09/08/16 12:00 Room Air 09/08/16 11:01 101 32 99/66 94 09/08/16 10:01 82 29 113/67 95 09/08/16 10:00 104 28 94 09/08/16 09:01 60 29 115/59 96 09/08/16 08:03 36.6 89 29 109/53 96 09/08/16 08:00 Room Air 09/08/16 07:28 95 31 94/47 09/08/16 07:00 90 25 98/58 91 09/08/16 07:00 90 23 98/58 94 Room Air 09/08/16 06:00 36.6 88 23 98/59 93 Room Air 09/08/16 05:00 74 21 105/63 99 Nasal Cannula 2.0 09/08/16 04:45 80 29 113/64 100 2.0 09/08/16 04:30 77 31 117/61 100 Nasal Cannula 2.0 09/08/16 04:15 68 21 126/66 100 2.0 09/08/16 04:00 36.6 78 23 113/58 100 Nasal Cannula 2.0 09/08/16 04:00 99 Nasal Cannula 2.0 09/08/16 03:45 36.5 80 22 106/58 100 2.0 09/08/16 03:30 86 28 127/70 100 09/08/16 03:15 91 36 137/75 100 09/08/16 03:00 79 23 106/58 100 09/08/16 02:45 36.6 82 20 125/65 100 2.0 09/08/16 02:30 87 98/54 09/08/16 02:15 36.7 83 23 104/60 99 2.0 09/08/16 02:15 36.5 95 23 104/60 100 2.0 09/08/16 02:00 88 29 103/59 100 09/08/16 01:45 36.6 92 25 110/59 100 2.0 09/08/16 01:30 36.5 89 23 97/55 100 2.0 09/08/16 01:17 36.7 86 21 112/63 100 2.0 09/08/16 01:00 36.7 84 22 114/58 100 2.0 09/08/16 00:30 36.6 76 20 117/59 100 2.0 09/08/16 00:10 36.7 85 20 115/62 100 2.0 09/08/16 00:00 93 Room Air 09/08/16 00:00 88 30 111/62 100 09/07/16 23:40 36.7 82 22 113/60 100 2.0 09/07/16 23:25 36.6 82 21 115/52 2.0 09/07/16 23:10 36.6 86 20 120/59 100 2.0 09/07/16 22:56 81 20 117/56 100 09/07/16 22:51 36.5 86 18 95/56 100 2.0 09/07/16 22:51 88 20 95/56 100 09/07/16 22:46 36.5 88 20 110/62 100 09/07/16 22:41 91 20 109/61 97 09/07/16 22:36 84 23 106/60 100 09/07/16 22:31 90 20 101/58 100 09/07/16 22:25 93 20 83/50 100 09/07/16 22:15 105 20 82/55 100 09/07/16 22:11 103 20 71/54 100 09/07/16 22:02 103 20 76/47 97 09/07/16 22:00 36.5 82 115/50 100 Nasal Cannula 2.0 09/07/16 22:00 36.5 106 31 115/59 100 09/07/16 22:00 106 31 100 09/07/16 20:55 2.0 09/07/16 20:07 36.7 91 28 98 Nasal Cannula 2.0 09/07/16 16:00 97 Nasal Cannula 2.0 Laboratory Results: Last 24 Hours Test 09/07/16 20:53 09/07/16 22:03 09/08/16 01:50 09/08/16 05:50 White Blood Count 10.46 K/uL 7.94 K/uL Red Blood Count 2.16 M/uL 2.80 M/uL Hemoglobin 7.2 g/dL 8.7 g/dL Hematocrit 21.7 % 26.5 % Mean Corpuscular Volume 100.5 fL 94.6 fL Mean Corpuscular Hemoglobin 33.3 pg 31.1 pg Mean Corpuscular Hemoglobin Concent 33.2 g/dl 32.8 g/dl Platelet Count 84 K/uL 59 K/uL Mean Platelet Volume 9.9 fL 10.1 fL Neutrophils (%) (Auto) 82.8 % 83.3 % Lymphocytes (%) (Auto) 10.1 % 7.9 % Monocytes (%) (Auto) 6.7 % 8.3 % Eosinophils (%) (Auto) 0.0 % 0.0 % Basophils (%) (Auto) 0.1 % 0.1 % Neutrophils # (Auto) 8.66 K/uL 6.61 K/uL Lymphocytes # (Auto) 1.06 K/uL 0.63 K/uL Monocytes # (Auto) 0.70 K/uL 0.66 K/uL Eosinophils # (Auto) 0.00 K/uL 0.00 K/uL Basophils # (Auto) 0.01 K/uL 0.01 K/uL Immature Granulocyte % (Auto) 0.3 % 0.4 % Immature Granulocyte # (Auto) 0.03 K/uL 0.03 K/uL Polychromasia 1+ Anisocytosis PRESENT PRESENT Sodium Level 138 mmol/L 138 mmol/L 137 mmol/L Potassium Level 4.1 mmol/L 3.5 mmol/L 3.6 mmol/L Chloride Level 97 mmol/L 98 mmol/L 98 mmol/L Carbon Dioxide Level 28 mmol/L 31 mmol/L 30 mmol/L Anion Gap 13.0 mmol/L 9.0 mmol/L 9.0 mmol/L Blood Urea Nitrogen 25 mg/dl 24 mg/dl 26 mg/dl Creatinine 1.50 mg/dl 1.40 mg/dl 1.50 mg/dl Est Creatinine Clear Calc Drug Dose 22.3 ml/min 23.9 ml/min 22.3 ml/min Estimated GFR () 36.2 39.3 36.2 Estimated GFR (Non- 31.2 33.9 31.2 BUN/Creatinine Ratio 16.7 17.5 17.2 Random Glucose 150 mg/dl 154 mg/dl 130 mg/dl Lactic Acid Level 7.2 mmol/L 2.2 mmol/L 2.1 mmol/L Calcium Level 6.7 mg/dl 6.6 mg/dl 6.7 mg/dl Magnesium Level 1.9 mg/dl Total Bilirubin 1.3 mg/dl 1.7 mg/dl Aspartate Amino Transf (AST/SGOT) 27 U/L 29 U/L Alanine Aminotransferase (ALT/SGPT) 14 U/L 20 U/L Alkaline Phosphatase 58 U/L 54 U/L Troponin I 0.029 ng/ml Total Protein 5.8 gm/dl 6.0 gm/dl Albumin 2.1 gm/dl 2.7 gm/dl Globulin 3.7 gm/dl 3.3 gm/dl Albumin/Globulin Ratio 0.6 0.8 Venous Blood pH 7.44 Venous Blood Partial Pressure CO2 43 mmHg Venous Blood Partial Pressure O2 24 mmHg Venous Blood HCO3 28 mmol/L Venous Blood Oxygen Saturation < 60.0 % Venous Blood Base Excess 3.7 mmol/L RDW Standard Deviation 78.3 fL RDW Coefficient of Variation 22.4 % Prothrombin Time 14.2 SECONDS Prothromb Time International Ratio 1.3 Activated Partial Thromboplast Time 40.6 SECONDS Partial Thromboplastin Ratio 1.6
[2016-09-08] MEDS ORDERED: NURSING VERBAL MED ORDER ONE (13:45)
[2016-09-08] MEDS ORDERED: ACETAMINOPHEN IV 650 MG / 65ML IV ONE (14:00)
[2016-09-08] MEDS ORDERED: MRPL PO (14:04)
[2016-09-08] MEDS ORDERED: ACET160S78 PO (14:04)
--- NOTE | 2016-09-08 14:07 | Discharge Instructions ---
Discharge Instructions Date of Service September 08, 2016. Admission Reason for Admission: Sob, Pleural Effusion In Other Conditions Discharge Discharge Diagnosis / Problem: myeloma related effusions Discharge Goals Goal(s): Decrease discomfort, Diagnostic testing Activity Recommendations Activity Limitations: resume your previous activity (activity as you tolerate) . Current Hospital Diet Patient's current hospital diet: Regular Diet Discharge Diet Recommended Diet: Regular Diet (diet as tolerated) Procedures Procedures Performed: Thoracentesis, indwelling pleural catheter placement Pending Studies Studies pending at discharge: yes List of pending studies: further studies on pleural fluid are pending Medical Emergencies . Who to Call and When: Medical Emergencies: If at any time you feel your situation is an emergency, please call 911 immediately. . Non-Emergent Contact Non-Emergency issues call your: Primary Care Provider . . "Provider Documentation" section prepared by Estuardo Rendon. . VTE Core Measure Inpt VTE Proph given/why not?: Unfractionated heparin SQ
--- NOTE | 2016-09-08 18:07 | Discharge Summary ---
Discharge Summary Date of Service September 08, 2016. (Alka. Calderón MD) Discharge Summary Admission Date: September 07, 2016 at 21:35 Discharge Date: September 08, 2016 Discharge Disposition: Home with services Principal Diagnosis: Chronic pleural effusion Immunizations: Have You Had Influenza Vaccine: Yes History of Tetanus Vaccine?: No History of Pneumococcal: Yes History of Hepatitis B Vaccine: Yes (Alka. Calderón MD) Medication Reconciliation New Medications: Acetaminophen (Tylenol Children's Susp) 160 Mg/5 Ml Susp 20 ML PO Q4 PRN for Pain or Fever, #1 BTL Morphine Sulfate (Morphine Sulfate) 20 Mg/1 Ml Soln 0.25 ML PO UD PRN for Pain, #20 ML 0.25ml (5mg) po q1hr prn pain, shortness of breath Continued Medications: Acyclovir (Acyclovir) 200 Mg Cap 400 MG PO BID for 30 Days, #120 CAP Calcium Carbonate (Tums) 500 Mg Chew 500 MG PO DAILY for 30 Days, #30 TAB Lactobacillus Acidophilus (Floranex) 1 Tab Tab 4 TAB PO TIDM for 30 Days, #90 TAB Pot Phosphate Monobasic W/ Sod (Phospha 250 Neutral) 1 Tab Tab 1 TAB PO DAILY for 30 Days, #30 TAB Prednisone (Prednisone) 10 Mg Tab 10 MG PO DAILY for 30 Days, #30 TAB Simethicone (Mi-Acid Gas Relief) 80 Mg Chew 80 MG PO Q6H PRN for gas for 30 Days, #30 Discontinued Medications: Acetaminophen (Arthritis Pain) 650 Mg Tab 2 TAB PO Q6H PRN for Pain Aspirin (Aspirin Ec) 81 Mg Tab 81 MG PO QAM Metoprolol Succinate (Metoprolol Succinate ER) 50 Mg Tabcr 1 TAB PO QAM, #90 Discharge Exam Patient comfortable as possible. After discussions with both heme/onc and palliative care, patient decided to go home with hospice care, understanding the prognosis. Review of Systems: Constitutional: No chills, No fever Respiratory: No cough, No shortness of breath, No wheezing Cardiovascular: + edema, No chest pain, No palpitations Abdomen: No nausea, No pain, No vomiting Physical Exam: General Appearance: WD/WN, no apparent distress, + pertinent finding (A little emotional, but accepting of condition/situation) Eyes: + abnormal sclerae exam ENT: hearing grossly normal Neck: supple Respiratory/Chest: no respiratory distress, no accessory muscle use, + decreased breath sounds, + crackles, + pertinent finding Cardiovascular: regular rate, rhythm, no murmur, normal peripheral pulses Abdomen / GI: normal bowel sounds, non tender, soft Extremities: no calf tenderness, + pertinent finding (Edematous arms, bruises noted) Neurologic/Psychiatric: alert, normal mood/affect, oriented x 3 Skin: warm/dry, no rash (Alka. Calderón MD) Hospital Course 86 y/o female with a history of multiple myeloma, s/p recent thoracentesis, chronic diastolic CHF, CKD stage III, and pacer who presented due to worsening SOB. CXR shows congestive heart failure and bilateral pleural effusions. This patient was meant to be discharged (see previous discharge summary) but needed to be transferred to the ICU with hypotension s/p pleurex catheter placement in the face of advanced multiple myeloma. She was resuscitated with fluid boluses and PRBC's overnight - her blood pressure stabilized and her Levophed was weaned off early this morning. Cultures were drawn and she was started on broad spectrum antibiotics. CT scan of the abdomen and pelvis this morning showed, among other things, intra -abdominal bleeding. She has been seen by heme/onc, Dr. Corrigan and hand therapist, Dr. Canales and has made the decision to focus on comfort. The palliative care service has seen her and she is being transferred home later today with hospice services. Total Time Spent: Less than 30 minutes This includes examination of the patient, discharge planning, medication reconciliation, and communication with other providers. (Alka. Calderón MD) Resident Physician Supervision Note: I interviewed and examined the patient. Discussed with Dr. Calderón and agree with findings and plan as documented in the note. Any exceptions or clarifications are listed here: None Documented By: Estuardo Rendon wants to go home,pt had extensive discussions w heme/onc and palliative care. pt clear in decisions, understands prognosis, understands plans, wants to go home w hospice - set up. ros otherwise negative except for as above. vitals noted nad pleasant breathing unlabored. cn 2-12 grossly intact malignant effusion from myeloma /multiple myeloma w poor prognosis - comfort care, offered empathy and support of her decision. tylenol or roxanol prn pain , home w hospice Total Time Spent: Less than 30 minutes (Estuardo Rendon D.O.) Discharge Instructions Please refer to the electronic Patient Visit Report (Discharge Instructions) for additional information. (Alka. Calderón MD)
== END 2016-09-08 18:26 | disposition hospice, home (50) | DRG 840 ==
LOC: ENRESERVTM → ENRESERVDT → C.EDB 08:25 → C.MED 11:42 → EDBEDREQ 09-07 20:49 → C.MSICU 09-07 21:34 → OBSVTOIN 09-07 21:35
PROVIDERS: ADMIT Internal Medicine; ATTEND Internal Medicine
PROC: 0W993ZZ Drainage of Right Pleural Cavity, Percutaneous Approach (ICD-10-PCS; principal; 2016-09-06)
PROC: 0W993ZZ Drainage of Right Pleural Cavity, Percutaneous Approach (ICD-10-PCS; 2016-09-07)
DX: C90.00 Multiple myeloma not having achieved remission (principal); I50.33 Acute on chronic diastolic (congestive) heart failure; J91.0 Malignant pleural effusion; N17.9 Acute kidney failure, unspecified; J93.83 Other pneumothorax; Z51.5 Encounter for palliative care; K57.90 Diverticulosis of intestine, part unspecified, without perforation or abscess without bleeding; M81.0 Age-related osteoporosis without current pathological fracture; D64.9 Anemia, unspecified; E87.6 Hypokalemia; Z95.0 Presence of cardiac pacemaker; E88.09 Other disorders of plasma-protein metabolism, not elsewhere classified; N18.3 Chronic kidney disease, stage 3 (moderate); E83.42 Hypomagnesemia; I12.9 Hypertensive chronic kidney disease with stage 1 through stage 4 chronic kidney disease, or unspecified chronic kidney disease